=== PATIENT | female | born 1955 | race Caucasian/White ===

== ENCOUNTER → 2016-09-23 | Outpatient (CLI) | payer OTHER ==
[~2016-09-23] MED LIST: ATOR-22 PO; GLC/500 PO; LISI-787 PO
[2016-09-23 10:13] LABS: ESTIMATED AVERAGE GLUCOSE 128 mg/dl; HA1C FLAG Normal (Normal)
[2016-09-23 10:14] LABS: ALT/SGPT 30 U/L (12-78); AST/SGOT 17 U/L (15-37); BLOOD UREA NITROGEN 15 mg/dl (7-18); CALCIUM 9.3 mg/dl (8.5-10.1); CARBON DIOXIDE 25 mmol/L (21-32); CHLORIDE 108 mmol/L (98-107); GLUCOSE 111 mg/dl (70-99); SODIUM 141 mmol/L (136-145)
== END | disposition home or self-care (01) ==
LOC: C.LAB 08:57
DX: E21.3 Hyperparathyroidism, unspecified (principal); I10 Essential (primary) hypertension; E78.5 Hyperlipidemia, unspecified; E03.9 Hypothyroidism, unspecified; R73.9 Hyperglycemia, unspecified

== ENCOUNTER → 2017-03-14 | Outpatient (CLI) | payer OTHER ==
[2017-03-14 10:19] LABS: ALT/SGPT 43 U/L (12-78); AST/SGOT 20 U/L (15-37); BLOOD UREA NITROGEN 15 mg/dl (7-18); BUN/CREATININE RATIO 17.8 (10-20); CALCIUM 9.4 mg/dl (8.5-10.1); CARBON DIOXIDE 26 mmol/L (21-32); CHLORIDE 107 mmol/L (98-107); CHOLESTEROL 160 mg/dl (0-200); CREATININE 0.84 mg/dl (0.60-1.20); GLUCOSE 120 mg/dl (70-99); POTASSIUM 4.2 mmol/L (3.5-5.1); SODIUM 140 mmol/L (136-145)
[2017-03-14 10:29] LABS: CHOLESTEROL/HDL RATIO 3.3; HDL CHOLESTEROL 49 mg/dl; LDL CHOLESTEROL CALCULATED 73 mg/dl; TRIGLYCERIDES 191 mg/dl (0-150); VERY LOW DENSITY LIPOPROT CALC 38 mg/dl
[2017-03-14 11:04] LABS: ESTIMATED AVERAGE GLUCOSE 134 mg/dl; HA1C FLAG Normal (Normal)
== END | disposition home or self-care (01) ==
LOC: C.LAB1850 08:18
DX: E03.9 Hypothyroidism, unspecified (principal); R73.9 Hyperglycemia, unspecified; E21.3 Hyperparathyroidism, unspecified; E78.5 Hyperlipidemia, unspecified

== ENCOUNTER → 2017-11-17 | Outpatient (CLI) | payer OTHER ==
[2017-11-17 09:41] LABS: ALT/SGPT 34 U/L (12-78); AST/SGOT 19 U/L (15-37); BLOOD UREA NITROGEN 15 mg/dl (7-18); CALCIUM 9.1 mg/dl (8.5-10.1); CARBON DIOXIDE 24 mmol/L (21-32); CREATININE 0.94 mg/dl (0.60-1.20); GLUCOSE 115 mg/dl (70-99); POTASSIUM 3.8 mmol/L (3.5-5.1); SODIUM 138 mmol/L (136-145)
[2017-11-17 09:50] LABS: HEMOGLOBIN A1C 6.3 % (4.5-5.6)
== END | disposition home or self-care (01) ==
LOC: C.LAB1850 08:27
DX: I10 Essential (primary) hypertension (principal); E78.5 Hyperlipidemia, unspecified; E55.9 Vitamin D deficiency, unspecified

== ENCOUNTER 2023-07-21 18:28 | Inpatient (IN) ==
[2023-07-21] MEDS ORDERED: SODIUM CHLORIDE 0.9% 500 ML IV SCH (19:15)
--- NOTE | 2023-07-21 19:18 | Emergency Department Note ---
Impression & Plan Infected pancreatic pseudocyst, Acute upper abdominal pain, Elevated liver enzymes, Dizziness, Failure of outpatient treatment, Hypokalemia ED Provider Note NAME: LOU CALABRESE AGE: 68 SEX: F : 1955 ARRIVES VIA: Walk-In INFORMANT: [Patient][family] ED PROVIDER(S): [Alfa Hansen MD] CHIEF COMPLAINT: Visual disturbance HISTORY OF PRESENT ILLNESS: The patient is a 68-year-old female with a history of pancreatitis and pancreatic stenting. She is scheduled to have her gallbladder removed sometime after [place]. The patient states that she was told to come for evaluation by her GI doctor as there was concern that she may be developing an infection. The patient states that for the last 2 days, she has had bouts of dizziness, headache and some blurred vision. She has had some bloating and some upper abdominal pain. No nausea, no diarrhea, no fever. She has not had respiratory complaints. The patient denies any one-sided weakness. She states that the episodes of blurry vision and dizziness seem to last maybe 10 or 15 minutes at a time. She does not think that the episodes are related to position change PMHx/PSHx/Social Hx: See Below PHYSICAL EXAM: GENERAL: Patient is in no acute distress. HEENT: No acute trauma, normocephalic atraumatic, mucous membranes moist, no nasal congestion. Extraocular muscles intact and full, no nystagmus. NECK: No stridor, no adenopathy, no meningismus, trachea is midline. LUNGS: Clear to auscultation bilaterally, no wheeze, no rhonchi, breath sounds equal. HEART: Without murmurs gallops or rubs, regular rate and rhythm. ABDOMEN: Soft, mildly tender in the epigastrium, no rebound, no significant abdominal distention. EXTREMITIES: No cyanosis, full range of motion of all the joints without pain or difficulty. NEUROLOGIC: Oriented x 3, no acute motor or sensory deficits, no focal weakness. No facial droop or speech slur, no extremity drift or cerebellar dysfunction, excellent historian. SKIN: No jaundice, no diaphoresis. DIFFERENTIAL DIAGNOSIS: Stroke or TIA, vertigo, dehydration, electrolyte imbalance, anemia, recurrent pancreatitis, UTI, among others EMERGENCY DEPARTMENT PROCEDURES: MEDICAL DECISION MAKING: There is no leukocytosis. A very mild anemia was seen. There is a normal platelet count. Patient's potassium was low at 2.8. No renal failure. There were some very subtle liver enzyme elevations. The bilirubin though was normal. ECG shows a normal sinus rhythm, no ischemia. Cardiac enzyme testing x 1 is not elevated and certainly goes against cardiac ischemia. Lipase was slightly high at 104. Patient appeared to be in a euthyroid state. Urinalysis did not show infection. Chest x-ray did not show pneumonia or CHF. No free air. Brain CT showed no acute bleed or mass effect. Abdominal and pelvis CT showed what appears to be an infected pancreatic pseudocyst with a drain in place. On my exam, there were no focal neurologic deficits. No speech slur or facial droop. The patient was not febrile or toxic. The patient was given IV saline, she received IV potassium, 2 bags. She was given IV Zosyn as antibiotic coverage. She received IV Protonix and IV Pepcid. I did reach out to our GI service, Dr. Cox felt transfer was in order. I did speak with Tavo KATZ, Dr. Elmore. He did accept the patient. Patient will be accepted by the hospitalist service at [facility] in [place]. Unfortunately, there is no bed available this evening. [facility] recommended admission to our facility until a bed opens. The patient is aware of her findings, I did speak with case management, the on- call hospitalist was consulted. Prior/Outside records/notes reviewed: ECG per my interpretation: Indication was dizziness. The ECG shows a normal sinus rhythm with a rate of 74. There is no ST elevation, no PVCs. The QTc is 401. Continuous Cardiac Monitoring per my interpretation: An order was placed for continuous cardiac monitoring. The monitor shows a rate of 78 with normal sinus rhythm. Imaging/x-ray results per my interpretation: Chest x-ray does not show mediastinal widening, pneumonia or pneumothorax. Chronic Medical/Social conditions affecting care: Pancreatitis. Care/Management discussed with: Meena KATZ-Dr. Elmore, [facility]-Dr. Cox, case management, the on-call hospitalist. Level of care consideration(s): After review of the information above and other included data: --I believe the patient requires escalation of care to admission DISPOSITION: Admission and eventual transfer to tertiary care Past Med/Surg History Medical History HLD (hyperlipidemia) DM II (diabetes mellitus, type II), controlled Hypertension Hyperparathyroidism (09/26/13) Surgical History Hx of appendectomy H/O section Family History Father Diabetes Mother Cancer Social History Smoking Status: Never smoker Second Hand Exposure: No; Do You Dip or Chew Tobacco: No; Hx Alcohol Use: No Hx Substance Use: No Preferred Language: Filipino Communication Ability: Effective Community Administrator Required: No Beliefs That Will Affect Care: None Current Living Situation: Spouse Feels Safe at Home: Yes Assistive Devices: None Allergies Allergies Allergy/AdvReac Type Severity Reaction Status Date / Time No Known Allergies Allergy Verified 07/21/23 19:33 Home Meds Home Medications Medication Instructions Recorded Confirmed lisinopril 20 1 tab PO DAILY 05/17/23 07/21/23 mg-hydrochlorothiazide 12.5 mg tablet Results & Data (ED) Vital Signs Vital Signs - 24 hr 07/21/23 18:32 07/21/23 18:53 07/21/23 18:54 Temperature 36.5 C Temperature Source Temporal Artery Scan Pulse Rate 101 H 79 79 Pulse Rate [Apical] Pulse Rate from SpO2 Sensor 80 Pulse Rhythm Regular Respiratory Rate 20 33 H Respiratory Effort / Characteristics Non-Labored Spontaneous Respiratory Depth Normal Blood Pressure 151/83 H Blood Pressure [Left Arm] Blood Pressure Mean 105 Blood Pressure Mean [Left Arm] Pulse Oximetry 97 96 Oxygen Delivery Method Room Air Sepsis Recent Fever Within 48 Hours No Sepsis New/Unexplained Change in Mental Status No Sepsis Action Taken by Nursing No Action Required 07/21/23 18:56 07/21/23 19:00 07/21/23 19:00 Temperature Temperature Source Pulse Rate 77 Pulse Rate [Apical] 78 Pulse Rate from SpO2 Sensor 78 Pulse Rhythm Respiratory Rate 18 25 H Respiratory Effort / Characteristics Respiratory Depth Blood Pressure 134/77 Blood Pressure [Left Arm] 135/81 Blood Pressure Mean 98 Blood Pressure Mean [Left Arm] 99 Pulse Oximetry 98 94 Oxygen Delivery Method Sepsis Recent Fever Within 48 Hours Sepsis New/Unexplained Change in Mental Status Sepsis Action Taken by Nursing 07/21/23 19:30 07/21/23 19:30 07/21/23 20:16 Temperature Temperature Source Pulse Rate 74 Pulse Rate [Apical] Pulse Rate from SpO2 Sensor 83 Pulse Rhythm Respiratory Rate 24 Respiratory Effort / Characteristics Respiratory Depth Blood Pressure 141/76 H Blood Pressure [Left Arm] Blood Pressure Mean 91 Blood Pressure Mean [Left Arm] Pulse Oximetry 96 Oxygen Delivery Method Sepsis Recent Fever Within 48 Hours Sepsis New/Unexplained Change in Mental Status Sepsis Action Taken by Nursing 07/21/23 20:30 Temperature Temperature Source Pulse Rate 72 Pulse Rate [Apical] Pulse Rate from SpO2 Sensor 72 Pulse Rhythm Respiratory Rate 19 Respiratory Effort / Characteristics Respiratory Depth Blood Pressure Blood Pressure [Left Arm] Blood Pressure Mean Blood Pressure Mean [Left Arm] Pulse Oximetry 96 Oxygen Delivery Method Sepsis Recent Fever Within 48 Hours Sepsis New/Unexplained Change in Mental Status Sepsis Action Taken by Detention Medications Current Medication List: was personally reviewed by me Laboratory Data Attestation: I reviewed the patient's lab results. 07/21/23 18:51 07/21/23 18:51 Lab Results 07/21/23 07/21/23 Range/Units 18:51 19:59 WBC 8.39 (4.8-10.8) K/ul RBC 4.08 L (4.20-5.40) M/uL Hgb 11.7 L (12.0-16.0) g/dl Hct 36.3 L (37.0-47.0) % MCV 89.0 (80.0-100.0) fL MCH 28.7 (25.0-34.0) pg MCHC 32.2 (32.0-36.0) g/dL RDW Std Deviation 43.7 (36.4-46.3) fL RDW Coeff of Jazmin 13.4 (11.5-14.5) % Plt Count 291 (130-400) K/uL MPV 11.9 (9.4-12.4) fL Immature Gran % (Auto) 0.2 % Neut % (Auto) 53.8 % Lymph % (Auto) 33.0 % Alcorn % (Auto) 10.8 % Eos % (Auto) 1.7 % Baso % (Auto) 0.5 % Neut # (Auto) 4.51 (1.40-6.50) K/uL Lymph # (Auto) 2.77 (1.20-3.40) K/uL Alcorn # (Auto) 0.91 H (0.11-0.59) K/uL Eos # (Auto) 0.14 (0.00-0.50) K/uL Baso # (Auto) 0.04 (0.00-0.20) K/uL Immature Gran # (Auto) 0.02 (0.01-0.20) K/uL Sodium 135 L (136-145) mmol/L Potassium 2.8 L (3.5-5.1) mmol/L Chloride 97 L (98-107) mmol/L Carbon Dioxide 29 (21-32) mmol/L Anion Gap 9 (3-11) BUN 9 (6-23) mg/dl Creatinine 0.55 L (0.6-1.2) mg/dl Est Cr Clr Drug Dosing 82.2 ml/min Est GFR ( Amer) 110.1 ml/min Est GFR (Non-Af Amer) 95.0 ml/min BUN/Creatinine Ratio 16.4 (10-20) Glucose 159 H (70-99(Fasting)) mg/dl Calcium 10.1 (8.6-10.3) mg/dl Magnesium 1.7 (1.7-2.4) mg/dl Total Bilirubin 0.6 (0.2-1.0) mg/dl AST 44 H (13-39) U/L ALT 37 (7-52) U/L Alkaline Phosphatase 213 H (34-104) U/L Troponin I High Sens 6.7 (0-14) pg/ml Total Protein 7.2 (6.0-8.3) gm/dl Albumin 3.8 (3.4-5.0) gm/dl Globulin 3.4 (2.5-4.0) gm/dl Albumin/Globulin Ratio 1.1 (0.9-2) Lipase 104 H (11-82) U/L TSH 4.098 (0.300-4.500) uIu/ml Urine Color Yellow Urine Appearance Clear (Clear) Urine pH 6.5 (4.5-7.5) Ur Specific [place] 1.011 (1.000-1.030) Urine Protein Negative (Negative) Urine Glucose (UA) Negative (Negative) Urine Ketones Negative (Negative) Urine Blood Negative (Negative) Urine Nitrite Negative (Negative) Urine Bilirubin Negative (Negative) Urine Urobilinogen Negative (Negative) Ur Leukocyte Esterase Negative (Negative) Administered Medications Discontinued Medications Sodium Chloride (Nss) 500 mls @ 999 mls/hr IV .Q31M ISAC Stop: 07/21/23 19:45 Last Infusion: 07/21/23 21:01 Dose: Infused Documented By: Admin: 07/21/23 20:17 Dose: 999 mls/hr Documented By: Potassium Chloride (K Luca / Wtr) 10 meq in 100 mls @ 100 mls/hr IV Q1H ISAC Stop: 07/21/23 21:59 Last Admin: 07/21/23 21:41 Dose: 100 mls/hr Documented By: Infusion: 07/21/23 21:41 Dose: Infused Documented By: Admin: 07/21/23 20:17 Dose: 100 mls/hr Documented By: Famotidine (Pepcid 20mg Iv Push) 20 mg in 5 mls @ 2.5 mls/min IV NOW STA Stop: 07/21/23 21:36 Last Admin: 07/21/23 21:54 Dose: 2.5 mls/min Documented By: Pantoprazole Sodium 40 mg/ (Syringe) 10 mls @ 5 mls/min IV NOW ONE Stop: 07/21/23 21:36 Last Admin: 07/21/23 21:54 Dose: 5 mls/min Documented By: Piperacillin Sod/Tazobactam Sod (Zosyn) 4.5 gm in 120 mls @ 240 mls/hr IV NOW ONE Stop: 07/21/23 22:04 Last Infusion: 07/21/23 22:45 Dose: Infused Documented By: Admin: 07/21/23 21:54 Dose: 240 mls/hr Documented By: Ioversol (Optiray 320 500ml) 82 ml IV ONCE ONE Stop: 07/21/23 20:06 Last Admin: 07/21/23 20:06 Dose: 82 ml Documented By: IZABEL Imaging Data Radiologist's Impression: Chest X-Ray 07/21/23 19:12 SINGLE VIEW CHEST CLINICAL HISTORY: Generalized weakness. FINDINGS: An AP, portable, upright chest radiograph is compared to study dated 05/19/2023. The cardiomediastinal silhouette is top normal for projection. Chronic interstitial thickening is similar to previous. There is minimal bibasilar atelectasis. The lungs and pleural spaces are otherwise clear. No pneumothorax is seen. The skeletal structures are osteopenic. The bony thorax is grossly intact. A catheter projects over the left upper quadrant. IMPRESSION: No active disease in the chest. ACT 112: Negative or not required by law. Electronically signed by: Alfa Harris M.D. 07/21/2023 8:[address] 07/21/23 19:12 Exam(s): CT HEAD Without Contrast EXAM: CT Head Without Intravenous Contrast CLINICAL HISTORY: Reason for exam: dizzy, cardona. TECHNIQUE: Axial computed tomography images of the head/brain without intravenous contrast. CTDI is 35.65 mGy and DLP is 546.36 mGy-cm. Automated exposure control was utilized for the study. A dose lowering technique was utilized adhering to the principles of ALARA. COMPARISON: No relevant prior studies available. FINDINGS: No acute intracranial hemorrhage. No midline shift or mass effect. The territorial mendez-white matter differentiation is maintained throughout. Age-related cerebral volume loss. Periventricular and subcortical white matter hypoattenuation, consistent with chronic microangiopathy. The visualized orbits appear grossly unremarkable. The calvarium is intact. The visualized paranasal sinuses and mastoid air cells are grossly clear. IMPRESSION: No acute intracranial hemorrhage, midline shift, or mass effect. Electronically signed by: Emery Robert MD 07/21/23 20:32 PM Abdomen/Pelvis CT 07/21/23 19:13 Exam(s): CT ABDOMEN + PELVIS With Contrast IV Amt: 82 ml optiray 320 EXAM: CT Abdomen and Pelvis With Intravenous Contrast CLINICAL HISTORY: Reason for exam: upper abd pain, histor of pancreatitis. TECHNIQUE: Axial computed tomography images of the abdomen and pelvis with intravenous contrast. CTDI is 18.32 mGy and DLP is 884.59 mGy-cm. Automated exposure control was utilized for the study. A dose lowering technique was utilized adhering to the principles of ALARA. CONTRAST: Patient received 82 ml optiray 320 of IV contrast COMPARISON: CT abdomen and pelvis May 23, 2023. FINDINGS: Lung bases: Unremarkable. No mass. No consolidation. ABDOMEN: Liver: Unremarkable. No mass. Gallbladder and bile ducts: Layering sludge versus old contrast in the gallbladder. No calcified stones. No ductal dilation. Pancreas: Unremarkable. No mass. No ductal dilation. Spleen: Unremarkable. No splenomegaly. Adrenals: Unremarkable. No mass. Kidneys and ureters: Renal cysts. No hydronephrosis. Stomach and bowel: Diverticulosis, without acute diverticulitis. No small bowel obstruction. No free intraperitoneal air. PELVIS: Appendix: Normal appendix. Bladder: Decompressed urinary bladder. Reproductive: Unremarkable as visualized. ABDOMEN and PELVIS: Intraperitoneal space: Unremarkable. No free air. No significant fluid collection. Bones/joints: Degenerative changes of the spine. No acute fracture. No dislocation. Soft tissues: Unremarkable. Vasculature: Atherosclerotic changes of the aorta. No abdominal aortic aneurysm. Lymph nodes: Unremarkable. No enlarged lymph nodes. Tubes, lines and devices: Fluid collection with multiple locules of air adhering to the pancreas measuring 5.0 x 5.6 cm, concerning for infected pancreatic pseudocyst. There is an indwelling pigtail catheter traversing the stomach in this collection. This collection was not present on May 23, 2023. IMPRESSION: Fluid collection with multiple locules of air adhering to the pancreas measuring 5.0 x 5.6 cm, concerning for infected pancreatic pseudocyst. Indwelling pigtail catheter traversing the stomach, now within this collection. This collection was not present on May 23, 2023. Electronically signed by: Emery Robert MD 07/21/23 21:20 PM Discharge Plan Visit Data Chief Complaint: Visual Disturbance Stated Complaint: BLURRED VISION, DIZZY, LETHARGIC, WEAK, HEADACHE ED Provider: Alfa Hansen Discharge Problem: Infected pancreatic pseudocyst, Acute upper abdominal pain, Elevated liver enzymes, Dizziness, Failure of outpatient treatment, Hypokalemia Patient Disposition: Admitted As Inpatient Condition: Fair Forms Stand Alone Forms: [facility] Prescriptions Prescriptions: No Action lisinopril-hydrochlorothiazide 20-12.5 mg tablet 1 tab PO DAILY Referrals Referrals: Elana Mcgarry PA-C [Primary Care Provider] -
[2023-07-21 19:47] LABS: Albumin Globulin Ratio 1.1 (0.9-2); Albumin Level 3.8 gm/dl (3.4-5.0); BUN Creatinine Ratio 16.4 (10-20); Bilirubin,Total 0.6 mg/dl (0.2-1.0); Calcium 10.1 mg/dl (8.6-10.3); Creatinine Clr Calc Pharmacy 82.2 ml/min; Est GFR (African American) 110.1 ml/min; Globulin 3.4 gm/dl (2.5-4.0); Magnesium 1.7 mg/dl (1.7-2.4); Potassium 2.8 mmol/L (3.5-5.1); Total Protein 7.2 gm/dl (6.0-8.3)
[2023-07-21 19:54] LABS: Troponin I High Sensitivity 6.7 pg/ml (0-14)
[2023-07-21 20:03] LABS: Basophils # (auto) 0.04 K/uL (0.00-0.20); Basophils % (auto) 0.5 %; Eosinophils # (auto) 0.14 K/uL (0.00-0.50); Eosinophils % (auto) 1.7 %; Hematocrit (blood only) 36.3 % (37.0-47.0); Hemoglobin 11.7 g/dl (12.0-16.0); Immature Granulocytes # (auto) 0.02 K/uL (0.01-0.20); Immature Granulocytes % (auto) 0.2 %; Lymphocytes # (auto) 2.77 K/uL (1.20-3.40); Mean Corpuscular Hemoglobin 28.7 pg (25.0-34.0); Mean Corpuscular Hgb Conc 32.2 g/dL (32.0-36.0); Mean Platelet Volume 11.9 fL (9.4-12.4); Monocytes # (auto) 0.91 K/uL (0.11-0.59); Monocytes % (auto) 10.8 %; Neutrophils # (auto) 4.51 K/uL (1.40-6.50); Neutrophils % (auto) 53.8 %; Platelet Count 291 K/uL (130-400); RDW Coefficient of Variation 13.4 % (11.5-14.5); RDW Standard Deviation 43.7 fL (36.4-46.3); Red Blood Count 4.08 M/uL (4.20-5.40); Thyroid Stimulating Hormone 4.098 uIu/ml (0.300-4.500); White Blood Count 8.39 K/ul (4.8-10.8)
[2023-07-21] MEDS ORDERED: OPTIRAY 320 500ml IV ONE (20:05)
[2023-07-21 20:11] LABS: Appearance Urine Clear (Clear); Bilirubin Urine Negative (Negative); Blood Urine Negative (Negative); Color Urine Yellow; Glucose Urine UA Negative (Negative); Ketones Urine Negative (Negative); Leukocyte Esterase Urine Negative (Negative); Nitrite Urine Negative (Negative); Protein Urine Negative (Negative); Specific Gravity Urine 1.011 (1.000-1.030); Urobilinogen Urine Negative (Negative); pH Urine 6.5 (4.5-7.5)
[2023-07-21] MEDS: POTASSIUM CHLORIDE / WTR 10 MEQ/100 ML PLCT IV SCH ×2 (20:17→21:41)
--- NOTE | 2023-07-21 20:34 | CT Scan Report ---
Exam(s): CT HEAD Without Contrast EXAM: CT Head Without Intravenous Contrast CLINICAL HISTORY: Reason for exam: dizzy, cardona. TECHNIQUE: Axial computed tomography images of the head/brain without intravenous contrast. CTDI is 35.65 mGy and DLP is 546.36 mGy-cm. Automated exposure control was utilized for the study. A dose lowering technique was utilized adhering to the principles of ALARA. COMPARISON: No relevant prior studies available. FINDINGS: No acute intracranial hemorrhage. No midline shift or mass effect. The territorial mendez-white matter differentiation is maintained throughout. Age-related cerebral volume loss. Periventricular and subcortical white matter hypoattenuation, consistent with chronic microangiopathy. The visualized orbits appear grossly unremarkable. The calvarium is intact. The visualized paranasal sinuses and mastoid air cells are grossly clear. IMPRESSION: No acute intracranial hemorrhage, midline shift, or mass effect. Electronically signed by: Emery Robert MD 07/21/23 20:32 PM
--- NOTE | 2023-07-21 20:59 | XRay Report ---
SINGLE VIEW CHEST CLINICAL HISTORY: Generalized weakness. FINDINGS: An AP, portable, upright chest radiograph is compared to study dated 05/19/2023. The cardio mediastinal silhouette is top normal for projection. Chronic interstitial thickening is similar to pr evious. There is minimal bibasilar atelectasis. The lungs and pleural spaces are otherwise clear. No pneumothorax is seen. The skeletal structures are osteopenic. The bony thorax is grossly intact. A ca theter projects over the left upper quadrant. IMPRESSION: No active disease in the chest. ACT 112: Negative or not required by law. Electronically signed by: Alfa Harris M.D. 07/21/2023 8:58 PM
--- NOTE | 2023-07-21 21:20 | CT Scan Report ---
Exam(s): CT ABDOMEN + PELVIS With Contrast IV Amt: 82 ml optiray 320 EXAM: CT Abdomen and Pelvis With Intravenous Contrast CLINICAL HISTORY: Reason for exam: upper abd pain, histor of pancreatitis. TECHNIQUE: Axial computed tomography images of the abdomen and pelvis with intravenous contrast. CTDI is 18.32 mGy and DLP is 884.59 mGy-cm. Automated exposure control was utilized for the study. A dose lowering technique was utilized adhering to the principles of ALARA. CONTRAST: Patient received 82 ml optiray 320 of IV contrast COMPARISON: CT abdomen and pelvis May 23, 2023. FINDINGS: Lung bases: Unremarkable. No mass. No consolidation. ABDOMEN: Liver: Unremarkable. No mass. Gallbladder and bile ducts: Layering sludge versus old contrast in the gallbladder. No calcified stones. No ductal dilation. Pancreas: Unremarkable. No mass. No ductal dilation. Spleen: Unremarkable. No splenomegaly. Adrenals: Unremarkable. No mass. Kidneys and ureters: Renal cysts. No hydronephrosis. Stomach and bowel: Diverticulosis, without acute diverticulitis. No small bowel obstruction. No free intraperitoneal air. PELVIS: Appendix: Normal appendix. Bladder: Decompressed urinary bladder. Reproductive: Unremarkable as visualized. ABDOMEN and PELVIS: Intraperitoneal space: Unremarkable. No free air. No significant fluid collection. Bones/joints: Degenerative changes of the spine. No acute fracture. No dislocation. Soft tissues: Unremarkable. Vasculature: Atherosclerotic changes of the aorta. No abdominal aortic aneurysm. Lymph nodes: Unremarkable. No enlarged lymph nodes. Tubes, lines and devices: Fluid collection with multiple locules of air adhering to the pancreas measuring 5.0 x 5.6 cm, concerning for infected pancreatic pseudocyst. There is an indwelling pigtail catheter traversing the stomach in this collection. This collection was not present on May 23, 2023. IMPRESSION: Fluid collection with multiple locules of air adhering to the pancreas measuring 5.0 x 5.6 cm, concerning for infected pancreatic pseudocyst. Indwelling pigtail catheter traversing the stomach, now within this collection. This collection was not present on May 23, 2023. Electronically signed by: Emery Robert MD 07/21/23 21:20 PM
[2023-07-21] MEDS ORDERED: PIPERACILLIN/TAZOBACTAM 4.5 GM/120 ML BAG IV ONE (21:35)
[2023-07-21] MEDS ORDERED: PANTOprazole 40 MG in SYRINGE 0 ML IV ONE (21:35)
[2023-07-21] MEDS ORDERED: FAMOTIDINE 20MG IV PUSH 20 MG/5 ML SYR IV STA (21:35)
[2023-07-21] MEDS ORDERED: POTASSIUM CHLORIDE CRTAB 20 MEQ TABCR PO STA (22:50)
[2023-07-21] MEDS ORDERED: MAGNESIUM SULFATE / D5W 1 GM/100 ML BAG IV STA (23:05)
[2023-07-21] MEDS ORDERED: POTASSIUM CHLORIDE PWD 20 MEQ PACK PO STA (23:29)
--- NOTE | 2023-07-21 23:30 | History & Physical Report ---
Date of Service July 21, 2023 Assessment & Plan (1) Infected pancreatic pseudocyst: Plan: History necrotizing gallstone pancreatitis No sepsis for now Hypokalemia secondary to decreased p.o. intake from illness Transient headache preceded by visual spots on the right eye, possible migraine, patient currently comfortable HTN, stable hyperlipidemia, on statin Rx hyperparathyroidism as per records, serum calcium within normal limits DM2 diet-controlled, hemoglobin A1c noted to be 6.6 during confinement 2 months ago, patient unaware of diagnosis chronic anemia, hemoglobin at baseline Hypokalemia secondary to decreased p.o. intake and home diuretic Rx F Transfer to [facility] once bed available. Patient accepted for transfer by hospitalist service (Dr. Bacon) after discussion of case with [facility] GI specialist, Dr. Elmore. GI recommends n.p.o. status and continuing Zosyn for now. Transfer paperwork already completed by ER provider. Replace potassium Hold home diuretic for now. ISS BG goal 1 10-1 40, DM education DVT prophylaxis per Lovenox subcu Full code Patient requests for son to be updated of progress and transfer once bed available. Mr. Magno Horton, contact #[phone]. Text document was generated using [employer] voice recognition software. It may contain grammatical or spelling errors. Kindly contact undersigned for clarification of any documentation item in question. History of Present Illness Chief Complaint: Dizziness, worsening abdominal bloating Primary Care Provider: Elana Mcgarry PA-C History obtained from patient and records. Medical history significant for HTN, hyperlipidemia, history of gallstone pancreatitis, history of pancreatic pseudocyst/necrotizing pancreatitis, hyperparathyroidism as per records, DM2 diet-controlled (patient unaware of previous diagnosis), chronic anemia (baseline hemoglobin 10-11). Last confinement May 2023 for gallstone pancreatitis/acute cholecystitis. Repeat CAT scan done during confinement showed development of pancreatic necrosis. Patient received meropenem and discharged on cefdinir and Flagyl course. Outpatient cholecystectomy contemplated. Persistent abdominal bloating, decreased p.o. intake since discharge from the hospital. No fever, no chills, no chest pain, no SOB. Patient underwent outpatient endoscopic peripancreatic pseudocyst drainage via cystogastrostomy with stent placement by GI last month following General Surgery recommendations prior to cholecystectomy. Patient prescribed Cipro Flagyl course postprocedure. Outpatient CAT scan done 2 weeks ago following procedure showed 1. Redemonstration of sequelae of necrotizing pancreatitis with walled-off nec roses. Interval improvement from prior study, status post cysto gastrostomy catheter placement. 2. New hypodensities with the focus of fat in the right adnexal area may be sequelae of necrosis fat. Attention recommended on follow-up CT in 3 months. 3. Redemonstration of retroperitoneal nodularity, likely related to fat necrosis from prior pancreatitis. Attention recommended on follow-up. 4. Stones/sludge in the gallbladder. Worsening abdominal discomfort today. Transient spots noted on right eye followed by achy headache symptoms. No prior episodes. No chest pain, no SOB. Dizziness described as lightheadedness with generalized weakness. Patient brought to ER for evaluation. CAT scan of the abdomen pelvis showed infected pancreatic pseudocyst. IV Zosyn administered at the ER. [facility] GI specialist requested [facility] transfer for advanced endoscopic services. Patient accepted for transfer by hospitalist service after coordination with [facility] GI specialist pending bed availability as per ER provider. Medical History as above Surgical History : section, partial thyroidectomy, appendectomy Family History : DM Personal/Social history : Non-smoker, no EtOH intake, retired hospital cafeteria employee Allergies Allergy/AdvReac Type Severity Reaction Status Date / Time No Known Allergies Allergy Verified 07/21/23 19:33 Home Medications Medication Instructions Recorded Confirmed Type lisinopril 20 1 tab PO DAILY 05/17/23 07/21/23 History mg-hydrochlorothiazide 12.5 mg tablet Past Med/Surg History Medical History HLD (hyperlipidemia) DM II (diabetes mellitus, type II), controlled Hypertension Hyperparathyroidism (09/26/13) Surgical History Hx of appendectomy H/O section Family History Father Diabetes Mother Cancer Social History Smoking Status: Never smoker Second Hand Exposure: No; Do You Dip or Chew Tobacco: No; Hx Alcohol Use: No Hx Substance Use: No Preferred Language: Citizen Of [place] Communication Ability: Effective Drapery Maker Required: No Beliefs That Will Affect Care: None Current Living Situation: Alone Other Information That Helps Us Care for You: No Feels Safe at Home: Yes Safety Concerns: Feels Safe At This Time Assistive Devices: None Review of Systems Review of Systems: As per HPI, all other systems reviewed and negative Physical Exam Physical Exam: GENERAL: Comfortable, slightly anxious, pleasant, no respiratory distress SKIN: Normal color, warm HEENT: Wink palpebral conjunctivae, no ptosis, dry buccal mucosa NECK : Supple, no tenderness CHEST : CTA, no tenderness HEART : RRR, no obvious murmurs ABDOMEN: Some distention, epigastric tenderness EXTREMITIES : No LE swelling/tenderness, no other conspicuous deformities noted NEUROLOGIC : Coherent, no facial asymmetry, no other gross focality Results & Data Results & Data Vital Signs (Past 12 Hours) Vital Signs Temp Pulse Pulse Resp BP BP Pulse Ox 07/21/23 22:50 78 07/21/23 20:30 72 19 96 07/21/23 20:16 96 07/21/23 19:30 74 24 07/21/23 19:30 141/76 H 07/21/23 19:00 77 25 H 94 07/21/23 19:00 134/77 07/21/23 18:56 78 18 135/81 98 07/21/23 18:54 79 33 H 96 07/21/23 18:53 79 07/21/23 18:32 36.5 C 101 H 20 151/83 H 97 O2 Del Method 07/21/23 22:50 07/21/23 20:30 07/21/23 20:16 07/21/23 19:30 07/21/23 19:30 07/21/23 19:00 07/21/23 19:00 07/21/23 18:56 07/21/23 18:54 07/21/23 18:53 07/21/23 18:32 Room Air Laboratory Results Laboratory Results WBC 8.39 K/ul (4.8-10.8) 07/21/23 18:51 RBC 4.08 M/uL (4.20-5.40) L 07/21/23 18:51 Hgb 11.7 g/dl (12.0-16.0) L 07/21/23 18:51 Hct 36.3 % (37.0-47.0) L 07/21/23 18:51 MCV 89.0 fL (80.0-100.0) 07/21/23 18:51 MCH 28.7 pg (25.0-34.0) 07/21/23 18:51 MCHC 32.2 g/dL (32.0-36.0) 07/21/23 18:51 RDW Std Deviation 43.7 fL (36.4-46.3) 07/21/23 18:51 RDW Coeff of Jazmin 13.4 % (11.5-14.5) 07/21/23 18:51 Plt Count 291 K/uL (130-400) 07/21/23 18:51 MPV 11.9 fL (9.4-12.4) 07/21/23 18:51 Immature Gran % (Auto) 0.2 % 07/21/23 18:51 Neut % (Auto) 53.8 % 07/21/23 18:51 Lymph % (Auto) 33.0 % 07/21/23 18:51 Gladwin % (Auto) 10.8 % 07/21/23 18:51 Eos % (Auto) 1.7 % 07/21/23 18:51 Baso % (Auto) 0.5 % 07/21/23 18:51 Neut # (Auto) 4.51 K/uL (1.40-6.50) 07/21/23 18:51 Lymph # (Auto) 2.77 K/uL (1.20-3.40) 07/21/23 18:51 Gladwin # (Auto) 0.91 K/uL (0.11-0.59) H 07/21/23 18:51 Eos # (Auto) 0.14 K/uL (0.00-0.50) 07/21/23 18:51 Baso # (Auto) 0.04 K/uL (0.00-0.20) 07/21/23 18:51 Immature Gran # (Auto) 0.02 K/uL (0.01-0.20) 07/21/23 18:51 Sodium 135 mmol/L (136-145) L 07/21/23 18:51 Potassium 2.8 mmol/L (3.5-5.1) L 07/21/23 18:51 Chloride 97 mmol/L (98-107) L 07/21/23 18:51 Carbon Dioxide 29 mmol/L (21-32) 07/21/23 18:51 Anion Gap 9 (3-11) 07/21/23 18:51 BUN 9 mg/dl (6-23) 07/21/23 18:51 Creatinine 0.55 mg/dl (0.6-1.2) L 07/21/23 18:51 Est Cr Clr Drug Dosing 82.2 ml/min 07/21/23 18:51 Est GFR ( Amer) 110.1 ml/min 07/21/23 18:51 Est GFR (Non-Af Amer) 95.0 ml/min 07/21/23 18:51 BUN/Creatinine Ratio 16.4 (10-20) 07/21/23 18:51 Glucose 159 mg/dl (70-99(Fasting)) H 07/21/23 18:51 Calcium 10.1 mg/dl (8.6-10.3) 07/21/23 18:51 Magnesium 1.7 mg/dl (1.7-2.4) 07/21/23 18:51 Total Bilirubin 0.6 mg/dl (0.2-1.0) 07/21/23 18:51 AST 44 U/L (13-39) H 07/21/23 18:51 ALT 37 U/L (7-52) 07/21/23 18:51 Alkaline Phosphatase 213 U/L (34-104) H 07/21/23 18:51 Troponin I High Sens 6.7 pg/ml (0-14) 07/21/23 18:51 Total Protein 7.2 gm/dl (6.0-8.3) 07/21/23 18:51 Albumin 3.8 gm/dl (3.4-5.0) 07/21/23 18:51 Globulin 3.4 gm/dl (2.5-4.0) 07/21/23 18:51 Albumin/Globulin Ratio 1.1 (0.9-2) 07/21/23 18:51 Lipase 104 U/L (11-82) H 07/21/23 18:51 TSH 4.098 uIu/ml (0.300-4.500) 07/21/23 18:51 Urine Color Yellow 07/21/23 19:59 Urine Appearance Clear (Clear) 12/15/23 19:59 Urine pH 6.5 (4.5-7.5) 07/21/23 19:59 Ur Specific Martin 1.011 (1.000-1.030) 07/21/23 19:59 Urine Protein Negative (Negative) 07/21/23 19:59 Urine Glucose (UA) Negative (Negative) 07/21/23 19:59 Urine Ketones Negative (Negative) 07/21/23 19:59 Urine Blood Negative (Negative) 07/21/23 19:59 Urine Nitrite Negative (Negative) 07/21/23 19:59 Urine Bilirubin Negative (Negative) 07/21/23 19:59 Urine Urobilinogen Negative (Negative) 07/21/23 19:59 Ur Leukocyte Esterase Negative (Negative) 07/21/23 19:59 Impressions Chest X-Ray 07/21/23 19:12 SINGLE VIEW CHEST CLINICAL HISTORY: Generalized weakness. FINDINGS: An AP, portable, upright chest radiograph is compared to study dated 05/19/2023. The cardiomediastinal silhouette is top normal for projection. Chronic interstitial thickening is similar to previous. There is minimal bibasil ar atelectasis. The lungs and pleural spaces are otherwise clear. No pneumothorax is seen. The skeletal structures are osteopenic. The bony thorax is grossly intact. A catheter projects over the left upper quadrant. IMPRESSION: No active disease in the chest. ACT 112: Negative or not required by law. Electronically signed by: Alfa Harris M.D. 07/21/2023 8:[address] 07/21/23 19:12 Exam(s): CT HEAD Without Contrast EXAM: CT Head Without Intravenous Contrast CLINICAL HISTORY: Reason for exam: dizzy, cardona. TECHNIQUE: Axial computed tomography images of the head/brain without intravenous contrast. CTDI is 35.65 mGy and DLP is 546.36 mGy-cm. Automated exposure control was utilized for the study. A dose lowering technique was utilized adhering to the principles of ALARA. COMPARISON: No relevant prior studies available. FINDINGS: No acute intracranial hemorrhage. No midline shift or mass effect. The territorial mendez-white matter differentiation is maintained throughout. Age-related cerebral volume loss. Periventricular and subcortical white matter hypoattenuation, consistent with chronic microangiopathy. The visualized orbits appear grossly unremarkable. The calvarium is intact. The visualized paranasal sinuses and mastoid air cells are grossly clear. IMPRESSION: No acute intracranial hemorrhage, midline shift, or mass effect. Electronically signed by: Emery Robert MD 07/21/23 20:32 PM Abdomen/Pelvis CT 07/21/23 19:13 Exam(s): CT ABDOMEN + PELVIS With Contrast IV Amt: 82 ml optiray 320 EXAM: CT Abdomen and Pelvis With Intravenous Contrast CLINICAL HISTORY: Reason for exam: upper abd pain, histor of pancreatitis. TECHNIQUE: Axial computed tomography images of the abdomen and pelvis with intravenous contrast. CTDI is 18.32 mGy and DLP is 884.59 mGy-cm. Automated exposure control was utilized for the study. A dose lowering technique was utilized adhering to the principles of ALARA. CONTRAST: Patient received 82 ml optiray 320 of IV contrast COMPARISON: CT abdomen and pelvis May 23, 2023. FINDINGS: Lung bases: Unremarkable. No mass. No consolidation. ABDOMEN: Liver: Unremarkable. No mass. Gallbladder and bile ducts: Layering sludge versus old contrast in the gallbladder. No calcified stones. No ductal dilation. Pancreas: Unremarkable. No mass. No ductal dilation. Spleen: Unremarkable. No splenomegaly. Adrenals: Unremarkable. No mass. Kidneys and ureters: Renal cysts. No hydronephrosis. Stomach and bowel: Diverticulosis, without acute diverticulitis. No small bowel obstruction. No free intraperitoneal air. PELVIS: Appendix: Normal appendix. Bladder: Decompressed urinary bladder. Reproductive: Unremarkable as visualized. ABDOMEN and PELVIS: Intraperitoneal space: Unremarkable. No free air. No significant fluid collection. Bones/joints: Degenerative changes of the spine. No acute fracture. No dislocation. Soft tissues: Unremarkable. Vasculature: Atherosclerotic changes of the aorta. No abdominal aortic aneurysm. Lymph nodes: Unremarkable. No enlarged lymph nodes. Tubes, lines and devices: Fluid collection with multiple locules of air adhering to the pancreas measuring 5.0 x 5.6 cm, concerning for infected pancreatic pseudocyst. There is an indwelling pigtail catheter traversing the stomach in this collection. This collection was not present on May 23, 2023. IMPRESSION: Fluid collection with multiple locules of air adhering to the pancreas measuring 5.0 x 5.6 cm, concerning for infected pancreatic pseudocyst. Indwelling pigtail catheter traversing the stomach, now within this collection. This collection was not present on May 23, 2023. Electronically signed by: Emery Robert MD 07/21/23 21:20 PM Diagnostic Findings EKG as per my interpretation : Rate 75, NSR, LAD, LAFB, no ischemia
[2023-07-21] MEDS ORDERED: traMADol HCL 50 MG TABLET PO PRN (23:34)
[2023-07-21] MEDS ORDERED: MoRPHine SULFATE 2 MG/ML CARP IV PRN (23:34)
[2023-07-21] MEDS ORDERED: PROMETHAZINE HCL 6.25 MG in SODIUM CHLORIDE 0.9% 50 ML IV PRN (23:34)
[2023-07-21] MEDS ORDERED: LORazepam 0.5 MG TAB PO PRN (23:34)
[2023-07-21] MEDS ORDERED: POTASSIUM CHLORIDE 20 MEQ in LACTATED RINGER'S 1,000 ML IV STA (23:52)
[2023-07-22] MEDS ORDERED: POTASSIUM CHLORIDE CRTAB 20 MEQ TABCR PO STA ×3 (00:14→08:48)
[2023-07-22] MEDS ORDERED: GLUCOSE 40% GEL 15 GM TUBE PO PRN (00:44)
[2023-07-22] MEDS ORDERED: GLUCOSE 10 TAB/TUBE PO PRN (00:44)
[2023-07-22] MEDS ORDERED: GLUCAGON FOR INJ 1 MG VIAL SQ PRN (00:44)
[2023-07-22] MEDS ORDERED: DEXTROSE 50% 50 ML SYRINGE IV PRN (00:44)
[2023-07-22] MEDS ORDERED: CARBOHYDRATES FOR HYPOGLYCEMIA PO PRN (00:44)
[2023-07-22] MEDS: INSULIN ASPART PER UNIT CHARGE SC SCH ×4 (01:32→18:05)
[2023-07-22] MEDS: PIPERACILLIN/TAZOBACTAM 4.5 GM in DEXTROSE 5% MINI-B 100 ML IV SCH ×3 (04:55→19:27)
--- OUTSIDE RECORDS SUMMARY | 2023-07-22 05:45 | External Medical Summary | Summary of Care ---
Author Name Unknown Organization [facility] Address [address] [place] [address] Phone [phone] Care Team Providers Care Neurology Physician Name Role Phone Elana Mcgarry PA-C Primary Care Provider [phone] Reason for Visit * Reason Onset Date Comments Medication Refill 06/22/2023 Encounter Details Date Type Department Care Team (Late st Contact Info) Description 06/22/2023 Refill Gastroenterology, [facility] [address] [id number] Celeste Scott MD [address] [id number] Allergies Active Allergy Reactions Criticality Noted Date Comments Nickel 05/19/2022 Rash, reddened documented as of this encounter (statuses as of 06/23/2023) Medications Medication Sig Dispensed Refills Start Date End Date Status Atorvastatin Calcium 40 MG Oral Tablet (Lipitor) take one tablet by mouth daily 90 Tablet 3 09/26/2022 Active metFORMIN HCl 500 MG Oral Tablet (Glucophage) take one tablet twice daily 180 Tablet 3 09/26/2022 Active Lisinopril-hydroC HLOROthiazide 20-12.5 MG Oral Tablet take one tablet by mouth daily 90 Tablet 3 09/26/2022 Active D3 Super Strength 50 MCG (1999) Oral Capsule (Cholecalciferol) Indications:Vitam in D deficiency Take 1 Capsule by mouth once a week. 90 Capsule 2 10/26/2022 Active Probiotic 250 MG Oral Capsule take 2 capsules by mouth daily 30 Capsule 0 05/30/2023 Active Cefdinir 300 MG Oral Capsule (Omnicef) take 1 capsule (300 mg) orally twice a day for 5 days 10 Capsule 0 05/30/2023 Active Loperamide HCl 2 MG Oral Capsule (Imodium) take 1 capsule (2 mg) orally every 8 hours As Needed for dairrhea 20 Capsule 0 05/30/2023 Active Pantoprazole Sodium 40 MG Oral Tablet Delayed Release (Protonix) take 1 tablet (40 mg) orally daily in the morning 30 Tablet 0 05/30/2023 Active Vitamin B1 100 MG Oral Tablet take 1 tablet by mouth daily in the morning 30 Tablet 0 05/30/2023 Active Ciprofloxacin HCl 500 MG Oral Tablet (Cipro) Take 1 Tablet by mouth in the morning and 1 Tablet before bedtime. Do all this for 7 days. 14 Tablet 0 06/22/2023 06/29/2023 Active metroNIDAZOLE 500 MG Oral Tablet (Flagyl) Take 1 Tablet by mouth in the morning and 1 Tablet at noon and 1 Tablet before bedtime. Do all this for 7 days. 21 Tablet 0 06/22/2023 06/29/2023 Active metroNIDAZOLE 500 MG Oral Tablet (Flagyl) take 1 tablet (500 mg) orally every 8 hours 15 Tablet 0 05/30/2023 06/22/2023 Discontinued (Refill) documented as of this encounter (statuses as of 06/23/2023) Active Problems Problem Noted Date Diagnosed Date Gallstone pancreatitis 06/05/2023 Acute cholecystitis due to biliary calculus 05/09 H/O partial thyroidectomy 03/27/2023 Esophagitis determined by endoscopy 09/26/2022 HTN, goal below 140/90 09/23/2021 Hypercholesteremia 09/23/2021 Hyperlipidemia 09/23/2021 Vitamin D deficiency 06/28/2019 Osteopenia 06/28/2019 Hyperparathyroidism 09/26/2013 documented as of this encounter (statuses as of 06/23/2023) Immunizations Name Administration Dates Next Due COVID-19 mRNA, LNP-s, No Pre serve, 2-Dose Series (Pfizer) 02/12/2021,01/22/2021 Pneumococcal Conjugate Vacc, 13 Valent (Prevnar) 05/04/2020 Pneumococcal Conjugate Vaccine, 20-valent (Prevn ar20) 03/27/2023 Seasonal Influenza, Quadrivalent Hd (Fluzone Hd) 05/25/2022 Seasonal Influenza, Split, IIV3, With Preserve, Inj 05/10/2020 Seasonal Influenza, Trivalen t, High Dose, No Preserve, IM 06/13/2019 TDAP (age 10 and older)(Boostrix) 06/02/2015 Zoster Vaccine Recombinant (Shingrix) 01/31/2019 ,07/19/2018 documented as of this encounter Social History Tobacco Use Types Packs/Day Years Used Date Smoking Tobacco: Never Smokeless Tobacco: Never Alcohol Use Standard Drinks/Week Comments Never 0 (1 standard drink = 0.6 oz pur e alcohol) PHQ-2 Answer Date Recorded PHQ Adult Total Score 0 03/27/2023 Sex and Gender Information Value Date Recorded Sex Assigned at Not on file Gender Identity Not on file Sexual Orientation Not on file Job Start Date Occupation Industry Not on file Not on file Not on file documented as of this encounter Miscellaneous Notes * Telephone Encounter - Jewel Mcgraw OSA - 06/23/2023 9:[address] order for scheduling purposes Thank you * Telephone Encounter - Celeste Scott MD - 06/22/2023 4:59 PM EST Please schedule CT scan abdomen in 2 weeks. documented in this encounter Plan of Treatment Upcoming Encounters Date Type Department Care Team (Late st Contact Info) Description 09/27/2023 11:00 AM EST Office Visit Family Practice [facility] [address] [place] [id number] Elana Mcgarry PA-C [address] [place] [phone] Health Maintenance Due Date Last Done Comments Fecal Occult Blood Test 1998 Sigmoidoscopy 1998 Hepatitis B (1 of 3 - Risk 3-dose series) 2013 Colonoscopy 08/13/2020 08/13/2010, 08/13/2010 COVID-19 Vaccine (3 - 2022-2 4 season) 2023 02/12/2021, 01/22/2021 Influenza Vaccine (FLU shot) (#1) 2023 05/25/2022, 05/10/2020, 06/13/2019 Cologuard 06/07/2023 06/07/2020, 06/01/2020 Colorectal Cancer Screening 06/07/2023 Depression Screening 03/27/2024 03/27/2023 Mammogram 04/19/2024 04/19/2023, 09/29/2021, 11/01/2018 GFR 06/05/2024 06/05/2023, 03/20/2023, 09/27/2021 DTaP,Tdap,and Td Vaccines (2 - Td or Tdap) 06/02/2025 06/02/2015 DXA Scan 11/01/2025 11/01/2018 Albumin/Creatinine Ratio 03/20/2026 023, 03/23/2022 Lipid Panel 03/20/2028 03/20/2023, 09/27/2021 Zoster Vaccines Completed 01/31/2019, 07/19/2018 Pneumococcal Vaccine: 65+ Years Completed 03/27/2023, 05/04/2020 GARDASIL-HPV IMMUNIZATION SERIES Aged Out No longer eligible b ased on patient's age to complete this topic MENINGOCOCCAL (MENACTRA/MENVEO) Aged Out No longer eligible b ased on patient's age to complete this topic documented as of this encounter Medical Devices Implanted Type Area Doors Prefitter Device Identifier Shelf Expiration Date Model / Serial / Lot Stnt Pt Dbl [id number] - [id number] Implanted:Qty: 1 on 06/22/2023 by Celeste Scott MD at OR [facility] : ENDOSCOPY [id number] 01/17/2025 [id number] / / [id number] documented as of this encounter Care Teams Neurology Physician Relationship Specialty Start Date End Date MalgorzataNovember NURY Gu [address] [facility] [place] [id number] PCP - General Physician Social Media Senior Associate 05/20/22 documented as of this encounter
--- OUTSIDE RECORDS SUMMARY | 2023-07-22 05:45 | External Medical Summary | Summary of Care ---
Author Name Unknown Organization [facility] Address [address] [place] [address] Phone [phone] Care Team Providers Care Groundskeeper Porter Name Role Phone Elana Mcgarry PA-C Primary Care Provider [phone] Reason for Visit * Auth/Cert Specialty Diagnoses / Procedures Referred By Sean kevin Referred To Contact Diagnoses Acute biliary pancreatitis with uninfected necrosis Acute biliary pancreatitis with uninfected necrosis [K85.11] Procedures EGD, FLEXIBLE, W/CYST DRAINAGE ESOPHAGOGASTRODUODENOSCOPY (EGD), FLEXIBLE, TRANSORAL, WITH DRAINAGE PSEUDOCYST Referral ID Status Reason Start Date Expiration Date Visits Re quested Visits Authorized [id number] Encounter Details Date Type Department Care Team (Latest Contact Info) Description 06/22/2023 11:15 AM EST - 06/22/2023 5:10 PM EST Hospital Encounter OR GL, Operating Room, Main [facility] - 4th Floor [address] [id number] Celeste Scott MD [address] [id number] Various: UEUS,KRAVS Discharge Disposition: Home - Self Care Allergies Active Allergy Reactions Criticality Noted Date [...] 09/26/2022 Active D3 Super Strength 50 MCG (2000 UT) Oral Capsule (Cholecalciferol) Indications:Vitam in D deficiency [...] the morning 30 Tablet 0 05/30/2023 Active metroNIDAZOLE 500 MG Oral Tablet (Flagyl) [...] on file documented as of this encounter Last Filed Vital Signs Vital Sign Reading Time Taken Comments Blood Pressure 137/79 06/22/2023 5:08 PM EST Pulse 70 06/22/2023 5:08 PM EST Temperature 37.1 C (98.8 F) 06/22/2023 5:08 PM ES T Respiratory Rate 16 06/22/2023 5:08 PM EST Oxygen Saturation 98% 06/22/2023 5:08 PM EST Inhaled Oxygen Concentration - - Weight 71.2 kg (157 lb) 06/22/2023 12:27 PM EST Height 167.1 cm (5' 5.79") 06/22/2023 12:[address] Body Mass Index 25.5 06/22/2023 12:27 PM EST documented in this encounter H&P Notes * Celeste Scott MD - 06/22/2023 12:32 PM EST Endoscopy Pre-Procedure Assessment Name: Iliana Horton Date: 06/22/2023 Time: 12:32 PM Procedure(s): Endoscopic Ultrasound; with Indication(s) of Pseudocyst/WON drainage with Pigtail or Axios stent. Endoscopy Pre-Procedure Assessment: Prior to the procedure, the patient was identified. The patient's history, medications and allergies were reviewed as per the Anesthesia Assessment. The patient is competent. The risks and benefits of the proposed procedure and the planned sedation were discussed with the patient. All questions were answered and informed consent for the procedure was obtained. BP 147/91 | Pulse 89 | Temp 36.3 C (97.3 F) (Temporal Artery) | Resp 16 | Ht 1.671 m (5' 5.79")| Wt 71.2 kg (157 lb) | LMP 08/13/2003 | SpO2 98% | BMI 25.50 kg/m | BSA 1.82 m Review of patient's allergies indicates: Allergen Reactions Nickel Rash, reddened Prior to Admission medications Medication Sig Last Dose Discont. Cefdinir 300 MG Oral Capsule (Omnicef) take 1 capsule (300 mg) orally twice a day for 5 days Past Month Loperamide HCl 2 MG Oral Capsule (Imodium) take 1 capsule (2 mg) orally every 8 hours As Needed fordairrhea Past Week metroNIDAZOLE 500 MG Oral Tablet (Flagyl) take 1 tablet (500 mg) orally every 8 hours 06/21/2023 Pantoprazole Sodium 40 MG Oral Tablet Delayed Release (Protonix) take 1 tablet (40 mg) orally dailyin the morning 06/21/2023 Probiotic 250 MG Oral Capsule take 2 capsules by mouth daily 06/21/2023 Vitamin B1 100 MG Oral Tablet take 1 tablet by mouth daily in the morning Unknown D3 Super Strength 50 MCG (2000 UT) Oral Capsule (Cholecalciferol) Take 1 Capsule by mouth once a week. Unknown Atorvastatin Calcium 40 MG Oral Tablet (Lipitor) take one tablet by mouth daily 06/21/2023 Lisinopril-hydroCHLOROthiazide 20-12.5 MG Oral Tablet take one tablet by mouth daily 06/21/2023 metFORMIN HCl 500 MG Oral Tablet (Glucophage) take one tablet twice daily Past Month Physical Exam: Mental Status Examination: alert and oriented. Airway Examination: normal oropharyngeal airway and neck mobility. Respiratory Examination: clear to auscultation. CV Examination: Regular rate and rythm, no murmurs. ASA Grade: III - A patient with severe systemic disease. After reviewing the risks and benefits, the patient was deemed in satisfactory condition to undergothe procedure. The anesthesia plan was to use general anesthesia. Patient was explained in detail regarding risks, benefits, limitations and alternatives of the above endoscopic procedure. Risks of intravenous sedation used for procedure were also explained. Risks include, but not limited to perforation, bleeding, infection, respiratory distress, cardiac arrest and . Risk of acute pancreatitis and necrosis if ERCP is done. Patient is also aware about the possibility of missed lesion. Patient's questions were answered. The patient verbalized understandingthe information and agreed to undergo the procedure. Discussed with the patient that he/she is at an explicit higher risk for complications in comparison to other patients Discussed risk of stent migration, gastric outlet obstruction, infection and others. Celeste Scott MD 06/22/2023 documented in this encounter Procedure Notes * Elana Mcgarry PA-C - 06/22/2023 12:43 PM ESTAssociated Order(s): UPPER ENDOSCOPIC U/S [facility] Patient Name: Iliana Horton Procedure Date: 06/22/2023 12:43 PM Date of : 1955 Admit Type: Outpatient Note Status: Finalized Date of : 1955 Admit Type: Outpatient Age: 68 Room: OR 5 Gender: Female Note Status: Finalized Procedure: Upper EUS Indications: For cyst enterostomy Providers: Celeste Scott MD (Doctor), Felicitas Hermosillo RN Referring MD: MIA Fuentes Medicines: General Anesthesia, Cipro 400 mg IV Complications: No immediate complications. Procedure: Pre-Anesthesia Assessment: - Prior to the procedure, a History and Physical was performed, and patient medications, allergies and sensitivities were reviewed. The patient's tolerance of previous anesthesia was reviewed. - The risks and benefits of the procedure and the sedation options and risks were discussed with the patient. All questions were answered and informed consent was obtained. - Patient identification and proposed procedure were verified prior to the procedure by the physician and the nurse. The procedure was verified in the procedure room. - Pre-procedure physical examination revealed no contraindications to sedation. After obtaining informed consent, the endoscope was passed under direct vision. All instruments were visually inspected immediately before and after removal from the patient to ensure they are fully intact. Throughout the procedure, the patient's blood pressure, pulse, and oxygen saturations were monitored continuously. The Endosonoscope was introduced through the mouth, and advanced to the second part of duodenum. The upper EUS was accomplished without difficulty. The patient tolerated the procedure well. Findings & Specimens: ENDOSONOGRAPHIC FINDING: : An anechoic lesion suggestive of a pseudocyst was identified in the pancreatic body area. The lesion measured 70 mm by 50 mm in maximal cross-sectional diameter. There were 2 compartments thinly septated. The outer wall of the lesion was thick. There was internal debris within the fluid-filled cavity. The decision was made to create a cystogastrostomy. Once an appropriate position in the stomach was identified, the common wall between the stomach and the cyst was interrogated utilizing color Doppler imaging to identify interposed vessels. The stomach wall and the cyst were punctured under endosonographic guidance with the 19 gauge needle. Necrotic fluid was aspirated. The cyst was injected with full strength ionic contrast and a cystogram was obtained under fluoroscopy. A long 0.025 inch Jagwire was inserted into the cyst under fluoroscopic guidance and allowed to coil several times. The cyst was punctured under endosonographic guidance with the [employer] Cystotome electrocautery device using pure cut current. The knife was retracted and the device was inserted into the cyst past the 10 Fr outer catheter. Pure cut current was again applied to form a fistula through the lumen. The openingwas dilated with a 6 mm balloon dilator. A 7 cm 7 Fr double pigtail stent was placed into the cyst through the cystogastrostomy. Impression: - A 70 mm pseudocyst was seen in the peripancreatic body area. Cystogastrostomy was performed using 7 Fr double pigtail plastic stent. Recommendation: - Discharge patient to home. - Perform CT scan (computed tomography) of the abdomen with contrast in 2 - 3 weeks. - PO Cipro/Flagyl for 7 days. - Return to referring physician. Celeste Scott MD 06/22/2023 3:24:31 PM This report has been signed electronically. Estimated Blood Loss: Estimated blood loss: none. documented in this encounter Nursing Notes * Gabrielle Sanchez RN - 06/22/2023 5:03 PM EST [facility] [address] [place] [address] [facility] Surgery Discharge Note Name: Iliana Horton Date: 06/22/2023 Time: 5:03 PM Discharge Disposition: Home Responsible adult as escort home: Daughter Transport Mode: Ambulatory Accompanied by: Brittanie Sanchez RN To: Car Belongings with patient: Yes Patient meets criteria to be transferred or discharged. * Paulino Prajapati RN - 06/22/2023 3:24 PM EST EGD/EUS with stent placement completed. Sedated by SUPER[employer]. See anesthesia record for VS and medications given. Pt tolerated procedure well with minimal gagging. Abd soft. Airway patent. Pt to recovery on L side with HOB elevated. Report to recovery room nurse. Bedside cleaning done. documented in this encounter Miscellaneous Notes * Pt Handout (on AVS) - Gabrielle Sanchez RN - 06/22/2023 4:54 PM EST Images from the original note were not included. [id number] Soft Diet Your healthcare provider has prescribed a soft diet. This means eating foods that are soft, low in fiber, and easy to digest. This diet is for people with digestive problems. This should not be confused with a soft diet that is prescribed for people with issues chewing and swallowing. A soft diet provides foods that are easy to chew and swallow. It will reduce or prevent stomach pain or discomfort. Foods should be bite-sized and very soft or moist. Follow your healthcare provider?s specific instructions about what foods and drinks you may have. The general guidelines below can help you get started on this diet. Beverages OK: Milk, tea, coffee, fruit juices, carbonated beverages, nutrition shakes, and drinks (Note: Thinliquids may be hard to swallow. They may need to be thickened.) Don't have: All are OK, unless they need to be thickened Breads and crackers OK: Refined white, wheat, or seedless rye bread; shun or soda crackers that have been moistened; plain rolls or bagels; very soft tortillas Don't have: Whole-grain breads, rolls, or bagels with nuts, raisins, or seeds; crackers, croutons, taco shells Cereals and grains OK: Cooked cereals, plain dry cereals that have been moistened, plain macaroni, spaghetti, noodles,rice Don't have: Whole-grain cereals and granola, or cereals containing bran, raisins, seeds or nuts; coconut; brown or wild rice Desserts and sweets OK: Moist cake; soft fruit pie with bottom crust only; soft cookies moistened in milk or other liquid; gelatin, custard, pudding, plain ice cream, plain sherbet, sugar, honey, clear jelly Don't have: Pastries, desserts, and ice cream that have nuts, coconut, seeds, or dried fruit; popcorn; chips of any kind, including potato chips and tortilla chips; jam, marmalade Eggs and cheese OK: Poached, soft boiled, or scrambled eggs; cottage cheese, ricotta cheese, cream cheese, cheese sauces, or cheese melted in other dishes Don't have: [place] fried eggs, cheese slices and cubes Fruits OK: Avocado, banana, baked peeled apple, applesauce, peeled ripe peaches or pears, canned fruit (apricots, cherries, peaches, pears), melons Don't have: Raw apple, dried fruits, coconut, jillian, pineapple, grapes, fruit jimmy, fruit snacks Meat and fish OK: All fresh meat, poultry, or fish that is cooked until tender Don't have: Meat, fish, or poultry that is fried; tough or stringy meat, including plascencia, sausage, bratwurst, jerky, corned beef Other protein foods OK: Tofu, baked beans, Don't have: Deep-fried tofu; crunchy peanut or other nut or seed butters; nuts or seeds that are whole or chopped Soups OK: All soups, but they may need to be thickened. Thin liquid may be too hard to swallow. Don't have: Soups made with stringy meat pieces or chunky vegetables Vegetables OK: Peeled and well-cooked potatoes or sweet potatoes; fresh, cooked, canned, or frozen vegetables without seeds, skin, or coarse fiber Don't have: Raw vegetables, deep-fried vegetables (such as tempura), and corn Last Reviewed Date: 03/07/202219990487-5848 [employer]. All rights reserved. This information is not intended as a substitute for professional medical care. Always follow your healthcare professional's instructions. * Pt Handout (on AVS) - Gabrielle Sanchez RN - 06/22/2023 4:53 PM EST Images from the original note were not included. [id number] Full Liquid Diet A full liquid diet is a middle step between a clear liquid diet and eating solid foods. A clear liquid diet allows only liquids you can see through. A full liquid diet allows thicker liquid foods, aslisted below. It can be anything that is liquid at room temperature. The full liquid diet may be used before or after surgery. Or it may be used if you have a digestive illness. It's also used beforesome medical tests. It's easy to digest and leaves little food in the stomach and intestines. A full liquid diet meets calorie and protein needs for your body with liquids only. If it's to be used for more than 5 days, your healthcare provider or dietitian may also order high-protein, high-calorie liquid supplements. These will give you extra vitamins and minerals. You may include the itemsbelow on a full liquid diet. Adults Adults should drink a total of 2 to 3 quarts of liquid per day. It may be easier to drink small frequent servings rather than a few large ones. People with severe kidney or heart disease may need to limit the amount of fluid they take in. Check with your provider. Cereals and soups. Creamy hot breakfast cereals (wheat or rice) thinned with milk, pureed soups (including pureed meats, bland vegetables, and white potatoes), tomato puree. Desserts. Gelatin, whipped topping, custard-style yogurt, pudding, custard, plain ice cream, sherbet, sorbet, frozen fruit juice bars. Drinks. Coffee, tea, cream, milk, milkshakes, fruit and vegetable juices, sodas, mineral water (plain or flavored), liquid gelatin, electrolyte replacement sports drinks. Other items. Salt, mild-flavored seasonings, chocolate flavoring, gravy, margarine, sugar, syrup, jelly, honey, hard candy (to suck on). Children Follow the healthcare provider?s instructions. Young children who are eating solid foods may be able to have the items listed above without problems. Be sure to follow these safety measures: Don't give hard candies to young children. The candies may cause choking. Children under 1 year old. Don't give cow's milk or honey. It may cause illness. Children under 2 years old. Ask your child?s provider if you should supplement your child?s dietwith oral rehydration solutions, which have electrolytes. You can buy these drinks at pharmacies and grocery stores. You don?t need a prescription. Children over 1 year old. Limit milk to 2 or 3 cups per day. Too much milk can make your child less hungry for other foods. Last Reviewed Date: 01/05/202219995567-8030 [employer]. All rights reserved. This information is not intended as a substitute for professional medical care. Always follow your healthcare professional's instructions. * Pt Handout (on AVS) - Gabrielle Sanchez RN - 06/22/2023 4:53 PM EST [id number] Discharge Instructions: Having a Full Liquid Diet Your healthcare provider prescribed a full liquid diet temporarily for you. You may have trouble swallowing solid foods. Or, you may have had surgery and not be ready for solid food or need to advance to solid foods gradually. Here's what you need to know about this type of diet. Home care Remember, this diet is temporary. You should not follow this diet longer than directed because it might not provide you with enough fiber, vitamins, and minerals. Contact your healthcare provider if you are on this diet for more than 5 days. You may need nutritional or vitamin supplements. Keep track of the amount of liquid that you drink and anything you eat while on this diet. Keep a log for your healthcare provider. Choose these foods Choose fruit juices without pulp, such as apple juice, grape juice, cranberry juice, and nectars. Choose drinks such as coffee, tea (hot or cold), fruit-flavored drinks, soda, water, milk (whole, skim, 1%, and 2%), cream, instant breakfast drinks, and liquid meal replacements. Choose desserts and snacks such as fruit ices (without chunks of fruit), plain or vanilla yogurt(without fruit chunks), plain gelatin, hard candy, frozen juice pops, custards, frozen yogurt, smoothies without chunks, ice cream (without nuts or candy), and pudding. Choose broth, bouillon, fat-free consomm, or strained cream soups. Choose thin, refined hot cereals, such as porridge, and grits. Don't eat these foods Don?t eat canned, fresh, or frozen fruit. Don?t eat soup with vegetables, noodles, rice, meat, or other chunks of food in it. Don?t eat vegetables, bread, whole cereal and grain products, meat, chicken, fish, eggs, meat substitutes (nuts and nut butters, tofu, soy), hard cheese, oils, butter, or margarine. Follow-up Make a follow-up appointment, or as advised. When to call your healthcare provider Call your healthcare provider right away if you have any of the following: Fever of 100.4F (38.0C) or higher, or as advised by your healthcare provider Diarrhea that lasts for more than 1 day Vomiting that does not stop Trouble urinating Trouble passing gas Abdominal pain with bloating and cramping Last Reviewed Date: 07/07/202219996326-0945 [employer]. All rights reserved. This information is not intended as a substitute for professional medical care. Always follow your healthcare professional's instructions. documented in this encounter Plan of Treatment Upcoming Encounters Date Type Department Care Team (Late st Contact Info) Description 09/27/2023 11:00 AM EST Office Visit [facility] [address] [place] [address] Elana Mcgarry PA-C [address] [place] [address] Health Maintenance Due Date Last Done Comments [...] this encounter Medical Devices Implanted Type Area Ground Operations Superintendent Device Identifier Shelf Expiration Date Model / Serial / Lot Stnt Pt Dbl [id number] - [id number] Implanted:Qty: 1 on 06/22/2023 by Celeste Scott MD at OR [facility] [employer] : ENDOSCOPY [id number] 01/17/2025 [id number] / / [id number] documented as of this encounter Procedures Procedure Name Priority Date/Time Associated Diagnosis Comments GLUCOSE METER, POINT OF CARE FE 06/22/2023 3:39 PM EST US ENDOSCOPIC Routine 06/22/2023 3:18 PM EST Gallstone pancreatitis FLUORO ERCP Routine 06/22/2023 3:16 PM EST UPPER ENDOSCOPIC U/S 06/22/2023 12:43 PM EST GLUCOSE METER, POINT OF CARE FE 06/22/2023 12:38 PM EST documented in this encounter Results * GLUCOSE METER, POINT OF CARE (06/22/2023 3:39 PM EST) Glucose Meter 89 70 - 120 mg/dL 06/22/2023 3:43 PM EST [facility] Blood Whole blood specimen / Unknown 06/22/2023 3:39 PM EST 06/22/2023 3:43 PM EST Celeste Scott MD LAB POINT OF CARE T EST DOCKED DEVICE UNSOLICITED RESULTS [facility] [address] [place] [address] * US ENDOSCOPIC (06/22/2023 3:18 PM EST) Narrative Scheduling, Silent - 06/22/2023 3:18 PM EST This is an imaging study not interpreted or resulted by a [facility] or [facility] contracted radiologist. Celeste Scott MD RAD ULTRASOUND * FLUORO ERCP (06/22/2023 3:16 PM EST) Narrative Scheduling, Silent - 06/22/2023 3:17 PM EST This procedure will not be read by a Radiologist. Please see operative note. Celeste ELMORE FLUOROSCOPY * UPPER ENDOSCOPIC U/S (06/22/2023 12:43 PM EST) 06/22/2023 12:4 3 PM EST Narrative Procedure Note Elana Mcgarry PA-C - 06/22/2023 12:43 PM EST [facility] Patient Name: Iliana Horton Procedure Date: 06/22/2023 12:43 PM Date of : 1955 Admit Type: Outpatient Note Status:Finalized Date of : 1955 Admit Type: Outpatient Age: 68 Room: OR 5 Gender: Female Note Status: Finalized Procedure: Upper EUS Indications: For cyst enterostomy Providers: Celeste Scott MD (Doctor), Felicitas Hermosillo RN Referring MD: MIA Fuentes Medicines: General Anesthesia, Cipro 400 mg IV Complications: No immediate complications. Procedure: Pre-Anesthesia Assessment: - Prior to the procedure, a History and Physicalwas performed, and patient medications, allergies and sensitivities werereviewed. The patient's tolerance of previous anesthesia was reviewed. - The risks and benefits of the procedure and thesedation options and risks were discussed with the patient. All questions wereanswered and informed consent was obtained. - Patient identification and proposed procedurewere verified prior to the procedure by the physician and the nurse. The procedure wasverified in the procedure room. - Pre-procedure physical examination revealed nocontraindications to sedation. After obtaining informed consent, the endoscope waspassed under direct vision. All instruments were visually inspected immediatelybefore and after removal from the patient to ensure they are fully intact. Throughoutthe procedure, the patient's blood pressure, pulse, and oxygen saturations weremonitored continuously. The Endosonoscope was introduced through the mouth, andadvanced to the second part of duodenum. The upper EUS was accomplished withoutdifficulty. The patient tolerated the procedure well. Findings & Specimens: ENDOSONOGRAPHIC FINDING: : An anechoic lesion suggestive of a pseudocyst was identified in thepancreatic body area. The lesion measured 70 mm by 50 mm in maximal cross-sectional diameter. Therewere 2 compartments thinly septated. The outer wall of the lesion was thick. There was internal debriswithin the fluid-filled cavity. The decision was made to create a cystogastrostomy. Once an appropriateposition in the stomach was identified, the common wall between the stomach and the cyst wasinterrogated utilizing color Doppler imaging to identify interposed vessels. The stomach wall and the cystwere punctured under endosonographic guidance with the 19 gauge needle. Necrotic fluid wasaspirated. The cyst was injected with full strength ionic contrast and a cystogram was obtained underfluoroscopy. A long 0.025 inch Jagwire was inserted into the cyst under fluoroscopic guidance andallowed to coil several times. The cyst was punctured under endosonographic guidance with the [employer] HealthCystotome electrocautery device using pure cut current. The knife was retracted and the device was insertedinto the cyst past the 10 Fr outer catheter. Pure cut current was again applied to form a fistulathrough the lumen. The opening was dilated with a 6 mm balloon dilator. A 7 cm 7 Fr double pigtail stentwas placed into the cyst through the cystogastrostomy. Impression: - A 70 mm pseudocyst was seen in the peripancreaticbody area. Cystogastrostomy was performed using 7 Fr double pigtail plasticstent. Recommendation: - Discharge patient to home. - Perform CT scan (computed tomography) of theabdomen with contrast in 2 - 3 weeks. - PO Cipro/Flagyl for 7 days. - Return to referring physician. Celeste Scott MD 06/22/2023 3:24:31 PM This report has been signed electronically. Estimated Blood Loss: Estimated blood loss: none. November Brittanie Mcgarry PA-C GASTRO UPPER * GLUCOSE METER, POINT OF CARE (06/22/2023 12:38 PM EST) Glucose Meter 96 70 - 120 mg/dL 06/22/2023 12:40 PM EST [facility] Blood Whole blood specimen / Unknown 06/22/2023 12:38 PM EST 06/22/2023 12:40 PM EST Celeste Scott MD LAB POINT OF CARE T EST DOCKED DEVICE UNSOLICITED RESULTS [facility] [address] [place] [address] documented in this encounter Visit Diagnoses Diagnosis Gallstone pancreatitis- Primary Acute pancreatitis documented in this encounter Administered Medications Inactive Administered Medications - up to 3 most recent administrations Medication Order MAR Action Action Date Dose Rate Site isolyte-S pH 7.4 infusion Intravenous, at 25 mL/hr, All Patients EXCEPT Dialysis patients Plasma-LYTE 148, isolyte-S, and isolyte-S pH 7.4 are considered equivalent - including for MAR barcode scanning., CONTINUOUS, Starting on Consuelo 06/22/23 at 1315, Until Consuelo 06/22/23 at 2109, Pre-Op Restarted 06/22/2023 2:25 PM EST Continue from Pre-Op 06/22/2023 2:08 PM EST 25 mL/hr New Bag 06/22/2023 12:41 PM EST 25 mL/hr 25 mL/hr documented in this encounter Active and Recently Administered Medications Times are shown in EST. Scheduled Medication Order 06/20/2023 06/21/2023 06/22/2023 ciprofloxacin (Cipro) in D5W ivpb 400 mg IV Piggyback, 400 mg, ONCE, 1 dose, On Consuelo 06/22/23 at 1430, Administer over 60 Minutes, PROTECT FROM LIGHT 1430 (Due) Continuous Medication Order 06/20/2023 06/21/2023 06/22/2023 isolyte-S pH 7.4 infusion Intravenous, at 25 mL/hr, All Patients EXCEPT Dialysis patients Plasma-LYTE 148, isolyte-S, and isolyte-S pH 7.4 are considered equivalent - including for MAR barcode scanning., CONTINUOUS, Starting on Consuelo 06/22/23 at 1315, Until Consuelo 06/22/23 at 2110, Pre-Op 1241 (New Bag - Prov ider: Harmony Otero, RN)1408 (Continue from Pre-Op - Provider: Caity Bartholomew CRNA)1424 (Paused - Provider: Caity Bartholomew CRNA - Comment: Switch to gravity)1425 (Restarted - Provider: Caity Bartholoemw CRNA)1506 (Anes Intra-Op Fluid - Provider: Caity Bartholomew CRNA) documented in this encounter Care Teams Groundskeeper Porter Relationship Specialty Start Date End Date MalgorzataNovember NURY Gu [facility] [place] [address] PCP - General Physician Financial Adviser 05/20/22 documented as of this encounter
--- OUTSIDE RECORDS SUMMARY | 2023-07-22 05:45 | External Medical Summary | Summary of Care ---
Author Name Unknown Organization [facility] Address [address] [place] [address] Phone [phone] Care Team Providers Care Manager Assembly Name Role Phone Elana Mcgarry PA-C Primary Care Provider [phone] Encounter Details Date Type Department Care Team (Late st Contact Info) Description 06/22/2023 Telephone OR [facility], Operating Room, [facility] - 4th Floor [address] [place] [phone] Celeste Scott MD [address] [place] [address] Allergies Active Allergy Reactions Criticality Noted Date Comments Nickel 05/19/2022 Rash, reddened documented as of this encounter (statuses as of 06/27/2023) Medications Medication Sig Dispensed Refills Start Date End Date Status Atorvastatin Calcium 40 MG Oral Tablet (Lipitor) take one tablet by mouth daily 90 Tablet 3 09/26/2022 Active metFORMIN HCl 500 MG Oral Tablet (Glucophage) take one tablet twice daily 180 Tablet 3 09/26/2022 Active Lisinopril-hydroCHL OROthiazide 20-12.5 MG Oral Tablet take one tablet by mouth daily 90 Tablet 3 09/26/2022 Active D3 Super Strength 50 MCG (1999) Oral Capsule (Cholecalciferol)In dications:Vitamin D deficiency Take 1 Capsule by mouth [...] for 7 days. 14 Tablet 0 06/22/2023 06/30/2023 Active metroNIDAZOLE 500 MG Oral Tablet (Flagyl) Take 1 Tablet by mouth in the morning and 1 Tablet at noon and 1 Tablet before bedtime. Do all this for 7 days. 21 Tablet 0 06/22/2023 06/30/2023 Active documented as of this encounter (statuses as of 06/27/2023) Active Problems Problem Noted Date Diagnosed Date Gallstone pancreatitis 06/05/2023 Acute cholecystitis due to biliary calculus 05/09 H/O partial thyroidectomy 03/27/2023 Esophagitis determined by endoscopy 09/26/2022 HTN, goal below 140/90 09/23/2021 Hypercholesteremia 09/23/2021 Hyperlipidemia 09/23/2021 Vitamin D deficiency 06/28/2019 Osteopenia 06/28/2019 Hyperparathyroidism 09/26/2013 documented as of this encounter (statuses as of 06/27/2023) Immunizations Name Administration Dates Next Due COVID-19 mRNA, LNP-s, No Pre serve, 2-Dose Series ([employer]) 02/12/2021,01/22/2021 Pneumococcal Conjugate Vacc, 13 Valent (Prevnar) [...] encounter Miscellaneous Notes * Telephone Encounter - Isabell Dickerson OSA - 06/27/2023 2:50 PM EST Called and spoke to pt. She is deana'd for her CT scan on 07/07. I cx'd egd deana'd at [facility] in Sep 2023. Let her know Dr. Scott will reach out to her with results once available. * Telephone Encounter - Celeste Scott MD - 06/27/2023 2:43 PM EST This was in error. She does not need an EGD. Please schedule CT scan abdomen in 3 weeks at [place]. * Telephone Encounter - Isabell Dickerson OSA - 06/23/2023 2:30 PM EST Egd 09/29/23 * Telephone Encounter - Celeste Scott MD - 06/22/2023 2:14 PM EST Please schedule repeat EGD with me in the OR in 3 months for stent removal. documented in this encounter Plan of Treatment Upcoming Encounters Date Type Department Care Team (Late st Contact Info) Description 07/07/2023 9:15 AM EST Imaging Radiology [address], [place] 132 [facility] [place] [address] 09/27/2023 11:00 AM EST Office Visit Family Practice [facility] 200 [facility] [place] [address] Elana Mcgarry PA-C 200 [facility] [place] [address] Health Maintenance Due Date Last Done Comments [...] this encounter Medical Devices Implanted Type Area Belt Brander Device Identifier Shelf Expiration Date Model / Serial / Lot Stnt Pt Dbl [id number] 3219 - [id number] Implanted:Qty: 1 on 06/22/2023 by Celeste Scott MD at OR [facility] : ENDOSCOPY [id number] 01/17/2025 [id number] / / [id number] documented as of this encounter Care Teams Manager Assembly Relationship Specialty Start Date End Date Marlenynovember NURY Gu 200 [facility] [place] [address] PCP - General Physician Centrifugal Supervisor 05/20/22 documented as of this encounter
--- OUTSIDE RECORDS SUMMARY | 2023-07-22 05:45 | External Medical Summary | Summary of Care ---
Author Name Unknown Organization [facility] Address [address] [place] [address] Phone [phone] Care Team Providers Care Drywall Application Supervisor Name Role Phone Elana Mcgarry PA-C Primary Care Provider [phone] Encounter Details Date Type Department Care Team (Late st Contact Info) Description 06/22/2023 Telephone OR [facility], Operating Room, [facility] - 4th Floor [address] [place] [phone] Celeste Scott MD [address] [place] [address] Allergies Active Allergy Reactions Criticality Noted Date [...] mRNA, LNP-s, No Pre serve, 2-Dose Series ([employer]) 02/12/2021,01/22/2021 Pneumococcal Conjugate Vacc, 13 Valent (Prevnar) [...] Upcoming Encounters Date Type Department Care Team (Latest Contact Info) Description 09/27/2023 11:00 AM EST Office Visit Family Practice [facility] Shavon Nikolai [address] [facility] [place] [place] [address] Elana Mcgarry PA-C [address] [place] [address] 09/29/2023 11:00 AM EST Hospital Encounter OR [facility], Operating Room, [facility] - 4th Floor [address] [place] [address] Celeste Scott MD 132 [facility] [place] [address] 09/29/2023 11:00 AM EST - 09/29/2023 11:41 AM EST Surgery OR [facility], Operating Room, [facility] - 4th Floor [address] [place] [address] Celeste Scott MD [address] [place] [address] ESOPHAGOGASTRODUODENOSCOPY (EGD), FLEXIBLE, TRANSORAL, DIAGNOSTIC Scheduled Procedures Name Priority Associated Diagnoses Date/Ti mi ESOPHAGOGASTRODUODENOSCOPY ( EGD), FLEXIBLE, TRANSORAL, DIAGNOSTIC Encounter for removal of pancreatic stent 09/29/2023 11:00 AM EST Health Maintenance Due Date Last Done Comments [...] this encounter Medical Devices Implanted Type Area Earth Moving Technician Device Identifier Shelf Expiration Date Model / Serial / Lot Stnt Pt Dbl [id number] 3219 - [id number] Implanted:Qty: 1 on 06/22/2023 by Celeste Scott MD at OR [facility] : ENDOSCOPY [id number] 01/17/2025 [id number] / / [id number] documented as of this encounter Care Teams Drywall Application Supervisor Relationship Specialty Start Date End Date Marlenynovember NURY Gu [address] [place] [address] PCP - General Physician Brew House Supervisor 05/20/22 documented as of this encounter
--- OUTSIDE RECORDS SUMMARY | 2023-07-22 05:45 | External Medical Summary | Summary of Care ---
Author Name Unknown Organization [facility] Address [address] [place] [address] Phone [phone] Care Team Providers Care Reading Aide Name Role Phone Elana Mcgarry PA-C Primary Care Provider [phone] Reason for Referral * Precert (Within 10 days (routine)) - Pending Review Specialty Diagnoses / Procedures Referred By Sean kevin Referred To Contact Radiology Diagnoses Acute biliary pancreatitis with uninfected necrosis Procedures CT ABD/PELVIS W IV AND W ORAL CONTRAST Celeste Enriquez MD [address] [place] [address] Referral ID Status Reason Start Date Expiration Date V isits Requested Visits Authorized [id number] Pending Review 07/07/2023 999 999 Reason for Visit * Reason Onset Date Comments Medication Refill 06/22/2023 Encounter Details Date Type Department Care Team (Late st Contact Info) Description 06/22/2023 Refill Gastroenterology, [facility] [address] [place] [address] Celeste Enriquez MD [address] [place] [address] Acute biliary pancreatitis with uninfected necrosis* Allergies Active Allergy Reactions Criticality Noted Date [...] days. 21 Tablet 0 06/22/2023 06/30/2023 Active metroNIDAZOLE 500 [...] as of this encounter Miscellaneous Notes * Addendum Note - Celeste Enriquez MD - 06/23/2023 5:56 PM ESTAddended by: CELESTE ENRIQUEZ on: 06/23/2023 05:56 PM Modules accepted: Orders * Telephone Encounter - Celeste Enriquez MD - 06/23/2023 5:56 PM EST Order is in. * Telephone Encounter - Jewel Mcgraw OSA - 06/23/2023 9:[address] order for scheduling purposes Thank you * Telephone Encounter - Celeste Enriquez MD - 06/22/2023 4:59 PM EST Please schedule CT scan abdomen in 2 weeks. documented in this encounter Plan of Treatment Upcoming Encounters Date Type Department Care Team (Latest Contact Info) Description 09/27/2023 11:00 AM EST Office Visit [facility] 200 [facility] [place] [address] Elana Mcgarry PA-C 200 [facility] [place] [address] 09/29/2023 11:00 AM EST Hospital Encounter OR [facility], Operating Room, [facility] - 4th Floor [address] [place] [address] Celeste Enriquez MD [address] [place] [address] 09/29/2023 11:00 AM EST - 09/29/2023 11:41 AM EST Surgery OR [facility], Operating Room, [facility] - 4th Floor [address] [place] [address] Celeste Enriquez MD [address] [place] [address] ESOPHAGOGASTRODUODENOSCOPY (EGD), FLEXIBLE, TRANSORAL, DIAGNOSTIC Scheduled Orders Name Type Priority Associated Diagnoses Orde r Schedule CT ABD/PELVIS W IV AND W ORAL CONTRAST Medical Imaging Routine Acute biliary pancreatitis with uninfected necrosis Expected: 07/07/2023, Expires: 07/23/2024 Scheduled Procedures Name Priority Associated Diagnoses Date/Ti me ESOPHAGOGASTRODUODENOSCOPY ( EGD), FLEXIBLE, TRANSORAL, DIAGNOSTIC Encounter [...] this encounter Medical Devices Implanted Type Area Business Banking Relationship Manager Device Identifier Shelf Expiration Date Model / Serial / Lot Stnt Pt Dbl [id number] 3219 - [id number] Implanted:Qty: 1 on 06/22/2023 by Celeste Enriquez MD at OR [facility] [place] [facility] : ENDOSCOPY [id number] 01/17/2025 [id number] / / [id number] documented as of this encounter Visit Diagnoses Diagnosis Acute biliary pancreatitis with uninfected necrosis- Primary Encounter for removal of pancreatic stent documented in this encounter Care Teams Reading Aide Relationship Specialty Start Date End Date Marlenynovember Brittanie, NURY [address] [place], [place] [address] [address] PCP - General Physician College Archivist 05/20/22 documented as of this encounter
--- OUTSIDE RECORDS SUMMARY | 2023-07-22 05:45 | External Medical Summary | Summary of Care ---
Author Name Unknown Organization [facility] Address [address] [place] [address] Phone [phone] Care Team Providers Care Bell Ringer Name Role Phone Elana Mcgarry PA-C Primary Care Provider [phone] Encounter Details Date Type Department Care Team (Late st Contact Info) Description 06/22/2023 Telephone OR [facility], Operating Room, [facility] - 4th Floor [address] [place] [phone] Celeste Scott MD [address] [place] [address] Allergies Active Allergy Reactions Criticality Noted Date Comments Nickel 05/19/2022 Rash, reddened documented as of this encounter (statuses as of 06/22/2023) Medications Medication Sig Dispensed Refills Start Date [...] days. 21 Tablet 0 06/22/2023 06/29/2023 Active documented as of this encounter (statuses as of 06/22/2023) Active Problems Problem Noted Date Diagnosed Date Gallstone pancreatitis 06/05/2023 Acute cholecystitis due to biliary calculus 05/09 H/O partial thyroidectomy 03/27/2023 Esophagitis determined by endoscopy 09/26/2022 HTN, goal below 140/90 09/23/2021 Hypercholesteremia 09/23/2021 Hyperlipidemia 09/23/2021 Vitamin D deficiency 06/28/2019 Osteopenia 06/28/2019 Hyperparathyroidism 09/26/2013 documented as of this encounter (statuses as of 06/22/2023) Immunizations Name Administration Dates Next Due COVID-19 mRNA, LNP-s, No Pre serve, 2-Dose Series ([employer]) 02/12/2021,01/22/2021 Pneumococcal Conjugate Vacc, 13 Valent [...] encounter Miscellaneous Notes * Telephone Encounter - Celeste Scott MD - 06/22/2023 2:14 PM EST Please schedule repeat EGD with me in the OR in 3 months for stent removal. documented in this encounter Plan of Treatment Upcoming Encounters Date Type Department Care Team (Late st Contact Info) Description 09/27/2023 11:00 AM EST Office Visit Family Practice [facility] [address] [facility] [place] [address] Elana Mcgarry PA-C [address] [facility] [place] [address] Scheduled Procedures Name Priority Associated Diagnoses Date/Ti me ESOPHAGOGASTRODUODENOSCOPY ( EGD), FLEXIBLE, TRANSORAL, WITH DRAINAGE PSEUDOCYST Acute biliary pancreatitis with uninfected necrosis 06/22/2023 1:58 PM EST Health Maintenance Due Date Last Done [...] this encounter Medical Devices Implanted Type Area Rn Homecare Device Identifier Shelf Expiration Date Model / Serial / Lot Stnt Pt Dbl [id number] 3219 - [id number] Implanted:Qty: 1 on 06/22/2023 by Celeste Scott MD at OR [facility] : ENDOSCOPY [id number] 01/17/2025 [id number] / / [id number] documented as of this encounter Care Teams Bell Ringer Relationship Specialty Start Date End Date Malgorzata November NURY Gu [address] [facility] [place] [address] PCP - General Physician Air Traffic Systems Technician 05/20/22 documented as of this encounter
--- OUTSIDE RECORDS SUMMARY | 2023-07-22 05:45 | External Medical Summary | Summary of Care ---
Author Name Unknown Organization [facility] Address [address] [place] [address] Phone [phone] Care Team Providers Care Information Assurance Manager Name Role Phone Elana Mcgarry PA-C Primary Care Provider [phone] Reason for Visit * Reason Onset Date Comments Advice 07/21/2023 Encounter Details Date Type Department Care Team (Late st Contact Info) Description 07/21/2023 Telephone Gastroenterology, [facility] [address] [place] [address] Celeste Scott MD [address] [place] [address] Advice Allergies Active Allergy Reactions Criticality Noted Date Comments Nickel 05/19/2022 Rash, reddened documented as of this encounter (statuses as of 07/21/2023) Medications Medication Sig Dispensed Refills Start Date End Date Status Atorvastatin Calcium 40 MG Oral Tablet (Lipitor) take one tablet by mouth daily 90 Tablet 3 09/26/2022 Active metFORMIN HCl 500 MG Oral Tablet (Glucophage) take one tablet twice daily 180 Tablet 3 09/26/2022 Active Lisinopril-hydroCHLO ROthiazide 20-12.5 MG Oral Tablet take one tablet by mouth daily 90 Tablet 3 09/26/2022 Active D3 Super Strength 50 MCG (1999) Oral Capsule (Cholecalciferol)Ind ications:Vitamin D deficiency Take 1 Capsule by mouth [...] the morning 30 Tablet 0 05/30/2023 Active documented as of this encounter (statuses as of 07/21/2023) Active Problems Problem Noted Date Diagnosed Date Gallstone pancreatitis 06/05/2023 Acute cholecystitis due to biliary calculus 05/09 H/O partial thyroidectomy 03/27/2023 Esophagitis determined by endoscopy 09/26/2022 HTN, goal below 140/90 09/23/2021 Hypercholesteremia 09/23/2021 Hyperlipidemia 09/23/2021 Vitamin D deficiency 06/28/2019 Osteopenia 06/28/2019 Hyperparathyroidism 09/26/2013 documented as of this encounter (statuses as of 07/21/2023) Immunizations Name Administration Dates Next Due COVID-19 [...] encounter Miscellaneous Notes * Telephone Encounter - Hunter Montes OSA - 07/21/2023 11:58 AM EST EGD deana'd 08/08 w/ [place] at [place]. Verbal instructions provided to pt. * Telephone Encounter - Celeste Scott MD - 07/21/2023 10:19 AM EST I spoke to her, no abdominal pain or fever. She thinks the blurred vision is related to her sugars which resolve now. I discussed CT scan results with her, the WON is improving. Plan is for EGD with possible necrosectomy. Please schedule her with me at [facility] on 08/08 or 03 or 04, urgent and should be in the OR. * Telephone Encounter - Yun Louise RN - 07/21/2023 9:49 AM EST I called and talked to both the patient and her son. He is with her now at her house. Patient does reports she has some visual changes last night but is feeling fine now. Reports the past two weeks she has been feeling weaker than normal. She is currently not feeling lightheaded or dizzy. Reports she does have issues with her sugar sometimes and that why he vision gets weird and she was told she needs to see the eye doctor. I told her to schedule an appt with her eye doctor if her PCP recommended that. She does not have a fever, abdominal pain or chills. She is able to eat and drink. Main concern is overall weakness the past few weeks with low energy. I asked them to reach out to her PCP reg arding this and her blood sugars. They do want to hear from Dr. Scott regarding CT and recent procedures. * Telephone Encounter - Yun Louise RN - 07/21/2023 9:35 AM EST TT sent * Telephone Encounter - Yun Louise RN - 07/21/2023 9:13 AM EST Pts son magno calling in . Reports he is not with his mother but she had blurry vision last night .Normally does not have blurry vision. Has been feeling weak. I asked maybe if I could call the patient to get more information and see how she is feeling. He reports she normally does not answer the phone. He will go to her house and asked me to call him back in 15 minutes at [phone] when he ge ts to her house. Asking if he can have Dr. More opinion Because he drained a cyst? Reports he thinks this is related to the cyst she had drained. Also asking about CT results. He is aware if she has new blurry vision that is persistent and normally can see fine its possible she may need to go to the ER. Dr. Scott is this something you want to advise on? * Telephone Encounter - Chrissy Lomas OSA - 07/21/2023 9:09 AM EST Patients son calling, states patient is not eating much, has blurring vision and feeling worse thanwhen she was seen. documented in this encounter Plan of Treatment Upcoming Encounters Date Type Department Care Team (Late st Contact Info) Description 08/08/2023 10:00 AM EST Procedure Only Endoscopy, [facility] 132 [facility] [place] [address] Celeste Scott MD [address] [place] [address] 09/27/2023 11:00 AM EST Office Visit Family Practice [facility] [place] 200 [facility] [place] [address] Elana Mcgarry PA-C 200 [facility] [place] [address] Scheduled Orders Name Type Priority Associated Diagnoses Orde r Schedule EGD, FLEXIBLE, DIAGNOSTIC Procedures Routine Acute biliary pancreatitis with uninfected necrosis Ordered: 07/21/2023 Health Maintenance Due Date Last Done Comments [...] this encounter Medical Devices Implanted Type Area Protective Signal Installer Device Identifier Shelf Expiration Date Model / Serial / Lot Stnt Pt Dbl [id number] 3219 - [id number] Implanted:Qty: 1 on 06/22/2023 by Celeste Scott MD at OR [facility] [place] [facility] : ENDOSCOPY [id number] 01/17/2025 [id number] / / [id number] documented as of this encounter Visit Diagnoses Diagnosis Acute biliary pancreatitis with uninfected necrosis- Primary documented in this encounter Care Teams Information Assurance Manager Relationship Specialty Start Date End Date Marlenynovember NURY Gu [address] [place] [address] [facility] [place] [address] PCP - General Physician Senior Shipping Clerk 05/20/22 documented as of this encounter
--- OUTSIDE RECORDS SUMMARY | 2023-07-22 05:45 | External Medical Summary | Summary of Care ---
Author Name Unknown Organization [facility] Address [address] [place] [address] Phone [phone] Care Team Providers Care Stars Coordinator Name Role Phone Elana Mcgarry PA-C Primary Care Provider Encounter Details Date Type Department Care Team (Late st Contact Info) Description 06/22/2023 Telephone OR [facility], Operating Room, [facility] - 4th Floor [address] [place] [id number] Celeste Scott MD [address] [place] [phone] Allergies Active Allergy Reactions Criticality Noted Date [...] mRNA, LNP-s, No Pre serve, 2-Dose Series ([employer]) 02/12/2021,01/22/2021 Pneumococcal Conjugate Vacc, 13 Valent (Prevnar) [...] CT scan abdomen in 3 weeks at [place]. * Telephone Encounter - Isabell Dickerson OSA - 06/23/2023 2:30 PM EST Egd 09/29/23 * Telephone Encounter - Celeste Scott MD - 06/22/2023 2:14 PM EST Please schedule repeat EGD with me in the OR in 3 months for stent removal. documented in this encounter Plan of Treatment Upcoming Encounters Date Type Department Care Team (Latest Contact Info) Description 07/07/2023 9:15 AM EST Imaging Radiology [address] 132 [facility] [place] [address] 09/27/2023 11:00 AM EST Office Visit Family Practice [facility] [address] [place] [address] Elana Mcgarry PA-C 200 [facility], [place] [address] 09/29/2023 8:05 AM EST Hospital Encounter OR [facility], Operating Room, [facility] - 4th Floor [address] [place] [address] Celeste Scott MD [address] [place] [address] 09/29/2023 8:05 AM EST - 09/29/2023 8:46 AM EST Surgery OR [facility], Operating Room, [facility] - 4th Floor [address] [place] [address] Celeste Scott MD [address] [place] [address] ESOPHAGOGASTRODUODENOSCOPY (EGD), FLEXIBLE, TRANSORAL, DIAGNOSTIC Scheduled Procedures Name Priority Associated Diagnoses Date/Ti ak ESOPHAGOGASTRODUODENOSCOPY ( EGD), FLEXIBLE, TRANSORAL, DIAGNOSTIC Encounter for removal of pancreatic stent 09/29/2023 8:05 AM EST Health Maintenance Due Date Last [...] this encounter Medical Devices Implanted Type Area Supervisor Pig Machine Device Identifier Shelf Expiration Date Model / Serial / Lot Stnt Pt Dbl [id number] - [id number] Implanted:Qty: 1 on 06/22/2023 by Celeste Scott MD at OR [facility] : ENDOSCOPY [id number] 01/17/2025 [id number] / / [id number] documented as of this encounter Care Teams Stars Coordinator Relationship Specialty Start Date End Date Malgorzata November NURY Gu [address] [place] [address] PCP - General Physician Director Industrial 05/20/22 documented as of this encounter
--- OUTSIDE RECORDS SUMMARY | 2023-07-22 05:45 | External Medical Summary | Summary of Care ---
Author Name Unknown Organization [facility] Address [address] [place] [address] Phone [phone] Care Team Providers Care Leadership Program Associate Name Role Phone Elana Mcgarry PA-C Primary Care Provider [phone] Reason for Referral * Precert (Within 10 days (routine)) - Pending Review Specialty Diagnoses / Procedures Referred By Sean kevin Referred To Contact Radiology Diagnoses Acute biliary pancreatitis with uninfected necrosis Procedures CT ABD/PELVIS W IV AND W ORAL CONTRAST Celeste Enriquez MD [address] [place] [address] Referral ID Status Reason Start Date Expiration Date V isits Requested Visits Authorized [id number] Pending Review 07/07/2023 999 999 Reason for Visit * Reason Onset Date Comments Medication Refill 06/22/2023 Encounter Details Date Type Department Care Team (Late st Contact Info) Description 06/22/2023 Refill Gastroenterology, [facility] [address] [place] [address] Celeste Enriquez MD [address] [place] [address] Acute biliary pancreatitis with uninfected necrosis* Allergies Active Allergy Reactions Criticality Noted Date Comments Nickel 05/19/2022 Rash, reddened documented as of this encounter (statuses as of 06/26/2023) Medications Medication Sig Dispensed Refills Start Date [...] as of this encounter (statuses as of 06/26/2023) Active Problems Problem Noted Date Diagnosed Date Gallstone pancreatitis 06/05/2023 Acute cholecystitis due to biliary calculus 05/09 H/O partial thyroidectomy 03/27/2023 Esophagitis determined by endoscopy 09/26/2022 HTN, goal below 140/90 09/23/2021 Hypercholesteremia 09/23/2021 Hyperlipidemia 09/23/2021 Vitamin D deficiency 06/28/2019 Osteopenia 06/28/2019 Hyperparathyroidism 09/26/2013 documented as of this encounter (statuses as of 06/26/2023) Immunizations Name Administration Dates Next Due COVID-19 [...] Telephone Encounter - Jewel Mcgraw OSA - 06/26/2023 9:38 AM EST Spoke to pt, apt scheduled on 07/07 * Addendum Note - Celeste Enriquez MD [...] Description 07/07/2023 9:15 AM EST Imaging Radiology [facility] [address]st [facility] [address] [place] [address] 09/27/2023 11:00 AM EST Office Visit Family [facility] 200 [facility] [place] [address] Elana Mcgaryr PA-C 200 [facility] [place] [address] 09/29/2023 11:00 AM EST Hospital Encounter OR [facility], Operating Room, [facility] - 4th Floor [address] [place] [address] Celeste Enriquez MD 132 [place] [address] 09/29/2023 11:00 AM EST - 09/29/2023 11:41 AM EST Surgery OR [facility], Operating Room, [facility] - 4th Floor [address] [place] [address] Celeste Enriquez MD [address] [place] [address] ESOPHAGOGASTRODUODENOSCOPY (EGD), FLEXIBLE, TRANSORAL, DIAGNOSTIC Scheduled Orders [...] this encounter Medical Devices Implanted Type Area Beater And Pulper Feeder Device Identifier Shelf Expiration Date Model / Serial / Lot Stnt Pt Dbl [id number] 3219 - [id number] Implanted:Qty: 1 on 06/22/2023 by Celeste Enriquez MD at OR [facility] [place] [facility] : ENDOSCOPY [id number] 01/17/2025 [id number] / / [id number] documented as of this encounter Visit Diagnoses Diagnosis Acute biliary pancreatitis with uninfected necrosis- Primary Encounter for removal of pancreatic stent documented in this encounter Care Teams Leadership Program Associate Relationship Specialty Start Date End Date Marlenynovember NURY Gu [address] [facility] [place] [address] PCP - General Physician Appraisal Specialist 05/20/22 documented as of this encounter
--- OUTSIDE RECORDS SUMMARY | 2023-07-22 05:46 | External Medical Summary ---
Author Name Unknown Address Unknown Organization : Laboratory Report Ordering Provider Test Date Status MINA ACE 06/22/2023 15:39:33 Final Observation Date Value Abnormality Reference (Units ) Status Glucose Point of Care 06/22/2023 15:39:33 89 70-120 (mg/dL) Final Performing Location
--- OUTSIDE RECORDS SUMMARY | 2023-07-22 05:46 | External Medical Summary ---
Author Name Unknown Address Unknown Organization : Laboratory Report Ordering Provider Test Date Status MINA ACE 06/22/2023 12:38:02 Final Observation Date Value Abnormality Reference (Units ) Status Glucose Point of Care 06/22/2023 12:38:02 96 70-120 (mg/dL) Final Performing Location
--- OUTSIDE RECORDS SUMMARY | 2023-07-22 05:46 | External Medical Summary | Summary of Care ---
Author Name Unknown Organization [facility] Address [address] [place] [address] Phone [phone] Care Team Providers Care Plunger Shovel Operator Name Role Phone Elana Mcgarry PA-C Primary Care Provider [phone] Reason for Visit * Reason Onset Date Comments Medication Refill 06/22/2023 Encounter Details Date Type Department Care Team (Late st Contact Info) Description 06/22/2023 Refill Gastroenterology, [facility] [address] [place] [address] Celeste Scott MD [address] [place] [address] Allergies Active Allergy Reactions Criticality Noted Date [...] 11:00 AM EST Office [facility] [place] [address] [place] [address] Elana Mcgarry PA-C [address] [place] [address] Scheduled Procedures Name Priority Associated Diagnoses Date/Ti [...] this encounter Medical Devices Implanted Type Area Brass Polisher Device Identifier Shelf Expiration Date Model / Serial / Lot Stnt Pt Dbl [id number] 3219 - [id number] Implanted:Qty: 1 on 06/22/2023 by Celeste Scott MD at OR [facility] [place] [facility] : ENDOSCOPY [id number] 01/17/2025 [id number] / / [id number] documented as of this encounter Care Teams Plunger Shovel Operator Relationship Specialty Start Date End Date Marlenynovember NURY Gu [address] [place] [address] PCP - General Physician Harbor Pilot 05/20/22 documented as of this encounter
[2023-07-22 06:20] LABS: Basophils # (auto) 0.03 K/uL (0.00-0.20); Basophils % (auto) 0.4 %; Eosinophils # (auto) 0.08 K/uL (0.00-0.50); Eosinophils % (auto) 1.1 %; Hematocrit (blood only) 31.2 % (37.0-47.0); Hemoglobin 10.6 g/dl (12.0-16.0); Immature Granulocytes # (auto) 0.02 K/uL (0.01-0.20); Immature Granulocytes % (auto) 0.3 %; Lymphocytes # (auto) 1.37 K/uL (1.20-3.40); Lymphocytes % (auto) 19.1 %; Mean Corpuscular Hemoglobin 29.1 pg (25.0-34.0); Mean Corpuscular Volume 85.7 fL (80.0-100.0); Monocytes # (auto) 0.79 K/uL (0.11-0.59); Neutrophils # (auto) 4.89 K/uL (1.40-6.50); Neutrophils % (auto) 68.1 %; Platelet Count 228 K/uL (130-400); RDW Coefficient of Variation 13.2 % (11.5-14.5); RDW Standard Deviation 41.6 fL (36.4-46.3); Red Blood Count 3.64 M/uL (4.20-5.40); White Blood Count 7.18 K/ul (4.8-10.8)
[2023-07-22 06:53] LABS: BUN Creatinine Ratio 10.5 (10-20); Calcium 9.2 mg/dl (8.6-10.3); Creatinine Clr Calc Pharmacy 79.3 ml/min; Est GFR (African American) 108.9 ml/min; Est GFR (Non-African American) 93.9 ml/min; Potassium 3.4 mmol/L (3.5-5.1)
--- OUTSIDE RECORDS SUMMARY | 2023-07-22 07:00 | External Medical Summary | Summary of Care ---
Author Name Unknown Organization [facility] Address [address] [place] [address] Phone [phone] Care Team Providers Care Wax Pattern Repairer Name Role Phone Malgorzata November NURY Primary Care Provider [phone] Encounter Details Date Type Department Care Team (Late st Contact Info) Description 06/13/2023 Telephone Gastroenterology, [facility] [address] [place] [address] Celeste Scott MD [address] [place] [address] Allergies Active Allergy Reactions Criticality Noted Date Comments Nickel 05/19/2022 Rash, reddened documented as of this encounter (statuses as of 06/14/2023) Medications Medication Sig Dispensed Refills Start Date [...] for dairrhea 20 Capsule 0 05/30/2023 Active metroNIDAZOLE 500 MG Oral Tablet (Flagyl) take 1 tablet (500 mg) orally every 8 hours 15 Tablet 0 05/30/2023 Active Pantoprazole Sodium 40 MG Oral Tablet Delayed Release (Protonix) take 1 tablet (40 mg) orally daily in the morning 30 Tablet 0 05/30/2023 Active Vitamin B1 100 MG Oral Tablet take 1 tablet by mouth daily in the morning 30 Tablet 0 05/30/2023 Active documented as of this encounter (statuses as of 06/14/2023) Active Problems Problem Noted Date Diagnosed Date Gallstone pancreatitis 06/05/2023 Acute cholecystitis due to biliary calculus 05/09 H/O partial thyroidectomy 03/27/2023 Esophagitis determined by endoscopy 09/26/2022 HTN, goal below 140/90 09/23/2021 Hypercholesteremia 09/23/2021 Hyperlipidemia 09/23/2021 Vitamin D deficiency 06/28/2019 Osteopenia 06/28/2019 Hyperparathyroidism 09/26/2013 documented as of this encounter (statuses as of 06/14/2023) Immunizations Name Administration Dates Next Due COVID-19 [...] Telephone Encounter - Isabell Dickerson OSA - 06/14/2023 11:18 AM EST Ok's to add 06/22. Pts son aware. * Telephone Encounter - Isabell Dickerson OSA - 06/13/2023 3:59 PM EST Lucinda checking with anesthesia for 16 or 14. * Telephone Encounter - Celeste Scott MD - 06/13/2023 3:30 PM EST I spoke to the patient's son regarding the CT scan findings of large peripancreatic pseudocyst which needs drainage in vow of ongoing abdominal pain and poor PO intake. Please schedule EUS with cyst drainage with me next week at [facility] with fluoro, this is urgent. documented in this encounter Plan of Treatment Upcoming Encounters Date Type Department Care Team (Latest Contact Info) Description 06/22/2023 2:45 PM EST Hospital Encounter OR [facility], Operating Room, [facility] - 4th Floor [address] [place] [address] Celeste Scott MD [address] [place] [address] [place] [address] 06/22/2023 2:45 PM EST - 06/22/2023 3:47 PM EST Surgery OR [facility], Operating Room, [facility] - 4th Floor [address] [place] [address] Celeste Scott MD [address] [place] [address] ESOPHAGOGASTRODUODENOSCOPY (EGD), FLEXIBLE, TRANSORAL, WITH DRAINAGE PSEUDOCYST 09/27/2023 11:00 AM EST Office Visit [facility] 200 [facility] [place] [address] Elana Mcgarry PA-C 200 [facility] [place] [address] Scheduled Orders Name Type Priority Associated Diagnoses Orde r Schedule US ENDOSCOPIC Medical Imaging Routine Acute biliary pancreatitis with uninfected necrosis Expected: 06/13/2023, Expires: 07/13/2024 Scheduled Procedures Name Priority Associated Diagnoses Date/Ti me ESOPHAGOGASTRODUODENOSCOPY ( EGD), FLEXIBLE, TRANSORAL, WITH DRAINAGE PSEUDOCYST Acute biliary pancreatitis with uninfected necrosis 06/22/2023 2:45 PM EST Health Maintenance Due Date Last [...] documented as of this encounter Medical Devices Not on filedocumented as of this encounter Visit Diagnoses Diagnosis Acute biliary pancreatitis with uninfected necrosis- Primary Acute biliary pancreatitis with uninfected necrosis documented in this encounter Care Teams Wax Pattern Repairer Relationship Specialty Start Date End Date MalgorzataNovember Brittanie, NURY [address] [place] [address] PCP - General Physician Insurance Claims Examiner 05/20/22 documented as of this encounter
[2023-07-22] MEDS ORDERED: lisinopril 5 MG TAB PO SCH (09:00)
[2023-07-22] MEDS ORDERED: lisinopril 20 MG TAB PO SCH (09:00)
[2023-07-22] MEDS ORDERED: ENOXAPARIN INJ 40 MG/0.4 ML SYR SQ SCH (09:00)
--- NOTE | 2023-07-22 13:55 | Hospitalist Progress Note ---
Date of Service July 22, 2023 Assessment & Plan (1) Infected pancreatic pseudocyst: (2) Hypokalemia: (3) Dizziness: (4) Acute upper abdominal pain: (5) DM II (diabetes mellitus, type II), controlled: (6) HLD (hyperlipidemia): (7) Gallstone pancreatitis: (8) Hypertension: (9) Hyperparathyroidism: Plan Per admitting provider: "Medical history significant for HTN, hyperlipidemia, history of gallstone pancreatitis, history of pancreatic pseudocyst/necrotizing pancreatitis, hyperparathyroidism as per records, DM2 diet-controlled (patient unaware of previous diagnosis), chronic anemia (baseline hemoglobin 10-11). Last confinement May 2023 for gallstone pancreatitis/acute cholecystitis. Repeat CAT scan done during confinement showed development of pancreatic necrosis. Patient received meropenem and discharged on cefdinir and Flagyl course. Outpatient cholecystectomy contemplated. Persistent abdominal bloating, decreased p.o. intake since discharge from the hospital. No fever, no chills, no chest pain, no SOB. Patient underwent outpatient endoscopic peripancreatic pseudocyst drainage via cystogastrostomy with stent placement by GI last month following General Surgery recommendations prior to cholecystectomy. Patient prescribed Cipro Flagyl course postprocedure. Outpatient CAT scan done 2 weeks ago following procedure showed: "1. Redemonstration of sequelae of necrotizing pancreatitis with walled-off necroses. Interval improvement from prior study, status post cysto gastrostomy catheter placement. 2. New hypodensities with the focus of fat in the right adnexal area may be sequelae of necrosis fat. Attention recommended on follow-up CT in 3 months. 3. Redemonstration of retroperitoneal nodularity, likely related to fat necrosis from prior pancreatitis. Attention recommended on follow-up. 4. Stones/sludge in the gallbladder." Worsening abdominal discomfort on day of admission. Transient spots noted on right eye followed by achy headache symptoms. No prior episodes. No chest pain, no SOB. Dizziness described as lightheadedness with generalized weakness. Patient brought to ER for evaluation. CAT scan of the abdomen pelvis showed infected pancreatic pseudocyst. IV Zosyn administered at the ER. [facility] GI specialist requested [facility] transfer for advanced endoscopic services." History necrotizing gallstone pancreatitis No sepsis for now Transfer to [facility] once bed available. Patient accepted for transfer by hospitalist service (Dr. Bacon) after discussion of case with [facility] GI specialist, Dr. Elmore. GI recommends n.p.o. status and continuing Zosyn for now. Transfer paperwork completed by ER provider. Hypokalemia secondary to decreased p.o. intake from illness replete as needed Transient headache preceded by visual spots on the right eye possible migraine patient currently comfortable prn meds HTN stable continue lisinopril, holding hctz hyperlipidemia on statin Rx hyperparathyroidism as per records serum calcium within normal limits DM2 diet-controlled hemoglobin A1c noted to be 6.6 during confinement 2 months ago patient unaware of diagnosis ISS BG goal 110-140, DM education chronic anemia hemoglobin at baseline Diet: NPO except for med DVT prophylaxis: Lovenox subcu Full code Dispo: transfer to [facility] Admission and Anticipated Discharge Date Admission Date: July 21, 2023 Subjective Pt seen in the AM. had lots of questions about the pending transfer including what would be done there and when the transfer would happen. Noted that her abdomen was nontender on exam. States that her pain is well controlled. Denied other acute concerns. Review of Systems Review of Systems: All systems reviewed & are unremarkable except as noted in Subjective Physical Exam Physical Exam: General: Alert, oriented. No acute distress Skin: No noted rashes or bruises Psych: Appropriate mood and affect Neuro: No gross deficits HEENT: NC/AT Chest: Nontender to palpation. CV: RRR Resp: Breath sounds clear bilaterally, no increased effort of breathing. Abdomen: Soft, nontender Extremities: No edema in lower extremities bilaterally. Results & Data Results & Data Vital Signs (Past 12 Hours) Vital Signs Temp Pulse Resp BP Pulse Ox O2 Del Method 07/22/23 09:05 102/64 07/22/23 07:09 36.7 C 76 13 99/63 L 95 Room Air Medications Administered Current Inpatient Medications Dextrose (Dextrose 50% 50 Ml Syringe) 25 - 50 ml IV UD PRN; Protocol PRN Reason: Hypoglycemia Protocol Stop: 08/21/23 00:43 Enoxaparin Sodium (Enoxaparin Inj 40 Mg/0.4 Ml Syr) 40 mg SQ QAM ISAC Stop: 08/21/23 08:59 Last Admin: 07/22/23 09:06 Dose: Not Given Glucagon (Glucagon For Inj 1 Mg Vial) 1 mg SQ UD PRN; Protocol PRN Reason: Hypoglycemia Protocol Stop: 08/21/23 00:43 Glucose (Glucose 10 Tab/Tube) 4 - 8 tab PO UD PRN; Protocol PRN Reason: Hypoglycemia Treatment Stop: 08/21/23 00:43 Glucose (Glucose 40% Gel 15 Gm Tube) 15 - 30 gm PO UD PRN; Protocol PRN Reason: Hypoglycemia Protocol Stop: 08/21/23 00:43 Promethazine HCl 6.25 mg/ (Sodium Chloride) 50.25 mls @ 201 mls/hr IV Q6H PRN PRN Reason: Nausea And Vomiting Stop: 08/20/23 23:33 Piperacillin Sod/Tazobactam (Sod 4.5 gm/ Dextrose) 100 mls @ 25 mls/hr IV Q8H ISAC; Protocol Stop: 08/01/23 03:59 Last Infusion: 07/22/23 16:09 Dose: Infused Insulin Aspart (Insulin Aspart Per Unit Charge) 0 units SC Q6 ISAC Stop: 08/21/23 00:59 Last Admin: 07/22/23 12:02 Dose: Not Given Lisinopril (Lisinopril 5 Mg Tab) 5 mg PO QAM ISAC Stop: 08/21/23 08:59 Last Admin: 07/22/23 09:10 Dose: 5 mg Lorazepam (Lorazepam 0.5 Mg Tab) 0.25 mg PO TID PRN PRN Reason: Anxiety Stop: 08/20/23 23:33 Miscellaneous (Carbohydrates For Hypoglycemia ) 15 - 30 gm PO UD PRN PRN Reason: Hypoglycemia Protocol Stop: 08/21/23 00:43 Morphine Sulfate (Morphine Sulfate 2 Mg/Ml Carp) 2 mg IV Q3H PRN PRN Reason: Pain Stop: 08/04/23 23:33 Tramadol HCl (Tramadol Hcl 50 Mg Tablet) 25 - 50 mg PO Q4H PRN PRN Reason: Pain Stop: 08/20/23 23:33
[2023-07-22] MEDS ORDERED: LACTATED RINGER'S 1,000 ML IV SCH (18:00)
--- NOTE | 2023-07-22 22:10 | Discharge Summary ---
Discharge Summary Date of Service July 22, 2023 Notes For Next Care Provider See below Medication Changes From Visit See below Admission HPI Per Admitting Provider History obtained from patient and records. Medical history significant for HTN, hyperlipidemia, history of gallstone pancreatitis, history of pancreatic pseudocyst/necrotizing pancreatitis, hyperparathyroidism as per records, DM2 diet-controlled (patient unaware of previous diagnosis), chronic anemia (baseline hemoglobin 10-11). Last confinement May 2023 for gallstone pancreatitis/acute cholecystitis. Repeat CAT scan done during confinement showed development of pancreatic necrosis. Patient received meropenem and discharged on cefdinir and Flagyl course. Outpatient cholecystectomy contemplated. Persistent abdominal bloating, decreased p.o. intake since discharge from the hospital. No fever, no chills, no chest pain, no SOB. Patient underwent outpatient endoscopic peripancreatic pseudocyst drainage via cystogastrostomy with stent placement by GI last month following General Surgery recommendations prior to cholecystectomy. Patient prescribed Cipro Flagyl course postprocedure. Outpatient CAT scan done 2 weeks ago following procedure showed 1. Redemonstration of sequelae of necrotizing pancreatitis with walled-off necroses. Interval improvement from prior study, status post cysto gastrostomy catheter placement. 2. New hypodensities with the focus of fat in the right adnexal area may be sequelae of necrosis fat. Attention recommended on follow-up CT in 3 months. 3. Redemonstration of retroperitoneal nodularity, likely related to fat necrosis from prior pancreatitis. Attention recommended on follow-up. 4. Stones/sludge in the gallbladder. Worsening abdominal discomfort today. Transient spots noted on right eye followed by achy headache symptoms. No prior episodes. No chest pain, no SOB. Dizziness described as lightheadedness with generalized weakness. Patient brought to ER for evaluation. CAT scan of the abdomen pelvis showed infected pancreatic pseudocyst. IV Zosyn administered at the ER. [facility] GI specialist requested [facility] [place] for advanced [place] services. Patient accepted for transfer by hospitalist service after coordination with [facility] GI specialist pending bed availability as per ER provider. Medical History as above Surgical History : section, partial thyroidectomy, appendectomy Family History : DM Personal/Social history : Non-smoker, no EtOH intake, retired hospital cafeteria employee Admission Exam Per Admitting Provider GENERAL: Comfortable, slightly anxious, pleasant, no respiratory distress SKIN: Normal color, warm HEENT: [place] palpebral conjunctivae, no ptosis, dry buccal mucosa NECK : Supple, no tenderness CHEST : CTA, no tenderness HEART : RRR, no obvious murmurs ABDOMEN: Some distention, epigastric tenderness EXTREMITIES : No LE swelling/tenderness, no other conspicuous deformities noted NEUROLOGIC : Coherent, no facial asymmetry, no other gross focality Principal Dx & Hospital Course #1 = Principal Diagnosis (1) Infected pancreatic pseudocyst: (2) Hypokalemia: (3) Dizziness: (4) Acute upper abdominal pain: (5) DM II (diabetes mellitus, type II), controlled: (6) HLD (hyperlipidemia): (7) Gallstone pancreatitis: (8) Hypertension: (9) Hyperparathyroidism: Plan Per admitting provider: "Medical history significant for HTN, hyperlipidemia, history of gallstone pancreatitis, history of pancreatic pseudocyst/necrotizing pancreatitis, hyperparathyroidism as per records, DM2 diet-controlled (patient unaware of previous diagnosis), chronic anemia (baseline hemoglobin 10-11). Last confinement May 2023 for gallstone pancreatitis/acute cholecystitis. Repeat CAT scan done during confinement showed development of pancreatic necrosis. Patient received meropenem and discharged on cefdinir and Flagyl course. Outpatient cholecystectomy contemplated. Persistent abdominal bloating, decreased p.o. intake since discharge from the hospital. No fever, no chills, no chest pain, no SOB. Patient underwent outpatient endoscopic peripancreatic pseudocyst drainage via cystogastrostomy with stent placement by GI last month following General Surgery recommendations prior to cholecystectomy. Patient prescribed Cipro Flagyl course postprocedure. Outpatient CAT scan done 2 weeks ago following procedure showed: "1. Redemonstration of sequelae of necrotizing pancreatitis with walled-off necroses. Interval improvement from prior study, status post cysto gastrostomy catheter placement. 2. New hypodensities with the focus of fat in the right adnexal area may be sequelae of necrosis fat. Attention recommended on follow-up CT in 3 months. 3. Redemonstration of retroperitoneal nodularity, likely related to fat necrosis from prior pancreatitis. Attention recommended on follow-up. 4. Stones/sludge in the gallbladder." Worsening abdominal discomfort on day of admission. Transient spots noted on right eye followed by achy headache symptoms. No prior episodes. No chest pain, no SOB. Dizziness described as lightheadedness with generalized weakness. Patient brought to ER for evaluation. CAT scan of the abdomen pelvis showed infected pancreatic pseudocyst. IV Zosyn administered at the ER. [facility] GI specialist requested [facility] [place] for advanced endoscopic services." History necrotizing gallstone pancreatitis No sepsis for now Transfer to [facility] once bed available. Patient accepted for transfer by hospitalist service (Dr. Bacon) after discussion of case with [facility] GI specialist, Dr. Elmore. GI recommends n.p.o. status and continuing Zosyn for now. Transfer paperwork completed by ER provider. Hypokalemia secondary to decreased p.o. intake from illness replete as needed Transient headache preceded by visual spots on the right eye possible migraine patient currently comfortable prn meds HTN stable continue lisinopril, holding hctz hyperlipidemia on statin Rx hyperparathyroidism as per records serum calcium within normal limits DM2 diet-controlled hemoglobin A1c noted to be 6.6 during confinement 2 months ago patient unaware of diagnosis ISS BG goal 110-140, DM education chronic anemia hemoglobin at baseline Diet: NPO except for meds DVT prophylaxis: Lovenox subcu Full code Dispo: transfer to [facility] Discharge Exam General: Alert, oriented. No acute distress Skin: No noted rashes or bruises Psych: Appropriate mood and affect Neuro: No gross deficits HEENT: NC/AT Chest: Nontender to palpation. CV: RRR Resp: Breath sounds clear bilaterally, no increased effort of breathing. Abdomen: Soft, nontender Extremities: No edema in lower extremities bilaterally. Updated Medication List Medication Instructions Recorded Confirmed Type lisinopril 20 1 tab PO DAILY 05/17/23 07/21/23 History mg-hydrochlorothiazide 12.5 mg tablet Additional Medication Comments Current Inpatient Medications Dextrose (Dextrose 50% 50 Ml Syringe) 25 - 50 ml IV UD PRN; Protocol PRN Reason: Hypoglycemia Protocol Stop: 08/21/23 00:43 Enoxaparin Sodium (Enoxaparin Inj 40 Mg/0.4 Ml Syr) 40 mg SQ QAM ISAC Stop: 08/21/23 08:59 Last Admin: 07/22/23 09:06 Dose: Not Given Glucagon (Glucagon For Inj 1 Mg Vial) 1 mg SQ UD PRN; Protocol PRN Reason: Hypoglycemia Protocol Stop: 08/21/23 00:43 Glucose (Glucose 10 Tab/Tube) 4 - 8 tab PO UD PRN; Protocol PRN Reason: Hypoglycemia Treatment Stop: 08/21/23 00:43 Glucose (Glucose 40% Gel 15 Gm Tube) 15 - 30 gm PO UD PRN; Protocol PRN Reason: Hypoglycemia Protocol Stop: 08/21/23 00:43 Promethazine HCl 6.25 mg/ (Sodium Chloride) 50.25 mls @ 201 mls/hr IV Q6H PRN PRN Reason: Nausea And Vomiting Stop: 08/20/23 23:33 Piperacillin Sod/Tazobactam (Sod 4.5 gm/ Dextrose) 100 mls @ 25 mls/hr IV Q8H ISAC; Protocol Stop: 08/01/23 03:59 Last Infusion: 07/22/23 16:09 Dose: Infused Insulin Aspart (Insulin Aspart Per Unit Charge) 0 units SC Q6 ISAC Stop: 08/21/23 00:59 Last Admin: 07/22/23 12:02 Dose: Not Given Lisinopril (Lisinopril 5 Mg Tab) 5 mg PO QAM [facility] Stop: 08/21/23 08:59 Last Admin: 07/22/23 09:10 Dose: 5 mg Lorazepam (Lorazepam 0.5 Mg Tab) 0.25 mg PO TID PRN PRN Reason: Anxiety Stop: 08/20/23 23:33 Miscellaneous (Carbohydrates For Hypoglycemia ) 15 - 30 gm PO UD PRN PRN Reason: Hypoglycemia Protocol Stop: 08/21/23 00:43 Morphine Sulfate (Morphine Sulfate 2 Mg/Ml Carp) 2 mg IV Q3H PRN PRN Reason: Pain Stop: 08/04/23 23:33 Tramadol HCl (Tramadol Hcl 50 Mg Tablet) 25 - 50 mg PO Q4H PRN PRN Reason: Pain Stop: 08/20/23 23:33 Hospital Stay Data Consultations 07/21/23 22:48 ED Decision to Admit Stat 07/21/23 23:50 Burn CD for patient Stat Diagnostic Imagining Performed 07/21/23 19:12 CT head/brain wo con Stat 07/21/23 19:13 CT abd pelvis IV con only Stat Chest X-Ray 07/21/23 19:12 SINGLE VIEW CHEST CLINICAL HISTORY: Generalized weakness. FINDINGS: An AP, portable, upright chest radiograph is compared to study dated 05/19/2023. The cardiomediastinal silhouette is top normal for projection. Chronic interstitial thickening is similar to previous. There is minimal bibasilar atelectasis. The lungs and pleural spaces are otherwise clear. No pneumothorax is seen. The skeletal structures are osteopenic. The bony thorax is grossly intact. A catheter projects over the left upper quadrant. IMPRESSION: No active disease in the chest. ACT 112: Negative or not required by law. Electronically signed by: Alfa Harris M.D. 07/21/2023 8:[address] 07/21/23 19:12 Exam(s): CT HEAD Without Contrast EXAM: CT Head Without Intravenous Contrast CLINICAL HISTORY: Reason for exam: dizzy, cardona. TECHNIQUE: Axial computed tomography images of the head/brain without intravenous contrast. CTDI is 35.65 mGy and DLP is 546.36 mGy-cm. Automated exposure control was utilized for the study. A dose lowering technique was utilized adhering to the principles of ALARA. COMPARISON: No relevant prior studies available. FINDINGS: No acute intracranial hemorrhage. No midline shift or mass effect. The territorial mendez-white matter differentiation is maintained throughout. Age-related cerebral volume loss. Periventricular and subcortical white matter hypoattenuation, consistent with chronic microangiopathy. The visualized orbits appear grossly unremarkable. The calvarium is intact. The visualized paranasal sinuses and mastoid air cells are grossly clear. IMPRESSION: No acute intracranial hemorrhage, midline shift, or mass effect. Electronically signed by: Emery Robert MD 07/21/23 20:32 PM Abdomen/Pelvis CT 07/21/23 19:13 Exam(s): CT ABDOMEN + PELVIS With Contrast IV Amt: 82 ml optiray 320 EXAM: CT Abdomen and Pelvis With Intravenous Contrast CLINICAL HISTORY: Reason for exam: upper abd pain, histor of pancreatitis. TECHNIQUE: Axial computed tomography images of the abdomen and pelvis with intravenous contrast. CTDI is 18.32 mGy and DLP is 884.59 mGy-cm. Automated exposure control was utilized for the study. A dose lowering technique was utilized adhering to the principles of ALARA. CONTRAST: Patient received 82 ml optiray 320 of IV contrast COMPARISON: CT abdomen and pelvis May 23, 2023. FINDINGS: Lung bases: Unremarkable. No mass. No consolidation. ABDOMEN: Liver: Unremarkable. No mass. Gallbladder and bile ducts: Layering sludge versus old contrast in the gallbladder. No calcified stones. No ductal dilation. Pancreas: Unremarkable. No mass. No ductal dilation. Spleen: Unremarkable. No splenomegaly. Adrenals: Unremarkable. No mass. Kidneys and ureters: Renal cysts. No hydronephrosis. Stomach and bowel: Diverticulosis, without acute diverticulitis. No small bowel obstruction. No free intraperitoneal air. PELVIS: Appendix: Normal appendix. Bladder: Decompressed urinary bladder. Reproductive: Unremarkable as visualized. ABDOMEN and PELVIS: Intraperitoneal space: Unremarkable. No free air. No significant fluid collection. Bones/joints: Degenerative changes of the spine. No acute fracture. No dislocation. Soft tissues: Unremarkable. Vasculature: Atherosclerotic changes of the aorta. No abdominal aortic aneurysm. Lymph nodes: Unremarkable. No enlarged lymph nodes. Tubes, lines and devices: Fluid collection with multiple locules of air adhering to the pancreas measuring 5.0 x 5.6 cm, concerning for infected pancreatic pseudocyst. There is an indwelling pigtail catheter traversing the stomach in this collection. This collection was not present on May 23, 2023. IMPRESSION: Fluid collection with multiple locules of air adhering to the pancreas measuring 5.0 x 5.6 cm, concerning for infected pancreatic pseudocyst. Indwelling pigtail catheter traversing the stomach, now within this collection. This collection was not present on May 23, 2023. Electronically signed by: Emery Robert MD 07/21/23 21:20 PM Pending Results Patient Have Any Pending Studies at Discharge: No Discharge Instructions Given to Patient (Per Discharging Provider) Medical history significant for HTN, hyperlipidemia, history of gallstone pancreatitis, history of pancreatic pseudocyst/necrotizing pancreatitis, hyperparathyroidism as per records, DM2 diet-controlled (patient unaware of previous diagnosis), chronic anemia (baseline hemoglobin 10-11). Last confinement May 2023 for gallstone pancreatitis/acute cholecystitis. Repeat CAT scan done during confinement showed development of pancreatic necrosis. Patient received meropenem and discharged on cefdinir and Flagyl course. Outpatient cholecystectomy contemplated. Persistent abdominal bloating, decreased p.o. intake since discharge from the hospital. No fever, no chills, no chest pain, no SOB. Patient underwent outpatient endoscopic peripancreatic pseudocyst drainage via cystogastrostomy with stent placement by GI last month following General Surgery recommendations prior to cholecystectomy. Patient prescribed Cipro Flagyl course postprocedure. Outpatient CAT scan done 2 weeks ago following procedure showed: "1. Redemonstration of sequelae of necrotizing pancreatitis with walled-off necroses. Interval improvement from prior study, status post cysto gastrostomy catheter placement. 2. New hypodensities with the focus of fat in the right adnexal area may be sequelae of necrosis fat. Attention recommended on follow-up CT in 3 months. 3. Redemonstration of retroperitoneal nodularity, likely related to fat necrosis from prior pancreatitis. Attention recommended on follow-up. 4. Stones/sludge in the gallbladder." Worsening abdominal discomfort on day of admission. Transient spots noted on right eye followed by achy headache symptoms. No prior episodes. No chest pain, no SOB. Dizziness described as lightheadedness with generalized weakness. Patient brought to ER for evaluation. CAT scan of the abdomen pelvis showed infected pancreatic pseudocyst. IV Zosyn administered at the ER. [facility] GI specialist requested [facility] [place] for advanced endoscopic services. History necrotizing gallstone pancreatitis No sepsis for now Transfer to [facility] once bed available. Patient accepted for transfer by hospitalist service (Dr. Bacon) after discussion of case with [facility] GI specialist, Dr. Elmore. GI recommends n.p.o. status and continuing Zosyn for now. Transfer paperwork completed by ER provider. Hypokalemia secondary to decreased p.o. intake from illness replete as needed Transient headache preceded by visual spots on the right eye possible migraine patient currently comfortable prn meds HTN stable continue lisinopril, holding hctz hyperlipidemia on statin Rx hyperparathyroidism as per records serum calcium within normal limits DM2 diet-controlled hemoglobin A1c noted to be 6.6 during confinement 2 months ago patient unaware of diagnosis ISS BG goal 110-140, DM education chronic anemia hemoglobin at baseline Diet: NPO except for med DVT prophylaxis: Lovenox subcu Full code Dispo: transfer to [facility] Patient requests for son to be updated of progress and transfer once bed available. Mr. Magno Horton, contact #[phone]. Total Time Total Time Spent Total Time Spent (In Minutes): >30 minutes
--- NOTE | 2023-07-23 22:40 | Electrocardiogram Report ---
Test Reason : Blood Pressure : / mmHG Vent. Rate : 074 BPM Atrial Rate : 074 BPM P-R Int : 148 ms QRS Dur : 088 ms QT Int : 362 ms P-R-T Axes : 072 -42 055 degrees QTc Int : 401 ms Normal sinus rhythm Left axis deviation Abnormal ECG When compared with ECG of 18-MAY-2023 06:08, Vent. rate has decreased BY 40 BPM Confirmed by Deepak Almanza ([id number]) on 07/23/2023 10:40:10 PM Referred By: REFERRED SELF Confirmed By:Deepak Almanza
== END 2023-07-22 20:28 | disposition short-term general hospital (02) | DRG 438 ==
LOC: ED 18:28 → 3N 23:32

== ENCOUNTER 2023-08-08 05:44 | Observation (INO) ==
--- NOTE | 2023-08-02 08:50 | Anesthesiology Consultation ---
Date of Service August 02, 2023 Assessment & Plan (1) Encounter for pre-operative examination: - check BSG am DOS. - PCP hospital follow-up S office visit 08/01/23: "...Infected pancreatic pseudocyst Stable. Outpatient necrosectomy scheduled for 08/08/23. - discharge summary [facility] 07/26/23: "...s/p cystograstrostomy with 7Fr pigtail stent on 06/22. She was transferred and admitted for continued abdominal pain, nausea and inability to tolerate PO intake. Repeat CT scan 07/07 revealed internal improvement of WON necrosis 5.2cm x 6.5cm. Was scheduled for outpatient necrosectomy on 08/08/2023..." - Per curriculum and assessment director on 08/02/2023: No known infectious disease contacts, current infectious disease symptoms in past 10 days or COVID positive test result in the past 30 days. Chart Review Chart Review: Acceptable Risk for Surgery and Patient NOT seen in Pre Admission Testing History Surgery Operation Date: 08/08/23 08:25 Proposed Procedures p Esophagogastroduodenoscopy with Possible Necrosectomy - Celeste Scott MD Height/Weight Height: 5 ft 2 in Weight: 62.142 kg Allergies Allergy/AdvReac Type Severity Reaction Status Date / Time nickel Allergy Rash Verified 08/02/23 07:34 No Known Drug Allergies Allergy Verified 08/02/23 07:34 Medications Home Medications Medication Instructions Recorded Confirmed Last Taken lisinopril 20 1 tab PO QAM 05/17/23 08/02/23 07/21/23 mg-hydrochlorothiazide 12.5 mg tablet atorvastatin 40 mg tablet 40 mg PO QAM 08/02/23 08/02/23 Unknown cholecalciferol (vitamin D3) 50 50 mcg PO Q7D 08/02/23 08/02/23 Unknown mcg (2,000 unit) capsule (Vitamin D3) metformin 500 mg tablet 250 mg PO QAM 08/02/23 08/02/23 Unknown potassium 1 tab PO BID 08/02/23 08/02/23 Unknown Past Medical History Medical History (Updated 08/02/23 @ 08:48 by Soniya Lundberg PA-C) Necrotizing pancreatitis Infected pancreatic pseudocyst History of recent hospitalization "has been in and out for the past 3 months (since 04/2023), [place] [facility] [place], infected pancreatic pseudocyst and necrotizing gallstone pancreatitis; last hospitalization to chart review S HLD (hyperlipidemia) DM II (diabetes mellitus, type II), controlled NIDDM Hypertension Hyperparathyroidism (09/26/13) hx Past Family History Family History Father Diabetes Mother Cancer Past Surgical History Surgical History Hx of endoscopic retrograde cholangiopancreatography w/endoscopic upper US and EGD Hx of tubal ligation History of esophagogastroduodenoscopy (EGD) Hx of colonoscopy Hx of partial thyroidectomy removed 2 lobes Hx of appendectomy H/O section x2 Social History Smoking Status: Never smoker Do You Dip or Chew Tobacco: No Hx Alcohol Use: No Hx Substance Use: No substance use type: does not use Lab Results Anesthesia Preop Results Results Anesthesia Widget: TSH 4.098 uIu/ml (0.300-4.500) 07/21/23 Urine Color Yellow 07/21/23 Urine Appearance Clear (Clear) 07/21/23 Urine pH 6.5 (4.5-7.5) 07/21/23 Urine Specific [place] 1.011 (1.000-1.030) 07/21/23 Urine Protein Negative (Negative) 07/21/23 Urine Glucose (UA) Negative (Negative) 07/21/23 Urine Ketones Negative (Negative) 07/21/23 Urine Blood Negative (Negative) 07/21/23 Urine Nitrite Negative (Negative) 07/21/23 Urine Bilirubin Negative (Negative) 07/21/23 Urine Urobilinogen Negative (Negative) 07/21/23 Urine Leukocyte Esterase Negative (Negative) 07/21/23 Testing Laboratory Results 08/01/2023 WBC: 6.7 H/H: PLATELETS: 314 SODIUM: 141 POTASSIUM: 4.1 CHLORIDE: 104 CO2: 27 BUN: 10 CREATININE: 0.6 GLUCOSE: 109 Electrocardiogram Date: 07/21/23 NSR, rate 74 bpm Left axis deviation Chest X-Ray Date: 07/21/23 *1view* No active disease in the chest. Other Testing Abdomen pelvis CT 07/21/23 Fluid collection with multiple locules of air adhering to the pancreas measuring 5.0 x 5.6 cm, concerning for infected pancreatic pseudocyst. Indwelling pigtail catheter traversing the stomach, now within this collection. Head CT 07/21/23 No acute intracranial hemorrhage, midline shift, or mass effect.
[2023-08-08] MEDS ORDERED: LR 15ML/HR IV SCH (06:00)
[2023-08-08] MEDS ORDERED: MIDAZOLAM HCL 1 MG/ML 2ML VIAL ONE (06:48)
[2023-08-08] MEDS ORDERED: PROPOFOL IV EMULSION 10 MG/ML 20 ML VIAL IV ONE (06:48)
[2023-08-08] MEDS ORDERED: fentaNYL citrate PF 100 MCG/2 ML VIAL ONE ×2 (06:48→08:33)
[2023-08-08] MEDS ORDERED: LIDOCAINE 2% 2 ML VIAL/AMP(20MG/ML) INFIL ONE (06:48)
[2023-08-08] MEDS ORDERED: ePHEDrine sulfate 50 MG/ML AMP IV PRN (07:07)
[2023-08-08] MEDS ORDERED: ATROPINE SULFATE 0.1 MG/ML 10ML SYR IV PRN (07:07)
[2023-08-08] MEDS ORDERED: ONDANSETRON INJ 2 MG/ML 2 ML VIAL IV PRN ×2 (07:07→09:59)
[2023-08-08] MEDS ORDERED: CIPROFLOXACIN 400MG / 200ML D5W IV ONE (07:28)
--- NOTE | 2023-08-08 07:29 | History & Physical Report ---
Date of Service August 08, 2023 Assessment & Plan (1) Encounter for pre-operative examination: Plan: EGD Patient was explained in detail regarding risks, benefits, limitations and alternatives of the above endoscopic procedure. Risks of intravenous sedation used for procedure were also explained. Risks include, but not limited to perforation, bleeding, infection, respiratory distress, cardiac arrest and . Patient is also aware about the possibility of missed lesion. Patient's questions were answered. The patient verbalized understanding the information and agreed to undergo the procedure. History of Present Illness Primary Care Provider: Elana Mcgarry PA-C EGD for evaluation for walled off necrosis Allergies Allergy/AdvReac Type Severity Reaction Status Date / Time nickel Allergy Rash Verified 08/08/23 06:13 No Known Drug Allergies Allergy Verified 08/08/23 06:13 Home Medications Medication Instructions Recorded Confirmed Type lisinopril 20 1 tab PO QAM 05/17/23 08/08/23 History mg-hydrochlorothiazide 12.5 mg tablet atorvastatin 40 mg tablet 40 mg PO QAM 08/02/23 08/08/23 History cholecalciferol (vitamin D3) 50 50 mcg PO Q7D 08/02/23 08/08/23 History mcg (2,000 unit) capsule (Vitamin D3) metformin 500 mg tablet 250 mg PO QAM 08/02/23 08/08/23 History potassium 1 tab PO BID 08/02/23 08/08/23 History acetaminophen 500 mg tablet 500 mg PO Q6H PRN Pain 08/08/23 08/08/23 History Past Med/Surg History Medical History Necrotizing pancreatitis Infected pancreatic pseudocyst History of recent hospitalization "has been in and out for the past 3 months (since 04/2023), [place]inf[place], infected pancreatic pseudocyst and necrotizing galls tone pancreatitis; last hospitalization to chart review S HLD (hyperlipidemia) DM II (diabetes mellitus, type II), controlled NIDDM Hypertension Hyperparathyroidism (09/26/13) hx Surgical History Hx of endoscopic retrograde cholangiopancreatography w/endoscopic upper US and EGD Hx of tubal ligation History of esophagogastroduodenoscopy (EGD) Hx of colonoscopy Hx of partial thyroidectomy removed 2 lobes Hx of appendectomy H/O section x2 Family History Father Diabetes Mother Cancer Social History Smoking Status: Never smoker Second Hand Exposure: No; Do You Dip or Chew Tobacco: No; Tobacco Cessation Education Requested by Patient: No Hx Alcohol Use: No Hx Substance Use: No Preferred Language: Mohawk Communication Ability: Effective Visual Impairment: No Limitations Glove Cuffer Required: No Beliefs That Will Affect Care: None Current Living Situation: Alone Other Information That Helps Us Care for You: No Feels Safe at Home: Yes Safety Concerns: Feels Safe At This Time Assistive Devices: Glasses Review of Systems All systems reviewed & are unremarkable except as noted in HPI & below Physical Exam Constitutional: comfortable; no acute distress Respiratory: normal respiratory effort, lungs clear to auscultation Cardiovascular: RRR, no murmur, no edema Gastrointestinal (Abdomen): normal bowel sounds, soft, nontender, no hepatosplenomegaly Results & Data Vital Signs (Past 12 Hours) Vital Signs Temp Pulse Resp BP Pulse Ox O2 Del Method 08/08/23 06:10 36.8 C 65 20 119/52 L 95 Room Air
[2023-08-08] MEDS ORDERED: ESMOLOL HCL INJ 10 MG/ML 10ML VIAL IV ONE (08:11)
[2023-08-08] MEDS ORDERED: ONDANSETRON INJ 2 MG/ML 2 ML VIAL ONE (08:11)
[2023-08-08] MEDS ORDERED: SUGAMMADEX SODIUM 200 MG/2 ML VIAL IV ONE (08:11)
--- NOTE | 2023-08-08 08:27 | Operative Report ---
Post Operative Report Pre & Post Diagnosis Operation Date: 08/08/23 07:30 Pre-Op Diagnosis: Acute Biliary Pancreatitis with Uninfected Necrosi I identified the patient and participated in the time-out.: Yes Procedure Operation Date: 08/08/23 07:30 <No data on this case meets the specified criteria> Surgeon Celeste Scott MD Front Office Representative None Estimated Blood Loss 0 Findings See Below (Pancreatic pseudocyst cleaned out and stents removed) Specimens None Description of Procedure EGD I attest to the content of the Intraoperative Record and any orders documented therein. Any exceptions are noted below.
[2023-08-08] MEDS: fentaNYL citrate PF 100 MCG/2 ML VIAL IV PRN ×4 (08:49→09:04)
--- NOTE | 2023-08-08 08:55 | GI REPORT ---
Patient Name: Iliana Horton Procedure Date: 08/08/2023 7:18 AM Date of : 1955 Admit Type: Outpatient Age: 68 Gender: Female Attending MD: Celeste Scott MD, Procedure: Upper GI endoscopy Providers: Celeste Scott MD Referring MD: Elana Mcgarry Indications: Pancreatic necrosis Medicines: General Anesthesia Complications: No immediate complications. Estimated Blood Loss: Estimated blood loss: none. Procedure: Pre-Anesthesia Assessment: - Prior to the procedure, a History and Physical was performed, and patient medications, allergies and sensitivities were reviewed. The patient's tolerance of previous anesthesia was reviewed. - The risks and benefits of the procedure and the sedation options and risks were discussed with the patient. All questions were answered and informed consent was obtained. - Patient identification and proposed procedure were verified prior to the procedure by the physician and the nurse. The procedure was verified in the procedure room. - Pre-procedure physical examination revealed no contraindications to sedation. After obtaining informed consent, the endoscope was passed under direct vision. Throughout the procedure, the patient's blood pressure, pulse, and oxygen saturations were monitored continuously. The Endoscope was introduced through the mouth, and advanced to the second part of duodenum. The upper GI endoscopy was accomplished without difficulty. The patient tolerated the procedure well. Findings: The examined esophagus was normal. A previously placed cystgastrostomy plastic stents were found in the gastric body. Stent removal was accomplished with a Raptor grasping device. The cystgastrostomy tract was dilated using a TTS dilator which was passed through the scope. Dilation with a 12-13.5-15 mm balloon dilator was performed to 15 mm. The cyst was partially filled with black necrotic tissue that was pasty and adherent to the cyst wall. Necrosectomy was performed with a Raptor grasping device. At the conclusion of the procedure, a large amount of pink, viable tissue was found within the pseudocyst on direct vision. The cyst wall was very friable in one area and seem at risk of delayed perforation into the retroperitoneum hence decision made to close the tract, one Padlock clip was successfully placed (MR conditional). The duodenal bulb and second portion of the duodenum were normal. Impression: - Normal esophagus. - Pre-existing Cystgastrostomy stents, removed. Tract dilated. Necrosectomy was performed. Cystgastrostomy closed with Padlock clip due to very friable wall. - Normal duodenal bulb and second portion of the duodenum. Recommendation: - Admit the patient to hospital [facility] for observation. - NPO. - IV Cipro and Flagyl. - Further management plan based on clinical course. Celeste Scott MD 08/08/2023 8:55:05 AM This report has been signed electronically. Note Initiated On: 08/08/2023 7:18 AM Number of Addenda: 0 I attest to the content of the Intraoperative Record and orders documented therein, exceptions below {[id number]}
--- NOTE | 2023-08-08 09:28 | Anesthesiology Progress Note ---
Date of Service August 08, 2023 Anesthesia Post Procedure Vital Signs Vital Signs: Temp Pulse Resp BP Pulse Ox O2 Del Method O2 Flow Rate 08/08/23 09:05 77 20 132/71 97 Room Air 08/08/23 08:55 79 18 145/72 H 98 Room Air 08/08/23 08:45 80 16 165/79 H 100 Oxymask 5 08/08/23 08:39 36.0 C L 79 20 168/78 H 97 Oxymask 5 08/08/23 06:10 36.8 C 65 20 119/52 L 95 Room Air Pain Intensity Abdomen: Pain Intensity: 7 Transfer of Care Handoff Completed per policy Notes Mental Status: alert / awake / arousable Patient Amnestic to Procedure: Yes Nausea / Vomiting: adequately controlled Pain: adequately controlled Airway Patency, RR, SpO2: stable & adequate BP & HR: stable & adequate Hydration State: stable & adequate Anesthetic Complications: no major complications apparent and Pt Satisfied with anesthetic care
[2023-08-08] MEDS ORDERED: SODIUM CHLORIDE 0.9% 1,000 ML IV SCH (10:00)
[2023-08-08] MEDS ORDERED: CARBOHYDRATES FOR HYPOGLYCEMIA PO PRN (10:04)
[2023-08-08] MEDS ORDERED: GLUCOSE 10 TAB/TUBE PO PRN (10:04)
[2023-08-08] MEDS ORDERED: DEXTROSE 50% 50 ML SYRINGE IV PRN (10:04)
[2023-08-08] MEDS ORDERED: GLUCOSE 40% GEL 15 GM TUBE PO PRN (10:04)
[2023-08-08] MEDS ORDERED: GLUCAGON FOR INJ 1 MG VIAL SQ PRN (10:04)
--- NOTE | 2023-08-08 10:17 | History & Physical Report ---
Date of Service August 08, 2023 Assessment & Plan (1) S/P endoscopy: (2) Infected pancreatic pseudocyst: (3) Gallstone pancreatitis: Plan: -Admit to [facility] with telemetry for observation overnight per GI request, Dr. Scott -Previously placed cystogastrostomy plastic stent were removed today, pseudocyst necrosis was removed, cyst wall was very friable and seemed at risk of delayed perforation into the retroperitoneum -Keep strict n.p.o. for today -IV Cipro Flagyl -BP 97/49, will continue NS at 125 mL/h, adjust fluids as needed -GI consultation placed -Check CBC with differential and CMP (4) DM II (diabetes mellitus, type II), controlled: Plan: -Checking A1c -Holding p.o. metformin, use ISS with Accu-Cheks ACHS (5) HLD (hyperlipidemia): Plan: -Continue atorvastatin 40 mg every morning (6) Hypertension: Plan: -Hold lisinopril hydrochlorothiazide p.o. at this time, resume when BP stabilizes (7) Hyperparathyroidism: Plan: -History of such, chronic, stable DVT ppx: Lines: 2 PIV FEN/GI: NS at 125ml/hr, strict NPO CODE: FULL Dispo: From home, remain in hospital overnight History of Present Illness Chief Complaint: S/p EUS for necrosectomy and cystogastrostomy Primary Care Provider: Elana Mcgarry PA-C This is a 68 yo F with PMHx of HTN, hyperlipidemia, history of gallstone pancreatitis, history of pancreatic pseudocyst/necrotizing pancreatitis, hyperparathyroidism, DM II, who presented to endoscopy suite today for an EUS for necrosectomy and cystogastrostomy, previous axial stent which had been placed for gallstone pancreatitis was removed today by Dr. Scott. After seeing that the the area was very friable he requested that the patient be admitted for observation overnight. The patient was borderline hypotensive in the PACU with BP of 97/49, heart rate 71, respiratory rate was normal. She feels well at this time, no acute complaints. Denies lightheadedness, dizziness, abdominal pain, nausea, or bowel complaints. Pt took her morning meds last yesterday. She lives at home alone, her son is here today waiting for her. Allergies Allergy/AdvReac Type Severity Reaction Status Date / Time nickel Allergy Rash Verified 08/08/23 06:13 No Known Drug Allergies Allergy Verified 08/08/23 06:13 Home Medications Medication Instructions Recorded Confirmed Type lisinopril 20 1 tab PO QAM 05/17/23 08/08/23 History mg-hydrochlorothiazide 12.5 mg tablet atorvastatin 40 mg tablet 40 mg PO QAM 08/02/23 08/08/23 History cholecalciferol (vitamin D3) 50 50 mcg PO Q7D 08/02/23 08/08/23 History mcg (2,000 unit) capsule (Vitamin D3) metformin 500 mg tablet 250 mg PO QAM 08/02/23 08/08/23 History potassium 1 tab PO BID 08/02/23 08/08/23 History acetaminophen 500 mg tablet 500 mg PO Q6H PRN Pain 08/08/23 08/08/23 History Past Med/Surg History Medical History Necrotizing pancreatitis Infected pancreatic pseudocyst History of recent hospitalization "has been in and out for the past 3 months (since 04/2023), [place] and [place]inf[place], infected pancreatic pseudocyst and necrotizing gallstone pancreatitis; last hospitalization to chart review S HLD (hyperlipidemia) DM II (diabetes mellitus, type II), controlled NIDDM Hypertension Hyperparathyroidism (09/26/13) hx Surgical History (Updated 08/08/23 @ 10:20 by Quita Méndez PA-C) Hx of endoscopic retrograde cholangiopancreatography w/endoscopic upper US and EGD Hx of tubal ligation History of esophagogastroduodenoscopy (EGD) Hx of colonoscopy Hx of partial thyroidectomy removed 2 lobes Hx of appendectomy H/O section x2 Family History Father Diabetes Mother Cancer Social History Smoking Status: Never smoker Second Hand Exposure: No; Do You Dip or Chew Tobacco: No; Tobacco Cessation Education Requested by Patient: No Hx Alcohol Use: No Hx Substance Use: No Preferred Language: Guyanese Communication Ability: Effective Visual Impairment: No Limitations Special Events Manager Required: No Beliefs That Will Affect Care: None Current Living Situation: Alone Other Information That Helps Us Care for You: No Feels Safe at Home: Yes Safety Concerns: Feels Safe At This Time Assistive Devices: Glasses Review of Systems Review of Systems: Constitutional: No fever, sweats or chills, no lightheadedness or dizziness Eyes: No diplopia, no worsening or blurred vision ENT: normal hearing, no trouble swallowing Respiratory: No cough, sputum, dyspnea at rest or on exertion Cardiovascular: No chest pain, tightness or palpitations Abdomen: No pain, nausea, vomiting, diarrhea or constipation, last bowel movement was yesterday Musculoskeletal: No joint pain, calf pain, swelling Neurologic: No weakness, numbness/tingling, or balance problems Psychiatric: No anxiety or depression Skin: No rash or itch Physical Exam Physical Exam: General: awake, alert, no apparent distress, awake female, appears younger than stated age Head: Normocephalic, atraumatic ENT: PERRL, EOMI, no pharyngeal exudate, mucous membranes moist Chest: Clear to auscultation, on room air, no adventitious breath sounds Cardiac: Regular rate and rhythm, no murmur, no JVD, normal peripheral pulses, good capillary refill Abdominal: Diminished BS x 4 quadrants, soft, nondistended, + minimally tender to palpation in epigastric region, no rebound or guarding Extremities: Normal inspection, no peripheral edema or erythema, calfs nontender to palpation Psych: Normal mood and affect Neuro: AAO x 3, strength intact bilaterally and rated 5/5, no motor deficits, speech is clear, no peripheral sensory deficits Results & Data Results & Data Vital Signs (Past 12 Hours) Vital Signs Temp Pulse Resp BP Pulse Ox O2 Del Method O2 Flow Rate 08/08/23 09:45 71 18 97/49 L 95 Room Air 08/08/23 09:30 68 17 107/48 L 95 Room Air 08/08/23 09:15 71 15 107/48 L 94 Room Air 08/08/23 09:05 77 20 132/71 97 Room Air 08/08/23 08:55 79 18 145/72 H 98 Room Air 08/08/23 08:45 80 16 165/79 H 100 Oxymask 5 08/08/23 08:39 36.0 C L 79 20 168/78 H 97 Oxymask 5 08/08/23 06:10 36.8 C 65 20 119/52 L 95 Room Air Diagnostic Findings EGD reviewed per chart Code Status & VTE Plan Code Status Full code VTE Prophylaxis Plan VTE Prophylaxis will be ordered: Yes Supervising Physician Co-Signing Physician Notes 68-year-old female with recent history of admission for pancreatitis presented today for EUS with necrosectomy and cystoscopy gastrostomy closure. She is having reportedly expected amount of pain postoperatively and is in no acute distress. Epigastric area is very tender to touch with voluntary guarding. There is no distention however abdomen is soft. Exam is otherwise unremarkable. She is hemodynamically stable and afebrile and mentating normally. She is n.p.o. and on IV Cipro and Flagyl with normal saline running. Cont observation overnight. Agree with plan to hold antihypertensives above. DC once stable per GI. DO Jaime
[2023-08-08] MEDS: metroNIDAZOLE 500 MG/100 ML BAG IV SCH ×2 (10:53→20:09)
--- NOTE | 2023-08-08 11:14 | Gastrointestinal Consultation ---
Date of Consultation August 08, 2023 Assessment & Plan (1) S/P endoscopy: 68 year old female with history of HTN, hyperlipidemia, history of gallstone pancreatitis, history of pancreatic pseudocyst/necrotizing pancreatitis, hyperparathyroidism as per records, T2DM admitted for observation post EGD w/ necrosectomy and cystogastrostomy closure today NPO IV Cipro and Flagyl Pending clinical course, consider discharge 08/09/23 Supervising Physician Co-Signing Physician Notes I performed a history and physical examination of the patient today, including specifically on physical exam - soft abdomen. I have discussed the patient's management with the advanced practitioner. Please refer to the nurse practitioner's note for the documented findings and plan of care. Feels fine, no significant abdominal pain. Plan for observation, IV ABx and maybe imaging tomorrow. History of Present Illness Reason for Consultation: observation Requesting Physician: Tyler Attending Physician: Celeste Scott MD History of Present Illness 68 year old female with history of HTN, hyperlipidemia, history of gallstone pancreatitis, history of pancreatic pseudocyst/necrotizing pancreatitis, hyperparathyroidism as per records, T2DM admitted for observation post EGD w/ necrosectomy and cystogastrostomy closure today. She is painfree in pacu without any concerns. EGD 2022: - Normal esophagus. - Pre-existing Cystgastrostomy stents, removed. Tract dilated. Necrosectomy was performed. Cystgastrostomy closed with Padlock clip due to very friable wall. - Normal duodenal bulb and second portion of the duodenum. EGD 2022: - Normal esophagus. - Gastritis. - Erythematous duodenopathy. - No specimens collected. EUS 2022: A 70 mm pseudocyst was seen in the peripancreatic body area. Cystogastrostomy was performed using 7 Fr double pigtail plastic stent. Allergies Allergy/AdvReac Type Severity Reaction Status Date / Time nickel Allergy Rash Verified 08/08/23 06:13 No Known Drug Allergies Allergy Verified 08/08/23 06:13 Home Medications Medication Instructions Recorded Confirmed Type lisinopril 20 1 tab PO QAM 05/17/23 08/08/23 History mg-hydrochlorothiazide 12.5 mg tablet atorvastatin 40 mg tablet 40 mg PO QAM 08/02/23 08/08/23 History cholecalciferol (vitamin D3) 50 50 mcg PO Q7D 08/02/23 08/08/23 History mcg (2,000 unit) capsule (Vitamin D3) metformin 500 mg tablet 250 mg PO QAM 08/02/23 08/08/23 History potassium 1 tab PO BID 08/02/23 08/08/23 History acetaminophen 500 mg tablet 500 mg PO Q6H PRN Pain 08/08/23 08/08/23 History Patient History Medical History Necrotizing pancreatitis Infected pancreatic pseudocyst History of recent hospitalization "has been in and out for the past 3 months (since 04/2023), [place] [facility] and [facility]inf[facility], infected pancreatic pseudocyst and necrotizing gallstone pancreatitis; last hospitalization to chart review [facility] HLD (hyperlipidemia) DM II (diabetes mellitus, type II), controlled NIDDM Hypertension Hyperparathyroidism (09/26/13) hx Surgical History (Updated 08/08/23 @ 10:20 by Quita Méndez PA-C) Hx of endoscopic retrograde cholangiopancreatography w/endoscopic upper US and EGD Hx of tubal ligation History of esophagogastroduodenoscopy (EGD) Hx of colonoscopy Hx of partial thyroidectomy removed 2 lobes Hx of appendectomy H/O section x2 Family History Father Diabetes Mother Cancer Social History Smoking Status: Never smoker Second Hand Exposure: No; Do You Dip or Chew Tobacco: No; Tobacco Cessation Education Requested by Patient: No Hx Alcohol Use: No Hx Substance Use: No Preferred Language: French Communication Ability: Effective Visual Impairment: No Limitations Field Party Manager Required: No Beliefs That Will Affect Care: None Current Living Situation: Alone Other Information That Helps Us Care for You: No Feels Safe at Home: Yes Safety Concerns: Feels Safe At This Time Assistive Devices: Glasses Review of Systems Review of Systems: All systems reviewed & are unremarkable except as noted in HPI & below Physical Exam Constitutional: WD/WN, vitals as above Respiratory: normal respiratory effort, lungs clear to auscultation Cardiovascular: Rate/Rhythm: regular rate and regular rhythm Gastrointestinal (Abdomen): normal bowel sounds, soft, nontender, no hepatosplenomegaly Skin: no rashes, warm and dry Results & Data Vital Signs (Past 12 Hours) Vital Signs Temp Pulse Resp BP Pulse Ox O2 Del Method O2 Flow Rate 08/08/23 10:30 65 18 100/48 L 94 Room Air 08/08/23 10:00 68 16 97/47 L 93 Room Air 08/08/23 09:45 71 18 97/49 L 95 Room Air 08/08/23 09:30 68 17 107/48 L 95 Room Air 08/08/23 09:15 71 15 107/48 L 94 Room Air 08/08/23 09:05 77 20 132/71 97 Room Air 08/08/23 08:55 79 18 145/72 H 98 Room Air 08/08/23 08:45 80 16 165/79 H 100 Oxymask 5 08/08/23 08:39 36.0 C L 79 20 168/78 H 97 Oxymask 5 08/08/23 06:10 36.8 C 65 20 119/52 L 95 Room Air
[2023-08-08] MEDS ORDERED: INSULIN ASPART PER UNIT CHARGE SC SCH (12:00)
[2023-08-08] MEDS: ACETAMINOPHEN 325 MG TAB PO PRN ×2 (14:28→18:22)
[2023-08-08 18:16] LABS: Hemoglobin 10.4 g/dl (12.0-16.0); Mean Corpuscular Hemoglobin 29.5 pg (25.0-34.0); Mean Corpuscular Hgb Conc 32.5 g/dL (32.0-36.0); Mean Corpuscular Volume 90.7 fL (80.0-100.0); Mean Platelet Volume 11.4 fL (9.4-12.4); Platelet Count 199 K/uL (130-400); RDW Coefficient of Variation 15.3 % (11.5-14.5); RDW Standard Deviation 50.5 fL (36.4-46.3); Red Blood Count 3.53 M/uL (4.20-5.40); White Blood Count 9.12 K/ul (4.8-10.8)
[2023-08-08] MEDS: SODIUM CHLORIDE 0.9% 1,000 ML IV SCH (18:22)
[2023-08-08 18:34] LABS: Calcium 8.7 mg/dl (8.6-10.3); Creatinine Clr Calc Pharmacy 78.2 ml/min; Est GFR (African American) 108.2 ml/min; Est GFR (Non-African American) 93.4 ml/min; Potassium 3.6 mmol/L (3.5-5.1)
[2023-08-08] MEDS: CIPROFLOXACIN / D5W 400 MG/200 ML BAG IV SCH (21:51)
--- OUTSIDE RECORDS SUMMARY | 2023-08-08 22:25 | External Medical Summary | Summary of Care ---
Author Name Unknown Organization [facility] Address [address] [place] [address] Phone [phone] Care Team Providers Care Casualty Claims Supervisor Name Role Phone Marlenyamado Elana Gu PA-C Primary Care Provider [phone] Reason for Visit * Reason Onset Date Comments case management 07/27/2023 Encounter Details Date Type Department Care Team (Late st Contact Info) Description 07/27/2023 Photographic Equipment Inspector Telephone Care Coordination and Integration [address], [place] [id number] Era Rico RN [address], [place] [id number] case management Allergies Active Allergy Reactions Criticality Noted Date Comments Nickel 05/19/2022 Rash, reddened documented as of this encounter (statuses as of 07/27/2023) Medications Medication Sig Dispensed Refills Start Date End Date Status Atorvastatin Calcium 40 MG Oral Tablet (Lipitor) take one tablet by mouth daily 90 Tablet 3 09/26/2022 Active metFORMIN HCl 500 MG Oral Tablet (Glucophage) take one tablet twice daily 180 Tablet 3 09/26/2022 Active Additional Information Patient not taking.Reported on 07/27/2023 Lisinopril-hydroCH LOROthiazide 20-12.5 MG Oral Tablet take one tablet by mouth daily 90 Tablet 3 09/26/2022 Active D3 Super Strength 50 MCG (1999 UT) Oral Capsule (Cholecalciferol)I ndications:Vitamin D deficiency Take 1 Capsule by mouth once a week. 90 Capsule 2 10/26/2022 Active Pantoprazole Sodium 40 MG Oral Tablet Delayed Release (Protonix) take 1 tablet (40 mg) orally daily in the morning 30 Tablet 0 05/30/2023 Active Additional Information Patient not taking.Reported on 07/27/2023 Acetaminophen 325 MG Oral Tablet (Tylenol) Take 2 Tablets by mouth every 6 hours as needed for Pain, Mild or Fever >38C(100.5F). 0 07/26/2023 Active Ciprofloxacin HCl 500 MG Oral Tablet (Cipro) Take 1 Tablet by mouth in the morning and 1 Tablet before bedtime. 7 Tablet 0 07/26/2023 Active Potassium Chloride ER 10 MEQ Oral Capsule Extended Release Take 1 Capsule by mouth in the morning and 1 Capsule before bedtime. 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 Gallstone pancreatitis 06/05/2023 Acute cholecystitis due to biliary calculus 05/09 H/O partial thyroidectomy 03/27/2023 Esophagitis determined by endoscopy 09/26/2022 HTN, goal below 140/90 09/23/2021 Hypercholesteremia 09/23/2021 Hyperlipidemia 09/23/2021 Vitamin D deficiency 06/28/2019 Osteopenia 06/28/2019 Hyperparathyroidism 09/26/2013 documented as of this encounter (statuses as of 07/27/2023) Immunizations Name Administration Dates Next Due COVID-19 mRNA, LNP-s, No Pre serve, 2-Dose Series ([place]ee) 02/12/2021,01/22/2021 Pneumococcal Conjugate Vacc, 13 Valent (Prevnar) [...] Date Recorded PHQ Adult Total Score 0 07/27/2023 Hunger Vital Sign Answer Date Recorded Within the past 12 months, y ou worried that your food would run out before you got the money to buy more. Never true 07/27/20 23 Within the past 12 months, t he food you bought just didn't last and you didn't have money to get more. Never true 07/27/2023 Sex and Gender Information Value Date Recorded Sex Assigned at Not on file Gender Identity Not on file Sexual Orientation Not on file Job Start Date Occupation Industry Not on file Not on file Not on file documented as of this encounter Functional Status Functional Status Response Date of Assess ment Are you blind or do you have serious difficulty seeing, even when wearing glasses? No 07/22/2023 Do you have serious difficul ty walking or climbing stairs? (5 years old or older) No 07/22/2023 Do you have difficulty dress ing or bathing? (5 years old or older) No 07/22/2023 Because of a physical, menta l, or emotional condition, do you have difficulty doing errands alone such as visiting a doctor s office or shopping? (15 years old or older) No 07/22/20 Cognitive Status Response Date of Assessm ent Because of a physical, menta l, or emotional condition, do you have serious difficulty concentrating, remembering, or making decisions? (5 years old or older) No 07/22/2023 documented as of this encounter Miscellaneous Notes * Telephone Encounter - Tori Huang LPN - 07/27/2023 1:45 PM EST Patient returned call. Informed of message. Verbalized understanding. Will come in early and have labs done before her appointment. Transferred to [facility] in scheduling to set up CT scan * Addendum Note - Elana Mcghee PA-C - 07/27/2023 1:12 PM ESTAddended by: ELANA MCGHEE on: 07/27/2023 01:12 PM Modules accepted: Orders * Telephone Encounter - Elana Mcghee PA-C - 07/27/2023 1:09 PM EST [facility]. Please inform patient. Labs will also be ordered to be done prior to her visit on the she could come in early and get them that date that would be appreciated * Telephone Encounter - Karly Wise OSA - 07/27/2023 12:02 PM EST Called patient to set up Ct and lmm for patient to call office back. * Telephone Encounter - Yun Louise RN - 07/27/2023 11:53 AM EST Gastro Scheduling: any luck on getting a sooner appointment at [facility] or [facility] for CT scan? * Telephone Encounter - Era Rico RN - 07/27/2023 11:49 AM EST November/Dr Ureña- patient was taking oral potassium inpatient at [facility], also received IV. She was not dischaged home on any oral supplementation. Do you want patient to continue? She will need a script. HD f/u with Dr ureña scheduled for 08/01. Please let me know if you want patient to have labs prior to OV and I can follow up with patient to make sure she has them done. Thank you! * Telephone Encounter - Era Rico RN - 07/27/2023 11:48 AM EST Yes will forward to PCP. Still trying to determine if scheduling was able to get CT scan scheduled prior to procedure on 08/08- Dr Scott has an open TE on this. * Telephone Encounter - Yun Louise RN - 07/27/2023 11:45 AM EST Landen Girard , I can forward this to Dr. Scott's covering MD. He has not seen her in the office? It does not look like we had been ordering this previously ? Can you check in with the patients PCP? * Telephone Encounter - Era Rico RN - 07/27/2023 11:26 AM EST Gastro: patient was taking potassium when she was admitted at [facility] for hypokalemia- they did not send her home on any oral supplements. Do you want her to be on any potassium? Gastro Scheduling: any luck on getting a sooner appointment at [facility] or [facility] for CT scan? documented in this encounter Plan of Treatment Upcoming Encounters Date Type Department Care Team (Late st Contact Info) Description 08/01/2023 3:00 PM EST Office Visit [facility] [address] [place] [address] Fanny Ureña MD 200 [facility] [place] [address] 08/08/2023 10:00 AM EST Procedure Only Endoscopy, [place] [address] [address] Celeste Scott MD [address] [place] [address] 09/27/2023 11:00 AM EST Office Visit [facility] [address] [place] [address] Elana Mcghee PA-C [address] [facility] [place] [address] Scheduled Orders Name Type Priority Associated Diagnoses Orde r Schedule BASIC METABOLIC PANEL Lab Routine Hypokalemia Expected: 07/27/2023 (Approximate), Expires: 07/26/2024 CBC Lab Routine Anemia, unspecified type Expected: 07/27/2023 (Approximate), Expires: 07/26/2024 Health Maintenance Due Date Last Done Comments Fecal Occult Blood Test 1998 Sigmoidoscopy 1998 Hepatitis B (1 of 3 - Risk 3-dose series) 2013 Colonoscopy 08/13/2020 08/13/2010, 08/13/2010 COVID-19 Vaccine ( season) 2023 02/12/2021, 01/22/2021 Influenza Vaccine (FLU shot) (#1) 2023 05/25/2022, 05/10/2020, 06/13/2019 Cologuard 06/07/2023 06/07/2020, 06/01/2020 Colorectal Cancer Screening 06/07/2023 Depression Screening 03/27/2024 07/27/2023 Mammogram 04/19/2024 04/19/2023, 09/08, 11/01/2018 GFR 07/26/2024 07/26/2023, 07/07, 07/24/2023, Additional history exists DTaP,Tdap,and Td Vaccines (2 - Td or Tdap) 06/02/2025 06/02/2015 DXA Scan 11/01/2025 11/01/2018 Albumin/Creatinine Ratio 03/20/2026 03/20/2023, 03/07 Lipid Panel 03/20/2028 03/20/2023, 09/27/2021 Zoster Vaccines Completed 01/31/2019, 07/19/2018 Pneumococcal Vaccine: 65+ Years Completed 03/27/2023, 05/04/2020 GARDASIL-HPV IMMUNIZATION SERIES Aged Out No longer eligible based on patient's age to complete this topic MENINGOCOCCAL (MENACTRA/MENVEO) Aged Out No longer eligible based on patient's age to complete this topic documented as of this encounter Medical Devices Implanted Type Area Surface Ship Usw Supervisor Device Identifier Shelf Expiration Date Model / Serial / Lot Stnt Pt Dbl [id number] - [id number] Implanted:Qty: 1 on 06/22/2023 by Celeste Scott MD at OR [facility] [employer] : ENDOSCOPY [id number] 01/17/2025 [id number] / / [id number] Stnt Pt Dbl [id number] 3219 - [id number] Implanted:Qty: 1 on 07/24/2023 by Uriel Bello DO at ENDOSCOPY [facility] [employer] : ENDOSCOPY [id number] 05/24/2025 [id number] / / [id number] documented as of this encounter Visit Diagnoses Diagnosis Hypokalemia- Primary Hypopotassemia Anemia, unspecified type documented in this encounter Advance Directives Latest Code Status on File Code Status Date Activated Date Inactivated Comments Full Code 07/22/2023 11:04 PM 07/26/2023 10:02 PM T his order reflects the patients wishes and were consensually agreed upon. Question Answer Comments Discussion of Advance Directives occurred with: Patient Healthcare Agents on File Name Relationship Healthcare Agent Relationshi p Communication Magno Horton Jr. Adult Child Health Ophthalmic Technologist resentative (appointed verbally by patient or by statute hierarchy) Care Teams Casualty Claims Supervisor Relationship Specialty Start Date End Date MalgorzataNovember NURY [place] [place] [address] PCP - General Physician Chemical Radiation Technician 05/20/22 documented as of this encounter
--- OUTSIDE RECORDS SUMMARY | 2023-08-08 22:25 | External Medical Summary | Summary of Care ---
Author Name Unknown Organization [facility] Address [address] [place] [address] Phone [phone] Care Team Providers Care Cheese Weigher Name Role Phone Elana Mcgarry Brittanie ARR[place] Primary Care Provider [phone] Reason for Referral * Precert (Within 10 days (routine)) - Pending Review Specialty Diagnoses / Procedures Referred By Sean kevin Referred To Contact Radiology Diagnoses Infected pancreatic pseudocyst Procedures CT ABD/PELVIS W IV AND W ORAL CONTRAST Celeste Scott MD [address] [place] [address] Referral ID Status Reason Start Date Expiration Date V isits Requested Visits Authorized [id number] Pending Review 08/02/2023 999 999 Reason for Visit * Reason Onset Date Comments Appointment 07/26/2023 Encounter Details Date Type Department Care Team (Late st Contact Info) Description 07/26/2023 Telephone Gastroenterology, [facility] [address] [place] [address] Celeste Scott MD [address] [place] [address] Appointment Allergies Active Allergy Reactions Criticality Noted Date [...] Additional Information Patient not taking.Reported on 07/27/2023 Lisinopril-hydro CHLOROthiazide 20-12.5 MG Oral Tablet take one tablet by mouth daily 90 Tablet 3 09/26/2022 Active D3 Super Strength 50 MCG (2000 UT) Oral Capsule (Cholecalciferol )Indications:Vit nielsen D deficiency Take 1 Capsule by mouth once a week. 90 Capsule 2 10/26/2022 Active Pantoprazole Sodium 40 MG Oral Tablet Delayed Release (Protonix) take 1 tablet (40 mg) orally daily in the morning 30 Tablet 0 05/30/2023 Active Additional Information Patient not taking.Reported on 07/27/2023 Probiotic 250 MG Oral Capsule take 2 capsules by mouth daily 30 Capsule 0 05/30/2023 3 Discontinued Cefdinir 300 MG Oral Capsule (Omnicef) take 1 capsule (300 mg) orally twice a day for 5 days 10 Capsule 0 05/30/2023 3 Discontinued Loperamide HCl 2 MG Oral Capsule (Imodium) take 1 capsule (2 mg) orally every 8 hours As Needed for dairrhea 20 Capsule 0 05/30/2023 3 Discontinued Vitamin B1 100 MG Oral Tablet take 1 tablet by mouth daily in the morning 30 Tablet 0 05/30/2023 3 Discontinued Ciprofloxacin HCl 500 MG Oral Tablet (Cipro) Take 1 Tablet by mouth in the morning and 1 Tablet before bedtime. Do all this for 7 days. 14 Tablet 0 06/22/2023 3 Discontinued metroNIDAZOLE 500 MG Oral Tablet (Flagyl) Take 1 Tablet by mouth in the morning and 1 Tablet at noon and 1 Tablet before bedtime. Do all this for 7 days. 21 Tablet 0 06/22/2023 3 Discontinued documented as of this encounter (statuses as [...] encounter Miscellaneous Notes * Telephone Encounter - Karly Wise OSA - 07/27/2023 1:14 PM EST Called patient and get set up for Ct. Lmm for patient to call office back. * Telephone Encounter - Angeles Mustafa OSA - 07/26/2023 1:49 PM EST I spoke to patient about getting her CT scan scheduled,she sated that she was in the hospital and asked that I give her a call back tomorrow. It does look like our next opening for a CT wouldn't be until Aug 08 for here? * Telephone Encounter - Celeste Scott MD - 07/26/2023 1:34 PM EST Please schedule CT scan abdomen end of next week so we can have it available prior to the next EGD with me. documented in this encounter Plan of Treatment Upcoming Encounters Date Type Department Care Team (Late st Contact Info) Description 08/01/2023 3:00 PM EST Office Visit [facility] [address] [place] [address] Fanny Ureña MD 200 [facility] [place] [address] 08/08/2023 10:00 AM EST Procedure Only Endoscopy, [place] [address] [place] [address] Celeste Scott MD [address] [place] [address] 09/27/2023 11:00 AM EST Office Visit [facility] [address] [facility] [place] [address] Elana Mcgarry PA-C 200 [facility] [place] [address] Scheduled Orders Name Type Priority Associated Diagnoses Orde r Schedule CT ABD/PELVIS W IV AND W ORAL CONTRAST Medical Imaging Routine Infected pancreatic pseudocyst Expected: 08/02/2023, Expires: 08/26/2024 Health Maintenance Due Date Last Done Comments [...] this encounter Medical Devices Implanted Type Area Computer Technology Teacher Device Identifier Shelf Expiration Date Model / Serial / Lot Stnt Pt Dbl [id number] 3219 - [id number] Implanted:Qty: 1 on 06/22/2023 by Celeste Scott MD at OR [facility] [employer] : ENDOSCOPY [id number] 01/17/2025 [id number] / / [id number] Stnt Pt Dbl [id number] 3219 - [id number] Implanted:Qty: 1 on 07/24/2023 by Uriel Bello DO at ENDOSCOPY [facility] [employer] : ENDOSCOPY [id number] 05/24/2025 [id number] / / [id number] documented as of this encounter Visit Diagnoses Diagnosis Infected pancreatic pseudocyst- Primary Cyst and pseudocyst of pancreas documented in this encounter Advance Directives Latest Code Status on File Code Status Date Activated Date Inactivated Comments Full Code 07/22/2023 11:04 PM 07/26/2023 10:02 PM T his order reflects the patients wishes and were consensually agreed upon. Question Answer Comments Discussion of Advance Directives occurred with: Patient Healthcare Agents on File Name Relationship Healthcare Agent [facility] Communication Magno Horton Jr. Adult Child Health Solder Deposit Operator resentative (appointed verbally by patient or by statute hierarchy) Care Teams Cheese Weigher Relationship Specialty Start Date End Date Malgorzata November NURY Gu 200 [facility] [place] [address] PCP - General Physician Watch Engine Operator 05/20/22 documented as of this encounter
--- OUTSIDE RECORDS SUMMARY | 2023-08-08 22:25 | External Medical Summary | Summary of Care ---
Author Name Unknown Organization [facility] Address [address] [place] [address] Phone [phone] Care Team Providers Care Product Planner Name Role Phone Marlenyamado Elana Gu PA-C Primary Care Provider [phone] Reason for Visit * Reason Onset Date Comments Hospital Follow-Up Hospital Follow-Up 08/01/2023 Encounter Details Date Type Department Care Team (Late st Contact Info) Description 08/01/2023 3:00 PM EST Office Visit Family Practice [facility] [address] [place] [address] Fanny Ureña MD [address] [place] [address] Hospital discharge follow-up*; Infected pancreatic pseudocyst; Controlled type 2 diabetes mellitus without complication, without long-term current use of insulin (HCC); Hypokalemia; HTN, goal below 140/90 Allergies Active Allergy Reactions Criticality Noted Date Comments Nickel 05/19/2022 Rash, reddened documented as of this encounter (statuses as of 08/01/2023) Medications Medication Sig Dispensed Refills Start Date End Date Status Atorvastatin Calcium 40 MG Oral Tablet (Lipitor) take one tablet by mouth daily 90 Tablet 3 09/26/2022 Active metFORMIN HCl 500 MG Oral Tablet (Glucophage) take one tablet twice daily 180 Tablet 3 09/26/2022 Active D3 Super Strength 50 MCG (1999) Oral Capsule (Cholecalciferol )Indications:Vit nielsen D deficiency Take 1 Capsule by mouth once a week. 90 Capsule 2 10/26/2022 Active Acetaminophen 325 MG Oral Tablet (Tylenol) Take 2 Tablets by mouth every 6 hours as needed for Pain, Mild or Fever >38C(100.5F) . 0 07/26/2023 Active Potassium Chloride ER 10 MEQ Oral Capsule Extended Release Take 1 Capsule by mouth in the morning and 1 Capsule before bedtime. 60 Capsule 3 07/27/2023 Active Lisinopril-hydro CHLOROthiazide 20-12.5 MG Oral Tablet take one tablet by mouth daily 90 Tablet 3 08/01/2023 Active Lisinopril-hydro CHLOROthiazide 20-12.5 MG Oral Tablet take one tablet by mouth daily 90 Tablet 3 09/26/2022 3 Discontinued(Refi ll) Pantoprazole Sodium 40 MG Oral Tablet Delayed Release (Protonix) take 1 tablet (40 mg) orally daily in the morning 30 Tablet 0 05/30/2023 3 Discontinued Ciprofloxacin HCl 500 MG Oral Tablet (Cipro) Take 1 Tablet by mouth in the morning and 1 Tablet before bedtime. 7 Tablet 0 07/26/2023 3 Discontinued(Arminda ent preference/discon tinuation) documented as of this encounter (statuses as of 08/01/2023) Active Problems Problem Noted Date Diagnosed Date DM II (diabetes mellitus, type II), controlled 1 10/02/2022 Hypokalemia 08/01/2023 Infected pancreatic pseudocyst 07/23/2023 Gallstone pancreatitis 06/05/2023 Acute cholecystitis due to biliary calculus 05/09 H/O partial thyroidectomy 03/27/2023 Esophagitis determined by endoscopy 09/26/2022 HTN, goal below 140/90 09/23/2021 Hypercholesteremia 09/23/2021 Hyperlipidemia 09/23/2021 Vitamin D deficiency 06/28/2019 Osteopenia 06/28/2019 Hyperparathyroidism 09/26/2013 documented as of this encounter (statuses as of 08/01/2023) Immunizations Name Administration Dates Next Due COVID-19 mRNA, LNP-s, No Pre serve, 2-Dose Series ([employer]) 02/12/2021,01/22/2021 Pneumococcal Conjugate Vacc, 13 Valent (Prevnar) 05/04/2020 Pneumococcal Conjugate Vaccine, 20-valent (Prevn ar20) 03/27/2023 Seasonal Influenza, Quadrivalent Hd (Fluzone Hd) 05/21/2023,05/25/2022 Seasonal Influenza, Split, IIV3, With Preserve, Inj [...] Sign Reading Time Taken Comments Blood Pressure 114/65 08/01/2023 2:54 PM EST Pulse 64 08/01/2023 2:54 PM EST Temperature 36.4 C (97.6 F) 08/01/2023 2:54 PM ES T Respiratory Rate 16 08/01/2023 2:54 PM EST Oxygen Saturation - - Inhaled Oxygen Concentration - - Weight 62.1 kg (137 lb) 08/01/2023 2:54 PM EST Height 157.5 cm (5' 2") 08/01/2023 2:54 PM EST Body Mass Index 25.06 08/01/2023 2:54 PM EST documented in this encounter Functional Status Functional Status Response [...] No 07/22/2023 documented as of this encounter Progress Notes * Fanny Ureña MD - 08/01/2023 3:07 PM EST Subjective Chief Complaint Patient presents with Hospital Follow-Up Hospital Follow-Up HPI: Iliana Horton is a 68 year old female. The following issues were addressed today: Date of admission: 07/22/23 Date of discharge: 07/26/23 Date of JESÚS phone call: 07/27/23 Hospital course: Patient was transferred from [facility] to [facility] for further management of peripancreatic pseudocysts with formal GI evaluation. She originally presented to [facility] with nausea and dizziness. Imaging revealed prior pancreatic stent in place with new fluid collections. She had cholecystitis and necrotizing panc reatitis in 05/2023, and was d/c after clinical stability with cefdinir and flagyl. She followed upwith GI, Dr. Scott, who performed endoscopic u/s with axios/pigtail stent placement in pseudocyst/WON. Ultimately plan was to follow up with surgery after 07/31 for possible cholecystectomy. Since she has had persistent abdominal bloating, and decreased PO intake. On 07/21 she began to have worsening of the symptoms associated with nausea which prompted her to go to the ER to be evaluated. She was afebrile and HDS on arrival without an elevated WBC and with some elevation of LFTs and lipase 104. Rest of her labs were rather unremarkable, except for low K at 2.8 which was contributed to poor PO intake, no EKG changes and she was treated with potassium supplementation. She also had spotsin her right eye associated with headache, and underwent head CT in ER which was unremarkable, and her h/a went away as did her eye spots. She had an abdominal CT scan that showed fluid collection with multiple locules of air adhering to the pancreas measuring 5.0cm x 5.6cm, concerning for infected pseudocyst, which was not present on 05/23/2023. At [facility] she underwent endoscopic procedure. She is scheduled for outpatient necrosectomy on 08/08/23. Tests/studies pending at time of discharge: None Home/outpatient services ordered: None Course since hospitalization: Patient states she is feeling great since discharge. Has her energy back for the first time in months. She denies nausea or vomiting. Has very mild abdominal pain. She had labs drawn prior to appt today but they are not yet resulted. She has been taking her potassium cuadra pplements as prescribed. More concerned with Metformin-- states she takes either half or whole tablet depending on her sugars which she is checking at least twice a day with borrowed supplies. Last Hgb A1c was 6.6. Review of Systems: See HPI Objective BP 114/65 | Pulse 64 | Temp 36.4 C (97.6 F) | Resp 16 | Ht 1.575 m (5' 2") | Wt 62.1 kg (137 lb) | LMP 08/13/2003 | BMI 25.06 kg/m | BSA 1.65 m Wt Readings from Last 3 Encounters: 08/01/23 62.1 kg (137 lb) 07/22/23 64.3 kg (141 lb 12.8 oz) 06/22/23 71.2 kg (157 lb) BP Readings from Last 3 Encounters: 08/01/23 114/65 07/26/23 132/63 06/22/23 137/79 General: Well-appearing, no acute distress Cardiovascular: Regular rate and rhythm, no murmur Respiratory: Good respiratory effort, breath sounds equal and clear to auscultation bilaterally Abdomen: Soft, non-distended, non-tender, normoactive bowel sounds Skin: Warm and dry Neurological: Alert and oriented, no focal deficits noted Psychiatric: Appropriate mood and affect Assessment & Plan 1. Hospital discharge follow-up - DISCH MED RECON CUR MED LIS 2. Infected pancreatic pseudocyst Stable. Outpatient necrosectomy scheduled for 08/08/23. 3. Controlled type 2 diabetes mellitus without complication, without long-term current use of insulin (HCC) Reviewed with patient that Metformin dose is not meant to be titrated based on sugars. She does notneed to be checking her BG, as she is not on insulin or other DM medications. Patient concerned about higher doses of Metformin dropping her sugars too low and only wants to take half a tablet (250mg) a day. Agreeable since her A1c is at goal for her age. 4. Hypokalemia BMP pending. Continue current medication. 5. HTN, goal below 140/90 Well-controlled. Continue current medication(s). Lisinopril-HCTZ refilled. Follow Up: Return if symptoms worsen or fail to improve. This note was electronically signed by Fanny Ureña MD documented in this encounter Plan of Treatment Upcoming Encounters Date Type Department Care Team (Late st Contact Info) Description 08/03/2023 1:15 PM EST Imaging Radiology [address] [address] 08/08/2023 10:00 AM EST Procedure Only Endoscopy, [facility] [address] [place] [address] Celeste Scott MD [address] [address] 09/27/2023 11:00 AM EST Office Visit Family Practice [facility] [address] [facility] [place] [address] Elana Mcgarry PA-C [address] [facility] [place] [address] Health Maintenance Due Date Last Done Comments Diabetic Eye Exam 1971 Diabetic Foot Exam 1971 Fecal Occult Blood Test 1998 Sigmoidoscopy 1998 Hepatitis B (1 of 3 - Risk 3-dose series) 2013 Colonoscopy 08/13/2020 08/13/2010, 08/13/2010 COVID-19 Vaccine ( season) 2023 02/12/2021, 01/22/2021 Cologuard 06/07/2023 06/07/2020, 06/01/2020 Colorectal Cancer Screening 06/07/2023 HbA1c 12/05/2023 06/05/2023, 03/23/2022 Albumin/Creatinine Ratio 03/20/2024 03/20/2023, 03/07 Mammogram 04/19/2024 04/19/2023, 09/08, 11/01/2018 Depression Screening 07/27/2024 07/27/2023 GFR 08/01/2024 08/01/2023, 07/08, 07/25/2023, Additional history exists DTaP,Tdap,and Td Vaccines (2 - Td or Tdap) 06/02/2025 06/02/2015 DXA Scan 11/01/2025 11/01/2018 Lipid Panel 03/20/2028 03/20/2023, 09/27/2021 Zoster Vaccines Completed 01/31/2019, 07/19/2018 Pneumococcal Vaccine: 65+ Years Completed 03/27/2023, 05/04/2020 Influenza Vaccine (FLU shot) Completed , 05/25/2022, 05/10/2020, Additional history exists GARDASIL-HPV IMMUNIZATION SERIES Aged Out No longer eligible based on patient's age to complete this topic MENINGOCOCCAL (MENACTRA/MENVEO) Aged Out No longer eligible based on patient's age to complete this topic documented as of this encounter Medical Devices Implanted Type Area Account Manager B2B Device Identifier Shelf Expiration Date Model / Serial / Lot Stnt Pt Dbl [id number] 3219 - [id number] Implanted:Qty: 1 on 06/22/2023 by Celeste Scott MD at [facility] [employer] : ENDOSCOPY [id number] 01/17/2025 [id number] / / [id number] Stnt Pt Dbl [id number] 3219 - [id number] Implanted:Qty: 1 on 07/24/2023 by Uriel Bello DO at ENDOSCOPY [facility] [employer] : ENDOSCOPY [id number] 05/24/2025 [id number] / / [id number] documented as of this encounter Visit Diagnoses Diagnosis Hospital discharge follow-up- Primary Other follow-up examination Infected pancreatic pseudocyst Cyst and pseudocyst of pancreas Controlled type 2 diabetes mellitus without complication, without long-term current use of insulin (HCC) Hypokalemia Hypopotassemia HTN, goal below 140/90 Unspecified essential hypertension documented in this encounter Advance Directives Latest [...] Communication Magno Horton Jr. Adult Child Health Inspector Final Assembly Electrical resentative (appointed verbally by patient or by statute hierarchy) Care Teams Product Planner Relationship Specialty Start Date End Date Marlenynovember NURY Gu [address] [facility] [place] [address] PCP - General Physician Accounting Technician 05/20/22 documented as of this encounter
--- OUTSIDE RECORDS SUMMARY | 2023-08-08 22:25 | External Medical Summary | Summary of Care ---
Author Name Unknown Organization [facility] Address [address] [place] [address] Phone [phone] Care Team Providers Care Installation And Repair Technician Name Role Phone Marlenyamado Elana Gu PA-C Primary Care Provider [phone] Reason for Visit * Reason Onset Date Comments case management 07/27/2023 Encounter Details Date Type Department Care Team (Late st Contact Info) Description 07/27/2023 Geophysical Prospecting Permit Agent Telephone Care Coordination and Integration [address], [place] [phone] Era Rico RN [address], [place] [phone] case management Allergies Active Allergy Reactions Criticality [...] mRNA, LNP-s, No Pre serve, 2-Dose Series ([employer]) 02/12/2021,01/22/2021 Pneumococcal Conjugate Vacc, 13 Valent (Prevnar) [...] encounter Miscellaneous Notes * Addendum Note - Elana Mcghee PA-C - 07/27/2023 1:12 PM ESTAddended by: ELANA MCGHEE on: 07/27/2023 01:12 PM Modules accepted: Orders * Telephone Encounter - Elana Mcghee PA-C - 07/27/2023 1:09 PM EST Script [facility] twice [facility]. Please inform patient. [...] luck on getting a sooner appointment at [facility] or [facility] for CT scan? * Telephone Encounter - Era Rico RN - 07/27/2023 11:49 AM EST November/Dr Ureña- patient was taking oral potassium inpatient at [facility], also received IV. She was not dischaged [...] taking potassium when she was admitted at [facility] for hypokalemia- they did not send her home on any oral supplements. Do you want her to be on any potassium? Gastro Scheduling: any luck on getting a sooner appointment at [facility] or [facility] for CT scan? documented in this encounter Plan of Treatment Upcoming Encounters Date Type Department Care Team (Late st Contact Info) Description 08/01/2023 3:00 PM EST Office Visit [facility] [address] [place] [address] Fanny Ureña MD [address] [place] [address] 08/08/2023 10:00 AM EST Procedure Only Endoscopy, [facility] [address] [place] [address] Celeste Scott MD [address] [place] [address] 09/27/2023 11:00 AM EST Office Visit [facility] [place] [address] Elana Mcghee PA-C [facility] [place] [address] Scheduled Orders Name Type Priority Associated Diagnoses [...] this encounter Medical Devices Implanted Type Area Corporate Wellness Coordinator Device Identifier Shelf Expiration Date Model / Serial / Lot Stnt Pt Dbl [id number] 3219 - [id number] Implanted:Qty: 1 on 06/22/2023 by Celeste Scott MD at OR [facility] : ENDOSCOPY [id number] 01/17/2025 [id number] / / [id number] Stnt Pt Dbl [id number] 3219 - [id number] Implanted:Qty: 1 on 07/24/2023 by Uriel Bello DO at ENDOSCOPY [facility] [employer] : ENDOSCOPY [id number] 05/24/2025 [id number] / / [id number] documented as of this encounter Visit Diagnoses [...] Agents on File Name Relationship Healthcare Agent [facility] Communication Magno Horton Jr. Adult Child Health Hide Mill Worker resentative (appointed verbally by patient or by statute hierarchy) Care Teams Installation And Repair Technician Relationship Specialty Start Date End Date Malgorzata Elana NURY Gu [facility] [place] [address] PCP - General Physician Straight Cutter 05/20/22 documented as of this encounter
--- OUTSIDE RECORDS SUMMARY | 2023-08-08 22:25 | External Medical Summary ---
Author Name Unknown Address Unknown Organization K09:[facility] [address] Laboratory Report Ordering Provider Test Date Status 08/01/2023 14:38:27 Final Observation Date Value Abnormality Reference (Units ) Status BUN 08/01/2023 14:38:27 10 6-20 (mg/dL) Final Creatinine 08/01/2023 14:38:27 0.6 0.5-1.0 (mg/dL) Final Glomerular filtration rate/1.73 sq M.predicted [Volume Rate/Area] in Serum, Plasma or Blood by Creatinine-based formula (CKD-EPI) 08/01/2023 14:38:27 >90 >=60 (mL/min) Final eGFR is calculated based on the CKD-EPI 2020 equation SODIUM 08/01/2023 14:38:27 141 135-146 (m mol/L) Final Potassium 08/01/2023 14:38:27 4.1 3.5-5.1 (m mol/L) Final Cl 08/01/2023 14:38:27 104 98-107 (mm ol/L) Final CO2 08/01/2023 14:38:27 27 22-32 (mmo l/L) Final Anion gap 08/01/2023 14:38:27 10 7-15 (mmol /L) Final Glucose 08/01/2023 14:38:27 109 70-120 (mg /dL) Final Calcium 08/01/2023 14:38:27 10.3 Above high normal 8. 4-10.2 (mg/dL) Final Performing Location [facility] [address]
--- OUTSIDE RECORDS SUMMARY | 2023-08-08 22:25 | External Medical Summary | Summary of Care ---
Author Name Unknown Organization [facility] Address [address] [place] [address] Phone [phone] Care Team Providers Care Silk Presser Name Role Phone Marlenyamado Elana Gu PA-C Primary Care Provider [phone] Reason for Visit * Reason Onset Date Comments case management 07/27/2023 Encounter Details Date Type Department Care Team (Late st Contact Info) Description 07/27/2023 Abrasive Grader Helper Telephone Care Coordination and Integration [address] [place], [place] [phone] Era Rico RN [address] [place], [place] [phone] case management Allergies Active Allergy Reactions Criticality Noted Date Comments Nickel 05/19/2022 Rash, reddened documented as of this encounter (statuses as of 07/28/2023) Medications Medication Sig Dispensed Refills Start Date [...] as of this encounter (statuses as of 07/28/2023) Active Problems Problem Noted Date Diagnosed Date Infected pancreatic pseudocyst 07/23/2023 Gallstone pancreatitis 06/05/2023 Acute cholecystitis due to biliary calculus 05/09 H/O partial thyroidectomy 03/27/2023 Esophagitis determined by endoscopy 09/26/2022 HTN, goal below 140/90 09/23/2021 Hypercholesteremia 09/23/2021 Hyperlipidemia 09/23/2021 Vitamin D deficiency 06/28/2019 Osteopenia 06/28/2019 Hyperparathyroidism 09/26/2013 documented as of this encounter (statuses as of 07/28/2023) Immunizations Name Administration Dates Next Due COVID-19 mRNA, LNP-s, No Pre serve, 2-Dose Series ([employer]) 02/12/2021,01/22/2021 Pneumococcal Conjugate Vacc, 13 Valent (Prevnar) [...] money to buy more. Never true 07/27/20 Within the past 12 months, t he [...] encounter Miscellaneous Notes * Telephone Encounter - Era Rico RN - 07/28/2023 12:45 PM EST Received a call from patient. She is looking for confirmation regarding her upcoming appointments. Reviewed all appointments. Reviewed that she is to start taking her potassium supplement, she will start tonight. Her daughter is headed to now to forklift picker the medication and then she will start taking BID. She verbalizes understanding that she is to have lab work done prior to her appointment with Dr Ureña on Wednesday 08/01. Will call lab and change to STAT so that the results are back for appt. Patient has no other needs at this time. Next planned contact is next week or as needs arise. * Telephone Encounter - Tori Huang LPN - 07/27/2023 1:45 PM EST Patient returned call. Informed of message. Verbalized understanding. Will come in early and have labs done before her appointment. Transferred to [facility] in scheduling to set up CT scan * Addendum Note - Elana Mcghee PA-C - 07/27/2023 1:12 PM ESTAddended by: ELANA MCGHEE on: 07/27/2023 01:12 PM Modules accepted: Orders * Telephone Encounter - Elana Mcghee PA-C - 07/27/2023 1:09 PM EST Script [facility] twice daily. Please inform [...] luck on getting a sooner appointment at [facility] or [facility] for CT scan? * Telephone Encounter - Era Rico RN - 07/27/2023 11:[address] Ureña- patient was taking oral potassium inpatient at [facility], also received IV. She was not dischaged [...] taking potassium when she was admitted at [facility] for hypokalemia- they did not send her home on any oral supplements. Do you want her to be on any potassium? Gastro Scheduling: any luck on getting a sooner appointment at [facility] or [facility] for CT scan? documented in this encounter Plan of Treatment Upcoming Encounters Date Type Department Care Team (Late st Contact Info) Description 08/01/2023 3:00 PM EST Office Visit [facility] [place] [address] [facility] [place] [address] Fanny Ureña MD [address] [facility] [place] [address] 08/03/2023 1:15 PM EST Imaging Radiology [address], [place] [facility] [place] [address] 08/08/2023 10:00 AM EST Procedure Only Endoscopy, [facility] [address] [place] [address] Celeste Scott MD [address] [place] [address] 09/27/2023 11:00 AM EST Office Visit [facility] [place] [address] [facility] [place] [address] Elana Mcghee PA-C [address] [facility] [place] [address] Scheduled Orders Name Type Priority Associated Diagnoses [...] 06/07/2023 06/07/2020, 06/01/2020 Colorectal Cancer Screening 06/07/2023 Mammogram 04/19/2024 04/19/2023, 09/08, 11/01/2018 GFR 07/26/2024 07/26/2023, 07/07, 07/24/2023, Additional history exists Depression Screening 07/27/2024 07/27/2023 DTaP,Tdap,and Td Vaccines (2 - Td or [...] this encounter Medical Devices Implanted Type Area Nail Expert Device Identifier Shelf Expiration Date Model / Serial / Lot Stnt Pt Dbl [id number] 3219 - [id number] Implanted:Qty: 1 on 06/22/2023 by Celeste Scott MD at OR [facility] [employer] : ENDOSCOPY [id number] 01/17/2025 [id number] / / [id number] Stnt Pt Dbl [id number] 3219 - [id number] Implanted:Qty: 1 on 07/24/2023 by Uriel Bello DO at ENDOSCOPY [facility] [employer] : ENDOSCOPY [id number] 05/24/2025 [id number] / / [id number] documented as of this encounter Visit Diagnoses [...] Communication Magno Horton Jr. Adult Child Health Government Sales Manager resentative (appointed verbally by patient or by statute hierarchy) Care Teams Silk Presser Relationship Specialty Start Date End Date Malgorzata November Brittanie, PARoseC [address] [facility] [place] [address] PCP - General Physician Security Tech 05/20/22 documented as of this encounter
--- OUTSIDE RECORDS SUMMARY | 2023-08-08 22:25 | External Medical Summary | Summary of Care ---
Author Name Unknown Organization [facility] Address [address] [facility] [place] [address] Phone [phone] Care Team Providers Care Seo Intern Name Role Phone Elana Mcgarry Brittanie ARRINGTON Primary Care Provider [phone] Reason for Referral * Precert (Within 10 days (routine)) - Pending Review Specialty Diagnoses / Procedures Referred By Sean kevin Referred To Contact Radiology Diagnoses Infected pancreatic pseudocyst Procedures CT ABD/PELVIS W IV AND W ORAL CONTRAST Celeste Scott MD [address] [place] [address] Referral ID Status Reason Start Date Expiration Date V isits Requested Visits Authorized [id number] Pending Review 08/02/2023 999 999 Reason for Visit * Reason Onset Date Comments Appointment 07/26/2023 Encounter Details Date Type Department Care Team (Late st Contact Info) Description 07/26/2023 Telephone Gastroenterology, [facility] [address] [place] [address] Celeste Scott MD [address] [place] [address] Appointment Allergies Active Allergy Reactions Criticality Noted Date Comments Nickel 05/19/2022 Rash, reddened documented as of this encounter (statuses as of 08/03/2023) Medications Medication Sig Dispensed Refills Start Date End Date Status Atorvastatin Calcium 40 MG Oral Tablet (Lipitor) take one tablet by mouth daily 90 Tablet 3 09/26/2022 Active metFORMIN HCl 500 MG Oral Tablet (Glucophage) take one tablet twice daily 180 Tablet 3 09/26/2022 Active D3 Super Strength 50 MCG (1999 UT) Oral Capsule (Cholecalcifero l)Indications:V itamin D deficiency Take 1 Capsule by mouth once a week. 90 Capsule 2 10/26/2022 Active Lisinopril-hydr oCHLOROthiazide 20-12.5 MG Oral Tablet take one tablet by mouth daily 90 Tablet 3 09/26/2022 3 Discontinued(Refi ll) Probiotic 250 MG Oral Capsule take 2 [...] dairrhea 20 Capsule 0 05/30/2023 3 Discontinued Pantoprazole Sodium 40 MG Oral Tablet Delayed Release (Protonix) take 1 tablet (40 mg) orally daily in the morning 30 Tablet 0 05/30/2023 3 Discontinued Vitamin B1 100 [...] as of this encounter (statuses as of 08/03/2023) Active Problems Problem Noted Date Diagnosed Date [...] as of this encounter (statuses as of 08/03/2023) Immunizations Name Administration Dates Next Due COVID-19 [...] Telephone Encounter - Hunter Montes OSA - 08/03/2023 1:[address] completed 08/03 * Telephone Encounter - Karly Wise OSA [...] 10:00 AM EST Procedure Only Endoscopy, [place] [address] [place] [address] Celeste Scott MD [address] [place] [address] 09/27/2023 11:00 AM EST Office Visit Family Practice [facility] [place] [address] [facility] [place] [address] Elana Mcgarry PA-C 200 [facility] [place] [address] Scheduled Orders Name Type Priority Associated Diagnoses [...] this encounter Medical Devices Implanted Type Area Senior Director Creative Services Device Identifier Shelf Expiration Date Model / Serial / Lot Stnt Pt Dbl [id number] 3219 - [id number] Implanted:Qty: 1 on 06/22/2023 by Celeste Scott MD at OR [facility] [employer] : ENDOSCOPY [id number] 01/17/2025 [id number] / / [id number] Stnt Pt Dbl [id number] 3219 - [id number] Implanted:Qty: 1 on 07/24/2023 by Uriel Bello DO at ENDOSCOPY [facility] [employer] : ENDOSCOPY [id number] 05/24/2025 [id number] / / [id number] documented as of this encounter Visit Diagnoses [...] Agents on File Name Relationship Healthcare Agent [facility] Communication Magno Horton Jr. Adult Child Health Heavy Mobile Equipment Operator resentative (appointed verbally by patient or by statute hierarchy) Care Teams Seo Intern Relationship Specialty Start Date End Date MalgorzataNovember NURY Gu [address] [place] [address] PCP - General Physician Tax Manager 05/20/22 documented as of this encounter
--- OUTSIDE RECORDS SUMMARY | 2023-08-08 22:25 | External Medical Summary | Summary of Care ---
Author Name Unknown Organization [facility] Address [address] [place] [address] Phone [phone] Care Team Providers Care Telegraphic Typewriter Installer Name Role Phone MarlenyElana fischer Brittanie ARRINGTON Primary Care Provider [phone] Reason for Visit * Reason Comments Outpatient Testing Encounter Details Date Type Department Care Team (Late st Contact Info) Description 08/01/2023 2:30 PM EST Laboratory Laboratory [facility] [place] [address] [place] [id number] [place], [address] [place] [address] Hypokalemia; Anemia, unspecified type Allergies Active Allergy Reactions Criticality Noted Date [...] Super Strength 50 MCG (1999) Oral Capsule (Cholecalciferol)I ndications:Vitamin D deficiency Take [...] No 07/22/2023 documented as of this encounter Plan of Treatment Upcoming Encounters Date Type Department Care Team (Late st Contact Info) Description 08/01/2023 3:00 PM EST Office Visit [facility] [address] [place] [address] Fanny Ureña MD [address] [place] [address] Arrived 08/03/2023 1:15 PM EST Imaging Radiology [address], [place] [address] [place] [address] 08/08/2023 10:00 AM EST Procedure Only Endoscopy, [place] [place] [address] [place] [address] Celeste Scott MD [address] [place] [address] 09/27/2023 11:00 AM EST Office Visit Family Practice [facility] [place] [address] [facility] [place] [address] Elana Mcgarry PA-C [address] [facility] [place] [address] Pending Results Name Type Priority Associated Diagnoses Date /Time BASIC METABOLIC PANEL Lab Routine Hypokalemia 08/01/2023 2:38 PM EST Health Maintenance Due Date Last [...] this encounter Medical Devices Implanted Type Area Slitter Scorer Device Identifier Shelf Expiration Date Model / Serial / Lot Stnt Pt Dbl [id number] 3219 - [id number] Implanted:Qty: 1 on 06/22/2023 by Celeste Scott MD at OR [facility] [employer] : ENDOSCOPY [id number] 01/17/2025 [id number] / / [id number] Stnt Pt Dbl [id number] 3219 - [id number] Implanted:Qty: 1 on 07/24/2023 by Uriel Bello DO at ENDOSCOPY [facility] [employer] : ENDOSCOPY [id number] 05/24/2025 [id number] / / [id number] documented as of this encounter Procedures Procedure Name Priority Date/Time Associated Diagnosis Comments CBC Routine 08/01/2023 2:38 PM EST Anemia, unspecified type documented in this encounter Results * (ABNORMAL) CBC (08/01/2023 2:38 PM EST) WBC 6.77 4.00 - 10.80 K/uL 08/01/2023 2:43 PM EST [facility] 56- RBC 3.74 3.85 - 5.15 M/uL 08/01/2023 2:43 PM EST [facility] 56-02 HGB 10.9(L) 12.0 - 15.3 g/dL 08/01/2023 2:43 PM EST [facility] 56- HCT 34.5(L) 36.0 - 45.2 % 08/01/2023 2:43 PM EST [facility] 56- MCV 92.2 81.5 - 97.5 fL 08/01/2023 2:43 PM EST [facility] 56-02 MCH 29.1 27.0 - 34.0 pg 08/01/2023 2:43 PM EST [facility] 56 MCHC 31.6 32.0 - 36.0 g/dL 08/01/2023 2:43 PM EST [facility] 56 RDW 15.5 11.5 - 15.5 % 08/01/2023 2:43 PM EST [facility] 56- PLT 314 140 - 400 K/uL 08/01/2023 2:43 PM [facility] 56 MPV 10.9 6.6 - 11.1 fL 08/01/2023 2:43 PM [facility] 56 Blood Venous blood specimen / Unknown Venipuncture / Unknown 08/01/2023 2:38 PM EST 08/01/2023 2:38 PM EST November Malgorzata ARRINGTON LAB BLOOD ORDERABLES [facility] 56 200 [facility] [place] [address] documented in this encounter Visit Diagnoses Diagnosis Hypokalemia Hypopotassemia Anemia, unspecified type documented in this encounter Advance Directives Latest Code Status on File Code Status Date Activated Date Inactivated Comments Full Code 07/22/2023 11:04 PM 07/26/2023 10:02 PM T his order reflects the patients wishes and were consensually agreed upon. Question Answer Comments Discussion of Advance Directives occurred with: Patient Healthcare Agents on File Name Relationship Healthcare Agent [facility] Communication Magno Horton Jr. Adult Child Health Dancing Teacher resentative (appointed verbally by patient or by statute hierarchy) Care Teams Telegraphic Typewriter Installer Relationship Specialty Start Date End Date Malgorzata Elana NURY Gu [facility] [place] [address] PCP - General Physician Endless Belt Finisher 05/20/22 documented as of this encounter
--- OUTSIDE RECORDS SUMMARY | 2023-08-08 22:25 | External Medical Summary ---
Author Name Unknown Address Unknown Organization [id number]:[facility] [place] [address] Laboratory Report Ordering Provider Test Date Status 08/01/2023 14:38:27 Final Observation Date Value Abnormality Reference (Units ) Status WBC, Total 08/01/2023 14:38:27 6.77 4.00-10.8 0 (K/uL) Final RBC 08/01/2023 14:38:27 3.74 3.85-5.15 (M/uL) Final Hemoglobin 08/01/2023 14:38:27 10.9 Below low normal 12 .0-15.3 (g/dL) Final HCT 08/01/2023 14:38:27 34.5 Below low normal 36. 0-45.2 (%) Final MCV 08/01/2023 14:38:27 92.2 81.5-97.5 (fL) Final MCH 08/01/2023 14:38:27 29.1 27.0-34.0 (pg) Final MCHC 08/01/2023 14:38:27 31.6 32.0-36.0 (g/dL) Final RDW 08/01/2023 14:38:27 15.5 11.5-15.5 (%) Final Platelets 08/01/2023 14:38:27 314 140-400 (K /uL) Final MPV 08/01/2023 14:38:27 10.9 6.6-11.1 ( fL) Final Performing Location [facility] [place] [address]
--- OUTSIDE RECORDS SUMMARY | 2023-08-08 22:26 | External Medical Summary ---
Author Name Unknown Address Unknown Organization K01:[facility] [place] - [address] [place] [address] Laboratory Report Ordering Provider Test Date Status SAUD HUANG 07/26/2023 06:38:00 Final Observation Date Value Abnormality Reference (Units ) Status BUN 07/26/2023 06:38:00 9 6-20 (mg/dL) Final Creatinine 07/26/2023 06:38:00 0.7 0.5-1.0 (mg/dL) Final Glomerular filtration rate/1.73 sq M.predicted [Volume Rate/Area] in Serum, Plasma or Blood by Creatinine-based formula (CKD-EPI) 07/26/2023 06:38:00 >90 >=60 (mL/min) Final eGFR is calculated based on the CKD-EPI 2020 equation SODIUM 07/26/2023 06:38:00 139 135-146 (m mol/L) Final Potassium 07/26/2023 06:38:00 3.4 Below low normal 3.5 -5.1 (mmol/L) Final Cl 07/26/2023 06:38:00 107 98-107 (mm ol/L) Final CO2 07/26/2023 06:38:00 23 22-32 (mmo l/L) Final Anion gap 07/26/2023 06:38:00 9 7-15 (mmol /L) Final Glucose 07/26/2023 06:38:00 98 70-120 (mg /dL) Final Calcium 07/26/2023 06:38:00 9.1 8.4-10.2 ( mg/dL) Final Performing Location [facility] - [address] [place] [address]
--- OUTSIDE RECORDS SUMMARY | 2023-08-08 22:26 | External Medical Summary ---
Author Name Unknown Address Unknown Organization : Laboratory Report Ordering Provider Test Date Status REINAJEANNINECruzito 07/26/2023 05:44:40 Final Observation Date Value Abnormality Reference (Units ) Status Glucose Point of Care 07/26/2023 05:44:40 94 70-120 (mg/dL) Final Performing Location
--- OUTSIDE RECORDS SUMMARY | 2023-08-08 22:26 | External Medical Summary | Summary of Care ---
Author Name Unknown Organization [facility] Address [address] [place] [address] Phone [phone] Care Team Providers Care Senior C Web Developer Name Role Phone Elana Mcgarry PA-C Primary Care Provider [phone] Encounter Details Date Type Department Care Team (Late st Contact Info) Description 07/24/2023 Population Health External Data Unspecified Department Allergies Active Allergy Reactions Criticality Noted Date Comments Nickel 05/19/2022 Rash, reddened documented as of this encounter (statuses as of 07/25/2023) Medications Medication Sig Dispensed Refills Start Date End Date Status Atorvastatin Calcium 40 MG Oral Tablet (Lipitor) take one tablet by mouth daily 90 Tablet 3 09/26/2022 Suspended Additional Information metFORMIN HCl 500 MG Oral Tablet (Glucophage) take one tablet twice daily 180 Tablet 3 09/26/2022 Suspended Additional Information Lisinopril-hydroC HLOROthiazide 20-12.5 MG Oral Tablet take one tablet by mouth daily 90 Tablet 3 09/26/2022 Suspended Additional Information D3 Super Strength 50 MCG (1999 UT) Oral Capsule (Cholecalciferol) Indications:Vitam in D deficiency Take 1 Capsule by mouth once a week. 90 Capsule 2 10/26/2022 Suspended Additional Information Probiotic 250 MG Oral Capsule take 2 capsules by mouth daily 30 Capsule 0 05/30/2023 Suspended Additional Information Patient not taking.Reported on 07/22/2023 Cefdinir 300 MG Oral Capsule (Omnicef) take 1 capsule (300 mg) orally twice a day for 5 days 10 Capsule 0 05/30/2023 Suspended Additional Information Loperamide HCl 2 MG Oral Capsule (Imodium) take 1 capsule (2 mg) orally every 8 hours As Needed for dairrhea 20 Capsule 0 05/30/2023 Suspended Additional Information Patient not taking.Reported on 07/22/2023 Pantoprazole Sodium 40 MG Oral Tablet Delayed Release (Protonix) take 1 tablet (40 mg) orally daily in the morning 30 Tablet 0 05/30/2023 Suspended Additional Information Vitamin B1 100 MG Oral Tablet take 1 tablet by mouth daily in the morning 30 Tablet 0 05/30/2023 Suspended Additional Information documented as of this encounter (statuses as of 07/25/2023) Active Problems Problem Noted Date Diagnosed Date Infected pancreatic pseudocyst 07/23/2023 Gallstone pancreatitis 06/05/2023 Acute cholecystitis due to biliary calculus 05/09 H/O partial thyroidectomy 03/27/2023 Esophagitis determined by endoscopy 09/26/2022 HTN, goal below 140/90 09/23/2021 Hypercholesteremia 09/23/2021 Hyperlipidemia 09/23/2021 Vitamin D deficiency 06/28/2019 Osteopenia 06/28/2019 Hyperparathyroidism 09/26/2013 documented as of this encounter (statuses as of 07/25/2023) Immunizations Name Administration Dates Next Due COVID-19 mRNA, LNP-s, No Pre serve, 2-Dose Series (MusicAll) 02/12/2021,01/22/2021 Pneumococcal Conjugate Vacc, 13 Valent (Prevnar) [...] 08/08/2023 10:00 AM EST Procedure Only Endoscopy, [facility] [address] [address] Celeste Scott MD [address] [place] [address] 09/27/2023 11:00 AM EST Office Visit Family Practice [place] [address] [place] [address] Elana Mcgarry PA-C [address] [place] [address] Health Maintenance Due Date Last Done Comments Fecal Occult Blood Test 1998 Sigmoidoscopy 1998 Hepatitis B (1 of 3 - Risk 3-dose series) 2013 Colonoscopy 08/13/2020 08/13/2010, 08/13/2010 COVID-19 Vaccine ( season) 2023 02/12/2021, 01/22/2021 Influenza Vaccine (FLU shot) (#1) 2023 05/25/2022, 05/10/2020, 06/13/2019 Cologuard 06/07/2023 06/07/2020, 06/01/2020 Colorectal Cancer Screening 06/07/2023 Depression Screening 03/27/2024 03/27/2023 Mammogram 04/19/2024 04/19/2023, 09/08, 11/01/2018 GFR 07/25/2024 07/25/2023, 07/07, 07/23/2023, Additional history exists DTaP,Tdap,and Td Vaccines (2 [...] this encounter Medical Devices Implanted Type Area Liquid Fertilizer Servicer Device Identifier Shelf Expiration Date Model / Serial / Lot Stnt Pt Dbl [id number] 3219 - [id number] Implanted:Qty: 1 on 06/22/2023 by Celeste Scott MD at OR [facility] [employer] : ENDOSCOPY [id number] 01/17/2025 [id number] / / [id number] Stnt Pt Dbl [id number] 3219 - [id number] Implanted:Qty: 1 on 07/24/2023 by Uriel Bello DO at ENDOSCOPY [facility] [employer] : ENDOSCOPY [id number] 05/24/2025 [id number] / / [id number] documented as of this encounter Advance Directives Latest Code Status on File Code Status Date Activated Date Inactivated Comments Full Code 07/22/2023 11:04 PM This ord er reflects the patients wishes and were consensually agreed upon. Question Answer Comments Discussion of Advance Directives occurred with: Patient Care Teams Senior C Web Developer Relationship Specialty Start Date End Date MalgorzataNovember Brittanie, NURY [address] [place] [address] PCP - General Physician Petroleum Production Engineer 05/20/22 documented as of this encounter
--- OUTSIDE RECORDS SUMMARY | 2023-08-08 22:26 | External Medical Summary ---
Author Name Unknown Address Unknown Organization : Laboratory Report Ordering Provider Test Date Status SAUD HUANG 07/25/2023 18:12:22 Final Observation Date Value Abnormality Reference (Units ) Status Glucose Point of Care 07/25/2023 18:12:22 112 70-120 (mg/dL) Final Performing Location
--- OUTSIDE RECORDS SUMMARY | 2023-08-08 22:26 | External Medical Summary ---
Author Name Unknown Address Unknown Organization : Laboratory Report Ordering Provider Test Date Status JEANNINE HUANGCruzito 07/26/2023 00:35:55 Final Observation Date Value Abnormality Reference (Units ) Status Glucose Point of Care 07/26/2023 00:35:55 115 70-120 (mg/dL) Final Performing Location
--- OUTSIDE RECORDS SUMMARY | 2023-08-08 22:26 | External Medical Summary | Summary of Care ---
Author Name Unknown Organization [facility] Address [address] [place] [address] Phone [phone] Care Team Providers Care Automotive Painter Name Role Phone Elana Mcgarry PA-C Primary Care Provider [phone] Reason for Referral * Precert (Within 10 days (routine)) - Pending Review Specialty Diagnoses / Procedures Referred By Sean kevin Referred To Contact Radiology Diagnoses Infected pancreatic pseudocyst Procedures CT ABD/PELVIS W IV AND W ORAL CONTRAST Celeste Scott MD [address] [place] [address] Referral ID Status Reason Start Date Expiration Date V isits Requested Visits Authorized [id number] Pending Review 08/02/2023 999 999 Reason for Visit * Reason Onset Date Comments Appointment 07/26/2023 Encounter Details Date Type Department Care Team (Late st Contact Info) Description 07/26/2023 Telephone Gastroenterology, [facility] [address] [address] Celeste Scott MD [address] [place] [address] Appointment Allergies Active Allergy Reactions Criticality Noted Date Comments Nickel 05/19/2022 Rash, reddened documented as of this encounter (statuses as of 07/26/2023) Medications Medication Sig Dispensed Refills Start Date [...] Additional Information D3 Super Strength 50 MCG (2000 UT) [...] as of this encounter (statuses as of 07/26/2023) Active Problems Problem Noted Date Diagnosed Date Infected pancreatic pseudocyst 07/23/2023 Gallstone pancreatitis 06/05/2023 Acute cholecystitis due to biliary calculus 05/09 H/O partial thyroidectomy 03/27/2023 Esophagitis determined by endoscopy 09/26/2022 HTN, goal below 140/90 09/23/2021 Hypercholesteremia 09/23/2021 Hyperlipidemia 09/23/2021 Vitamin D deficiency 06/28/2019 Osteopenia 06/28/2019 Hyperparathyroidism 09/26/2013 documented as of this encounter (statuses as of 07/26/2023) Immunizations Name Administration Dates Next Due COVID-19 [...] encounter Miscellaneous Notes * Telephone Encounter - Angeles Mustafa OSA [...] 10:00 AM EST Procedure Only Endoscopy, [facility] [address] [place] [address] Celeste Scott MD [address] [place] [address] 09/27/2023 11:00 AM EST Office Visit Family Practice [facility] [place] [address] [facility] [place] [address] Elana Mcgarry PA-C [address] [facility] [place] [address] Scheduled Orders Name Type Priority Associated Diagnoses [...] 03/27/2023 Mammogram 04/19/2024 04/19/2023, 09/08, 11/01/2018 GFR 07/26/2024 [...] this encounter Medical Devices Implanted Type Area Welder Repair Device Identifier Shelf Expiration Date Model / Serial / Lot Stnt Pt Dbl [id number] 3219 - [id number] Implanted:Qty: 1 on 06/22/2023 by Celeste Scott MD at OR [facility] [employer] : ENDOSCOPY [id number] 01/17/2025 [id number] / / [id number] Stnt Pt Dbl [id number] 3219 - [id number] Implanted:Qty: 1 on 07/24/2023 by Uriel Bello DO at ENDOSCOPY [facility] [employer] : ENDOS[employer] [id number] 05/24/2025 [id number] / / [id number] documented as of this encounter Visit Diagnoses [...] Advance Directives occurred with: Patient Care Teams Automotive Painter Relationship Specialty Start Date End Date Malgorzata November Brittanie, NURY [address] [facility] [place] [address] PCP - General Physician Plastics Fabricator Or Welder 05/20/22 documented as of this encounter
--- OUTSIDE RECORDS SUMMARY | 2023-08-08 22:26 | External Medical Summary ---
Author Name Unknown Address Unknown Organization K01:[facility] [place] [address] [place] [address] Laboratory Report Ordering Provider Test Date Status SAUD HUANG 07/26/2023 06:38:00 Final Observation Date Value Abnormality Reference (Units ) Status WBC, Total 07/26/2023 06:38:00 7.06 4.00-10.80 (K/uL) Final RBC 07/26/2023 06:38:00 3.35 3.85-5.15 (M/uL) Final Hemoglobin 07/26/2023 06:38:00 9.8 Below low normal 12.0-15.3 (g/dL) Final HCT 07/26/2023 06:38:00 31.7 Below low normal 36.0-45.2 (%) Final MCV 07/26/2023 06:38:00 94.6 81.5-97.5 (fL) Final MCH 07/26/2023 06:38:00 29.3 27.0-34.0 (pg) Final MCHC 07/26/2023 06:38:00 30.9 32.0-36.0 (g/dL) Final RDW 07/26/2023 06:38:00 14.2 11.5-15.5 (%) Final Platelets 07/26/2023 06:38:00 250 140-400 (K/uL) Final MPV 07/26/2023 06:38:00 11.2 6.6-11.1 (fL) Final Nucleated erythrocytes/100 leukocytes [Ratio] in Blood by Automated count 07/26/2023 06:38:00 0 <=0 (/100 WBCs) Final Performing Location [facility] [place] [address] [place] [address]
--- OUTSIDE RECORDS SUMMARY | 2023-08-08 22:26 | External Medical Summary | Summary of Care ---
Author Name Unknown Organization [facility] Address [address] [place] [address] Phone [phone] Care Team Providers Care Gyn Name Role Phone Marlenyamado Elana Gu PA-C Primary Care Provider [phone] Reason for Visit * Reason Onset Date Comments case management 07/27/2023 Encounter Details Date Type Department Care Team (Late st Contact Info) Description 07/27/2023 Clerk Telegraph Service Telephone Care Coordination and Integration [address], [place] [phone] Era Rico RN [address], [place] [phone] case management Allergies Active Allergy Reactions Criticality [...] before bedtime. 7 Tablet 0 07/26/2023 Active documented as of this encounter (statuses [...] luck on getting a sooner appointment at [facility] or [facility] for CT scan? * Telephone Encounter - Era Rico RN - 07/27/2023 11:49 AM EST November/Dr Olivera- patient was taking oral [place] [facility] also received [place]. She was not dischaged home on any oral supplementation. Do you want patient to continue? She will need a script. HD f/u with Dr olivera scheduled for 08/01. Please let me know [...] taking potassium when she was admitted [place] [facility] [place]- they did not send her home on any oral supplements. Do you want her to be on any potassium? Gastro Scheduling: any luck on getting a sooner appointment at [facility] or [facility] for CT scan? documented in this encounter Plan of Treatment Upcoming Encounters Date Type Department Care Team (Late st Contact Info) Description 08/01/2023 3:00 PM EST Office Visit [facility] [address] [facility] [place] [address] Fanny Olivera MD [address] [facility] [place] [address] 08/08/2023 10:00 AM EST Procedure Only Endoscopy, [place] [address] [place] [address] Celeste Scott MD [address] [place] [address] 09/27/2023 11:00 AM EST Office Visit [facility] [address] [facility] [place] [address] Elana Mcgarry PA-C [address] [facility] [place] [address] Health Maintenance Due Date Last Done Comments [...] this encounter Medical Devices Implanted Type Area Oven Worker Device Identifier Shelf Expiration Date Model / Serial / Lot Stnt Pt Dbl [id number] 3219 - [id number] Implanted:Qty: 1 on 06/22/2023 by Celeste Scott MD at OR [facility] [employer] : ENDOSCOPY [id number] 01/17/2025 [id number] / / [id number] Stnt Pt Dbl [id number] 3219 - [id number] Implanted:Qty: 1 on 07/24/2023 by Uriel Bello DO at [place]OS[place] [facility] [employer] : ENDOSCOPY [id number] 05/24/2025 [id number] / / [id number] documented as of this encounter Advance Directives Latest Code Status on File Code Status Date Activated Date Inactivated Comments Full Code 07/22/2023 11:04 PM 07/26/2023 10:02 PM T his order reflects the patients wishes and were consensually agreed upon. Question Answer Comments Discussion of Advance Directives occurred with: Patient Healthcare Agents on File Name Relationship Healthcare Agent [facility] Magno Horton Jr. Adult Child Health Attendance Secretary resentative (appointed verbally by patient or by statute hierarchy) Care Teams Gyn Relationship Specialty Start Date End Date Malgorzata November NURY Gu [address] [facility] [place] [address] PCP - General Physician Supervisor Cytogenetic Laboratory 05/20/22 documented as of this encounter
--- OUTSIDE RECORDS SUMMARY | 2023-08-08 22:26 | External Medical Summary ---
Author Name Unknown Address Unknown Organization : Laboratory Report Ordering Provider Test Date Status REINASAUD 07/25/2023 12:11:41 Final Observation Date Value Abnormality Reference (Units ) Status Glucose Point of Care 07/25/2023 12:11:41 116 70-120 (mg/dL) Final Performing Location
--- OUTSIDE RECORDS SUMMARY | 2023-08-08 22:26 | External Medical Summary | Summary of Care ---
Author Name Unknown Organization [facility] Address [address] [place] [address] Phone [phone] Care Team Providers Care Respiratory Therapy Manager Name Role Phone Marlenyamado Elana Gu PA-C Primary Care Provider [phone] Reason for Visit * Reason Onset Date Comments case management 07/27/2023 Encounter Details Date Type Department Care Team (Late st Contact Info) Description 07/27/2023 Industrial Seamstress Telephone Care Coordination and Integration [address] [place], [place] [phone] Era Rico RN [address], [place] [phone] case management Allergies Active Allergy Reactions Criticality [...] Wise OSA - 07/27/2023 12:02 PM EST Pt scheduled Aug [address] Scott at [facility] * Telephone Encounter - Yun Louise RN - 07/27/2023 11:53 AM EST Gastro Scheduling: any luck on getting a sooner appointment at [facility] or [facility] for CT scan? * Telephone Encounter - Era Rico RN - 07/27/2023 11:49 AM EST November/Dr Olivera- patient was taking oral potassium inpatient at [facility], also received IV. She was not dischaged [...] taking potassium when she was admitted at [facility] for hypokalemia- they did not send her home on any oral supplements. Do you want her to be on any potassium? Gastro Scheduling: any luck on getting a sooner appointment at [facility] or [facility] for CT scan? documented in this encounter Plan of Treatment Upcoming Encounters Date Type Department Care Team (Late st Contact Info) Description 08/01/2023 3:00 PM EST Office Visit [facility] [address] [facility] [place], [place] [address] Fanny Olivera MD [address] [facility] [place] [address] 08/08/2023 10:00 AM EST Procedure Only Endoscopy, [place] [address] [place] [address] Celeste Scott MD [address] [place] [address] 09/27/2023 11:00 AM EST Office Visit [facility] [address] [facility] [place] [address] Elana Mcgarry PA-C [address] [facility] [place] [address] Health Maintenance Due Date Last Done Comments [...] this encounter Medical Devices Implanted Type Area Contact Clerk Device Identifier Shelf Expiration Date Model / Serial / Lot Stnt Pt Dbl [id number] 3219 - [id number] Implanted:Qty: 1 on 06/22/2023 by Celeste Scott MD at OR [facility] [employer] : ENDOSCOPY [id number] 01/17/2025 [id number] / / [id number] Stnt Pt Dbl [id number] 3219 - [id number] Implanted:Qty: 1 on 07/24/2023 by Uriel Bello DO at [place]OSCOPY [facility] [employer] : ENDOSCOPY [id number] 05/24/2025 [id number] / / [id number] documented as of this encounter Advance Directives Latest Code Status on File Code Status Date Activated Date Inactivated Comments Full Code 07/22/2023 11:04 PM 07/26/2023 10:02 PM T his order reflects the patients wishes and were consensually agreed upon. Question Answer Comments Discussion of Advance Directives occurred with: Patient Healthcare Agents on File Name Relationship Healthcare Agent [facility] Communication Magno Horton Jr. Adult Child Health Public Utilities Sales Representative resentative (appointed verbally by patient or by statute hierarchy) Care Teams Respiratory Therapy Manager Relationship Specialty Start Date End Date Malgorzata November NURY Gu [address] [facility] [place] [address] PCP - General Physician Electronics Engineering Manager 05/20/22 documented as of this encounter
--- OUTSIDE RECORDS SUMMARY | 2023-08-08 22:26 | External Medical Summary | Summary of Care ---
Author Name Unknown Organization [facility] Address [address] [place] [address] Phone [phone] Care Team Providers Care Power Saw Operator Name Role Phone Elana Mcgarry PA-C Primary Care Provider [phone] Reason for Visit * Auth/Cert Specialty Diagnoses / Procedures Referred By Sean t Referred To Contact Diagnoses Pancreatic pseudocyst Pancreatic psuedocyst Referral ID Status Reason Start Date Expiration Date Visits Re quested Visits Authorized [id number] Encounter Details Date Type Department Care Team (Latest Contact Info) Description 07/22/2023 9:51 PM EST - 07/26/2023 6:01 PM EST Hospital Encounter HFAM 6, [facility] 6th Floor [address], [place] [id number] Osmani Bacon MD [address] [place] [address] Kimberly Barba MD [address] [place] [address] Upper GI Endoscopy Discharge Disposition: Home - Self Care Allergies [...] twice daily 180 Tablet 3 09/26/2022 Active Lisinopril-hydr oCHLOROthiazide 20-12.5 MG Oral Tablet [...] the morning 30 Tablet 0 05/30/2023 Active Acetaminophen 325 MG Oral Tablet (Tylenol) Take 2 Tablets by mouth every 6 hours as needed for Pain, Mild or Fever >38C(100.5F). 0 07/26/2023 Active Docusate Sodium 100 MG Oral Capsule (Colace) Take 1 Capsule by mouth daily as needed for Constipation. 10 Capsule 0 07/26/2023 Active Thiamine HCl 100 MG Oral Tablet (vitamin B-1) Take 1 Tablet by mouth in the morning. 0 07/27/2023 Active Ciprofloxacin HCl 500 MG Oral Tablet (Cipro) Take 1 Tablet by mouth in the morning and 1 Tablet before bedtime. 7 Tablet 0 07/26/2023 Active Probiotic 250 MG Oral Capsule take [...] days. 21 Tablet 0 06/22/2023 3 Discontinued Ciprofloxacin HCl 500 MG Oral Tablet (Cipro) Take 1 Tablet by mouth in the morning and 1 Tablet before bedtime. 6 Tablet 0 07/26/2023 3 Discontinued(Refi ll) documented as of this encounter (statuses as [...] mRNA, LNP-s, No Pre serve, 2-Dose Series (Ziippi) 02/12/2021,01/22/2021 Pneumococcal Conjugate Vacc, 13 Valent (Prevnar) [...] Sign Reading Time Taken Comments Blood Pressure 132/63 07/26/2023 2:18 PM EST Pulse 75 07/26/2023 2:18 PM EST Temperature 36.7 C (98.1 F) 07/26/2023 2:18 PM ES T Respiratory Rate 16 07/26/2023 2:18 PM EST Oxygen Saturation 98% 07/26/2023 2:18 PM EST Inhaled Oxygen Concentration - - Weight 64.3 kg (141 lb 12.8 oz) 07/22/2023 9:52 PM EST Height 157.5 cm (5' 2") 07/22/2023 9:52 PM EST Body Mass Index 25.94 07/22/2023 9:52 PM EST documented in this encounter Functional [...] No 07/22/2023 documented as of this encounter Discharge Instructions * Discharge Instr - AVS* Kimberly Barba MD - 07/26/2023 2:14 PM EST Discharge Date: 07/26/2023 The information below provides you with the instructions and the list of medications you need to betaking following discharge from the hospital. If you have any questions, please ask before leaving. If you have questions after leaving, you can reach us at the numbers below. YOUR HOSPITAL PROVIDERS: Discharging Provider: Kimberly Barba MD Provider Department: Hospital Medicine To reach this Provider Monday through Monday (8:00 AM to 4:30 PM) for any questions or test results: Call [phone] For after-hours concerns: Call [phone] and have your provider paged, or the provider information technology auditor for the Department of Hospital Medicine paged. Please note, the discharging provider will not be able to provide you with any medications refills.Please discuss these with your primary care provider. Worsening Symptoms: If you have new symptoms, or your symptoms get worse, please contact your Discharge Provider or Primary Care Provider (PCP). If these providers are not available, you can go to your local [facility] or [facility]gent [facility] during their business hours. In an EMERGENCY situation: Call 911 or go to the nearest emergency room. A BRIEF SUMMARY OF YOUR HOSPITAL STAY: You came to the hospital with: concerns of infected pseudocyst Your main diagnosis at discharge was: pancreatic necrosis Operations & Procedures performed: Upper endoscopy 07/24/2023 Complications: none significant Inpatient test results that are pending at discharge: none Advance Directive Documented: Advance Directive Does the Patient have an Advance Directive? No YOUR FOLLOW UP APPOINTMENTS: Primary Care Provider Information: PCP: Elana Mcgarry PA-C [address] [place] [address] / [place] [address] (office) [phone] (fax) An appointment was requested with your PCP (Elana Mcgarry PA-C) within 7 days. (Please take this form to this visit with your primary care physician.) Please keep your appointment for encoscopy on 08/08/2022 ( necrosectomy), You need the following studies in the future: bmp at next primary care appointment INSTRUCTIONS: Diet: heart healthy consistent carbohydrate diet Activity: no heavy exertion Medication changes. Ciprofloxacin - 500 mg twice daily ( morning and evening) for the next 3 days. This is an antibiotic. All other antibiotic completed. Additional Instructions: - Call your primary care physician or seek medical attention if increased abdominal pain, shortnessof breath, or sustained change from your baseline health. - Do not use alcohol products in anyway! - Use caution when standing or walking since you are at an increased risk for falls - Do not take xhla-gce-vepfqry NSAIDs (nonsteroid anti-inflammatory medications); ie. Advil, Motrin, Ibuprofen, etc. documented in this encounter Progress Notes * Lam Rosa MD - 07/25/2023 7:22 AM EST PROGRESS NOTE - Gastroenterology Service [address] [address] Name: Iliana Horton Date: 07/24/2023 Time: 7:22 AM SUBJECTIVE: Patient seen and examined. Chart reviewed. Improving this AM. Tolerating diet. ROS: Negative unless otherwise stated above. OBJECTIVE: Vital Signs Last 24 Hours: Systolic BP: Most Recent Systolic BP Av.8 mmHg Min: 111 mmHg Max: 140 mmHg Temperature: Most Recent Temperature Av.8 C Min: 36.61 C Max: 37.06 C Pulse: Pulse Av.5 Min: 65 Max: 97 Respirations: Resp Av.9 Min: 13 Max: 24 SpO2: SpO2 Av.5 % Min: 95 % Max: 100 % Constitutional: No acute distress. CV: RRR. No murmurs. Normal S1/S2. Chest: CTA bilat. No wheezing or rhonchi. GI: Soft, NT/ND. BSx4. Extremities: No edema. Neurology: Alert and oriented to person, place and time. LABS: Reviewed in [facility]. IMAGING: CT 07/07: IMPRESSION 1. Redemonstration of sequelae of necrotizing pancreatitis with walled-off necroses. Interval improvement from prior study, status post cysto gastrostomy catheter placement. 2. New hypodensities with the focus of fat in the right adnexal area may be sequelae of necrosis fat. Attention recommended on follow-up CT in 3 months. 3. Redemonstration of retroperitoneal nodularity, likely related to fat necrosis from prior pancreatitis. Attention recommended on follow-up. 4. Stones/sludge in the gallbladder. 5. Additional findings described above. ASSESSMENT: Iliana Horton is a 68 year old female with a PMH of HTN and recently diagnosed gallstonepancreatitis complicated by WON (initially 7.2 x 8.9cm) s/p cystograstrostomy with 7Fr pigtail stent on 06/22. She was transferred and admitted for continued abdomina pain, nausea and inability to tolerate PO intake. Repeat CT scan 07/07 revealed internal improvement of WON necrosis 5.2cm x 6.5cm. S/p EGD with necrosectomy on 07/24. RECOMMENDATIONS: - okay for diet - can discharge with 3 days of cipro - outpatient necrosectomy on 08/08/2023 Thank you for the consult. We will be available as needed. Please callback with any questions. I have discussed the case with my attending, Dr. Ann. Lam Rosa MD PGY-5 Gastroenterology and Hepatology Associated attestation - Carmen Ann MD - 07/25/2023 12:41 PM EST I saw and evaluated the patient today. I have reviewed the trainee note and agree. * Kimberly Barba MD - 07/24/2023 3:50 PM EST Images from the original note were not included. [facility] ENDO [facility] HFAM/Endo INTERVAL HISTORY: History reviewed. 05/2023 - hospitalized for gallstone necrotizing pancreatitis with acute cholecystitis Progressive sx of nausea and vomitting, with abdominal bloating and decrease po. Ct scan - "fluid collection with multiple locules of air adhering to the pancreas measuring 5.0cm x5.6cm, concerning for infected pseudocyst--allegedly this collection was not present on 05/23/2023. On zosyn Her symptoms of eye changes at [facility] are not present Did not sleep well due to interruptions but no chest pain,sob, mild abdomnal pain and distention. Feels she is hungry has been npo Objective son present Physical Exam Most Recent Vital Signs: BP: 135 mmHg/56 mmHg (07/24/23 1433) Pulse: 70 (07/24/23 1430) Temp: 37 C (07/24/23 1430) Resp: 13 (07/24/23 1430) SpO2: 97 % (07/24/23 1430) Constitutional: no acute distress, resting comfortably in bed, speaking in full sentences HENT: NCAT, MMM Eyes: sclera and conjunctiva normal Neck: normal range of motion CV: normal rate and rhythm, no murmur, gallops or rub Chest: normal respiratory effort, lungs clear to auscultation Abdomen: mild distension in epigastrim, mild TTP no rebound or guarding. Extremities: no clubbing, cyanosis, or edema, otherwise grossly normal, warm, and dry Psych: normal mood and affect Peripheral Line Left;Lower Arm 22 Gauge (Active) Number of days: 1 STUDIES: Encounter Orders Labs and other studies reviewed with pertinent findings noted below: Ast - 41; alkpo4 207; ast 38 Hgb = 10.2 Wbc - 6.1 Assessment and Plan IMPRESSION : Principal Problem: Infected pancreatic pseudocyst Active Problems: HTN, goal below 140/90 Hyperlipidemia Vitamin D deficiency Hyperparathyroidism (HCC) Resolved Problems: * No resolved hospital problems. * DIFFERENTIAL AND PLAN: Pancreatic pseudocyst -infected Hx Gallstone necrotizing pancreatitis S/p axios stent to pseudocyst/WON on 06/22 Transferred from [facility] to [facility] for GI evaluation and possible procedure. -GI consult - plan for axio stent today -NPO, except meds after midnight -CBC, BMP pt/inr in AM -continue with zosyn -IVF hydration Counseled to wear scd Pre-diabetes - hold HOME HEALTH OUTREACH COORDINATOR metformin, MDSSI, with Q6h DLD - cont HOME HEALTH OUTREACH COORDINATOR atorvastatin HTN - normotensive, will hold well logging mud analysis captain HCTZ (hypoK at OSH--2.8), hold lisinopril for possible proc in AM. GERD - cont HOME HEALTH OUTREACH COORDINATOR pantoprazole Anemia - check iron studies, tsh Scd for potential procedure. PHARMACOLOGIC VTE PROPHYLAXIS: This patient does not have an active medication from one of the medication groupers. CODE STATUS: Full Code EXPECTED DISCHARGE DATE: No information available * Lam Rosa MD - 07/24/2023 11:51 AM EST PROGRESS NOTE - Gastroenterology Service [facility] [address] Name: Iliana Horton Date: 07/24/2023 Time: 11:51 AM SUBJECTIVE: Patient seen and examined. Chart reviewed. ROS: Negative unless otherwise stated above. OBJECTIVE: Vital Signs Last 24 Hours: Systolic BP: Most Recent Systolic BP Av.7 mmHg Min: 103 mmHg Max: 129 mmHg Temperature: Most Recent Temperature Av.8 C Min: 36.5 C Max: 37.11 C Pulse: Pulse Av.6 Min: 63 Max: 115 Respirations: Resp Av.3 Min: 16 Max: 18 SpO2: SpO2 Av % Min: 96 % Max: 98 % Constitutional: No acute distress. CV: RRR. No murmurs. Normal S1/S2. Chest: CTA bilat. No wheezing or rhonchi. GI: Soft, NT/ND. BSx4. Extremities: No edema. Neurology: Alert and oriented to person, place and time. LABS: Reviewed in [facility]. IMAGING: CT 07/07: IMPRESSION 1. Redemonstration of sequelae of necrotizing pancreatitis with walled-off necroses. Interval improvement from prior study, status post cysto gastrostomy catheter placement. 2. New hypodensities with the focus of fat in the right adnexal area may be sequelae of necrosis fat. Attention recommended on follow-up CT in 3 months. 3. Redemonstration of retroperitoneal nodularity, likely related to fat necrosis from prior pancreatitis. Attention recommended on follow-up. 4. Stones/sludge in the gallbladder. 5. Additional findings described above. ASSESSMENT: Iliana Horton is a 68 year old female with a PMH of HTN and recently diagnosed gallstonepancreatitis complicated by WON (initially 7.2 x 8.9cm) s/p cystograstrostomy with 7Fr pigtail stent on 06/22. She was transferred and admitted for continued abdomina pain, nausea and inability to tolerate PO intake. Repeat CT scan 07/07 revealed internal improvement of WON necrosis 5.2cm x 6.5cm. Was scheduled for outpatient necrosectomy on 08/08/2023. RECOMMENDATIONS: - keep NPO - plan for EGD with necrosectomy today I have discussed the case with my attending, Dr. Bello. Lam Rosa MD PGY-5 Gastroenterology and Hepatology Associated attestation - Uriel Bello DO - 07/24/2023 12:40 PM EST I saw and evaluated the patient today. I have reviewed the trainee note and agree. * Kimberly Barba MD - 07/23/2023 9:37 AM EST Images from the original note were not included. [facility] H662/A INTERVAL HISTORY: History reviewed. 05/2023 - hospitalized for gallstone necrotizing pancreatitis with acute cholecystitis Progressive sx of nausea and vomitting, with abdominal bloating and decrease po. Ct scan - "fluid collection with multiple locules of air adhering to the pancreas measuring 5.0cm x5.6cm, concerning for infected pseudocyst--allegedly this collection was not present on 05/23/2023. On zosyn Her symptoms of eye changes at [facility] are not present Objective son present Physical Exam Most Recent Vital Signs: BP: 117 mmHg/48 mmHg (07/23/23 050) Pulse: 60 (07/23/23502) Temp: 37 C (07/23/23502) Resp: 16 (07/23/23502) SpO2: 97 % (07/23/23502) Episode of svt note on telemetry Constitutional: no acute distress, resting comfortably in bed, speaking in full sentences HENT: NCAT, MMM Eyes: sclera and conjunctiva normal Neck: normal range of motion CV: normal rate and rhythm, no murmur, gallops or rub Chest: normal respiratory effort, lungs clear to auscultation Abdomen: mild distension in epigastrim, mild TTP no rebound or guarding. Extremities: no clubbing, cyanosis, or edema, otherwise grossly normal, warm, and dry Psych: normal mood and affect Peripheral Line Right Antecubital 18 Gauge (Active) Number of days: 1 Peripheral Line Left;Lower Arm 22 Gauge (Active) Number of days: 0 STUDIES: Encounter Orders Labs and other studies reviewed with pertinent findings noted below: Ast - 41; alkpo4 207; ast 38 Hgb = 10.2 Wbc - 6.1 Assessment and Plan IMPRESSION : Principal Problem: Infected pancreatic pseudocyst Active Problems: HTN, goal below 140/90 Hyperlipidemia Vitamin D deficiency Hyperparathyroidism (HCC) Resolved Problems: * No resolved hospital problems. * DIFFERENTIAL AND PLAN: Pancreatic pseudocyst -infected Hx Gallstone necrotizing pancreatitis S/p axios stent to pseudocyst/WON on 06/22 Transferred from [facility] to [facility] for GI evaluation and possible procedure. -GI consult - evaluated by gi - to discuss with interventinalist -NPO, except meds after midnight -CBC, BMP pt/inr in AM -continue with zosyn -IVF hydration Elevated phosphorus on am labs note iv replacement last night Pre-diabetes - hold HOME HEALTH OUTREACH COORDINATOR metformin, MDSSI, with Q6h DLD - cont HOME HEALTH OUTREACH COORDINATOR atorvastatin HTN - normotensive, will hold well logging mud analysis captain HCTZ (hypoK at OSH--2.8), hold lisinopril for possible proc in AM. GERD - cont HOME HEALTH OUTREACH COORDINATOR pantoprazole Anemia - check iron studies, tsh Scd for potential procedure. PHARMACOLOGIC VTE PROPHYLAXIS: This patient does not have an active medication from one of the medication groupers. CODE STATUS: Full Code EXPECTED DISCHARGE DATE: No information available documented in this encounter H&P Notes * Uriel Bello DO - 07/24/2023 3:10 PM EST Endoscopy Pre-Procedure Assessment Name: Iliana Horton Date: 07/24/2023 Time: 3:10 PM Procedure(s): Upper GI Endoscopy; with Indication(s) of necrosectomy Endoscopy Pre-Procedure Assessment: Prior to the procedure, the patient is identified. The patient's history, medications and allergieshave been reviewed. The patient is competent. The risks and benefits of the proposed procedure and the planned sedation have been discussed with the patient. All questions have been answered and informed consent for the procedure has been obtained. Prior to Admission medications Medication Sig Last Dose Discont. Cefdinir 300 MG Oral Capsule (Omnicef) take 1 capsule (300 mg) orally twice a day for 5 days Past Week Pantoprazole Sodium 40 MG Oral Tablet Delayed Release (Protonix) take 1 tablet (40 mg) orally dailyin the morning 07/21/2023 Vitamin B1 100 MG Oral Tablet take 1 tablet by mouth daily in the morning 07/21/2023 D3 Super Strength 50 MCG (1999 UT) Oral Capsule (Cholecalciferol) Take 1 Capsule by mouth once a week. 07/21/2023 Atorvastatin Calcium 40 MG Oral Tablet (Lipitor) take one tablet by mouth daily Past Month Lisinopril-hydroCHLOROthiazide 20-12.5 MG Oral Tablet take one tablet by mouth daily 07/21/2023 Ciprofloxacin HCl 500 MG Oral Tablet (Cipro) Take 1 Tablet by mouth in the morning and 1 Tablet before bedtime. Do all this for 7 days. metroNIDAZOLE 500 MG Oral Tablet (Flagyl) Take 1 Tablet by mouth in the morning and 1 Tablet at noon and 1 Tablet before bedtime. Do all this for 7 days. Loperamide HCl 2 MG Oral Capsule (Imodium) take 1 capsule (2 mg) orally every 8 hours As Needed fordairrhea Patient not taking: Reported on 07/22/2023 Not Taking Probiotic 250 MG Oral Capsule take 2 capsules by mouth daily Patient not taking: Reported on 07/22/2023 Not Taking metFORMIN HCl 500 MG Oral Tablet (Glucophage) take one tablet twice daily Over 30 Days Review of patient's allergies indicates: Allergen Reactions Nickel Rash, reddened BP 135/56 | Pulse 70 | Temp 37 C (98.6 F) (Tympanic) | Resp 13 | Ht 1.575 m (5' 2") | Wt 64.3 kg (141 lb 12.8 oz) | LMP 08/13/2003 | SpO2 97% | BMI 25.94 kg/m | BSA 1.68 m Physical Exam: Mental Status Examination: alert and oriented. Airway Examination: normal oropharyngeal airway and neck mobility. Respiratory Examination: clear to auscultation. CV Examination: normal. ASA Grade: III - A patient with severe systemic disease. Abdomen: negative This patient has undergone a preprocedural evaluation. A determination has been made to proceed with the planned procedure under [facility] [place] procedural guidelines and the CMS Non-Emergent, Elective Medical Services and Treatment Recommendations (published on 11-12-19). The community and hospital prevalence of COVID-19 has been discussed as well as this patient's specific risks associated with SARS-CoV-19 infection. Based upon the clinical acuity and patient-specific care considerations, this procedure is deemed a Tier II - Intermediate acuity treatment or service with either progression or the threat of progressive disease related to the delay in treatment. Not providing the service has the potential for increasing morbidity or mortality. After reviewing the risks and benefits, the patient is deemed in satisfactory condition to undergo the procedure. The anesthesia plan is to use general anesthesia. Uriel Bello DO 07/24/2023 * Jess DutchDO - 07/22/2023 8:40 AM EST Images from the original note were not included. [facility] H662/A PRESENTING PROBLEM: transfer from [facility], for HPI: 68 year old with PMH significant for: - hyperparathyroidism - HTN - DLD - prediabetes - prior hospitalization in 05/2023 for gallstone necrotizing pancreatitis with acute cholecystitis This patient transferred from [facility] for further management of peripancreatic pseudocysts with formalGI evaluation. She originally presented to [facility] with nausea and dizziness. Imaging revealed prior pancreatic stent in place with new fluid collections. She had cholecystitis and necrotizing pancreatitis in 05/2023, and was d/c after clinical stability with cefdinir and flagyl. She followed up with GI, Dr Scott, who performed Endoscopic u/s with axios/pigtail stent placement in pseudocyst/WON. Ultimately plan was to follow up with surgery after 07/31 for possible cholecystectomy. Since she has had persistent abdominal bloating, and decreased PO intake. On 07/21 she began to have worseningof the symptoms associated with nausea which prompted [...] treated with potassium supplementation. She also had spots in herright eye associated with headache, and underwent head CT in ER which was unremarkable, and her h/awent away as did her eye spots. She had an abdominal CT scan that showed "fluid collection with multiple locules of air adhering to the pancreas measuring 5.0cm x5.6cm, concerning for infected pseudoc yst--allegedly this collection was not present on 05/23/2023. She was admitted, and given IV abx (zosyn) and GI saw pt and recommended transfer to [facility] for GI to see and possible procedure. Seen bedside, currently states she feels well with no complaints, denies fevers, chills, chest pain, sob, cough, ab pain n/v. Patient lives at home with son. Able to ambulate independently and perform ADL independently. The patient would like to be resuscitated if cardiac or respiratory arrest develop. Designate Hetal Cohen (son) to make decisions on her behalf if she was unable to do so for self. History obtained from patient and chart review, and paper chart that came with pt from [facility]. Imaging on disc uploaded to [employer]. Subjective Patient's past history, medications, and allergies were reviewed. Objective Physical Exam Most Recent Vital Signs: BP: 131 mmHg/54 mmHg (07/22/232154) Pulse: 78 (07/22/232154) Temp: 36.94 C (07/22/232154) Resp: 16 (07/22/232154) SpO2: 97 % (07/22/232154) Constitutional: no acute distress, resting comfortably in bed, speaking in full sentences HENT: NCAT, MMM Eyes: sclera and conjunctiva normal Neck: normal range of motion CV: normal rate and rhythm, no murmur, gallops or rub Chest: normal respiratory effort, lungs clear to auscultation Abdomen: mild distension in epigastrim, mild TTP no rebound or guarding. Extremities: no clubbing, cyanosis, or edema, otherwise grossly normal, warm, and dry Psych: normal mood and affect STUDIES: Encounter Orders Labs and other studies reviewed with pertinent findings noted below: No imaging results in the last 72 hours Assessment and Plan 68-year-old woman with history of HTN, hyperparathyroidism, DLD, PreDM, and recent history of gallstone necrotizing pancreatitis s/p axios stent placement on 06/22. Has been having persistent abdominal discomfort, and nausea which lead to ER visit and found to have new collection concerning for infected pseudocyst, who was transferred to [facility] from [facility] for GI evaluation and possible procedure Pancreatic pseudocyst -infected Hx Gallstone necrotizing pancreatitis S/p axios stent to pseudocyst/WON on 06/22 Transferred from [facility] to [facility] for GI evaluation and possible procedure. CT scan at osh shows new collection (images uploaded to [employer] and pushed to PACS). Pt has been stable on zosyn with out signs of SIRs/Sepsis, and improvement of abdominal pain/nausea -admit -telemetry given low K at OSH -GI consult -NPO, except meds -CBC, BMP pt/inr in AM -continue with zosyn - GI consult -IVF hydration Pre-diabetes - hold HOME HEALTH OUTREACH COORDINATOR metformin, MDSSI, with Q6h accucheks while NPO DLD - cont HOME HEALTH OUTREACH COORDINATOR atorvastatin HTN - normotensive, will hold well logging mud analysis captain HCTZ (hypoK at OSH--2.8), hold lisinopril for possible proc in AM. GERD - cont HOME HEALTH OUTREACH COORDINATOR pantoprazole Diet: NPO except meds DVT: SCD/TEDs, holding chemoppx for now for possible procedure in AM Lines: peripherals Consults: GI Code status: Full Family contact: Magno Horton Jr. Son ( [phone]) PHARMACOLOGIC VTE PROPHYLAXIS:This patient does not have an active medication from one of the medication groupers. CODE STATUS: Full Code EXPECTED DISCHARGE DATE: No information available Associated attestation - Osmani Bacon MD - 07/23/2023 6:56 AM EST I saw and evaluated the patient on 07/22/2023. I have reviewed the trainee note and agree. I spent a total of 60 minutes coordinating, documenting, and providing care for this patient excluding time spent in the performance of separately billed services. documented in this encounter Procedure Notes * Kimberly Barba MD - 07/24/2023 3:52 PM ESTAssociated Order(s): UPPER GI ENDOSCOPY [facility] Patient Name: Iliana Hotron Procedure Date: 07/24/2023 3:52 PM Date of : 1955 Admit Type: Inpatient Note Status: Finalized Date of : 1955 Admit Type: Inpatient Age: 68 Room: Endo - Room 9 Gender: Female Note Status: Finalized Procedure: Upper GI endoscopy Indications: Pancreatic necrosis Providers: Uriel Bello DO (Doctor), Fernando Rodriguez MD (Fellow), Ken Lee MD (Doctor), Mariajose Marquez (Fellow) Patient Profile: This is a 68 year old female. Refer to note in patient chart for documentation of history and physical. Referring MD: Kimberly Barba MD, Celeste Scott MD Medicines: General Anesthesia Complications: No immediate complications. Estimated blood loss: None. Procedure: Pre-Anesthesia Assessment: - [place] Protocol: - Pre-procedure Verification: Prior to the procedure, the patient's identity was verified by full name and date of . The patient's identity was verified on all pertinent medical records, including History and Physical, nursing assessment and pre-anesthesia assessment. Also prior to the procedure, a History and Physical was performed, and patient medications, allergies and sensitivities were reviewed. The patient's tolerance of previous anesthesia was reviewed. The patient is competent. The risks and benefits of the procedure and the sedation options and risks were discussed with the patient. All questions were answered and informed consent was obtained. - Marking: The endoscopic procedure was visually marked on a patient wrist band delineating the patient name, proposed procedure and endoscopist's initials. - Time-Out: Prior to the start of the procedure, the patient's identification, proposed procedure, accurate signed consent, correctly labeled images and records, and need for prophylactic antibiotics were verified by the physician, the nurse, the anesthesiologist, the rehab director and the clinical dietetic technician in the pre-procedure area in the procedure room in the endoscopy suite. - The supervising physician was present for the entire procedure from scope insertion until scope withdrawal. After obtaining informed consent, the endoscope was passed under direct vision. All instruments were visually inspected immediately before and after removal from the patient to ensure they are fully intact. Throughout the procedure, the patient's blood pressure, pulse, and oxygen saturations were monitored continuously. The [id number] Endoscope ([id number]) was introduced through the mouth, and advanced to the second part of duodenum. The [id number] Endoscope ([id number]) was introduced through the mouth, and advanced to the antrum of the stomach. Findings & Specimens: The Z-line was regular. A medium-sized hiatal hernia was present. A previously placed cystgastrostomy stent was found in the gastric body. Stent removal was accomplished with a snare. Placement of a 0.025 inch x 450 cm angled Visiglide wire, 9 x 12 mm sweeping balloon,and Olympus clevercut sphincterotome was used to gain access into the walled off necrotic collection through the cystgastrostomy. STENT DILATION: Placement of a 0.025 inch x 450 cm angled and straight Visiglide wire was attempted. This passed successfully across the cystgastrostomy under fluoroscopic guidance. A TTS dilator was passed through the scope. Dilation 12-13.5-15 mm wire guided balloon dilator under fluoroscopic guidance was successful. I personally interpreted the fluoroscopic images. The previously placed occluded double pigtail plastic stent was removed with a raptor. The upper endoscope was passed through the stomach via the cystgastrostomy site into the walled off necrosis cavity. Multiple fragments pancreatic necrosum were removed with a snare, raptor forceps and suction. Sheared wire tip was found in the cavity which was removed with raptor forceps. PLASTIC STENTS: The cystgastrostomy lumen was stented with a two double pigtail 7 Fr x 7 cm and 7 Fr x 5 cm plastic stents placed to keep the and to avoid mucosal irritation from the stent flanges. I personally interpreted the fluoroscopic images. Impression: - Double pigtail stent removed. - Cystgastrostomy lumen dilated to 15 mm. - Necrosectomy performed with snare and raptor. The majority of the necrosum was successfully removed - Two double pigtail 7 Fr x 7 cm and 7 Fr x 5 cm Cook plastic stents - Repeat CT scan 1 week prior to next scheduled endoscopic procedures Recommendation: - Necrosectomy appointment already scheduled with primary GI - Return patient to hospital [facility] for ongoing care. - Resume previous diet. Uriel Bello DO 07/24/2023 7:10:18 PM This report has been signed electronically. MD Mariajose Montes Harrison Reid Malcolm, MD Estimated Blood Loss: Estimated blood loss: none. documented in this encounter Consult Notes * Lam Rosa MD - 07/23/2023 1:43 PM ESTAssociated Order(s): GASTROENTEROLOGY CONSULT IP CONSULT - Gastroenterology [facility]-[address] [address] Name: Iliana Horton Date: 07/23/2023 Time: 1:43 PM REQUESTING SERVICE: medicine REASON FOR CONSULT: hx of gallstone nec pancreatitis in 05/2023, s/p axios placement on 06/22, transferred from [facility] for concenr for infected pseudocyst. HPI: Iliana Horton is a 68 year old female with a PMH of HTN and recently diagnosed gallstone pancreatitis complicated by WON (initially 7.2 x 8.9cm) s/p cystograstrostomy with 7Fr pigtail stent on 06/22. She was transferred and admitted for continued abdomina pain, nausea and inability to tolerate PO intake. Repeat CT scan 07/07 revealed internal improvement of WON necrosis 5.2cm x 6.5cm. Was scheduled for outpatient necrosectomy on 08/08/2023. HISTORY: Past Medical History: Past Medical History: Diagnosis Date HTN, goal below 140/90 09/23/2021 Hypercholesteremia 09/23/2021 Prediabetes 09/23/2021 Past Surgical History: Past Surgical History: Procedure Laterality Date DELIVERY times 2 COLORECTAL CANCER SCREEN; NOT AT RISK 08/13/2010 hemorrhoids repeat in 10 yrs EGD, FLEXIBLE, DIAGNOSTIC 05/20/2022 esophageal stenosis, repeat 4-6 wks / ESOPHAGOGASTRODUODENOSCOPY (EGD), FLEXIBLE, TRANSORAL, DIAGNOSTIC performed by Keny Jefferson MD at ENDOSCOPY [facility] EGD, FLEXIBLE, DIAGNOSTIC 06/17/2022 [place] Grade A esophagitis w/o bleeding, normal / scope / no specimens collected / ESOPHAGOGASTRODUODENOSCOPY (EGD), FLEXIBLE, TRANSORAL, DIAGNOSTIC performed by Vera Adkins MD at ENDOSCOPY [facility] EGD, FLEXIBLE, W/CYST DRAINAGE N/A 06/22/2023 ESOPHAGOGASTRODUODENOSCOPY (EGD), FLEXIBLE, TRANSORAL, WITH DRAINAGE PSEUDOCYST performed by Celeste Scott MD at OR [facility] PARTIAL REMOVAL OF THYROID LOBE REMOVAL OF APPENDIX Social History: Social History Tobacco Use Smoking status: Never Smokeless tobacco: Never Vaping Use Vaping Use: Never used Substance Use Topics Alcohol use: Never Drug use: Never Family History: Family History Problem Relation Age of Onset Cancer Mother stomach Diabetes Father No Known Problems Brother No Known Problems Grandmother (Maternal) No Known Problems Grandfather (Maternal) No Known Problems Grandmother (Paternal) No Known Problems Grandfather (Paternal) No Known Problems Aunt (Unspecified) No Known Problems Uncle (Unspecified) No Known Problems None Breast Cancer No significant family history Allergies: Nickel ROS: As noted in HPI. Rest negative. PHYSICAL EXAMINATION: Most Recent Vital Signs: BP: 127 mmHg/72 mmHg (07/23/23 1158) Pulse: 115 (07/23/23 1158) Temp: 36.72 C (07/23/23 1158) Resp: 16 (07/23/23 1158) SpO2: 98 % (07/23/23 1158) Vital Signs Last 24 Hours: Systolic BP: Most Recent Systolic BP Av.3 mmHg Min: 110 mmHg Max: 131 mmHg Temperature: Most Recent Temperature Av.9 C Min: 36.72 C Max: 37 C Pulse: Pulse Av.5 Min: 60 Max: 115 Respirations: Resp Av Min: 16 Max: 16 SpO2: SpO2 Av.3 % Min: 97 % Max: 98 % Constitutional: NAD. A&Ox3. HEENT: NC/AT. No oral lesions. Eyes: PERRLA. Neck: Supple, normal range of motion. CV: RRR. Normal S1/S2. No murmur, gallops, or rubs. Chest: CTA bilat. No wheezing, rhonchi, or crackles. Abdomen: Soft, NT/ND. BSx4. No appreciable ascites. Extremities: No edema. Radial pulses +2. Skin: Warm and dry, no rashes. Neuro: Moves all extremities. LABS: IMAGING: CT 07/07: IMPRESSION 1. Redemonstration of sequelae of necrotizing pancreatitis with walled-off necroses. Interval improvement from prior study, status post cysto gastrostomy catheter placement. 2. New hypodensities with the focus of fat in the right adnexal area may be sequelae of necrosis fat. Attention recommended on follow-up CT in 3 months. 3. Redemonstration of retroperitoneal nodularity, likely related to fat necrosis from prior pancreatitis. Attention recommended on follow-up. 4. Stones/sludge in the gallbladder. 5. Additional findings described above. ASSESSMENT: Iliana Horton is a 68 year old female with a PMH of HTN and recently diagnosed gallstonepancreatitis complicated by WON (initially 7.2 x 8.9cm) s/p cystograstrostomy with 7Fr pigtail stent on 06/22. She was transferred and admitted for continued abdomina pain, nausea and inability to tolerate PO intake. Repeat CT scan 07/07 revealed internal improvement of WON necrosis 5.2cm x 6.5cm. Was scheduled for outpatient necrosectomy on 08/08/2023. RECOMMENDATIONS: - okay for diet as tolerated today - NPO MN - will discuss role of further endoscopic treatments in AM I have discussed the case with my attending, Dr. Marquez. Lam Rosa MD PGY-5 Gastroenterology and Hepatology Associated attestation - Mariajose Marquez MD - 07/23/2023 3:42 PM EST Attending Attestation: Discussed plan of care with patient and family in depth. I have discussed the patient's management with the medical trainee and agree with the note. Please refer to the documented findings and plan of care. The patient's bedside service today consisted of an evaluation. I was present and confirmed the findings of the history and exam. documented in this encounter Nursing Notes * Nereida Harvey RN - 07/24/2023 7:32 PM EST Dual Licensed Skin Assessment completed by nereida Alejandro and Lam Meraz. The patient is/has a N/A Skin Breakdown (includes non blanchable erythema): No * Vinh Sanchez RN - 07/24/2023 7:01 PM EST Seen by anesthesia, may be discharged. * Vinh Sanchez RN - 07/24/2023 7:01 PM EST DISCHARGE PROGRESS NOTE - ENDOSCOPY [facility]-[address] [address] Name: Iliana Horton Location: ENDO [facility] HFAM/Endo Date: 07/24/2023 Time: 7:01 PM Patient is discharged under the care of : inpatient unit Report called to Inpatient unit Lam regan RN Means of transportation: bed Bronchoscopy: N/A Oxygen support: N/A * Vinh Sanchez RN - 07/24/2023 6:57 PM EST Per verbal order, the physician has examined the patient, prescribed and verified the charted medication, and certified that she is recovered and may return to the nursing [facility]. * Mellisa Levin RN - 07/24/2023 3:28 PM EST Procedure being completed under general anesthesia. Please see anesthesia record for medications and vital signs. * Angie Carballo RN - 07/22/2023 10:00 PM EST Dual Licensed Skin Assessment completed by Rosaura Wolf and Angie Hopson. The patient is/has a N/A Skin Breakdown (includes non blanchable erythema): No documented in this encounter Miscellaneous Notes * Ancillary Progress Note - Suzi Remy RN - 07/26/2023 11:52 AM EST CARE MANAGEMENT - ADULT DISCHARGE NOTE [facility]-[address] [address] Name: Iliana Horton Location: [facility] H662/A Date: 07/26/2023 Time: 11:52 AM The following coordination of care and discharge plan has been coordinated with the care team, patient, family and/or caregiver according to the patients needs and preferences. Discharge Final Discharge Plan (Complete only at time of Discharge): Home - Self Care (07/26/23 1152) Destination - Admitted Since 07/22/2023 No services have been selected for the patient. Destination - Episodes Includes Destination providers with selected services from the active episodes listed below Level 2 Complex Case Management Episode start date: 07/24/2023 There are no active outsourced providers for this episode. Narrative: As per service, patient medically stable to discharge. Patient to discharge to home. Patient's son to provide transport. No CM needs were identified. Patient instructed to reach out to CM with any questions or concerns. * Care Plan - Rena Suresh RN - 07/26/2023 4:11 AM EST Clinical Goal(s): PT will remain free from injury. (07/25/23 2300) Possible barriers to meeting goal(s)/advancing plan of care: pain Stability of the patient: Moderately stable - low risk of patient condition declining or worsening Summary regarding today's goal(s): Met: PT remain free from injury. Recommendations: call dueñas within reach, Nursing rounds every 1hr, Room free from clutter. * Care Plan - Abner Rice RN - 07/25/2023 10:57 AM EST Problem: Safety & Risk for Injury Goal: Patient will remain free from injury. Outcome: Progressing Problem: Risk for Impaired Physical Mobility Goal: Patient will maintain optimal mobility level. Outcome: Progressing Clinical Goal(s): pt will remain free from falls till the end of the shift (07/25/23 5232) Possible barriers to meeting goal(s)/advancing plan of care: weakness after the recent procedure, narcotics, pain levels Stability of the patient: Moderately stable - low risk of patient condition declining or worsening Summary regarding today's goal(s): Met: pt remained free from falls till the end of the shift Recommendations: pt will continue falls precautions * Care Plan - Rosaura Shore RN - 07/25/2023 4:52 AM EST Problem: Pain & Impaired Comfort Goal: Patient's pain & discomfort is manageable. Outcome: Progressing Problem: Safety & Risk for Injury Goal: Patient will remain free from injury. Outcome: Progressing Clinical Goal(s): Patient will be free from falls during shift (07/24/23 2300) Possible barriers to meeting goal(s)/advancing plan of care: post op analgesia, medications Stability of the patient: Moderately stable - low risk of patient condition declining or worsening Summary regarding today's goal(s): Met: No falls Recommendations: Continue falls risk precautionary measures * Ancillary Progress Note - Suzi Remy RN - 07/24/2023 12:23 PM EST CARE MANAGEMENT - ADULT TRANSITION NOTE [facility]-[address] [address] Name: Iliana Horton Location: [facility] H662/A Date: 07/24/2023 Time: 12:23 PM Risk Stratification Readmission Risk Score: 8.57 (07/24/23 1200) AM-PAC Score With Stairs : 24 (07/24/23 0800) Caregiver Information Patient Contacts Name Relation Home Work Mobile Magno Horton Jr Adult Child [phone] Laurie Shaw Other - (no specific identity) [phone] Carly Shafer Adult Child [phone] Transition of Care Checklist Transition of Care Checklist (aka Readmission Risk Score) Discharge Disposition: Home (07/24/23 1222) Narrative: Patient discussed at IDT rounds, and per chart review, patient not medically stable for discharge. GI consulted. Patient currently NPO. Plan for EGD with necrosectomy today. No anticipateddischarge date. CM will continue to follow. Anticipated Transportation at Discharge: family Patient/Family Expectations: return home Transition Planning Transition Planning Transition Plan/Considerations: Discussed at Interdisciplinary Team / Boost Rounds (07/24/23 1222) Transition plan discussed with - Enter name and phone #: with service at IDT rounds (07/24/23 1222) Insurance Considerations: N/A (07/24/23 1222) Referral to Community Agency : N/A (07/24/23 1222) Post-Acute Care needs identified and Referrals Completed: N/A (07/24/23 1222) Additional Considerations: Care Management will continue to monitor and assist with discharge planning needs * Care Plan - Sima Barba RN - 07/24/2023 9:33 AM EST Clinical Goal(s): pt will have surgery today (07/24/23 0800) Possible barriers to meeting goal(s)/advancing plan of care: surgery needs scheduled Stability of the patient: Moderately stable - low risk of patient condition declining or worsening Summary regarding today's goal(s): Not Met: awaiting surgical orders Recommendations: will keep patient updated on plan * Care Plan - Alma Cabral RN - 07/23/2023 6:51 PM EST Problem: Safety & Risk for Injury Goal: Patient will remain free from injury. Outcome: Progressing Problem: Risk for Impaired Physical Mobility Goal: Patient will maintain optimal mobility level. Outcome: Progressing Clinical Goal(s): Pt will be free from falls during this shift (07/23/23 0740) Possible barriers to meeting goal(s)/advancing plan of care: new environment, IV fluids infusing, weak. Stability of the patient: Moderately stable - low risk of patient condition declining or worsening Summary regarding today's goal(s): Met: Patient did not fall during this shift. Recommendations: Continue fall preventions. * Care Plan - Angie Carballo RN - 07/23/2023 1:40 AM EST Problem: Pain & Impaired Comfort Goal: Patient's pain & discomfort is manageable. Outcome: Progressing Problem: Daily Care & Potential Self-Care Deficit Goal: Patient's daily care needs are met. Outcome: Progressing Problem: Risk for Impaired Physical Mobility Goal: Patient will maintain optimal mobility level. Outcome: Progressing Problem: Knowledge Deficit Goal: Patient & caregiver will demonstrate understanding. Outcome: Progressing Clinical Goal(s): Pt will remain free from injury for entire shift (07/23/23 0000) Possible barriers to meeting goal(s)/advancing plan of care: Hospitalization, pancreatic cyst, Stability of the patient: Moderately stable - low risk of patient condition declining or worsening Summary regarding today's goal(s): Met: Pt remains free from injury. Recommendations: Continue hourly rounds,keep pt belongings and call dueñas within reach, continue plan of care, documented in this encounter Plan of Treatment Upcoming Encounters Date Type Department Care Team (Late st Contact Info) Description 08/08/2023 10:00 AM EST Procedure Only Endoscopy, [facility] [address] [place] [id number] Celeste Scott MD [address] [place] [place] [id number] 09/27/2023 11:00 AM EST Office Visit Family [facility] [address] [facility] [place] [address] Elana Mcgarry PA-C [address] [facility] [place] [address] Pending Results Name Type Priority Associated Diagnoses Date /Time IOF CT ABD/PELVIS W IV CONTRAST Medical Imaging Routine 07/24/2023 8:29 AM EST Scheduled Orders Name Type Priority Associated Diagnoses Orde r Schedule IOF CT ABD/PELVIS W IV CONTRAST Medical Imaging Routine One Time for 1 Occurrences starting 07/23/2023 until 07/23/2023 Health Maintenance Due Date Last Done Comments [...] this encounter Medical Devices Implanted Type Area Wood Router Device Identifier Shelf Expiration Date Model / Serial / Lot Stnt Pt Dbl [id number] 3219 - [id number] Implanted:Qty: 1 on 06/22/2023 by Celeste Scott MD at OR [facility] : ENDOSCOPY [id number] 01/17/2025 [id number] / / [id number] Stnt Pt Dbl [id number] 3219 - [id number] Implanted:Qty: 1 on 07/24/2023 by Uriel Bello DO at ENDOSCOPY [facility] [employer] : ENDOSCOPY [id number] 05/24/2025 [id number] / / [id number] documented as of this encounter Procedures Procedure Name Priority Date/Time Associated Diagnosis Comments BASIC METABOLIC PANEL Routine 07/26/2023 6:38 AM EST CBC Routine 07/26/2023 6:38 AM EST GLUCOSE METER, POINT OF CARE FE 07/26/2023 5:44 AM EST GLUCOSE METER, POINT OF CARE FE 07/26/2023 12:35 AM EST GLUCOSE METER, POINT OF CARE FE 07/25/2023 6:12 PM EST GLUCOSE METER, POINT OF CARE FE 07/25/2023 4:25 PM EST GLUCOSE METER, POINT OF CARE FE 07/25/2023 12:11 PM EST BASIC METABOLIC PANEL Routine 07/25/2023 6:33 AM EST CBC Routine 07/25/2023 6:32 AM EST GLUCOSE METER, POINT OF CARE FE 07/25/2023 6:07 AM EST GLUCOSE METER, POINT OF CARE FE 07/25/2023 12:09 AM EST GLUCOSE METER, POINT OF CARE FE 07/24/2023 7:34 PM EST FLUORO MISCELLANEOUS GASTRO Routine 07/24/2023 6:39 PM EST UPPER GI ENDOSCOPY 07/24/2023 3: 52 PM EST GLUCOSE METER, POINT OF CARE FE 07/24/2023 12:46 PM EST TSH WITH FREE T4 IF INDICATED Routine 07/24/2023 6:32 AM EST BASIC METABOLIC PANEL Routine 07/24/2023 6:32 AM EST IRON SCREEN, INCLUDING TIBC Routine 07/24/2023 6:32 AM EST CBC Routine 07/24/2023 6:32 AM EST FERRITIN Routine 07/24/2023 6:32 AM EST GLUCOSE METER, POINT OF CARE FE 07/24/2023 4:49 AM EST GLUCOSE METER, POINT OF CARE FE 07/24/2023 12:05 AM EST GLUCOSE METER, POINT OF CARE FE 07/23/2023 4:39 PM EST GLUCOSE METER, POINT OF CARE FE 07/23/2023 12:14 PM EST DIFFERENTIAL, AUTOMATED STAT 07/23/2023 11:27 AM EST CBC STAT 07/23/2023 11:27 AM EST CBC STAT 07/23/2023 11:27 AM EST GLUCOSE METER, POINT OF CARE FE 07/23/2023 7:32 AM EST HEPATIC FUNCTION PANEL Routine 6:45 AM EST BASIC METABOLIC PANEL Routine 07/23/2023 6:45 AM EST PT INR Routine 07/23/2023 6:45 AM EST PHOSPHORUS Routine 07/23/2023 6:45 AM EST MAGNESIUM Routine 07/23/2023 6:45 AM EST GLUCOSE METER, POINT OF CARE FE 07/23/2023 5:01 AM EST GLUCOSE METER, POINT OF CARE FE 07/23/2023 1:05 AM EST BASIC METABOLIC PANEL Routine 07/22/2023 11:11 PM EST PHOSPHORUS Routine 07/22/2023 11:11 PM EST MAGNESIUM Routine 07/22/2023 11:11 PM EST documented in this encounter Results * (ABNORMAL) CBC (07/26/2023 6:38 AM EST) WBC 7.06 4.00 - 10.80 K/uL 07/26/2023 7:11 AM EST [facility] RBC 3.35 3.85 - 5.15 M/uL 07/26/2023 7:11 AM EST [facility] HGB 9.8(L) 12.0 - 15.3 g/dL 07/26/2023 7:11 AM EST [facility] HCT 31.7(L) 36.0 - 45.2 % 07/26/2023 7:11 AM EST [facility] MCV 94.6 81.5 - 97.5 fL 07/26/2023 7:11 AM EST [facility] MCH 29.3 27.0 - 34.0 pg 07/26/2023 7:11 AM EST [facility] MCHC 30.9 32.0 - 36.0 g/dL 07/26/2023 7:11 AM EST [facility] RDW 14.2 11.5 - 15.5 % 07/26/2023 7:11 AM EST [facility] PLT 250 140 - 400 K/uL 07/26/2023 7:11 AM EST [facility] MPV 11.2 6.6 - 11.1 fL 07/26/2023 7:11 AM EST [facility] nRBCs 0 <=0 /100 WBCs 07/26/2023 7:11 AM EST [facility] Blood Venous blood specimen / Unknown Venipuncture / Unknown 07/26/2023 6:38 AM EST 07/26/2023 6:59 AM EST Kimberly Barba MD LAB BLOOD ORD ERABLES LABORATORY [facility] [address] [place] [address] * (ABNORMAL) BASIC METABOLIC PANEL (07/26/2023 6:38 AM EST) BUN 9 6 - 20 mg/dL 07/26/2023 7:29 AM EST [facility] Creatinine 0.7 0.5 - 1.0 mg/dL 07/26/2023 7:29 AM EST [facility] Estimated Glomerular Filtration Rate >90 >=60 mL/min 07/26/2023 7:29 AM EST [facility] Comment:eGFR is calculated b ased on the CKD-EPI 2020 equation Sodium 139 135 - 146 mmol/L 07/26/2023 7:29 AM EST [facility] Potassium 3.4(L) 3.5 - 5.1 mmol/L 07/26/2023 7:29 AM EST [facility] Chloride 107 98 - 107 mmol/L 07/26/2023 7:29 AM EST [facility] CO2 23 22 - 32 mmol/L 07/26/2023 7:29 AM EST [facility] Anion Gap 9 7 - 15 mmol/L 07/26/2023 7:29 AM EST [facility] Glucose 98 70 - 120 mg/dL 07/26/2023 7:29 AM EST [facility] Calcium 9.1 8.4 - 10.2 mg/dL 07/26/2023 7:29 AM EST [facility] Blood Venous blood specimen / Unknown Venipuncture / Unknown 07/26/2023 6:38 AM EST 07/26/2023 6:59 AM EST Kimberly Barba MD LAB BLOOD ORD ERABLES LABORATORY [facility] [address] [place] [address] * GLUCOSE METER, POINT OF CARE (07/26/2023 5:44 AM EST) Glucose Meter 94 70 - 120 mg/dL 07/26/2023 9:00 AM EST [facility] Blood Whole blood specimen / Unknown 07/26/2023 5:44 AM EST 07/26/2023 9:00 AM EST Kimberly Barba MD LAB POINT OF CARE TEST DOCKED DEVICE UNSOLICITED RESULTS Performing Organization Address City/[facility]/ZIP Co de Phone Number [facility] [address] [place] [address] * GLUCOSE METER, POINT OF CARE (07/26/2023 12:35 AM EST) Glucose Meter 115 70 - 120 mg/dL 07/26/2023 12:37 AM EST [facility] Blood Whole blood specimen / Unknown 07/26/2023 12:35 AM EST 07/26/2023 12:37 AM EST Kimberly Barba MD LAB POINT OF CARE TEST DOCKED DEVICE UNSOLICITED RESULTS Performing Organization Address [facility]/ZIP Co de Phone Number [facility] [address] [place] [address] * GLUCOSE METER, POINT OF CARE (07/25/2023 6:12 PM EST) Glucose Meter 112 70 - 120 mg/dL 07/25/2023 6:36 PM EST [facility] Blood Whole blood specimen / Unknown 07/25/2023 6:12 PM EST 07/25/2023 6:36 PM EST Kimberly Barba MD LAB POINT OF CARE TEST DOCKED DEVICE UNSOLICITED RESULTS Performing Organization Address City/[facility]/ZIP Co de Phone Number [facility] [address] [place] [address] * (ABNORMAL) GLUCOSE METER, POINT OF CARE (07/25/2023 4:25 PM EST) Glucose Meter 127(H) 70 - 120 mg/dL 07/25/2023 4:27 PM EST [facility] Blood Whole blood specimen / Unknown 07/25/2023 4:25 PM EST 07/25/2023 4:27 PM EST Kimberly Barba MD LAB POINT OF CARE TEST DOCKED DEVICE UNSOLICITED RESULTS [facility] [address] [place] [address] * GLUCOSE METER, POINT OF CARE (07/25/2023 12:11 PM EST) Glucose Meter 116 70 - 120 mg/dL 07/25/2023 12:29 PM EST [facility] Blood Whole blood specimen / Unknown 07/25/2023 12:11 PM EST 07/25/2023 12:29 PM EST Kimberly Barba MD LAB POINT OF CARE TEST DOCKED DEVICE UNSOLICITED RESULTS Performing Organization Address City/[facility]/ZIP Co de Phone Number [facility] [address] [place] [address] * (ABNORMAL) BASIC METABOLIC PANEL (07/25/2023 6:33 AM EST) BUN 9 6 - 20 mg/dL 07/25/2023 7:33 AM EST [facility] Creatinine 0.8 0.5 - 1.0 mg/dL 07/25/2023 7:33 AM EST [facility] Estimated Glomerular Filtration Rate 80 >=60 mL/min 07/25/2023 7:33 AM EST [facility] Comment:eGFR is calculated b ased on the CKD-EPI 2020 equation Sodium 143 135 - 146 mmol/L 07/25/2023 7:33 AM EST [facility] Potassium 4.2 3.5 - 5.1 mmol/L 07/25/2023 7:33 AM EST [facility] Chloride 109(H) 98 - 107 mmol/L 07/25/2023 7:33 AM EST [facility] CO2 26 22 - 32 mmol/L 07/25/2023 7:33 AM EST [facility] Anion Gap 8 7 - 15 mmol/L 07/25/2023 7:33 AM EST [facility] Glucose 106 70 - 120 mg/dL 07/25/2023 7:33 AM EST [facility] Calcium 9.1 8.4 - 10.2 mg/dL 07/25/2023 7:33 AM EST [facility] Blood Venous blood specimen / Unknown Venipuncture / Unknown 07/25/2023 6:33 AM EST 07/25/2023 7:06 AM EST Kimberly Barba MD LAB BLOOD ORD ERABLES [facility] [address] [place] [address] * (ABNORMAL) CBC (07/25/2023 6:32 AM EST) WBC 6.56 4.00 - 10.80 K/uL 07/25/2023 7:17 AM EST [facility] RBC 3.44 3.85 - 5.15 M/uL 07/25/2023 7:17 AM EST [facility] HGB 10.1(L) 12.0 - 15.3 g/dL 07/25/2023 7:17 AM EST [facility] HCT 32.1(L) 36.0 - 45.2 % 07/25/2023 7:17 AM EST [facility] MCV 93.3 81.5 - 97.5 fL 07/25/2023 7:17 AM EST [facility] MCH 29.4 27.0 - 34.0 pg 07/25/2023 7:17 AM EST [facility] MCHC 31.5 32.0 - 36.0 g/dL 07/25/2023 7:17 AM EST [facility] RDW 14.2 11.5 - 15.5 % 07/25/2023 7:17 AM EST [facility] PLT 240 140 - 400 K/uL 07/25/2023 7:17 AM EST [facility] MPV 11.3 6.6 - 11.1 fL 07/25/2023 7:17 AM EST [facility] nRBCs 0 <=0 /100 WBCs 07/25/2023 7:17 AM EST [facility] Blood Venous blood specimen / Unknown Venipuncture / Unknown 07/25/2023 6:32 AM EST 07/25/2023 7:06 AM EST Kimberly Barba MD LAB BLOOD ORD ERABLES LABORATORY [facility] [address] [place] [address] * GLUCOSE METER, POINT OF CARE (07/25/2023 6:07 AM EST) Glucose Meter 112 70 - 120 mg/dL 07/25/2023 8:11 AM EST [facility] Blood Whole blood specimen / Unknown 07/25/2023 6:07 AM EST 07/25/2023 8:11 AM EST Kimberly Barba MD LAB POINT OF CARE TEST DOCKED DEVICE UNSOLICITED RESULTS Performing Organization Address City/[facility]/ZIP Co de Phone Number [facility] [address] [place] [address] * (ABNORMAL) GLUCOSE METER, POINT OF CARE (07/25/2023 12:09 AM EST) Glucose Meter 181(H) 70 - 120 mg/dL 07/25/2023 4:56 AM EST [facility] Blood Whole blood specimen / Unknown 07/25/2023 12:09 AM EST 07/25/2023 4:56 AM EST Kimberly Barba MD LAB POINT OF CARE TEST DOCKED DEVICE UNSOLICITED RESULTS Performing Organization Address City/[facility]/ZIP Co de Phone Number [facility] [address] [place] [address] * GLUCOSE METER, POINT OF CARE (07/24/2023 7:34 PM EST) Glucose Meter 118 70 - 120 mg/dL 07/24/2023 7:39 PM EST [facility] Blood Whole blood specimen / Unknown 07/24/2023 7:34 PM EST 07/24/2023 7:39 PM EST Kimberly Barba MD LAB POINT OF CARE TEST DOCKED DEVICE UNSOLICITED RESULTS [facility] [address] [place] [address] * FLUORO MISCELLANEOUS GASTRO (07/24/2023 6:39 PM EST) Narrative Scheduling, Silent - 07/24/2023 6:39 PM EST This procedure will not be read by a Radiologist. Please see operative note. Uriel Bello DO RAD FLUOROSCOPY * UPPER GI ENDOSCOPY (07/24/2023 3:52 PM EST) 07/24/2023 3:52 PM EST Narrative Procedure Note Kimberly Barba MD - 07/24/2023 3:52 PM EST [facility] Patient Name: Iliana Horton Procedure Date: 07/24/2023 3:52 PM Date of : 1955 Admit Type: Inpatient Note Status:Finalized Date of : 1955 Admit Type: Inpatient Age: 68 Room: Endo - Room 9 Gender: Female Note Status: Finalized Procedure: Upper GI endoscopy Indications: Pancreatic necrosis Providers: Uriel Bello DO (Doctor), Fernando Rodriguez MD (Fellow), Ken Lee MD (Doctor), Mariajose Marquez (Fellow) Patient Profile: This is a 68 year old female. Refer to note inpatient chart for documentation of history and physical. Referring MD: Kimberly Barba MD, Celeste Scott MD Medicines: General Anesthesia Complications: No immediate complications. Estimated blood loss:None. Procedure: Pre-Anesthesia Assessment: - [place] Protocol: - Pre-procedure Verification: Prior to theprocedure, the patient's identity was verified by full name and date of . Thepatient's identity was verified on all pertinent medical records, including History andPhysical, nursing assessment and pre-anesthesia assessment. Also prior to theprocedure, a History and Physical was performed, and patient medications, allergies andsensitivities were reviewed. The patient's tolerance of previous anesthesia wasreviewed. The patient is competent. The risks and benefits of the procedure and thesedation options and risks were discussed with the patient. All questions wereanswered and informed consent was obtained. - Marking: The endoscopic procedure was visuallymarked on a patient wrist band delineating the patient name, proposed procedureand endoscopist's initials. - Time-Out: Prior to the start of the procedure,the patient's identification, proposed procedure, accurate signed consent,correctly labeled images and records, and need for prophylactic antibiotics were verifiedby the physician, the nurse, the anesthesiologist, the rehab director and thetechnician in the pre-procedure area in the procedure room in the endoscopy suite. - The supervising physician was present for theentire procedure from scope insertion until scope withdrawal. After obtaining informed consent, the endoscope waspassed under direct vision. All instruments were visually inspected immediatelybefore and after removal from the patient to ensure they are fully intact. Throughout the procedure, the patient's bloodpressure, pulse, and oxygen saturations were monitored continuously. The [id number] ([id number]) was introduced through the mouth, and advanced to the second partof duodenum. The [id number] Endoscope ([id number]) was introduced through themouth, and advanced to the antrum of the stomach. Findings & Specimens: The Z-line was regular. A medium-sized hiatal hernia was present. A previously placed cystgastrostomy stent was found in the gastricbody. Stent removal was accomplished with a snare. Placement of a 0.025 inch x 450 cm angled Visiglidewire, 9 x 12 mm sweeping balloon, and Olympus clevercut sphincterotome was used to gain access into thewalled off necrotic collection through the cystgastrostomy. STENT DILATION: Placement of a 0.025 inch x 450 cm angled and straight Visiglide wirewas attempted. This passed successfully across the cystgastrostomy under fluoroscopic guidance.A TTS dilator was passed through the scope. Dilation 12-13.5-15 mm wire guided balloon dilator underfluoroscopic guidance was successful. I personally interpreted the fluoroscopic images. Thepreviously placed occluded double pigtail plastic stent was removed with a raptor. The upper endoscope was passed through the stomach via thecystgastrostomy site into the walled off necrosis cavity. Multiple fragments pancreatic necrosum were removed with a snare,raptor forceps and suction. Sheared wire tip was found in the cavity which was removed with raptorforceps. PLASTIC STENTS: The cystgastrostomy lumen was stented with a two double pigtail 7 Frx 7 cm and 7 Fr x 5 cm plastic stents placed to keep the and to avoid mucosal irritation from thestent flanges. I personally interpreted the fluoroscopic images. Impression: - Double pigtail stent removed. - Cystgastrostomy lumen dilated to 15 mm. - Necrosectomy performed with snare and raptor. Themajority of the necrosum was successfully removed - Two double pigtail 7 Fr x 7 cm and 7 Fr x 5 cmCook plastic stents - Repeat CT scan 1 week prior to next scheduledendoscopic procedures Recommendation: - Necrosectomy appointment already scheduled withprimary GI - [facility]. - Resume previous diet. Uriel Bello DO 07/24/2023 7:10:18 PM This report has been signed electronically. MD Mariajose Montes Harrison Reid Malcolm, MD Estimated Blood Loss: Estimated blood loss: none. Kimberly Barba MD GASTRO UPPER * GLUCOSE METER, POINT OF CARE (07/24/2023 12:46 PM EST) Glucose Meter 82 70 - 120 mg/dL 07/24/2023 12:49 PM EST [facility] Blood Whole blood specimen / Unknown 07/24/2023 12:46 PM EST 07/24/2023 12:49 PM EST Kimberly Barba MD LAB POINT OF CARE TEST DOCKED DEVICE UNSOLICITED RESULTS [facility] [address] [place] [address] * (ABNORMAL) CBC (07/24/2023 6:32 AM EST) WBC 5.37 4.00 - 10.80 K/uL 07/24/2023 7:01 AM EST [facility] RBC 3.52 3.85 - 5.15 M/uL 07/24/2023 7:01 AM EST [facility] HGB 10.2(L) 12.0 - 15.3 g/dL 07/24/2023 7:01 AM EST [facility] HCT 33.0(L) 36.0 - 45.2 % 07/24/2023 7:01 AM EST [facility] MCV 93.8 81.5 - 97.5 fL 07/24/2023 7:01 AM EST [facility] MCH 29.0 27.0 - 34.0 pg 07/24/2023 7:01 AM EST [facility] MCHC 30.9 32.0 - 36.0 g/dL 07/24/2023 7:01 AM EST [facility] RDW 14.1 11.5 - 15.5 % 07/24/2023 7:01 AM EST [facility] PLT 215 140 - 400 K/uL 07/24/2023 7:01 AM EST [facility] MPV 11.3 6.6 - 11.1 fL 07/24/2023 7:01 AM EST [facility] nRBCs 0 <=0 /100 WBCs 07/24/2023 7:01 AM EST [facility] Blood Venous blood specimen / Unknown Venipuncture / Unknown 07/24/2023 6:32 AM EST 07/24/2023 6:47 AM EST Kimberly Barba MD LAB BLOOD ORD ERABLES LABORATORY [facility] [address] [id number] * (ABNORMAL) BASIC METABOLIC PANEL (07/24/2023 6:32 AM EST) BUN 7 6 - 20 mg/dL 07/24/2023 7:21 AM EST [facility] Creatinine 0.7 0.5 - 1.0 mg/dL 07/24/2023 7:21 AM EST [facility] Estimated Glomerular Filtration Rate 87 >=60 mL/min 07/24/2023 7:21 AM EST [facility] Comment:eGFR is calculated b ased on the CKD-EPI 2020 equation Sodium 141 135 - 146 mmol/L 07/24/2023 7:21 AM EST [facility] Potassium 3.9 3.5 - 5.1 mmol/L 07/24/2023 7:21 AM EST [facility] Chloride 110(H) 98 - 107 mmol/L 07/24/2023 7:21 AM EST [facility] CO2 25 22 - 32 mmol/L 07/24/2023 7:21 AM EST [facility] Anion Gap 6(L) 7 - 15 mmol/L 07/24/2023 7:21 AM EST LABORATORY C Glucose 120 70 - 120 mg/dL 07/24/2023 7:21 AM EST LABORATORY C Calcium 9.1 8.4 - 10.2 mg/dL 07/24/2023 7:21 AM EST LABORATORY C Blood Venous blood specimen / Unknown Venipuncture / Unknown 07/24/2023 6:32 AM EST 07/24/2023 6:47 AM EST Kimberly Barba MD LAB BLOOD ORD ERABLES LABORATORY [facility] [address] [place] [address] * TSH WITH FREE T4 IF INDICATED (07/24/2023 6:32 AM EST) TSH 2.87 0.27 - 4.20 uIU/mL 07/24/2023 11:38 AM EST LABORATORY [facility] Blood Venous blood specimen / Unknown Venipuncture / Unknown 07/24/2023 6:32 AM EST 07/24/2023 6:47 AM EST Kimberly Barba MD LAB BLOOD ORD ERABLES LABORATORY [facility] [address] [place] [address] * (ABNORMAL) FERRITIN (07/24/2023 6:32 AM EST) Ferritin 837(H) 13 - 150 ng/mL 07/24/2023 11:38 AM EST LABORATORY [facility] Comment:Postmenopausal women have higher ferritin levels than pre-menopausal women. The above reference interval is based on pre-menopausal women. Blood Venous blood specimen / Unknown Venipuncture / Unknown 07/24/2023 6:32 AM EST 07/24/2023 6:47 AM EST Kimberly Barba MD LAB BLOOD ORD ERABLES LABORATORY [facility] [address] [place] [address] * (ABNORMAL) IRON SCREEN, INCLUDING TIBC (07/24/2023 6:32 AM EST) Iron 40 33 - 151 ug/dL 07/24/2023 7:21 AM EST [facility] Iron Binding Capacity 123(L) 250 - 425 ug/dL 07/24/2023 7:21 AM EST [facility] Transferrin Saturation Percent 33 15 - 55 % 07/24/2023 7:21 AM EST [facility] Blood Venous blood specimen / Unknown Venipuncture / Unknown 07/24/2023 6:32 AM EST 07/24/2023 6:47 AM EST Kimberly Barba MD LAB BLOOD ORD ERABLES LABORATORY [facility] [address] [place] [address] * GLUCOSE METER, POINT OF CARE (07/24/2023 4:49 AM EST) Glucose Meter 114 70 - 120 mg/dL 07/24/2023 4:51 AM EST [facility]NOR[facility] CENTERSpiderCloud Wireless Blood Whole blood specimen / Unknown 07/24/2023 4:49 AM EST 07/24/2023 4:51 AM EST Kimberly Barba MD LAB POINT OF CARE TEST DOCKED DEVICE UNSOLICITED RESULTS [facility] [employer] [facility] [address] [place] [address] * GLUCOSE METER, POINT OF CARE (07/24/2023 12:05 AM EST) Glucose Meter 105 70 - 120 mg/dL 07/24/2023 12:09 AM EST [facility] Blood Whole blood specimen / Unknown 07/24/2023 12:05 AM EST 07/24/2023 12:09 AM EST Kimberly Barba MD LAB POINT OF CARE TEST DOCKED DEVICE UNSOLICITED RESULTS Performing Organization Address City/[facility]/ZIP Co de Phone Number [facility] [address] [place] [address] * GLUCOSE METER, POINT OF CARE (07/23/2023 4:39 PM EST) Glucose Meter 89 70 - 120 mg/dL 07/23/2023 4:44 PM EST [facility] Blood Whole blood specimen / Unknown 07/23/2023 4:39 PM EST 07/23/2023 4:44 PM EST Kimberly Barba MD LAB POINT OF CARE TEST DOCKED DEVICE UNSOLICITED RESULTS Performing Organization Address City/[facility]/ZIP Co de Phone Number [facility] [address] [place] [address] * GLUCOSE METER, POINT OF CARE (07/23/2023 12:14 PM EST) Glucose Meter 98 70 - 120 mg/dL 07/23/2023 12:20 PM EST [facility] Blood Whole blood specimen / Unknown 07/23/2023 12:14 PM EST 07/23/2023 12:20 PM EST Kimberly Barba MD LAB POINT OF CARE TEST DOCKED DEVICE UNSOLICITED RESULTS Performing Organization Address City/[facility]/ZIP Co de Phone Number [facility] [address] [place] [address] * DIFFERENTIAL, AUTOMATED (07/23/2023 11:27 AM EST) WBC 6.10 4.00 - 10.80 K/uL 07/23/2023 11:39 AM EST [facility] Neutrophils % 65.0 40.0 - 75.0 % 07/23/2023 11:39 AM EST [facility] Lymphocytes % 21.5 18.0 - 42.0 % 07/23/2023 11:39 AM EST [facility] Monocytes % 10.2 1.0 - 11.0 % 07/23/2023 11:39 AM EST [facility] Eosinophils % 2.6 0.0 - 6.0 % 07/23/2023 11:39 AM EST [facility] Basophils % 0.5 0.0 - 2.0 % 07/23/2023 11:39 AM EST [facility] Immature Granulocytes % 0.2 0.0 - 2.0 % 07/23/2023 11:39 AM EST [facility] Absolute Neutrophils 3.97 1.80 - 7.70 K/uL 07/23/2023 11:39 AM EST [facility] Absolute Lymphocytes 1.31 1.00 - 4.80 K/ul 07/23/2023 11:39 AM EST [facility] Absolute Monocytes 0.62 0.00 - 1.10 K/uL 07/23/2023 11:39 AM EST [facility] Absolute Eosinophils 0.16 0.00 - 0.70 K/uL 07/23/2023 11:39 AM EST [facility] Absolute Basophils 0.03 0.00 - 0.20 K/uL 07/23/2023 11:39 AM EST [facility] Absolute Immature Granulocytes 0.01 0.00 - 0.20 K/uL 07/23/2023 11:39 AM EST [facility] Blood Venous blood specimen / Unknown Venipuncture / Unknown 07/23/2023 11:27 AM EST 07/23/2023 11:32 AM EST Lam Rosa MD LAB BLOOD ORDERABLES [facility] [address] [place] [address] * (ABNORMAL) CBC (07/23/2023 11:27 AM EST) WBC 6.10 4.00 - 10.80 K/uL 07/23/2023 11:39 AM EST [facility] RBC 3.49 3.85 - 5.15 M/uL 07/23/2023 11:39 AM EST [facility] HGB 10.2(L) 12.0 - 15.3 g/dL 07/23/2023 11:39 AM EST [facility] HCT 32.6(L) 36.0 - 45.2 % 07/23/2023 11:39 AM EST [facility] MCV 93.4 81.5 - 97.5 fL 07/23/2023 11:39 AM EST [facility] MCH 29.2 27.0 - 34.0 pg 07/23/2023 11:39 AM EST [facility] MCHC 31.3 32.0 - 36.0 g/dL 07/23/2023 11:39 AM EST [facility] RDW 14.0 11.5 - 15.5 % 07/23/2023 11:39 AM EST [facility] PLT 197 140 - 400 K/uL 07/23/2023 11:39 AM EST [facility] MPV 10.9 6.6 - 11.1 fL 07/23/2023 11:39 AM EST [facility] nRBCs 0 <=0 /100 WBCs 07/23/2023 11:39 AM EST [facility] Blood Venous blood specimen / Unknown Venipuncture / Unknown 07/23/2023 11:27 AM EST 07/23/2023 11:32 AM EST Lam Rosa MD LAB BLOOD ORDERABLES LABORATORY [facility] [address] [place] [address] * GLUCOSE METER, POINT OF CARE (07/23/2023 7:32 AM EST) [facility] Glucose Meter 92 70 - 120 mg/dL 07/23/2023 7:42 AM EST [employer] [facility] Blood Whole blood specimen / Unknown 07/23/2023 7:32 AM EST 07/23/2023 7:42 AM EST Kimberly Barba MD LAB POINT OF CARE TEST DOCKED DEVICE UNSOLICITED RESULTS [employer] [address] [place] [address] * (ABNORMAL) HEPATIC FUNCTION PANEL (07/23/2023 6:45 AM EST) Albumin 3.2(L) 3.8 - 5.0 g/dL 07/23/2023 7:46 AM EST [facility] AST 41(H) 10 - 35 U/L 07/23/2023 7:46 AM EST [facility] Alkaline Phosphatase 207(H) 35 - 130 U/L 07/23/2023 7:46 AM EST [facility] ALT 38(H) 10 - 35 U/L 07/23/2023 7:46 AM EST [facility] Bilirubin, Total 0.8 <=1.2 mg/dL 07/23/2023 7:46 AM EST [facility] Bilirubin, Direct 0.2 0.0 - 0.3 mg/dL 07/23/2023 7:46 AM EST [facility] Protein 6.1 6.0 - 8.3 g/dL 07/23/2023 7:46 AM EST [facility] Blood Venous blood specimen / Unknown Venipuncture / Unknown 07/23/2023 6:45 AM EST 07/23/2023 7:14 AM EST Dutch Dwyerueger LAB BLOOD ORDERABLES LABORATORY [facility] [address], [place] [id number] * PT INR (07/23/2023 6:45 AM EST) Prothrombin Time 14.5 11.6 - 15.2 seconds 07/23/2023 7:40 AM EST [facility] INR 1.1 0.8 - 1.2 07/23/2023 7:40 AM EST [facility] Blood Venous blood specimen / Unknown Venipuncture / Unknown 07/23/2023 6:45 AM EST 07/23/2023 7:14 AM EST Narrative [facility] - 07/23/2023 7:40 AM EST Warfarin Therapy INR: 2.0-3.0 conventional anticoagulation INR: 2.5-3.5 high intensity anticoagulation Dutch Mercado DO LAB BLOOD ORDERABLES Performing Organization Address City/[facility]/ZIP Co de Phone Number LABORATORY [facility] [address] [place] [address] * (ABNORMAL) PHOSPHORUS (07/23/2023 6:45 AM EST) Phosphorus 5.8(H) 2.5 - 4.8 mg/dL 07/23/2023 7:46 AM EST LABORATORY C Blood Venous blood specimen / Unknown Venipuncture / Unknown 07/23/2023 6:45 AM EST 07/23/2023 7:14 AM EST Dutch Mercado LAB BLOOD ORDERABLES Performing Organization Address [facility] Co de Phone Number LABORATORY [facility] [address] [place] [address] * MAGNESIUM (07/23/2023 6:45 AM EST) Magnesium 2.1 1.5 - 2.6 mg/dL 07/23/2023 7:46 AM EST LABORATORY C Blood Venous blood specimen / Unknown Venipuncture / Unknown 07/23/2023 6:45 AM EST 07/23/2023 7:14 AM EST Dutch Mercado DO LAB BLOOD ORDERABLES Performing Organization Address City/[facility] Co de Phone Number LABORATORY [facility] [address] [place] [address] * (ABNORMAL) BASIC METABOLIC PANEL (07/23/2023 6:45 AM EST) BUN 6 6 - 20 mg/dL 07/23/2023 7:46 AM EST [facility] Creatinine 0.7 0.5 - 1.0 mg/dL 07/23/2023 7:46 AM EST [facility] Estimated Glomerular Filtration Rate >90 >=60 mL/min 07/23/2023 7:46 AM EST [facility] Comment:eGFR is calculated b ased on the CKD-EPI 2020 equation Sodium 143 135 - 146 mmol/L 07/23/2023 7:46 AM EST [facility] Potassium 4.0 3.5 - 5.1 mmol/L 07/23/2023 7:46 AM EST [facility] Chloride 109(H) 98 - 107 mmol/L 07/23/2023 7:46 AM EST [facility] CO2 25 22 - 32 mmol/L 07/23/2023 7:46 AM EST [facility] Anion Gap 9 7 - 15 mmol/L 07/23/2023 7:46 AM EST [facility] Glucose 101 70 - 120 mg/dL 07/23/2023 7:46 AM EST [facility] Calcium 9.2 8.4 - 10.2 mg/dL 07/23/2023 7:46 AM EST [facility] Blood Venous blood specimen / Unknown Venipuncture / Unknown 07/23/2023 6:45 AM EST 07/23/2023 7:14 AM EST Dutch Mercado DO LAB BLOOD ORDERABLES [facility] [address] [place] [address] * GLUCOSE METER, POINT OF CARE (07/23/2023 5:01 AM EST) Glucose Meter 101 70 - 120 mg/dL 07/23/2023 5:09 AM EST [facility]Travel[facility] Blood Whole blood specimen / Unknown 07/23/2023 5:01 AM EST 07/23/2023 5:08 AM EST Kimberly Barba MD LAB POINT OF CARE TEST DOCKED DEVICE UNSOLICITED RESULTS [facility] [address] [place] [address] * GLUCOSE METER, POINT OF CARE (07/23/2023 1:05 AM EST) Glucose Meter 94 70 - 120 mg/dL 07/23/2023 1:09 AM EST [facility]leNOR[facility] CENTERTravelnuts [facility] Blood Whole blood specimen / Unknown 07/23/2023 1:05 AM EST 07/23/2023 1:09 AM EST Kimberly Barba MD LAB POINT OF CARE TEST DOCKED DEVICE UNSOLICITED RESULTS [facility] [address] [place] [address] * (ABNORMAL) PHOSPHORUS (07/22/2023 11:11 PM EST) Phosphorus 2.2(L) 2.5 - 4.8 mg/dL 07/22/2023 11:45 PM EST [facility] Blood Venous blood specimen / Unknown Venipuncture / Unknown 07/22/2023 11:11 PM EST 07/22/2023 11:14 PM EST Dutch Mercado LAB BLOOD ORDERABLES Performing Organization Address City/[facility] Co de Phone Number LABORATORY C [address] [place] [address] * MAGNESIUM (07/22/2023 11:11 PM EST) Magnesium 2.0 1.5 - 2.6 mg/dL 07/22/2023 11:45 PM EST [facility] Blood Venous blood specimen / Unknown Venipuncture / Unknown 07/22/2023 11:11 PM EST 07/22/2023 11:14 PM EST Dutch Mercado LAB BLOOD ORDERABLES Performing Organization Address City/[facility]/ZIP Co de Phone Number LABORATORY [facility] [address] [place] [address] * (ABNORMAL) BASIC METABOLIC PANEL (07/22/2023 11:11 PM EST) BUN 6 6 - 20 mg/dL 07/22/2023 11:45 PM EST LABORATORY [facility] Creatinine 0.7 0.5 - 1.0 mg/dL 07/22/2023 11:45 PM EST LAB[facility]ATORY [facility] Estimated Glomerular Filtration Rate >90 >=60 mL/min 07/22/2023 11:45 PM EST LAB[facility]ATORY [facility] Comment:eGFR is calculated b ased on the CKD-EPI 2020 equation Sodium 141 135 - 146 mmol/L 07/22/2023 11:45 PM EST LAB[facility]ATORY [facility] Potassium 4.2 3.5 - 5.1 mmol/L 07/22/2023 11:45 PM EST LAB[facility]ATORY [facility] Chloride 108(H) 98 - 107 mmol/L 07/22/2023 11:45 PM EST LAB[facility]AT[facility] CO2 24 22 - 32 mmol/L 07/22/2023 11:45 PM EST [facility] Anion Gap 9 7 - 15 mmol/L 07/22/2023 11:45 PM EST [facility]AT[facility] Glucose 99 70 - 120 mg/dL 07/22/2023 11:45 PM EST [facility]AT[facility] Calcium 9.6 8.4 - 10.2 mg/dL 07/22/2023 11:45 PM EST LAB[facility]ATORY [facility] Blood Venous blood specimen / Unknown Venipuncture / Unknown 07/22/2023 11:11 PM EST 07/22/2023 11:14 PM EST [facility] [address] [place] [address] documented in this encounter Visit Diagnoses Diagnosis Infected pancreatic pseudocyst- Primary Cyst and pseudocyst of pancreas Pancreatic pseudocyst Cyst and pseudocyst of pancreas Chest pain Chest pain, unspecified Other specified diseases of pancreas [K86.89] Encounter for fitting and adjustment of other gastrointestinal appliance and device [Z46.59] HTN, goal below 140/90 Unspecified essential hypertension Hyperparathyroidism (HCC) Hyperparathyroidism, unspecified Vitamin D deficiency Unspecified vitamin D deficiency Hyperlipidemia Other and unspecified hyperlipidemia documented in this encounter Administered Medications Inactive Administered Medications - up to 3 most recent administrations Medication Order MAR Action Action Date Dose Rate Site Acetaminophen (Tylenol) tab 650 mg 650 mg, Oral, Q6H PRN Pain, Mild, Fever >38C(100.5F), Starting on 07/22/23 at 2303, Until 07/26/23 at 2202, Maximum of 4 grams (4000 mg) per day. atorvaSTATin (Lipitor) tab 40 mg 40 mg, Oral, Q1700, First dose on 07/23/23 at 1700, Until Discontinued Given 07/25/2023 4:49 PM EST 40 mg Given 07/24/2023 7:31 PM EST 40 mg Given 07/23/2023 5:00 PM EST 40 mg cholecalciferol (VIT D3) (Vitamin D3) tab 2,000 Units 2,000 Units, Oral, Daily(AM), First dose on Mon07/23/23 at 0900, Until Discontinued, NOTE 1000 units = 25 mcg Given 07/26/2023 8:52 AM EST 2, 000 Units Given 07/25/2023 8:06 AM EST 2,000 Units Given 07/24/2023 8:57 AM EST 2,000 Units ciprofloxacin (Cipro) tab 500 mg 500 mg, Oral, Q12H, First dose on Mon07/25/23 at 2100, Until Discontinued, Hold antacids and iron for 3-4 hours before and after administration. Given 07/26/2023 8:52 AM EST 500 mg Given 07/25/2023 9:41 PM EST 500 mg dextrose 50 % inj 25 mL 25 mL, IV Push, PRN Hypoglycemia, Other, For blood glucose 54 - 69 mg/dL or 70 - 100 mg/dL with symptoms AND patient is unresponsive, NPO, OR unable to swallow, Starting on Mon07/23/23 at 0027, Until Mon07/26/23 at 2202, Administer IV. Recheck blood glucose after 15 minutes. Notify provider. dextrose 50 % inj 50 mL 50 mL, IV Push, PRN Hypoglycemia, Other, For blood glucose below 54 mg/dL AND patient unresponsive, NPO, OR unable to swallow, Starting on Mon07/23/23 at 0027, Until Mon07/26/23 at 2202, Administer IV. Recheck blood glucose in 15 minutes. Notify provider. Docusate Sodium (Colace) cap 100 mg 100 mg, Oral, DAILY PRN Constipation, Starting on 07/22/23 at 2303, Until Mon07/26/23 at 2202, For oral administration ONLY, if route of administration is other than oral and alternative product must be ordered. Enoxaparin (Lovenox) inj 40 mg 40 mg, Subcutaneous, Daily(AM), First dose on Mon07/25/23 at 1645, Until Discontinued, If patient is on warfarin, inform provider if daily INR value is 2 or greater! Given 07/26/2023 8:52 AM EST 40 mg Abdomen Left Lower Given 07/25/2023 4:49 PM EST 40 mg Ab domen Left Lower glucagon (Glucagen) inj 1 mg 1 mg, Intramuscular, PRN Hypoglycemia, Other, If patient is unresponsive, or NPO and has no IV access, Starting on Mon07/23/23 at 0027, Until Mon07/26/23 at 2201, NPO and no IV access with either 1) blood glucose less than 100 mg/dL and symptomatic OR 2) blood glucose less than 70 mg/dL and asymptomatic Glucose (Glutose 15) 40 % gel 15 g of glucose 15 g of glucose, Oral, PRN Hypoglycemia (low sugar), Other, For blood glucose 54 - 69 mg/dL or 70 - 100 mg/dL with symptoms AND patient alert WITH difficulty chewing/swallowing, Starting on 07/23/23 at 0027, Until Mon07/26/23 at 2201, Administer gel. Recheck blood glucose after 15 minutes. Notify provider. 37.5 gram tube = 15 grams glucose = 1 each Glucose (Glutose 15) 40 % gel 30 g of glucose 30 g of glucose, Oral, PRN Hypoglycemia (low sugar), Other, For blood glucose below 54 mg/dL AND patient alert WITH difficulty chewing/swallowing, Starting on Mon07/23/23 at 0027, Until Mon07/26/23 at 2201, Administer gel. Recheck blood glucose after 15 minutes. Notify provider. 37.5 gram tube = 15 grams glucose = 1 each glucose chew tab 16 g 16 g, Oral, PRN Hypoglycemia, Other, For blood glucose 54 - 69 mg/dL or 70 - 100 mg/dL with symptoms and patient alert without difficulty chewing/swallowing., Starting on 07/23/23 at 0027, Until Mon07/26/23 at 2201 insulin aspart (NovoLOG) inj Subcutaneous, Q6H, First dose on Mon07/23/23 at 0100, Until Discontinued, MEDIUM DOSE (Usual starting dose): Sliding Scale Correctional insulin may be given if the patient is NPO. Dose based on standard build from Insulin Calculator. Do not modify insulin doses in administration instructions! , Glucose less than 70 instructions: Obtain STAT lab blood glucose and call covering provider., Glucose 80-150 (units): 0, Glucose 151-200 (units): 2, Glucose 201-250 (units): 4, Glucose 251-300 (units): 6, Glucose greater than 300 (units): 8, Glucose greater than 300 instructions: Give suggested insulin dose and call covering provider. Given 07/25/2023 12:25 AM EST 2 Units Deltoid Left Lower isolyte-S pH 7.4 infusion Intravenous, at 75 mL/hr, Plasma-LYTE 148, isolyte-S, and isolyte-S pH 7.4 are considered equivalent - including for MAR barcode scanning., CONTINUOUS, Starting on 07/22/23 at 2345, Until 07/23/23 at 1144 New Bag 07/22/2023 11:10 PM EST 75 mL/hr isolyte-S pH 7.4 infusion Intravenous, at 25 mL/hr, Plasma-LYTE 148, isolyte-S, and isolyte-S pH 7.4 are considered equivalent - including for MAR barcode scanning., CONTINUOUS, Starting on 07/24/23 at 1515, Until Mon07/24/23 at 1814, Pre-Op Restarted 07/24/2023 6:10 PM EST Rate Change 07/24/2023 3:42 PM EST 50 mL/hr Continue from Pre-Op 07/24/2023 3:35 PM EST 25 mL/hr omeprazole (PriLOSEC) cap 20 mg 20 mg, Oral, Daily(AM), First dose on 07/23/23 at 0900, Until Discontinued Given 07/26/2023 8:52 AM EST 20 mg Given 07/25/2023 8:06 AM EST 20 mg Given 07/24/2023 8:57 AM EST 20 mg oxygen GAS Inhalation, OXYGEN, First dose on 07/24/23 at 1600, Until Discontinued, Device/Managed by: Low Flow Device, Goal SPO2 (%): 91-95, Starting Device: Nasal Cannula, Initial Flow Rate (LPM): 2, Lowest Support: Nasal Cannula: Flow 0-6 LPM. Titrate up/down by 1 LPM., Titration Interval: Q2 minutes and as needed., Notify Provider: For sudden DECREASE in resting SPO2 to less than 85% and when escalating delivery device., Wean patient off Oxygen when the oxygen saturation is greater than or equal to 93% Piperacillin-Tazobactam (Zosyn) 4.5 g in 100 mL NSS ivpb (FOUR hour infusion) IV Piggyback, 4.5 g, Q8HNOW, 15 doses, First dose on Mon07/23/23 at 0015, Last dose on Consuelo 07/27/23 at 1615, Administer over 4 Hours, at 25 mL/hr New Bag 07/25/2023 8:06 AM EST 4.5 g 25 mL/hr Start Infusion 07/25/2023 12:22 AM EST 4.5 g 25 mL/hr New Bag 07/24/2023 7:34 PM EST 4.5 g 25 mL/hr Polyethylene Glycol 3350 (Miralax) oral powder 17 g 17 g (1 Packet), Oral, DAILY PRN Constipation, Starting on 07/22/23 at 2303, Until Mon07/26/23 at 2202, Mix in 8 oz of water, juice, soda, coffee, or tea. potassium chloride ER tab 40 mEq 40 mEq, Oral, ONCE, On Mon07/26/23 at 1445, For 1 dose, This med should NOT be Crushed or Chewed Given 07/26/2023 3:08 PM EST 40 mEq senna (Senokot) 1 Tablet 1 Tablet, Oral, DAILY PRN Constipation, Starting on 07/22/23 at 2303, Until Mon07/26/23 at 2202 sodium chloride 0.9 % flush/inj 3 mL 3 mL, IV Push, PRN Other, Line Patency, Starting on 07/22/23 at 2301, Until Mon07/26/23 at 2202, Do not flush if lock, PICC, or central line not in place, IV infusing or unable to flush sodium PHOSphate 30 mmol in NSS 250 mL (NaPhos) ivpb 30 mmol, Peripheral IV, ONCE, 1 dose, On 07/23/23 at 0045 New Bag 07/23/2023 2:11 AM EST 30 mmol 5 7 mL/hr THIAMINE (vitamin B-1) tab 100 mg 100 mg, Oral, Daily(AM), First dose on Mon07/23/23 at 0900, Until Discontinued Given 07/26/2023 8:52 AM EST 100 mg Given 07/25/2023 8:06 AM EST 100 mg Given 07/24/2023 8:56 AM EST 100 mg documented in this encounter Active and Recently Administered Medications Times are shown in EST. Scheduled Medication Order 07/24/2023 07/25/2023 07/26/2023 atorvaSTATin (Lipitor) tab 40 mg 40 mg, Oral, Q1700, First dose on Mon07/23/23 at 1700, Until Discontinued 1931 (Given - Provider: Lam Whalen RN) 1649 (Given - Provider: Abner Rice RN) 1700 (Due) cholecalciferol (VIT D3) (Vitamin D3) tab 2,000 Units 2,000 Units, Oral, Daily(AM), First dose on Mon07/23/23 at 0900, Until Discontinued, NOTE 1000 units = 25 mcg 0857 (Given - Provider: Sima Barba RN) 0806 (Given - Provider: Abner Rice RN) 0852 (Given - Provider: Manda Chris, DILLON) ciprofloxacin (Cipro) tab 500 mg 500 mg, Oral, Q12H, First dose on Mon07/25/23 at 2100, Until Discontinued, Hold antacids and iron for 3-4 hours before and after administration. 2140 (Given - Provider: Rena Suresh RN) 0852 (Given - Provider: Manda Chris, DILLON) Enoxaparin (Lovenox) inj 40 mg 40 mg, Subcutaneous, Daily(AM), First dose on Mon07/25/23 at 1645, Until Discontinued, If patient is on warfarin, inform provider if daily INR value is 2 or greater! 164 (Given - Provider: Abner Rice RN) 0852 (Given - Provider: Manda Chris, DILLON) insulin aspart (NovoLOG) inj Subcutaneous, Q6H, First dose on Mon07/23/23 at 0100, Until Discontinued, MEDIUM DOSE (Usual starting dose): Sliding Scale Correctional insulin may be given if the patient is NPO. Dose based on standard build from Insulin Calculator. Do not modify insulin doses in administration instructions! , Glucose less than 70 instructions: Obtain STAT lab blood glucose and call covering provider., Glucose 80-150 (units): 0, Glucose 151-200 (units): 2, Glucose 201-250 (units): 4, Glucose 251-300 (units): 6, Glucose greater than 300 (units): 8, Glucose greater than 300 instructions: Give suggested insulin dose and call covering provider. 0000 (No Insulin - Provider: Archana Milan LPN - Reason: Parameter(s) Not Met)0600 (Not Given - Provider: Archana Milan LPN - Reason: Parameter(s) Not Met)1200 (No Insulin - Provider: Lam Whalen RN - Reason: Parameter(s) Not Met)1800 (No Insulin - Provider: Lam Whalen RN - Reason: Parameter(s) Not Met) 0025 (Given - Provider: Rosaura Shore RN)0600 (No Insulin - Provider: Rosaura Shore RN - Reason: Parameter(s) Not Met)1200 (Not Given - Provider: Abner Rice RN - Reason: Parameter(s) Not Met)1800 (Not Given - Provider: Abner Rice RN - Reason: Parameter(s) Not Met) 0000 (Not Given - Provider: Rena Suresh RN - Reason: Parameter(s) Not Met)0600 (Not Given - Provider: Rena Suresh RN - Reason: Parameter(s) Not Met)1200 (No Insulin - Provider: Manda Chris RN - Reason: Parameter(s) Not Met)1800 (Due) omeprazole (PriLOSEC) cap 20 mg 20 mg, Oral, Daily(AM), First dose on Mon07/23/23 at 0900, Until Discontinued 0857 (Given - Provider: Sima Barba RN) 0806 (Given - Provider: Abner Rice RN) 0852 (Given - Provider: Manda Chris RN) oxygen GAS Inhalation, OXYGEN, First dose on Mon07/24/23 at 1600, Until Discontinued, Device/Managed by: Low Flow Device, Goal SPO2 (%): 91-95, Starting Device: Nasal Cannula, Initial Flow Rate (LPM): 2, Lowest Support: Nasal Cannula: Flow 0-6 LPM. Titrate up/down by 1 LPM., Titration Interval: Q2 minutes and as needed., Notify Provider: For sudden DECREASE in resting SPO2 to less than 85% and when escalating delivery device., Wean patient off Oxygen when the oxygen saturation is greater than or equal to 93% 1600 (Oxygen Off - Provider: Lam Whalen, DILLON) 0000 (Oxygen Off - Provider: Rosaura Shore RN)0800 (Oxygen Off - Provider: Abner Rice RN)1600 (Oxygen Off - Provider: Abner Rice RN) 0000 (Oxygen Off - Provider: Rena Suresh RN)0800 (Oxygen Off - Provider: Manda Chris, DILLON)1600 (Oxygen Off - Provider: Manda Chris RN) Piperacillin-Tazobactam (Zosyn) 4.5 g in 100 mL NSS ivpb (FOUR hour infusion) (CANCELED) IV Piggyback, 4.5 g, Q8HNOW, 15 doses, First dose on Mon07/23/23 at 0015, Last dose on Mon07/27/23 at 1615, Administer over 4 Hours, at 25 mL/hr 0006 (Start Infusion - Provider: Archana Milan LPN)0406 (Finish Infusion - Provider: Archana Milan LPN)0858 (New Bag - Provider: Sima Barba RN)1934 (New Bag - Provider: Lam Whalen RN) 0022 (Start Infusion - Provider: Rosaura Shore RN)0422 (Finish Infusion - Provider: Rosaura Shore RN)0806 (New Bag - Provider: Abner Rice RN)1615 (Not Given - Provider: Abner Rice RN - Reason: Order Discontinued - Comment: verbal order from MD Freda, pt is to be d/c) potassium chloride ER tab 40 mEq (COMPLETED) 40 mEq, Oral, ONCE, On Mon07/26/23 at 1445, For 1 dose, This med should NOT be Crushed or Chewed 1508 (Given - Provider: Manda Chris RN) THIAMINE (vitamin B-1) tab 100 mg 100 mg, Oral, Daily(AM), First dose on Mon07/23/23 at 0900, Until Discontinued 0856 (Given - Provider: Sima Barba RN) 0806 (Given - Provider: Abner Rice RN) 0852 (Given - Provider: Manda Chris RN) Continuous Medication Order 07/24/2023 07/25/2023 07/26/2023 isolyte-S pH 7.4 infusion () Intravenous, at 25 mL/hr, Plasma-LYTE 148, isolyte-S, and isolyte-S pH 7.4 are considered equivalent - including for MAR barcode scanning., CONTINUOUS, Starting on 07/24/23 at 1515, Until Mon07/24/23 at 1814, Pre-Op 1436 (New Bag - Provider: Stefany Graham RN)1535 (Continue from Pre-Op - Provider: Sue Balbuena CRNA)1542 (Rate Change - Provider: Sue Balbuena CRNA)1809 (Paused - Provider: Lisbeth Mullen CRNA - Comment: Switch to gravity)1810 (Restarted - Provider: Lisbeth Mullen CRNA)1838 (Anes Intra-Op Fluid - Provider: Lisbeth Mullen CRNA) PRN Medication Order 07/24/2023 07/25/2023 07/26/2023 Acetaminophen (Tylenol) tab 650 mg 650 mg, Oral, Q6H PRN Pain, Mild, Fever >38C(100.5F), Starting on 07/22/23 at 2303, Until Mon07/26/23 at 2202, Maximum of 4 grams (4000 mg) per day. dextrose 50 % inj 25 mL 25 mL, IV Push, PRN Hypoglycemia, Other, For blood glucose 54 - 69 mg/dL or 70 - 100 mg/dL with symptoms AND patient is unresponsive, NPO, OR unable to swallow, Starting on 07/23/23 at 0027, Until Mon07/26/23 at 2202, Administer IV. Recheck blood glucose after 15 minutes. Notify provider. dextrose 50 % inj 50 mL 50 mL, IV Push, PRN Hypoglycemia, Other, For blood glucose below 54 mg/dL AND patient unresponsive, NPO, OR unable to swallow, Starting on 07/23/23 at 0027, Until Mon07/26/23 at 2202, Administer IV. Recheck blood glucose in 15 minutes. Notify provider. Docusate Sodium (Colace) cap 100 mg 100 mg, Oral, DAILY PRN Constipation, Starting on 07/22/23 at 2303, Until Mon07/26/23 at 2202, For oral administration ONLY, if route of administration is other than oral and alternative product must be ordered. glucagon (Glucagen) inj 1 mg 1 mg, Intramuscular, PRN Hypoglycemia, Other, If patient is unresponsive, or NPO and has no IV access, Starting on 07/23/23 at 0027, Until Mon07/26/23 at 220, NPO and no IV access with either 1) blood glucose less than 100 mg/dL and symptomatic OR 2) blood glucose less than 70 mg/dL and asymptomatic Glucose (Glutose 15) 40 % gel 15 g of glucose 15 g of glucose, Oral, PRN Hypoglycemia (low sugar), Other, For blood glucose 54 - 69 mg/dL or 70 - 100 mg/dL with symptoms AND patient alert WITH difficulty chewing/swallowing, Starting on 07/23/23 at 0027, Until Mon07/26/23 at 220, Administer gel. Recheck blood glucose after 15 minutes. Notify provider. 37.5 gram tube = 15 grams glucose = 1 each Glucose (Glutose 15) 40 % gel 30 g of glucose 30 g of glucose, Oral, PRN Hypoglycemia (low sugar), Other, For blood glucose below 54 mg/dL AND patient alert WITH difficulty chewing/swallowing, Starting on 07/23/23 at 0027, Until Mon07/26/23 at 2201, Administer gel. Recheck blood glucose after 15 minutes. Notify provider. 37.5 gram tube = 15 grams glucose = 1 each glucose chew tab 16 g 16 g, Oral, PRN Hypoglycemia, Other, For blood glucose 54 - 69 mg/dL or 70 - 100 mg/dL with symptoms and patient alert without difficulty chewing/swallowing., Starting on 07/23/23 at 0027, Until Mon07/26/23 at 2202 Polyethylene Glycol 3350 (Miralax) oral powder 17 g 17 g (1 Packet), Oral, DAILY PRN Constipation, Starting on 07/22/23 at 2303, Until Mon07/26/23 at 2202, Mix in 8 oz of water, juice, soda, coffee, or tea. senna (Senokot) 1 Tablet 1 Tablet, Oral, DAILY PRN Constipation, Starting on 07/22/23 at 2303, Until Mon07/26/23 at 2202 sodium chloride 0.9 % flush/inj 3 mL 3 mL, IV Push, PRN Other, Line Patency, Starting on 07/22/23 at 2301, Until 07/26/23 at 2202, Do not flush if lock, PICC, or central line not in place, IV infusing or unable to flush documented in this encounter Advance Directives Latest Code Status on File Code Status Date Activated Date Inactivated Comments Full Code 07/22/2023 11:04 PM 07/26/2023 10:02 PM T his order reflects the patients wishes and were consensually agreed upon. Question Answer Comments Discussion of Advance Directives occurred with: Patient Care Teams Power Saw Operator Relationship Specialty Start Date End Date MaglorzataNovember NURY Gu [address] [place] [address] PCP - General Physician Commissioning Specialist 05/20/22 documented as of this encounter
--- OUTSIDE RECORDS SUMMARY | 2023-08-08 22:26 | External Medical Summary ---
Author Name Unknown Address Unknown Organization : Laboratory Report Ordering Provider Test Date Status JEANNINE HUANGCruzito 07/25/2023 16:25:24 Final Observation Date Value Abnormality Reference (Units ) Status Glucose Point of Care 07/25/2023 16:25:24 127 Above high normal 70-120 (mg/dL) Final Performing Location
--- OUTSIDE RECORDS SUMMARY | 2023-08-08 22:26 | External Medical Summary | Summary of Care ---
Author Name Unknown Organization [facility] Address [address] [place] [address] Phone [phone] Care Team Providers Care Pin Attacher Name Role Phone Elana Mcgarry PA-C Primary Care Provider [phone] Reason for Referral * Precert (Within 10 days (routine)) - Pending Review Specialty Diagnoses / Procedures Referred By Sean kevin Referred To Contact Radiology Diagnoses Infected pancreatic pseudocyst Procedures CT ABD/PELVIS W IV AND W ORAL CONTRAST Celeste Scott MD [address] [employer] [place] [id number] Referral ID Status Reason Start Date Expiration Date V isits Requested Visits Authorized [id number] Pending Review 08/02/2023 999 999 Reason for Visit * Reason Onset Date Comments Appointment 07/26/2023 Encounter Details Date Type Department Care Team (Late st Contact Info) Description 07/26/2023 Telephone Gastroenterology, [facility] [address] [place] [address] Celeste Scott MD [address] [employer] [place] [address] Appointment Allergies Active Allergy Reactions Criticality Noted [...] 08/08/2023 10:00 AM EST Procedure Only Endoscopy, [facility] [address] [place] [address] Celeste Scott MD [address] [place] [address] 09/27/2023 11:00 AM EST Office Visit Family Practice [facility] [place] [address] [facility] [place] [address] Elana Mcgarry PA-C [address] [facility] [place] [address] Scheduled Orders Name Type Priority Associated Diagnoses [...] this encounter Medical Devices Implanted Type Area Stone Processing Machine Operator Device Identifier Shelf Expiration Date Model / Serial / Lot Stnt Pt Dbl [id number] - [id number] Implanted:Qty: 1 on 06/22/2023 by Celeste Scott MD at OR [facility] [employer] : ENDOSCOPY [id number] 01/17/2025 [id number] / / [id number] Stnt Pt Dbl [id number] 3219 - [id number] Implanted:Qty: 1 on 07/24/2023 by Uriel Bello DO at ENDOSCOPY [facility] [employer] : ENDOSCOPY [id number] 05/24/2025 [id number] / / [id number] documented as of this encounter Visit Diagnoses [...] Advance Directives occurred with: Patient Care Teams Pin Attacher Relationship Specialty Start Date End Date Malgorzata November Brittanie, NURY [address] [facility] [place] [address] PCP - General Physician Switch House Operator 05/20/22 documented as of this encounter
--- OUTSIDE RECORDS SUMMARY | 2023-08-08 22:26 | External Medical Summary | Summary of Care ---
Author Name Unknown Organization [facility] Address [address] [place] [address] Phone [phone] Care Team Providers Care General Manager Road Production Name Role Phone Marlenyamado Elana Gu PA-C Primary Care Provider [phone] Reason for Visit * Reason Onset Date Comments case management 07/27/2023 Encounter Details Date Type Department Care Team (Late st Contact Info) Description 07/27/2023 Computer Numeric Control Setter Telephone Care Coordination and Integration [address], [place] [id number] Era Rico RN [address], [place] [id number] case management Allergies Active Allergy Reactions Criticality [...] encounter Miscellaneous Notes * Telephone Encounter - Yun Louise RN - 07/27/2023 11:53 AM EST Gastro Scheduling: any luck on getting a sooner appointment at [facility] or [facility] for CT scan? * Telephone Encounter - Era Rico RN - 07/27/2023 11:49 AM EST November/Dr Ureña- patient was taking oral potassium inpatient at [facility], also received IV. She was not dischaged [...] taking potassium when she was admitted at [facility] for hypokalemia- they did not send her home on any oral supplements. Do you want her to be on any potassium? Gastro Scheduling: any luck on getting a sooner appointment at [facility] or [facility] for CT scan? documented in this encounter Plan of Treatment Upcoming Encounters Date Type Department Care Team (Late st Contact Info) Description 08/01/2023 3:00 PM EST Office Visit Family Practice [facility] [address] [facility] [place] [address] Fanny Ureña MD [address] [facility] [place] [address] 08/08/2023 10:00 AM EST Procedure Only Endoscopy, [facility] [address] [place] [address] Celeste Scott MD [address] [place] [address] 09/27/2023 11:00 AM EST Office Visit Family [facility] [address] [facility] [place] [address] Elana Mcgarry PA-C [address] [facility] [place] [address] Health Maintenance Due Date Last Done Comments [...] this encounter Medical Devices Implanted Type Area Housekeeping Staff Device Identifier Shelf Expiration Date Model / Serial / Lot Stnt Pt Dbl [id number] - [id number] Implanted:Qty: 1 on 06/22/2023 by Celeste Scott MD at OR [facility] [employer] : ENDOSCOPY [id number] 01/17/2025 [id number] / / [id number] Stnt Pt Dbl [id number] 3219 - [id number] Implanted:Qty: 1 on 07/24/2023 by Uriel Bello DO at ENDOSCOPY [facility] [employer] : ENDOSCOPY [id number] 05/24/2025 [id number] / / [id number] documented as of this encounter Advance Directives Latest Code Status on File Code Status Date Activated Date Inactivated Comments Full Code 07/22/2023 11:04 PM 07/26/2023 10:02 PM T his order reflects the patients wishes and were consensually agreed upon. Question Answer Comments Discussion of Advance Directives occurred with: Patient Healthcare Agents on File Name Relationship Healthcare Agent [facility] p Communication Magno Horton Jr. Adult Child Health Juvenile Officer resentative (appointed verbally by patient or by statute hierarchy) Care Teams General Manager Road Production Relationship Specialty Start Date End Date Malgorzata Elana NURY Gu [facility] [place] [address] PCP - General Physician Director Of Diversity And Inclusion 05/20/22 documented as of this encounter
--- OUTSIDE RECORDS SUMMARY | 2023-08-08 22:27 | External Medical Summary ---
Author Name Unknown Address Unknown Organization [id number]:LABORATORY [facility] - [address] [place] [address] Laboratory Report Ordering Provider Test Date Status UYEN RODRÍGUEZ 07/23/2023 06:45:00 Final Warfarin Therapy
INR: 2 .0-3.0 conventional anticoagulation
INR: 2.5- 3.5 high intensity anticoagulation Observation Date Value Abnormality Reference (Units ) Status PT 07/23/2023 06:45:00 14.5 11.6-15.2 (seconds) Final INR 07/23/2023 06:45:00 1.1 0.8-1.2 Final Performing Location LABORATORY [facility] - [address] [place] [address]
--- OUTSIDE RECORDS SUMMARY | 2023-08-08 22:27 | External Medical Summary | Summary of Care ---
Author Name Unknown Organization [facility] Address [address] [place] [address] Phone [phone] Care Team Providers Care Twisting Department End Finder Name Role Phone Elana Mcgarry PA-C Primary Care Provider Reason for Visit * Reason Onset Date Comments Advice 07/21/2023 Encounter Details Date Type Department Care Team (Late st Contact Info) Description 07/21/2023 Telephone Gastro[facility], [facility] [address] [place] [address] Celeste Scott MD [address] [place] [address] Advice Allergies Active Allergy Reactions Criticality Noted Date Comments Nickel 05/19/2022 Rash, reddened documented as of this encounter (statuses as of 07/22/2023) Medications Medication Sig Dispensed Refills Start Date [...] as of this encounter (statuses as of 07/22/2023) Active Problems Problem Noted Date Diagnosed Date Gallstone pancreatitis 06/05/2023 Acute cholecystitis due to biliary calculus 05/09 H/O partial thyroidectomy 03/27/2023 Esophagitis determined by endoscopy 09/26/2022 HTN, goal below 140/90 09/23/2021 Hypercholesteremia 09/23/2021 Hyperlipidemia 09/23/2021 Vitamin D deficiency 06/28/2019 Osteopenia 06/28/2019 Hyperparathyroidism 09/26/2013 documented as of this encounter (statuses as of 07/22/2023) Immunizations Name Administration Dates Next Due COVID-19 [...] EST EGD deana'd 08/08 w/ [place] [facility] [place]. Verbal instructions provided to pt. * Telephone Encounter - Celeste Scott MD - 07/21/2023 10:19 AM EST I spoke to her, no abdominal pain or fever. She thinks the blurred vision is related to her sugars which resolve now. I discussed CT scan results with her, the WON is improving. Plan is for EGD with possible necrosectomy. Please schedule her with me at [facility] on 08/08 or 03 or 04, urgent [...] call him back in 15 minutes at [phone] when he ge ts to her house. [...] 08/08/2023 10:00 AM EST Procedure Only Endoscopy, [facility] [address] [facility] [place] [address] Celeste Scott MD [address] [place] [address] 09/27/2023 11:00 AM EST Office Visit Family Practice [facility] [place] [address] [facility] [place] [address] Elana Mcgarry PA-C [address] [facility] [place] [address] Scheduled Orders Name Type Priority Associated Diagnoses [...] this encounter Medical Devices Implanted Type Area Php Wordpress Developer Device Identifier Shelf Expiration Date Model / Serial / Lot Stnt Pt Dbl [id number] - [id number] Implanted:Qty: 1 on 06/22/2023 by Celeste Scott MD at OR [facility] [employer] : ENDOSCOPY [id number] 01/17/2025 [id number] / / [id number] documented as of this encounter Visit Diagnoses Diagnosis Acute biliary pancreatitis with uninfected necrosis- Primary documented in this encounter Care Teams Twisting Department End Finder Relationship Specialty Start Date End Date Marlenynovember NURY Gu [address] [place] [address] [facility] [place] [address] PCP - General Physician Wool Sacker 05/20/22 documented as of this encounter
--- OUTSIDE RECORDS SUMMARY | 2023-08-08 22:27 | External Medical Summary ---
Author Name Unknown Address Unknown Organization [id number]:LABORATORY [facility] [place] - [address] [place] [address] Laboratory Report Ordering Provider Test Date Status SAUD HUANG 07/25/2023 06:32:00 Final Observation Date Value Abnormality Reference (Units ) Status WBC, Total 07/25/2023 06:32:00 6.56 4.00-10.80 (K/uL) Final RBC 07/25/2023 06:32:00 3.44 3.85-5.15 (M/uL) Final Hemoglobin 07/25/2023 06:32:00 10.1 Below low normal 12.0-15.3 (g/dL) Final HCT 07/25/2023 06:32:00 32.1 Below low normal 36.0-45.2 (%) Final MCV 07/25/2023 06:32:00 93.3 81.5-97.5 (fL) Final MCH 07/25/2023 06:32:00 29.4 27.0-34.0 (pg) Final MCHC 07/25/2023 06:32:00 31.5 32.0-36.0 (g/dL) Final RDW 07/25/2023 06:32:00 14.2 11.5-15.5 (%) Final Platelets 07/25/2023 06:32:00 240 140-400 (K/uL) Final MPV 07/25/2023 06:32:00 11.3 6.6-11.1 (fL) Final Nucleated erythrocytes/100 leukocytes [Ratio] in Blood by Automated count 07/25/2023 06:32:00 0 <=0 (/100 WBCs) Final Performing Location LABORATORY C - [address] [place] [address]
--- OUTSIDE RECORDS SUMMARY | 2023-08-08 22:27 | External Medical Summary ---
Author Name Unknown Address Unknown Organization [id number]:LABORATORY [facility] - [address] [place] [address] Laboratory Report Ordering Provider Test Date Status UYEN RODRÍGUEZ 07/23/2023 06:45:00 Final Observation Date Value Abnormality Reference (Units ) Status BUN 07/23/2023 06:45:00 6 6-20 (mg/dL) Final Creatinine 07/23/2023 06:45:00 0.7 0.5-1.0 (mg/dL) Final Glomerular filtration rate/1.73 sq M.predicted [Volume Rate/Area] in Serum, Plasma or Blood by Creatinine-based formula (CKD-EPI) 07/23/2023 06:45:00 >90 >=60 (mL/min) Final eGFR is calculated based on the CKD-EPI 2020 equation SODIUM 07/23/2023 06:45:00 143 135-146 (m mol/L) Final Potassium 07/23/2023 06:45:00 4.0 3.5-5.1 (m mol/L) Final Cl 07/23/2023 06:45:00 109 Above high normal 98 -107 (mmol/L) Final CO2 07/23/2023 06:45:00 25 22-32 (mmo l/L) Final Anion gap 07/23/2023 06:45:00 9 7-15 (mmol /L) Final Glucose 07/23/2023 06:45:00 101 70-120 (mg /dL) Final Calcium 07/23/2023 06:45:00 9.2 8.4-10.2 ( mg/dL) Final Performing Location LABORATORY [facility] - [address] [place] [address]
--- OUTSIDE RECORDS SUMMARY | 2023-08-08 22:27 | External Medical Summary | Summary of Care ---
Author Name Unknown Organization [facility] Address [address] [place] [address] Phone [phone] Care Team Providers Care Ben Day Artist Name Role Phone Elana Mcgarry PA-C Primary Care Provider [phone] Encounter Details Date Type Department Care Team (Latest Contact Info) Description 07/21/2023 8:15 PM EST - 07/21/2023 11:59 PM EST Hospital Encounter Radiology Film File [address] [place] [address] Arrived Discharge Disposition: Home - Self Care Allergies Active Allergy Reactions Criticality Noted Date Comments Nickel 05/19/2022 Rash, reddened documented as of this encounter (statuses as of 07/23/2023) Medications Medication Sig Dispensed Refills Start Date [...] 30 Capsule 0 05/30/2023 Suspended Additional Information Cefdinir 300 MG Oral Capsule (Omnicef) take 1 capsule (300 mg) orally twice a day for 5 days 10 Capsule 0 05/30/2023 Suspended Additional Information Loperamide HCl 2 MG Oral Capsule (Imodium) take 1 capsule (2 mg) orally every 8 hours As Needed for dairrhea 20 Capsule 0 05/30/2023 Suspended Additional Information Pantoprazole Sodium 40 MG Oral Tablet Delayed Release (Protonix) take 1 tablet (40 mg) orally daily in the morning 30 Tablet 0 05/30/2023 Suspended Additional Information Vitamin B1 100 MG Oral Tablet take 1 tablet by mouth daily in the morning 30 Tablet 0 05/30/2023 Suspended Additional Information documented as of this encounter (statuses as of 07/23/2023) Active Problems Problem Noted Date Diagnosed Date Gallstone pancreatitis 06/05/2023 Acute cholecystitis due to biliary calculus 05/09 H/O partial thyroidectomy 03/27/2023 Esophagitis determined by endoscopy 09/26/2022 HTN, goal below 140/90 09/23/2021 Hypercholesteremia 09/23/2021 Hyperlipidemia 09/23/2021 Vitamin D deficiency 06/28/2019 Osteopenia 06/28/2019 Hyperparathyroidism 09/26/2013 documented as of this encounter (statuses as of 07/23/2023) Immunizations Name Administration Dates Next Due COVID-19 mRNA, LNP-s, No Pre serve, 2-Dose Series (Publicate) 02/12/2021,01/22/2021 Pneumococcal Conjugate Vacc, 13 Valent (Prevnar) [...] on file documented as of this encounter Plan of Treatment Upcoming Encounters Date Type Department Care Team (Late st Contact Info) Description 08/08/2023 10:00 AM EST Procedure Only Endoscopy, [place] [facility] [address] [place] [address] Celeste Scott MD [address] [place] [address] 09/27/2023 11:00 AM EST Office Visit Family Practice [facility] [address] [facility] [place] [address] Elana Mcgarry PA-C [address] [facility] [place] [address] Health Maintenance Due Date Last Done Comments Fecal Occult Blood Test 1998 Sigmoidoscopy 1998 Hepatitis B (1 of 3 - Risk 3-dose series) 2013 Colonoscopy 08/13/2020 08/13/2010, 08/13/2010 COVID-19 Vaccine ( season) 2023 02/12/2021, 01/22/2021 Influenza Vaccine (FLU shot) (#1) 2023 05/25/2022, 05/10/2020, 06/13/2019 Cologuard 06/07/2023 06/07/2020, 06/01/2020 Colorectal Cancer Screening 06/07/2023 Depression Screening 03/27/2024 03/27/2023 Mammogram 04/19/2024 04/19/2023, 09/08, 11/01/2018 GFR 07/23/2024 07/23/2023, 07/07, 06/05/2023, Additional history exists DTaP,Tdap,and Td Vaccines (2 [...] this encounter Medical Devices Implanted Type Area Form Coverer Device Identifier Shelf Expiration Date Model / Serial / Lot Stnt Pt Dbl [id number] 3219 - [id number] Implanted:Qty: 1 on 06/22/2023 by Celeste Scott MD at OR [facility] [employer] : ENDOSCOPY [id number] 01/17/2025 [id number] / / [id number] documented as of this encounter Procedures Procedure Name Priority Date/Time Associated Diagnosis Comments RADIOLOGY EXAM - GENERAL RAD (IMAGES ONLY,NO REPORT) Routine 07/21/2023 8:15 PM EST documented in this encounter Results * RADIOLOGY EXAM - GENERAL RAD (IMAGES ONLY,NO REPORT) (07/21/2023 8:15 PM EST) 07/21/2023 8:15 PM EST Narrative Scheduling, Silent - 07/23/2023 12:27 AM EST This is an imaging study not interpreted or resulted by a [facility] or [employer] contracted radiologist. Dutch Mercado DO RADIOLOGY (RAD GENER AL) documented in this encounter Advance Directives Latest Code Status on File Code Status Date Activated Date Inactivated Comments Full Code 07/22/2023 11:04 PM This ord er reflects the patients wishes and were consensually agreed upon. Question Answer Comments Discussion of Advance Directives occurred with: Patient Care Teams Ben Day Artist Relationship Specialty Start Date End Date MalgorzataNovember NURY Gu [address] [place] [address] PCP - General Physician Team Supervisor 05/20/22 documented as of this encounter
--- OUTSIDE RECORDS SUMMARY | 2023-08-08 22:27 | External Medical Summary ---
Author Name Unknown Address Unknown Organization K01:[facility]ATORY [facility] - [address] [place] [address] Laboratory Report Ordering Provider Test Date Status ESTEBAN RODRÍGUEZGER 07/22/2023 23:11:00 Final Observation Date Value Abnormality Reference (Units ) Status Magnesium 07/22/2023 23:11:00 2.0 1.5-2.6 (m g/dL) Final Performing Location [facility] - [address] [place] [address]
--- OUTSIDE RECORDS SUMMARY | 2023-08-08 22:27 | External Medical Summary ---
Author Name Unknown Address Unknown Organization K01:[facility] [address] [place] [address] Laboratory Report Ordering Provider Test Date Status UYEN RODRÍGUEZ 07/23/2023 06:45:00 Final Observation Date Value Abnormality Reference (Units ) Status Albumin 07/23/2023 06:45:00 3.2 Below low normal 3.8-5.0 (g/dL) Final AST (Aspartate aminotransferase) 07/23/2023 06:45:00 41 Above high normal 10-35 (U/L) Final Alk Phos 07/23/2023 06:45:00 207 Above high normal 35-130 (U/L) Final ALT (Alanine aminotransferase) 07/23/2023 06:45:00 38 Above high normal 10-35 (U/L) Final Bilirubin, Total 07/23/2023 06:45:00 0.8 <=1.2 (mg/dL) Final Bilirubin, Direct 07/23/2023 06:45:00 0.2 0.0-0.3 (mg/dL) Final Protein 07/23/2023 06:45:00 6.1 6.0-8.3 (g/dL) Final Performing Location [facility] [place] [place] [address] [place] [address]
--- OUTSIDE RECORDS SUMMARY | 2023-08-08 22:27 | External Medical Summary ---
Author Name Unknown Address Unknown Organization K01:LAB[facility]ATORY [facility] - [address] [place] [address] Laboratory Report Ordering Provider Test Date Status ESTEBAN RODRÍGUEZGER 07/22/2023 23:11:00 Final Observation Date Value Abnormality Reference (Units ) Status Phosphate 07/22/2023 23:11:00 2.2 Below low normal 2.5 -4.8 (mg/dL) Final Performing Location LAB[facility] - [address] [place] [address]
--- OUTSIDE RECORDS SUMMARY | 2023-08-08 22:27 | External Medical Summary ---
Author Name Unknown Address Unknown Organization K01:LABORATORY [facility] - [address] [place] [address] Laboratory Report Ordering Provider Test Date Status UYEN RODRÍGUEZ 07/23/2023 06:45:00 Final Observation Date Value Abnormality Reference (Units ) Status Phosphate 07/23/2023 06:45:00 5.8 Above high normal 2. 5-4.8 (mg/dL) Final Performing Location LAB[facility] - [address] [place] [address]
--- OUTSIDE RECORDS SUMMARY | 2023-08-08 22:27 | External Medical Summary | Summary of Care ---
Author Name Unknown Organization [facility] Address [address] [place] [address] Phone [phone] Care Team Providers Care Clinical Psychology Professor Name Role Phone Elnaa Mcgarry PA-C Primary Care Provider [phone] Encounter Details Date Type Department Care Team (Late st Contact Info) Description 07/21/2023 [facility] Only [facility] [address] [place], [place] [id number] Dutch Mercado, DO [address] [place], [place] [id number] Allergies Active Allergy Reactions Criticality Noted Date [...] Additional Information D3 Super Strength 50 MCG (1999) Oral [...] 08/08/2023 10:00 AM EST Procedure Only Endoscopy, [place] [address] [place] [address] Celeste Scott MD [address] [place] [address] 09/27/2023 11:00 AM EST Office Visit Family Practice [facility] [address] [facility] [place] [address] Elana Mcgarry PA-C [address] [facility] [place] [address] Health Maintenance Due Date Last Done Comments Fecal Occult Blood Test 1998 Sigmoidoscopy 1998 Hepatitis B (1 of 3 - Risk 3-dose series) 2013 Colonoscopy 08/13/2020 08/13/2010, 08/13/2010 COVID-19 Vaccine ( season) 2023 02/12/2021, 01/22/2021 Influenza Vaccine (FLU shot) (#1) 2023 05/25/2022, 05/10/2020, 06/13/2019 Cologuard 06/07/2023 06/07/2020, 06/01/2020 Colorectal Cancer Screening 06/07/2023 Depression Screening 03/27/2024 03/27/2023 Mammogram 04/19/2024 04/19/2023, 09/08, 11/01/2018 GFR 07/22/2024 07/22/2023, 05/09, 03/20/2023, Additional history exists DTaP,Tdap,and Td Vaccines (2 [...] this encounter Medical Devices Implanted Type Area Berry Planter Device Identifier Shelf Expiration Date Model / Serial / Lot Stnt Pt Dbl [id number] 3219 - [id number] Implanted:Qty: 1 on 06/22/2023 by Celeste Scott MD at OR [facility] [employer] SCIENTIFIC : ENDOSCOPY [id number] 01/17/2025 [id number] / / [id number] documented as of this encounter Procedures Procedure Name Priority Date/Time Associated Diagnosis Comments RADIOLOGY EXAM - CT (IMAGES ONLY, NO REPORT) Routine 07/21/2023 8:05 PM EST documented in this encounter Results * RADIOLOGY EXAM - CT (IMAGES ONLY, NO REPORT) (07/21/2023 8:05 PM EST) 07/21/2023 8:04 PM EST Narrative Scheduling, Silent - 07/23/2023 12:12 AM EST This is an imaging study not interpreted or resulted by a [facility] or [employer] contracted radiologist. Dutch Mercado DO RAD CT documented in this encounter Advance Directives Latest Code Status on File Code Status Date Activated Date Inactivated Comments Full Code 07/22/2023 11:04 PM This ord er reflects the patients wishes and were consensually agreed upon. Question Answer Comments Discussion of Advance Directives occurred with: Patient Care Teams Clinical Psychology Professor Relationship Specialty Start Date End Date Elana Mcgarry PA-C [address] [place] [address] PCP - General Physician Waste Water Operator 05/20/22 documented as of this encounter
--- OUTSIDE RECORDS SUMMARY | 2023-08-08 22:27 | External Medical Summary ---
Author Name Unknown Address Unknown Organization : Laboratory Report Ordering Provider Test Date Status JEANNINE HUANGCruzito 07/23/2023 01:05:55 Final Observation Date Value Abnormality Reference (Units ) Status Glucose Point of Care 07/23/2023 01:05:55 94 70-120 (mg/dL) Final Performing Location
--- OUTSIDE RECORDS SUMMARY | 2023-08-08 22:27 | External Medical Summary ---
Author Name Unknown Address Unknown Organization : Laboratory Report Ordering Provider Test Date Status REINAJEANNINECruzito 07/24/2023 00:05:24 Final Observation Date Value Abnormality Reference (Units ) Status Glucose Point of Care 07/24/2023 00:05:24 105 70-120 (mg/dL) Final Performing Location
--- OUTSIDE RECORDS SUMMARY | 2023-08-08 22:27 | External Medical Summary ---
Author Name Unknown Address Unknown Organization : Laboratory Report Ordering Provider Test Date Status JEANNINE HUANGCruzito 07/23/2023 07:32:51 Final Observation Date Value Abnormality Reference (Units ) Status Glucose Point of Care 07/23/2023 07:32:51 92 70-120 (mg/dL) Final Performing Location
--- OUTSIDE RECORDS SUMMARY | 2023-08-08 22:27 | External Medical Summary | Summary of Care ---
Author Name Unknown Organization [facility] Address [address] [place] [address] Phone [phone] Care Team Providers Care Firer Glost Kiln Name Role Phone Elana Mcgarry PA-C Primary Care Provider [phone] Encounter Details Date Type Department Care Team (Latest Contact Info) Description 07/21/2023 8:05 PM EST - 07/21/2023 8:09 PM EST Hospital Encounter Radiology Film File [address] [place] [address] Arrived Discharge Disposition: Home - [...] mRNA, LNP-s, No Pre serve, 2-Dose Series (GoHome) 02/12/2021,01/22/2021 Pneumococcal Conjugate Vacc, 13 Valent (Prevnar) [...] 08/08/2023 10:00 AM EST Procedure Only Endoscopy, [place] [address] [place] [address] Celeste Scott MD [address] [place] [address] 09/27/2023 11:00 AM EST Office Visit Family Practice [facility] [address] [facility] [place] [address] Elana Mcgarry PA-C [address] [facility] [place] [address] Health Maintenance Due Date Last Done Comments [...] Scan 11/01/2025 11/01/2018 Albumin/Creatinine Ratio 03/20/2026 03/20/2023, 0802/2022 Lipid Panel 03/20/2028 03/20/2023, 09/27/2021 Zoster Vaccines Completed 01/31/2019, 07/19/2018 Pneumococcal Vaccine: 65+ Years Completed 03/27/2023, 05/04/2020 GARDASIL-HPV IMMUNIZATION SERIES Aged Out No longer eligible based on patient's age to complete this topic MENINGOCOCCAL (MENACTRA/MENVEO) Aged Out No longer eligible based on patient's age to complete this topic documented as of this encounter Medical Devices Implanted Type Area Welder Fabricator Device Identifier Shelf Expiration Date Model / Serial / Lot Stnt Pt Dbl [id number] 3219 - [id number] Implanted:Qty: 1 on 06/22/2023 by Celeste Scott MD at OR [facility] [employer] SCIENTIFIC : ENDOSCOPY [id number] 01/17/2025 [id number] / / [id number] documented as of this encounter Procedures Procedure [...] interpreted or resulted by a [facility] or [facility] contracted radiologist. Dutch Mercado DO RAD CT documented in this encounter Advance Directives Latest Code Status on File Code Status Date Activated Date Inactivated Comments Full Code 07/22/2023 11:04 PM This ord er reflects the patients wishes and were consensually agreed upon. Question Answer Comments Discussion of Advance Directives occurred with: Patient Care Teams Firer Glost Kiln Relationship Specialty Start Date End Date MalgorzataNovember NURY Gu [address] [place] [address] PCP - General Physician Engineering Mathematician 05/20/22 documented as of this encounter
--- OUTSIDE RECORDS SUMMARY | 2023-08-08 22:27 | External Medical Summary ---
Author Name Unknown Address Unknown Organization : Laboratory Report Ordering Provider Test Date Status REINARAMÓNVICTOR MANUELCruzito 07/24/2023 19:34:20 Final Observation Date Value Abnormality Reference (Units ) Status Glucose Point of Care 07/24/2023 19:34:20 118 70-120 (mg/dL) Final Performing Location
--- OUTSIDE RECORDS SUMMARY | 2023-08-08 22:27 | External Medical Summary ---
Author Name Unknown Address Unknown Organization : Laboratory Report Ordering Provider Test Date Status REINARAMÓNVICTOR MANUELCruzito 07/23/2023 16:39:29 Final Observation Date Value Abnormality Reference (Units ) Status Glucose Point of Care 07/23/2023 16:39:29 89 70-120 (mg/dL) Final Performing Location
--- OUTSIDE RECORDS SUMMARY | 2023-08-08 22:27 | External Medical Summary ---
Author Name Unknown Address Unknown Organization K01:[facility]ATORY [facility] - [address] [place] [address] Laboratory Report Ordering Provider Test Date Status ESTEBAN RODRÍGUEZGER 07/23/2023 06:45:00 Final Observation Date Value Abnormality Reference (Units ) Status Magnesium 07/23/2023 06:45:00 2.1 1.5-2.6 (m g/dL) Final Performing Location [facility] - [address] [place] [address]
--- OUTSIDE RECORDS SUMMARY | 2023-08-08 22:27 | External Medical Summary ---
Author Name Unknown Address Unknown Organization K01:LABORATORY [facility] [place] - [address] [facility] [address] Laboratory Report Ordering Provider Test Date Status TIO FRANCE 07/23/2023 11:27:00 Final Observation Date Value Abnormality Reference (Units ) Status SYNC LEUKOCYTES IN BLOOD BY AUTOMATED COUNT 07/23/2023 11:27:00 6.10 4.00-10.80 (K/uL) Final Segs 07/23/2023 11:27:00 65.0 40.0-75.0 (%) Final Lymphs % 07/23/2023 11:27:00 21.5 18.0-42.0 (%) Final Monos 07/23/2023 11:27:00 10.2 1.0-11.0 (%) Final Eosinophils 07/23/2023 11:27:00 2.6 0.0-6.0 (%) Final Basos 07/23/2023 11:27:00 0.5 0.0-2.0 (%) Final Immature Granulocyte, Percent 07/23/2023 11:27:00 0.2 0.0-2.0 (%) Final Absolute Segs 07/23/2023 11:27:00 3.97 1.80-7.70 (K/uL) Final Lymphs, absolute 07/23/2023 11:27:00 1.31 1.00-4.80 (K/ul) Final Monos, Abs 07/23/2023 11:27:00 0.62 0.00-1.10 (K/uL) Final Eos, Abs 07/23/2023 11:27:00 0.16 0.00-0.70 (K/uL) Final Basos, Abs 07/23/2023 11:27:00 0.03 0.00-0.20 (K/uL) Final Immature Granulocytes, Number 07/23/2023 11:27:00 0.01 0.00-0.20 (K/uL) Final Performing Location LABORATORY [facility] [place] - [address] [facility] [address]
--- OUTSIDE RECORDS SUMMARY | 2023-08-08 22:27 | External Medical Summary ---
Author Name Unknown Address Unknown Organization K01:[facility] [place] [address] [place] [address] Laboratory Report Ordering Provider Test Date Status SAUD HUANG 07/25/2023 06:33:00 Final Observation Date Value Abnormality Reference (Units ) Status BUN 07/25/2023 06:33:00 9 6-20 (mg/dL) Final Creatinine 07/25/2023 06:33:00 0.8 0.5-1.0 (mg/dL) Final Glomerular filtration rate/1.73 sq M.predicted [Volume Rate/Area] in Serum, Plasma or Blood by Creatinine-based formula (CKD-EPI) 07/25/2023 06:33:00 80 >=60 (mL/min) Final eGFR is calculated based on the CKD-EPI 2020 equation SODIUM 07/25/2023 06:33:00 143 135-146 (m mol/L) Final Potassium 07/25/2023 06:33:00 4.2 3.5-5.1 (m mol/L) Final Cl 07/25/2023 06:33:00 109 Above high normal 98 -107 (mmol/L) Final CO2 07/25/2023 06:33:00 26 22-32 (mmo l/L) Final Anion gap 07/25/2023 06:33:00 8 7-15 (mmol /L) Final Glucose 07/25/2023 06:33:00 106 70-120 (mg /dL) Final Calcium 07/25/2023 06:33:00 9.1 8.4-10.2 ( mg/dL) Final Performing Location [facility] [place] [address] [place] [address]
--- OUTSIDE RECORDS SUMMARY | 2023-08-08 22:27 | External Medical Summary ---
Author Name Unknown Address Unknown Organization : Laboratory Report Ordering Provider Test Date Status REINAJEANNINECruzito 07/24/2023 04:49:15 Final Observation Date Value Abnormality Reference (Units ) Status Glucose Point of Care 07/24/2023 04:49:15 114 70-120 (mg/dL) Final Performing Location
--- OUTSIDE RECORDS SUMMARY | 2023-08-08 22:27 | External Medical Summary ---
Author Name Unknown Address Unknown Organization : Laboratory Report Ordering Provider Test Date Status REINAJEANNINECruzito 07/23/2023 12:14:06 Final Observation Date Value Abnormality Reference (Units ) Status Glucose Point of Care 07/23/2023 12:14:06 98 70-120 (mg/dL) Final Performing Location
--- OUTSIDE RECORDS SUMMARY | 2023-08-08 22:27 | External Medical Summary | Summary of Care ---
Author Name Unknown Organization [facility] Address [address] [place] [address] Phone [phone] Care Team Providers Care Locomotive Observer Name Role Phone Elana Mcgarry PA-C Primary Care Provider [phone] Encounter Details Date Type Department Care Team (Latest Contact Info) Description 07/21/2023 8:10 PM EST - 07/21/2023 8:14 PM EST Hospital Encounter Radiology Film File [address] [place] [address] Arrived Discharge Disposition: Home - [...] mRNA, LNP-s, No Pre serve, 2-Dose Series ([employer]) 02/12/2021,01/22/2021 Pneumococcal Conjugate Vacc, 13 Valent (Prevnar) [...] 08/08/2023 10:00 AM EST Procedure Only Endoscopy, [place] [facility] [address] [place] [address] Celeste Scott MD [address] [place] [address] 09/27/2023 11:00 AM EST Office Visit Family Practice [facility] [address] [facility] [place] [address] Elana Mcgarry PA-C [address] [facility] [place] [address] Health Maintenance Due Date Last Done Comments [...] this encounter Medical Devices Implanted Type Area Railroad Crane Operator Device Identifier Shelf Expiration Date Model / Serial / Lot Stnt Pt Dbl [id number] 3219 - [id number] Implanted:Qty: 1 on 06/22/2023 by Celeste Scott MD at OR [facility] [employer] SCIENTIFIC : ENDOSCOPY [id number] 01/17/2025 [id number] / / [id number] documented as of this encounter Procedures Procedure Name Priority Date/Time Associated Diagnosis Comments RADIOLOGY EXAM - CT (IMAGES ONLY, NO REPORT) Routine 07/21/2023 8:10 PM EST documented in this encounter Results * RADIOLOGY EXAM - CT (IMAGES ONLY, NO REPORT) (07/21/2023 8:10 PM EST) 07/21/2023 8:04 PM EST Narrative Scheduling, Silent - 07/23/2023 12:19 AM EST This is an imaging study not interpreted or resulted by a [facility] or [facility] contracted radiologist. Dutch Mercado DO RAD CT documented in this encounter Advance Directives Latest Code Status on File Code Status Date Activated Date Inactivated Comments Full Code 07/22/2023 11:04 PM This ord er reflects the patients wishes and were consensually agreed upon. Question Answer Comments Discussion of Advance Directives occurred with: Patient Care Teams Locomotive Observer Relationship Specialty Start Date End Date MalgorzataNovember NURY Gu [address] [place] [address] PCP - General Physician Deblocker 05/20/22 documented as of this encounter
--- OUTSIDE RECORDS SUMMARY | 2023-08-08 22:27 | External Medical Summary ---
Author Name Unknown Address Unknown Organization : Laboratory Report Ordering Provider Test Date Status REINASAUD 07/25/2023 06:07:30 Final Observation Date Value Abnormality Reference (Units ) Status Glucose Point of Care 07/25/2023 06:07:30 112 70-120 (mg/dL) Final Performing Location
--- OUTSIDE RECORDS SUMMARY | 2023-08-08 22:27 | External Medical Summary | Summary of Care ---
Author Name Unknown Organization [facility] Address [address] [place] [address] Phone [phone] Care Team Providers Care Inspector Precision Name Role Phone Elana Mcgarry PA-C Primary Care Provider [phone] Encounter Details Date Type Department Care Team (Late st Contact Info) Description 07/21/2023 Orders Only [facility] [address] [place], [place] [phone] Dutch Mercado, DO [address] [place], [place] [phone] Allergies Active Allergy Reactions Criticality Noted Date [...] 08/08/2023 10:00 AM EST Procedure Only Endoscopy, [place] [address] [address] Celeste Scott MD [address] [place] [address] 09/27/2023 11:00 AM EST Office Visit Family Practice [facility] [address] [facility] [place] [address] Elana Mcgarry PA-C [address] [facility] [place] [address] Health Maintenance Due Date Last Done Comments [...] this encounter Medical Devices Implanted Type Area Electronic Die Maker Device Identifier Shelf Expiration Date Model / Serial / Lot Stnt Pt Dbl [id number] 3219 - [id number] Implanted:Qty: 1 on 06/22/2023 by Celeste Scott MD at OR [facility] [employer] SCIENTIFIC : ENDOSCOPY [id number] 01/17/2025 [id number] / / [id number] documented as of this encounter Procedures Procedure [...] study not interpreted or resulted by a [facility] or [employer] contracted radiologist. Dutch Mercado DO RAD CT documented in this encounter Advance Directives Latest Code Status on File Code Status Date Activated Date Inactivated Comments Full Code 07/22/2023 11:04 PM This ord er reflects the patients wishes and were consensually agreed upon. Question Answer Comments Discussion of Advance Directives occurred with: Patient Care Teams Inspector Precision Relationship Specialty Start Date End Date Elana Mcgarry PA-C [address] [place] [address] PCP - General Physician Head Of Mathematics 05/20/22 documented as of this encounter
--- OUTSIDE RECORDS SUMMARY | 2023-08-08 22:27 | External Medical Summary ---
Author Name Unknown Address Unknown Organization : Laboratory Report Ordering Provider Test Date Status JEANNINE HUANGCruzito 07/25/2023 00:09:01 Final Observation Date Value Abnormality Reference (Units ) Status Glucose Point of Care 07/25/2023 00:09:01 181 Above high normal 70-120 (mg/dL) Final Performing Location
--- OUTSIDE RECORDS SUMMARY | 2023-08-08 22:27 | External Medical Summary ---
Author Name Unknown Address Unknown Organization [id number]:[place] [place] [address] [place] [address] Laboratory Report Ordering Provider Test Date Status SAUD HUANG 07/24/2023 06:32:00 Final Observation Date Value Abnormality Reference (Units ) Status BUN 07/24/2023 06:32:00 7 6-20 (mg/dL) Final Creatinine 07/24/2023 06:32:00 0.7 0.5-1.0 (mg/dL) Final Glomerular filtration rate/1.73 sq M.predicted [Volume Rate/Area] in Serum, Plasma or Blood by Creatinine-based formula (CKD-EPI) 07/24/2023 06:32:00 87 >=60 (mL/min) Final eGFR is calculated based on the CKD-EPI 2020 equation SODIUM 07/24/2023 06:32:00 141 135-146 (m mol/L) Final Potassium 07/24/2023 06:32:00 3.9 3.5-5.1 (m mol/L) Final Cl 07/24/2023 06:32:00 110 Above high normal 98 -107 (mmol/L) Final CO2 07/24/2023 06:32:00 25 22-32 (mmo l/L) Final Anion gap 07/24/2023 06:32:00 6 Below low normal 7-1 5 (mmol/L) Final Glucose 07/24/2023 06:32:00 120 70-120 (mg /dL) Final Calcium 07/24/2023 06:32:00 9.1 8.4-10.2 ( mg/dL) Final Performing Location [facility] [place] [address] [place] [address]
--- OUTSIDE RECORDS SUMMARY | 2023-08-08 22:27 | External Medical Summary ---
Author Name Unknown Address Unknown Organization : Laboratory Report Ordering Provider Test Date Status SAUD HUANG 07/23/2023 05:01:15 Final Observation Date Value Abnormality Reference (Units ) Status Glucose Point of Care 07/23/2023 05:01:15 101 70-120 (mg/dL) Final Performing Location
--- OUTSIDE RECORDS SUMMARY | 2023-08-08 22:27 | External Medical Summary | Summary of Care ---
Author Name Unknown Organization [facility] Address [address] [place] [address] Phone [phone] Care Team Providers Care Revenue Enforcement Collection Agent Name Role Phone Elana Mcgarry PA-C Primary Care Provider Encounter Details Date Type Department Care Team (Late st Contact Info) Description 07/21/2023 [facility] Only [facility] [address] [place], [place] [phone] Dutch Mercado, DO [address] [place], [place] [phone] Allergies Active Allergy Reactions Criticality Noted Date [...] 08/08/2023 10:00 AM EST Procedure Only Endoscopy, [place] [address] [place] [address] Celeste Scott MD [address] [place] [address] 09/27/2023 11:00 AM EST Office Visit Family Practice [facility] [place] [address] Elana Mcgarry PA-C [facility] [place] [address] Health Maintenance Due Date Last Done Comments [...] encounter Medical Devices Implanted Type Area Rn X Ray Device Identifier Shelf Expiration Date Model / Serial / Lot Stnt Pt Dbl [id number] 3219 - [id number] Implanted:Qty: 1 on 06/22/2023 by Celeste Scott MD at OR [facility] [employer] SCIENTIFIC : ENDOSCOPY [id number] 01/17/2025 [id number] / / [id number] documented as of this encounter Procedures Procedure [...] interpreted or resulted by a [facility] or [facility] contracted radiologist. Dutch Mercado DO RADIOLOGY (RAD GENER AL) documented in this encounter Advance Directives Latest Code Status on File Code Status Date Activated Date Inactivated Comments Full Code 07/22/2023 11:04 PM This ord er reflects the patients wishes and were consensually agreed upon. Question Answer Comments Discussion of Advance Directives occurred with: Patient Care Teams Revenue Enforcement Collection Agent Relationship Specialty Start Date End Date Elana Mcgarry PA-C [address] [facility] [place] [address] PCP - General Physician Provider Relations Coordinator 05/20/22 documented as of this encounter
--- OUTSIDE RECORDS SUMMARY | 2023-08-08 22:27 | External Medical Summary ---
Author Name Unknown Address Unknown Organization [id number]:LABORATORY [facility] [place] [address] [place] [address] Laboratory Report Ordering Provider Test Date Status UYEN RODRÍGUEZ 07/22/2023 23:11:00 Final Observation Date Value Abnormality Reference (Units ) Status BUN 07/22/2023 23:11:00 6 6-20 (mg/dL) Final Creatinine 07/22/2023 23:11:00 0.7 0.5-1.0 (mg/dL) Final Glomerular filtration rate/1.73 sq M.predicted [Volume Rate/Area] in Serum, Plasma or Blood by Creatinine-based formula (CKD-EPI) 07/22/2023 23:11:00 >90 >=60 (mL/min) Final eGFR is calculated based on the CKD-EPI 2020 equation SODIUM 07/22/2023 23:11:00 141 135-146 (m mol/L) Final Potassium 07/22/2023 23:11:00 4.2 3.5-5.1 (m mol/L) Final Cl 07/22/2023 23:11:00 108 Above high normal 98 -107 (mmol/L) Final CO2 07/22/2023 23:11:00 24 22-32 (mmo l/L) Final Anion gap 07/22/2023 23:11:00 9 7-15 (mmol /L) Final Glucose 07/22/2023 23:11:00 99 70-120 (mg /dL) Final Calcium 07/22/2023 23:11:00 9.6 8.4-10.2 ( mg/dL) Final Performing Location LABORATORY [facility] [place] - [address] [place] [address]
--- OUTSIDE RECORDS SUMMARY | 2023-08-08 22:27 | External Medical Summary ---
Author Name Unknown Address Unknown Organization [id number]:LABORATORY [facility] [place] - [address] [place] [address] Laboratory Report Ordering Provider Test Date Status SAUD HUANG 07/24/2023 06:32:00 Final Observation Date Value Abnormality Reference (Units ) Status Iron 07/24/2023 06:32:00 40 33-151 (ug/dL) Final Iron-binding capacity 07/24/2023 06:32:00 123 Below low normal 250-425 (ug/dL) Final Transferrin Sat % 07/24/2023 06:32:00 33 15-55 (%) Final Performing Location LABORATORY [facility] [place] - [address] [place] [address]
--- OUTSIDE RECORDS SUMMARY | 2023-08-08 22:27 | External Medical Summary ---
Author Name Unknown Address Unknown Organization K01:[place] [facility] [place] [address] [place] [address] Laboratory Report Ordering Provider Test Date Status SAUD HUANG 07/24/2023 06:32:00 Final Observation Date Value Abnormality Reference (Units ) Status WBC, Total 07/24/2023 06:32:00 5.37 4.00-10.80 (K/uL) Final RBC 07/24/2023 06:32:00 3.52 3.85-5.15 (M/uL) Final Hemoglobin 07/24/2023 06:32:00 10.2 Below low normal 12.0-15.3 (g/dL) Final HCT 07/24/2023 06:32:00 33.0 Below low normal 36.0-45.2 (%) Final MCV 07/24/2023 06:32:00 93.8 81.5-97.5 (fL) Final MCH 07/24/2023 06:32:00 29.0 27.0-34.0 (pg) Final MCHC 07/24/2023 06:32:00 30.9 32.0-36.0 (g/dL) Final RDW 07/24/2023 06:32:00 14.1 11.5-15.5 (%) Final Platelets 07/24/2023 06:32:00 215 140-400 (K/uL) Final MPV 07/24/2023 06:32:00 11.3 6.6-11.1 (fL) Final Nucleated erythrocytes/100 leukocytes [Ratio] in Blood by Automated count 07/24/2023 06:32:00 0 <=0 (/100 WBCs) Final Performing Location LABORATORY C - [address] [place] [address]
--- OUTSIDE RECORDS SUMMARY | 2023-08-08 22:27 | External Medical Summary ---
Author Name Unknown Address Unknown Organization K01:LABORATORY [facility] [place] [address] [place] [address] Laboratory Report Ordering Provider Test Date Status SAUD HUANG 07/24/2023 06:32:00 Final Observation Date Value Abnormality Reference (Units ) Status TSH 07/24/2023 06:32:00 2.87 0.27-4.20 (uIU/mL) Final Performing Location LABORATORY C - [address] [place] [address]
--- OUTSIDE RECORDS SUMMARY | 2023-08-08 22:27 | External Medical Summary ---
Author Name Unknown Address Unknown Organization K01:LABORATORY [facility] [place] - [address] [place] [address] Laboratory Report Ordering Provider Test Date Status TIO FRANCE 07/23/2023 11:27:00 Final Observation Date Value Abnormality Reference (Units ) Status WBC, Total 07/23/2023 11:27:00 6.10 4.00-10.80 (K/uL) Final RBC 07/23/2023 11:27:00 3.49 3.85-5.15 (M/uL) Final Hemoglobin 07/23/2023 11:27:00 10.2 Below low normal 12.0-15.3 (g/dL) Final HCT 07/23/2023 11:27:00 32.6 Below low normal 36.0-45.2 (%) Final MCV 07/23/2023 11:27:00 93.4 81.5-97.5 (fL) Final MCH 07/23/2023 11:27:00 29.2 27.0-34.0 (pg) Final MCHC 07/23/2023 11:27:00 31.3 32.0-36.0 (g/dL) Final RDW 07/23/2023 11:27:00 14.0 11.5-15.5 (%) Final Platelets 07/23/2023 11:27:00 197 140-400 (K/uL) Final MPV 07/23/2023 11:27:00 10.9 6.6-11.1 (fL) Final Nucleated erythrocytes/100 leukocytes [Ratio] in Blood by Automated count 07/23/2023 11:27:00 0 <=0 (/100 WBCs) Final Performing Location LABORATORY [facility] [place] - [address] [place] [address]
--- OUTSIDE RECORDS SUMMARY | 2023-08-08 22:27 | External Medical Summary ---
Author Name Unknown Address Unknown Organization : Laboratory Report Ordering Provider Test Date Status JEANNINE HUANGCruzito 07/24/2023 12:46:13 Final Observation Date Value Abnormality Reference (Units ) Status Glucose Point of Care 07/24/2023 12:46:13 82 70-120 (mg/dL) Final Performing Location
--- OUTSIDE RECORDS SUMMARY | 2023-08-08 22:27 | External Medical Summary ---
Author Name Unknown Address Unknown Organization K01:LABORATORY [facility] [place] [address] [place] [address] Laboratory Report Ordering Provider Test Date Status SAUD HUANG 07/24/2023 06:32:00 Final Observation Date Value Abnormality Reference (Units ) Status Ferritin 07/24/2023 06:32:00 837 Above high normal 13 -150 (ng/mL) Final Postmenopausal women have hi gher ferritin levels than pre-menopausal women. The above reference interval is based on pre-menopausal women. Performing Location LABORATORY [facility] [place] - [address] [place] [address]
[2023-08-09] MEDS: metroNIDAZOLE 500 MG/100 ML BAG IV SCH ×2 (02:59→10:23)
[2023-08-09] MEDS ORDERED: CIPROFLOXACIN / D5W 400 MG/200 ML BAG IV SCH (06:00)
[2023-08-09 06:10] LABS: Hematocrit (blood only) 31.3 % (37.0-47.0); Hemoglobin 10.4 g/dl (12.0-16.0); Mean Corpuscular Hemoglobin 29.6 pg (25.0-34.0); Mean Corpuscular Hgb Conc 33.2 g/dL (32.0-36.0); Mean Corpuscular Volume 89.2 fL (80.0-100.0); Mean Platelet Volume 11.8 fL (9.4-12.4); Platelet Count 185 K/uL (130-400); RDW Coefficient of Variation 15.5 % (11.5-14.5); RDW Standard Deviation 50.6 fL (36.4-46.3); Red Blood Count 3.51 M/uL (4.20-5.40); White Blood Count 8.51 K/ul (4.8-10.8)
[2023-08-09 06:32] LABS: BUN Creatinine Ratio 17.5 (10-20); Calcium 8.6 mg/dl (8.6-10.3); Creatinine Clr Calc Pharmacy 79.6 ml/min; Est GFR (African American) 108.9 ml/min; Est GFR (Non-African American) 93.9 ml/min; Potassium 3.8 mmol/L (3.5-5.1)
[2023-08-09] MEDS: SODIUM CHLORIDE 0.9% 1,000 ML IV SCH (07:17)
[2023-08-09] MEDS: CIPROFLOXACIN / D5W 400 MG/200 ML BAG IV SCH (08:18)
[2023-08-09] MEDS: ACETAMINOPHEN 325 MG TAB PO PRN (08:21)
--- NOTE | 2023-08-09 08:32 | Gastroenterology Progress Note ---
Date of Service August 09, 2023 Assessment & Plan (1) S/P endoscopy: Plan: 68 year old female with history of HTN, hyperlipidemia, history of gallstone pancreatitis, history of pancreatic pseudocyst/necrotizing pancreatitis, hyperparathyroidism as per records, T2DM admitted for observation post EGD w/ necrosectomy and cystogastrostomy closure today. She notes some lower abd pain this AM, will plan for CT ABD/Pelvis with IV and PO prior to diet initiation NPO CT ABD/Pelvis w/ IV and PO intake Continue IV Cipro and Flagyl Pending clinical course and review of CT consider discharge 08/09/23 Thank you for allowing us to participate in the care of this patient. Please call with any acute changes, questions or concerns. Please see addendum below with additional recommendation from my supervising physician. Admission and Anticipated Discharge Date Admission Date: August 08, 2023 Supervising Physician Co-Signing Physician Notes I performed a history and physical examination of the patient today, including specifically on physical exam - soft abdomen. I have discussed the patient's management with the advanced practitioner. Please refer to the nurse practitioner's note for the documented findings and plan of care. No events or abdominal pain over night. No nausea or vomiting. Labs within normal for her baseline. Recommend: Continue ABx. IV PPI. Clear liquid diet. CT abdomen today with PO contrast to assure stability prior to advancing to regular diet. Subjective Pt was seen and evaluated, chart reviewed. Developed lower abd pain this AM. Took some tylenol. No nausea, vomiting. Labs stable. No fever, chills, CP, SOB. Review of Systems Review of Systems: All systems reviewed & are unremarkable except as noted in HPI & below Physical Exam Constitutional: WD/WN, vitals as above Respiratory: normal respiratory effort, lungs clear to auscultation Cardiovascular: Rate/Rhythm: regular rate and regular rhythm Gastrointestinal (Abdomen): Inspection/Auscultation: normal bowel sounds Percussion/Palpation: + abdomen tender (+ lower abd pain) and abdomen soft Skin: no rashes, warm and dry Results & Data Vital Signs (Past 12 Hours) Vital Signs Temp Pulse Pulse Resp BP Pulse Ox O2 Del Method 08/09/23 07:56 37.2 C 67 14 126/72 95 Room Air 08/09/23 07:18 Room Air 08/09/23 03:00 37.4 C 70 16 125/69 96 Room Air 08/09/23 00:33 37.1 C 63 20 105/69 95 Room Air 08/08/23 22:17 64
--- NOTE | 2023-08-09 08:32 | Hospitalist Progress Note ---
Date of Service August 09, 2023 Assessment & Plan (1) S/P endoscopy: (2) Infected pancreatic pseudocyst: (3) Gallstone pancreatitis: Plan: Pt w/history of gallstone pancreatitis, history of pancreatic pseudocyst/necrotizing pancreatitis, post EGD yesterday w/ necrosectomy and cystogastrostomy closure (Dr. Scott) -Previously placed cystogastrostomy plastic stent were removed, pseudocyst necrosis was removed, cyst wall was very friable and seemed at risk of delayed perforation into the retroperitoneum -n.p.o. on admission -IV Cipro Flagyl -received IVF - GI following closely - CT abdomen/pelvis obtained today and reviewed - per GI - I reviewed the CT scan images and discussed with radiologist, small amount of pneumoperitoneum expected after the procedure however there is no contrast extravasation or fluid collection which indicates no ongoing perfroation. Continue clear liquids for today then advance to full liquids tomorrow then soft diet the day after. PO PPI. PO ABx for 7 days. Can be discharged home today. (4) DM II (diabetes mellitus, type II), controlled: Plan: -Holding p.o. metformin, use ISS with Accu-Cheks ACHS (5) HLD (hyperlipidemia): Plan: -Continue atorvastatin 40 mg every morning (6) Hypertension: Plan: -Hold lisinopril hydrochlorothiazide p.o. at this time, resume when BP stabilizes (7) Hyperparathyroidism: Plan: -History of such, chronic, stable Admission and Anticipated Discharge Date Admission Date: August 08, 2023 Subjective Pt w/history of gallstone pancreatitis, history of pancreatic pseudocyst/necrotizing pancreatitis, post EGD yesterday w/ necrosectomy and cystogastrostomy closure Currently laying in bed in NAD Says she has been walking around and going to the bathroom. Abdomen feels little bloated. No fever, chills, chest pain, or shortness of breath. Had CT abd/pel done today and reviewed by GI. Discussed w/ GI - ok to dc today on abx and ppi, slowly advance diet. Review of Systems Review of Systems: All systems reviewed & are unremarkable except as noted in Subjective Physical Exam Physical Exam: General: WD/WN F in NAD Head: Normocephalic, atraumatic ENT: PERRL, EOMI, mucous membranes moist Chest: Clear to auscultation, on room air, no adventitious breath sounds Cardiac: Regular rate and rhythm, no murmur Abdominal: Diminished BS x 4 quadrants, soft, nondistended, + minimally tender to palpation in epigastric region, no rebound or guarding Extremities: Normal inspection, no peripheral edema or erythema Psych: Normal mood and affect Neuro: AAO x 3, answers appropriately, speech is clear, no facial asymmetry, moves extremities Results & Data Results & Data Vital Signs (Past 12 Hours) Vital Signs Temp Pulse Pulse Resp BP Pulse Ox O2 Del Method 08/09/23 07:56 37.2 C 67 14 126/72 95 Room Air 08/09/23 07:18 Room Air 08/09/23 03:00 37.4 C 70 16 125/69 96 Room Air 08/09/23 00:33 37.1 C 63 20 105/69 95 Room Air 08/08/23 22:17 64 Laboratory Results 08/09/23 08/09/23 08/08/23 Range/Units 08:08 05:51 18:05 WBC 8.51 9.12 (4.8-10.8) K/ul RBC 3.51 L 3.53 L (4.20-5.40) M/uL Hgb 10.4 L 10.4 L (12.0-16.0) g/dl Hct 31.3 L 32.0 L (37.0-47.0) % MCV 89.2 90.7 (80.0-100.0) fL MCH 29.6 29.5 (25.0-34.0) pg MCHC 33.2 32.5 (32.0-36.0) g/dL RDW Std Deviation 50.6 H 50.5 H (36.4-46.3) fL RDW Coeff of Jazmin 15.5 H 15.3 H (11.5-14.5) % Plt Count 185 199 (130-400) K/uL MPV 11.8 11.4 (9.4-12.4) fL Sodium 138 141 (136-145) mmol/L Potassium 3.8 3.6 (3.5-5.1) mmol/L Chloride 108 H 110 H (98-107) mmol/L Carbon Dioxide 24 25 (21-32) mmol/L Anion Gap 6 6 (3-11) BUN 10 11 (6-23) mg/dl Creatinine 0.57 L 0.58 L (0.6-1.2) mg/dl Est Cr Clr Drug Dosing 79.6 78.2 ml/min Est GFR ( Amer) 108.9 108.2 ml/min Est GFR (Non-Af Amer) 93.9 93.4 ml/min BUN/Creatinine Ratio 17.5 19.0 (10-20) Glucose 109 H 94 (70-99(Fasting)) mg/dl POC Glucose 110 H (70-99) mg/dl Calcium 8.6 8.7 (8.6-10.3) mg/dl 08/08/23 08/08/23 08/08/23 Range/Units 17:14 13:12 08:51 WBC (4.8-10.8) K/ul RBC (4.20-5.40) M/uL Hgb (12.0-16.0) g/dl Hct (37.0-47.0) % MCV (80.0-100.0) fL MCH (25.0-34.0) pg MCHC (32.0-36.0) g/dL RDW Std Deviation (36.4-46.3) fL RDW Coeff of Jazmin (11.5-14.5) % Plt Count (130-400) K/uL MPV (9.4-12.4) fL Sodium (136-145) mmol/L Potassium (3.5-5.1) mmol/L Chloride (98-107) mmol/L Carbon Dioxide (21-32) mmol/L Anion Gap (3-11) BUN (6-23) mg/dl Creatinine (0.6-1.2) mg/dl Est Cr Clr Drug Dosing ml/min Est GFR ( Amer) ml/min Est GFR (Non-Af Amer) ml/min BUN/Creatinine Ratio (10-20) Glucose (70-99(Fasting)) mg/dl POC Glucose 102 H 92 143 H (70-99) mg/dl Calcium (8.6-10.3) mg/dl Medications Administered Current Inpatient Medications Acetaminophen (Acetaminophen 325 Mg Tab) 650 mg PO Q4H PRN PRN Reason: Moderate Pain (Scale 4, 5, 6) Stop: 09/07/23 09:58 Last Admin: 08/09/23 08:21 Dose: 650 mg Dextrose (Dextrose 50% 50 Ml Syringe) 25 - 50 ml IV UD PRN; Protocol PRN Reason: Hypoglycemia Protocol Stop: 09/07/23 10:03 Glucagon (Glucagon For Inj 1 Mg Vial) 1 mg SQ UD PRN; Protocol PRN Reason: Hypoglycemia Protocol Stop: 09/07/23 10:03 Glucose (Glucose 10 Tab/Tube) 4 - 8 tab PO UD PRN; Protocol PRN Reason: Hypoglycemia Treatment Stop: 09/07/23 10:03 Glucose (Glucose 40% Gel 15 Gm Tube) 15 - 30 gm PO UD PRN; Protocol PRN Reason: Hypoglycemia Protocol Stop: 09/07/23 10:03 Ciprofloxacin (Cipro / D5w) 400 mg in 200 mls @ 100 mls/hr IV Q12H ISAC; Protocol Stop: 08/18/23 20:59 Last Admin: 08/09/23 08:18 Dose: 100 mls/hr Metronidazole (Flagyl) 500 mg in 100 mls @ 100 mls/hr IV Q8H ISAC; Protocol Stop: 08/18/23 10:59 Last Infusion: 08/09/23 04:54 Dose: Infused Sodium Chloride (Nss) 1,000 mls @ 80 mls/hr IV .[id number] ISAC Stop: 09/07/23 17:59 Last Admin: 08/09/23 07:17 Dose: 80 mls/hr Miscellaneous (Carbohydrates For Hypoglycemia ) 15 - 30 gm PO UD PRN PRN Reason: Hypoglycemia Protocol Stop: 09/07/23 10:03 Ondansetron HCl (Ondansetron Inj 2 Mg/Ml 2 Ml Vial) 4 mg IV Q4H PRN PRN Reason: Nausea And Vomiting Stop: 09/07/23 09:58
[2023-08-09] MEDS ORDERED: PANTOprazole 40 MG in SYRINGE 0 ML IV SCH (09:30)
[2023-08-09] MEDS ORDERED: OPTIRAY 320 500ml IV ONE (10:48)
--- NOTE | 2023-08-09 12:12 | Communication Note ---
Date of Service: August 09, [address] scan images and discussed with radiologist, small amount of pneumoperitoneum expected after the procedure however there is no contrast extravasation or fluid collection which indicates no ongoing perfroation. Continue clear liquids for today then advance to full liquids tomorrow then soft diet the day after. PO PPI. PO ABx for 7 days. Can be discharged home today.
--- NOTE | 2023-08-09 13:33 | Discharge Summary ---
Date of Service August 09, 2023 Admission HPI Per Admitting Provider This is a 68 yo F with PMHx of HTN, hyperlipidemia, history of gallstone pancreatitis, history of pancreatic pseudocyst/necrotizing pancreatitis, hyperparathyroidism, DM II, who presented to endoscopy suite today for an EUS for necrosectomy and cystogastrostomy, previous axial stent which had been placed for gallstone pancreatitis was removed today by Dr. Scott. After seeing that the the area was very friable he requested that the patient be admitted for observation overnight. The patient was borderline hypotensive in the PACU with BP of 97/49, heart rate 71, respiratory rate was normal. She feels well at this time, no acute complaints. Denies lightheadedness, dizziness, abdominal pain, nausea, or bowel complaints. Pt took her morning meds last yesterday. She lives at home alone, her son is here today waiting for her. Admission Exam Per Admitting Provider General: awake, alert, no apparent distress, awake female, appears younger than stated age Head: Normocephalic, atraumatic ENT: PERRL, EOMI, no pharyngeal exudate, mucous membranes moist Chest: Clear to auscultation, on room air, no adventitious breath sounds Cardiac: Regular rate and rhythm, no murmur, no JVD, normal peripheral pulses, good capillary refill Abdominal: Diminished BS x 4 quadrants, soft, nondistended, + minimally tender to palpation in epigastric region, no rebound or guarding Extremities: Normal inspection, no peripheral edema or erythema, calfs nontender to palpation Psych: Normal mood and affect Neuro: AAO x 3, strength intact bilaterally and rated 5/5, no motor deficits, speech is clear, no peripheral sensory deficits Principal Diagnosis Pt w/history of gallstone pancreatitis, history of pancreatic pseudocyst/necrotizing pancreatitis, post EGD yesterday w/ necrosectomy and cystogastrostomy closure Discharge Exam General: WD/WN F in NAD Head: Normocephalic, atraumatic ENT: PERRL, EOMI, mucous membranes moist Chest: Clear to auscultation, on room air, no adventitious breath sounds Cardiac: Regular rate and rhythm, no murmur Abdominal: Diminished BS x 4 quadrants, soft, nondistended, + minimally tender to palpation in epigastric region, no rebound or guarding Extremities: Normal inspection, no peripheral edema or erythema Psych: Normal mood and affect Neuro: AAO x 3, answers appropriately, speech is clear, no facial asymmetry, moves extremities Discharge Data Allergies Allergy/AdvReac Type Severity Reaction Status Date / Time nickel Allergy Rash Verified 08/08/23 06:13 No Known Drug Allergies Allergy Verified 08/08/23 06:13 Consultations 08/08/23 10:02 Consult Gastroenterology Routine Procedures Performed Operation Date: 08/08/23 07:30 Actual Procedures p Esophagogastroduodenoscopy with sent removal - Celeste Scott MD Ordered Studies 08/09/23 08:29 CT abd pelvis oral and IV con Routine Hospital Course (1) S/P endoscopy: (2) Infected pancreatic pseudocyst: (3) Gallstone pancreatitis: Pt w/history of gallstone pancreatitis, history of pancreatic pseudocyst/necrotizing pancreatitis, post EGD yesterday w/ necrosectomy and cystogastrostomy closure (Dr. Scott) -Previously placed cystogastrostomy plastic stent were removed, pseudocyst necrosis was removed, cyst wall was very friable and seemed at risk of delayed perforation into the retroperitoneum -n.p.o. on admission -IV Cipro Flagyl -received IVF - GI consulted and following closely - CT abdomen/pelvis obtained today and reviewed - per GI - I reviewed the CT scan images and discussed with radiologist, small amount of pneumoperitoneum expected after the procedure however there is no contrast extravasation or fluid collection which indicates no ongoing perfroation. Continue clear liquids for today then advance to full liquids tomorrow then soft diet the day after. PO PPI. PO ABx for 7 days. Can be discharged home today. outpt follow ups arranged. (4) DM II (diabetes mellitus, type II), controlled: -Holding p.o. metformin, use ISS with Accu-Cheks ACHS (5) HLD (hyperlipidemia): -Continue atorvastatin 40 mg every morning (6) Hypertension: -Hold lisinopril hydrochlorothiazide p.o. at this time, resume when BP stabilizes (7) Hyperparathyroidism: -History of such, chronic, stable Total Time Total Time Spent Total Time Spent (In Minutes): 40 Discharge Plan Discharge Items Patient Disposition: Home - Self-Care Reason For Visit: S/P NECROSECTOMY, GALLSTONE PANCREATITIS Discharge Diagnosis: Pt w/history of gallstone pancreatitis, history of pancreatic pseudocyst/necrotizing pancreatitis, post EGD yesterday w/ necrosectomy and cystogastrostomy closure Activity: Per Instructions section Non-emergency contact: Primary Care Provider and [employer] Supervisor Call non-emergency contact if: you have any medication questions and your symptoms worsen Follow-up/Referrals: [email or web address] [Primary Care Provider] - (Date & Time 08/14/2023 11:40 AM Provider Elana Mcgarry PA-C Department [facility] ) Diet: Other - See Diet Comment Diet Comment: liquid diet for now, advance slowly as tolerated Addtl Attending Provider Instructions: Follow up with your primary care doctor and with gastroenterology. The appointment with your primary care doctor was scheduled for you for 2022. Finish antibiotic treatment with ciprofloxacin and metronidazole as prescribed. Take pantoprazole twice a day as prescribed. For now, continue clear liquid diet, then full liquid diet tomorrow, on Monday you can have soft diet. Over the weekend you can likely have regular diet. Advance your diet slowly as tolerated. Avoid heavy, fatty, or fried meals. Recommend to hold lisinopril - HCTZ for next 2-3 days. If you can, check your blood pressure at home. Pending Studies at Discharge: No Stand-Alone Forms: My [facility] [employer], Smoking Cessation Medications and DC Order Prescriptions: New ciprofloxacin HCl 500 mg tablet 500 mg PO BID 7 Days Qty: 14 0RF metronidazole 500 mg tablet 500 mg PO TID 7 Days Qty: 21 0RF pantoprazole 40 mg tablet,delayed release (DR/EC) 40 mg PO BID Qty: 60 0RF Continued atorvastatin 40 mg tablet 40 mg PO QAM metformin 500 mg tablet 250 mg PO QAM cholecalciferol (vitamin D3) [Vitamin D3] 50 mcg (2,000 unit) Capsule 50 mcg PO Q7D potassium 1 tab PO BID acetaminophen 500 mg Tablet 500 mg PO Q6H PRN (Reason: Pain) Held lisinopril-hydrochlorothiazide 20-12.5 mg tablet 1 tab PO QAM Hold Instructions: Resume on 08/12/23. Discharge Orders: Discharge Order (Routine); Ordered 08/09/23 Ordered By: Hunter Mary Admission Data Admit Date/Time: 08/08/23 09:59 Attending Provider: Hunter Mary Admit Provider: Quita Méndez Primary Care Provider: Elana Mcgarry Other Providers: Celeste Scott
--- NOTE | 2023-08-09 14:02 | CT Scan Report ---
ABDOMEN AND PELVIS CT WITH IV AND ORAL CONTRAST CT DOSE: 937.24 mGy.cm HISTORY: Acute generalized abdominal pain in a patient with pancreatitis and numerous fluid collectio ns. abd pain, follow up panc necrosis TECHNIQUE: Multiaxial CT images of the abdomen and pelvis were performed following the IV administrat ion of 84 cc of Optiray and oral contrast. A dose lowering technique was utilized adhering to the pr inciples of THERESE. COMPARISON STUDY: 07/21/2023, 05/23/2023. FINDINGS: Trace pleural effusions with mild bibasilar atelectasis. Cardiomegaly. Moderate pneumoperit oneum. Unremarkable spleen, adrenal glands and liver. Patency of the hepatic and portal veins. Cholel ithiasis. No biliary ductal dilation. Moderately atrophic pancreas with persistent interstitial and peripancreatic edema, however, there is predominantly homogeneous enhancement of the pancreas. There are numerous thick-walled peripherally enhancing fluid collections within the lesser sac. The multiloculated fluid collection adjacent to th e stomach has decreased in size from prior with interval removal of the previously noted drainage cat heter. The fluid collection on image 112 now measures 4.7 x 2.7 cm, previously measured at approximat fredy 6.5 x 5.5 cm on the prior study. There is an adjacent star-shaped surgical closure device noted a long the posterior wall of the lesser curvature of the stomach within the area of the recent gastric perforation. No residual tract or extravasation of oral contrast identified. Additional thick-walled peripherally enhancing fluid collection on image 124 measures 4.4 x 3.8 cm, previously 5.6 x 5.8 cm. Small amount of ascites within the lesser sac and paracolic gutters tracking into the dependent pelvi s again noted. No hydronephrosis. There are a few scattered bilateral renal cysts again noted. Unremarkable urinary bladder. Anteflexed uterus. Unchanged cystic right adnexal foci. Atherosclerosis of the aorta without aneurysm. No lymphadenopathy. Moderate gastric wall thickening. Additional thickening of the proxima l jejunum which is likely reactive. 4.1 cm fluid collection adjacent to the proximal jejunum is new f rom prior and does not demonstrate a significantly thickened wall. No bowel obstruction. Mild generalized body wall edema. No acute fracture. IMPRESSION: 1. Acute pancreatitis redemonstrated with decreased size of the thick-walled peripancreatic/lesser sa c fluid collections suggestive of multifocal areas of walled off pancreatic necrosis. 2. Interval removal of the gastric drainage catheter with a surgical occlusion device involving the p osterior wall of the lesser curvature. There is moderate pneumoperitoneum, however, no extravasation of enteric contrast identified considering recent gastric wall perforation. 3. There is a new thin-walled 4 cm fluid collection adjacent to the proximal jejunum with reactive ad jacent jejunal wall thickening. 4. No bowel obstruction. 5. Cholelithiasis. 6. Trace pleural effusions. ACT 112: Negative or not required by law. The above report was generated using voice recognition software. It may contain grammatical, syntax o r spelling errors. Dictated: 08/09/2023 12:55 PM Transcribed: 08/09/2023 1:19 PM Jovon [id number] [id number] Electronically signed by: Adelso Melendez M.D. 08/09/2023 2:01 PM
== END 2023-08-09 14:17 | disposition home or self-care (01) ==
LOC: ASU 05:44 → SUATTDRO 09:59 → 2W 09:59 → INTOOBSV 09:59